=== PATIENT | female | born 1945 | race Caucasian/White ===

== ENCOUNTER → 2017-06-29 18:31 | Outpatient (REF) | payer MEDICARE, SELFPAY | LOC: LAB 18:31 | PROVIDERS: Visit Provider Podiatrist | DX: L60.8 Other nail disorders (principal); L60.0 Ingrowing nail; L60.2 Onychogryphosis | CPT/HCPCS: 87220 ==

== ENCOUNTER → 2018-11-11 11:45 | Outpatient (CLI) | payer MEDICARE, SELFPAY | PROVIDERS: PCP Nurse Practitioner Family; Visit Provider Nurse Practitioner Family | DX: R42 Dizziness and giddiness (principal); R53.83 Other fatigue; I49.9 Cardiac arrhythmia, unspecified | CPT/HCPCS: 93225; 93226 ==

== ENCOUNTER → 2018-11-25 12:55 | Outpatient (CLI) | payer MEDICARE, SELFPAY ==
[2018-11-25 13:36] LABS: Basophils % 0.3 % (0.1-2.0); Eosinophils # 0.1 K/mm3 (0.0-0.4); Eosinophils % 1.2 % (0.1-12.0); Hematocrit 31.2 % (37.0-47.0); Hemoglobin 9.3 g/dL (12.2-16.2); Lymphocytes # 1.7 K/mm3 (0.7-4.5); Lymphocytes % 24.7 % (10-50); Mean Corpuscular HGB Conc 29.8 g/dL (31.8-35.4); Mean Corpuscular Hemoglobin 26.2 pg (27.0-31.2); Mean Corpuscular Volume 87.9 fl (81-99); Mean Platelet Volume 7.8 fl (7.4-10.4); Monocytes # 0.5 K/mm3 (0.1-1.0); Monocytes % 6.7 % (1.7-9.3); Neutrophils # 4.6 K/mm3 (1.8-7.8); Neutrophils % 67.1 % (37.0-80.0); Platelet Count 300 K/mm3 (142-424); Red Blood Count 3.55 M/mm3 (4.20-5.40); Red Cell Distribution Width 14.7 % (11.5-17.5); White Blood Count 6.8 K/mm3 (4.8-10.8)
[2018-11-25 15:44] LABS: Alanine Aminotransferase 25 U/L (12-78); Albumin Level 3.1 gm/dL (3.4-5.0); Alkaline Phosphatase 45 U/L (46-116); Anion Gap 10.9 mEq/L (5-15); Aspartate Amino Transferase 22 U/L (15-37); Bilirubin,Total 0.4 mg/dL (0.2-1.0); Blood Urea Nitrogen 14 mg/dL (7-18); Calcium 8.7 mg/dL (8.5-10.1); Carbon Dioxide 29 mmol/L (21.0-32.0); Chloride 103 mmol/L (98-107); Creatinine,Serum 0.72 mg/dL (0.55-1.02); Estimated Glomerular Filt Rate 79 ml/min (>60); GFR (African American) 96 ML/MIN (>60); Globulin 3.1 gm/dl (1.3-3.2); Glucose 88 mg/dL (74-106); Potassium 3.9 mmoL/L (3.5-5.1); Sodium 139 mmol/L (136-145); Total Protein,Serum 6.2 gm/dL (6.4-8.2)
== END ==
PROVIDERS: Visit Provider Internal Medicine Adolescent Medicine
DX: Z86.2 Personal history of diseases of the blood and blood-forming organs and certain disorders involving the immune mechanism (principal); R53.83 Other fatigue; R53.81 Other malaise
CPT/HCPCS: 36415; 80053; 83735; 85025

== ENCOUNTER → 2018-12-08 09:58 | Outpatient (CLI) | payer MEDICARE, SELFPAY ==
[2018-12-08 10:27] LABS: Basophils % 0.4 % (0.1-2.0); Eosinophils % 0.4 % (0.1-12.0); Hematocrit 29.4 % (37.0-47.0); Hemoglobin 8.7 g/dL (12.2-16.2); Lymphocytes # 1.3 K/mm3 (0.7-4.5); Lymphocytes % 17.5 % (10-50); Mean Corpuscular HGB Conc 29.7 g/dL (31.8-35.4); Mean Corpuscular Hemoglobin 25.2 pg (27.0-31.2); Mean Corpuscular Volume 84.8 fl (81-99); Monocytes # 0.4 K/mm3 (0.1-1.0); Monocytes % 5.6 % (1.7-9.3); Neutrophils # 5.5 K/mm3 (1.8-7.8); Platelet Count 390 K/mm3 (142-424); Red Blood Count 3.47 M/mm3 (4.20-5.40); Red Cell Distribution Width 14.3 % (11.5-17.5); White Blood Count 7.2 K/mm3 (4.8-10.8)
[2018-12-08 10:59] LABS: Anion Gap 9.8 mEq/L (5-15); Blood Urea Nitrogen 15 mg/dL (7-18); Calcium 8.7 mg/dL (8.5-10.1); Carbon Dioxide 29 mmol/L (21.0-32.0); Chloride 104 mmol/L (98-107); Creatinine,Serum 0.78 mg/dL (0.55-1.02); Estimated Glomerular Filt Rate 72 ml/min (>60); GFR (African American) 87 ML/MIN (>60); Glucose 93 mg/dL (74-106); Potassium 3.8 mmoL/L (3.5-5.1); Sodium 139 mmol/L (136-145)
== END ==
PROVIDERS: Visit Provider Internal Medicine Adolescent Medicine
DX: D64.9 Anemia, unspecified (principal)
CPT/HCPCS: 36415; 80048; 85025

== ENCOUNTER 2018-12-09 12:47 | Outpatient (CLI) | payer MEDICARE, SELFPAY ==
[2018-12-09 13:05] VITALS: BP 150/82; PULSE 92; RESP 18; O2SAT 98
[2018-12-09 13:46] VITALS: BP 156/73; PULSE 93; RESP 18; O2SAT 99
== END 2018-12-09 13:46 | disposition home or self-care (01) ==
LOC: INF 12:47
PROVIDERS: Visit Provider Internal Medicine Adolescent Medicine
DX: D50.0 Iron deficiency anemia secondary to blood loss (chronic) (principal); T45.4X5A Adverse effect of iron and its compounds, initial encounter
CPT/HCPCS: 96365; J1439

== ENCOUNTER 2018-12-16 13:47 | Outpatient (CLI) | payer MEDICARE, SELFPAY ==
[2018-12-16 14:14] VITALS: BP 114/81; PULSE 85; RESP 18; O2SAT 96
[2018-12-16 15:05] VITALS: BP 130/82; PULSE 83; RESP 18; O2SAT 98
== END 2018-12-16 15:05 | disposition home or self-care (01) ==
LOC: INF 13:47
PROVIDERS: Visit Provider Internal Medicine Adolescent Medicine
DX: D50.0 Iron deficiency anemia secondary to blood loss (chronic) (principal)
CPT/HCPCS: 96365; J1439

== ENCOUNTER 2018-12-17 07:55 | Observation (INO) ==
--- NOTE | 2018-12-17 08:15 | Emergency Department Note ---
ED Disposition Clinical Impression: Precordial chest pain CVA (cerebral vascular accident) Qualifiers: CVA mechanism: unspecified Qualified Code(s): I63.9 - Cerebral infarction, unspecified Disposition: Admitted as Observation Condition on Discharge: [facility] - Critical Care Critical Care Time: No Attestation: On 12/17/18, the high probability of a clinically significant, sudden or life threatening deterioration of the following system(s) required my full and direct attention, intervention and personal management. The time I documented below is in addition to time spent performing reported procedures but includes the following listed in this critical care notation. Medical Decision Making - Mitch Inquiry Pt receiving controlled substance: No Vital Signs: 12/17/18 08:04 12/17/18 08:58 12/17/18 09:45 Temperature 97.9 F Temperature Source Oral Pulse Rate [Left Radial] 84 81 80 Respiratory Rate 18 18 Blood Pressure [Right Arm] 127/63 120/63 146/83 H Blood Pressure Mean [Right Arm] 84 82 104 Blood Pressure Source [Right Arm] Automatic Cuff Automatic Cuff Automatic Cuff Blood Pressure Position [Right Arm] Sitting Sitting Sitting 02 Sat by Pulse Oximetry 98 98 Oxygen Delivery Method Room Air Room Air 12/17/18 10:19 Temperature Temperature Source Pulse Rate [Left Radial] 80 Respiratory Rate 18 Blood Pressure [Right Arm] 143/64 H Blood Pressure Mean [Right Arm] 90 Blood Pressure Source [Right Arm] Automatic Cuff Blood Pressure Position [Right Arm] Sitting 02 Sat by Pulse Oximetry 96 Oxygen Delivery Method Room Air - Lab Data Lab Results 12/17/18 08:05: WBC 6.1, RBC 3.29 L, Hgb 9.1 L, Hct 29.7 L, MCV 90.3, MCH 27.8, MCHC 30.7 L, RDW 22.1 H, Plt Count 207, MPV 7.9, Neut % (Auto) 76.8, Lymph % (Auto) 18.6, [place] % (Auto) 3.3, Eos % (Auto) 1.0, Baso % (Auto) 0.3, Neut # (Auto) 4.7, Lymph # (Auto) 1.1, [place] # (Auto) 0.2, Eos # (Auto) 0.1, Baso # (Auto) 0.0 12/17/18 08:05: Sodium 141, Potassium 4.0, Chloride 105, Carbon Dioxide 28, Anion Gap 12.0, BUN 12, Creatinine 0.76, Estimated Creat Clear 63, Estimated GFR 74, Est GFR ( Amer) 90, Glucose 196 H, Calcium 8.5, Troponin I < 0.02 Result diagrams: 12/17/18 08:05 12/17/18 08:05 Orders (Tests/Meds): ED MEDICATIONS Generic Name Dose Route Start Last Admin Trade Name Freq PRN Reason Stop Dose Admin Acetaminophen 650 mg 12/17/18 10:29 Acetaminophen 325mg Tab PO 01/16/19 10:28 Q4HP PRN As Needed for Fever or Pain Atorvastatin Calcium 20 mg 12/18/18 09:00 Lipitor 20mg Tablet PO 01/17/19 08:59 DAILY TOSHIA Cyclobenzaprine HCl 10 mg 12/17/18 10:29 Flexeril 10mg Tablet PO 01/16/19 10:28 TID PRN Muscle Spasm Enoxaparin Sodium 80 mg 12/17/18 10:29 Lovenox 80mg/0.8ml Syringe SQ 01/16/19 10:28 Q12H TOSHIA Sodium Chloride 1,000 mls @ 50 mls/hr 12/17/18 10:29 Sod Chlor 0.9% 1000ml Bag IV 01/16/19 10:28 .Q20H TOSHIA Ondansetron HCl 4 mg 12/17/18 10:29 Zofran 4mg/2ml Vial IV 01/16/19 10:28 Q8HP PRN Nausea Sodium Chloride 10 ml 12/17/18 10:29 Saline Flush 10ml Syringe IV 01/16/19 10:28 NEEDED PRN Maintain IV Site - Radiology Data #1 Image(s): Chest Image Reviewed: Yes I have reviewed radiologist's interpretation Chronic changes with hiatal hernia. No acute findings. - CT Data CT Scan: Head Time Received: 09:[address] Reviewed: Yes: I have viewed the radiologist's interpretation Findings Narrative: IMPRESSION: New area of decreased attenuation in the right occipital lobe consistent with an area of subacute infarction which has developed since the previous exam. Consider MRI without and with contrast for confirmation. No evidence of intracranial hemorrhage Dictated By: David Wilder MD 12/17/18 0918 - ECG Data Tracing #1 EKG interpreted by Yrn Fox MD: Rhythm: sinus Rate: 82 [place]: normal Ectopy: none Conduction: normal ST Segment Changes: none T Wave Changes: none Q Waves: none No evidence of acute ischemia or injury - Physician Consults Physician Consulted: Nathalie Time: 08:32 Reason -: Admission Comment/Response: Agrees to admit the patient to the hospital. We discussed the patient's clinical information, including history, exam, laboratory and radiology results and ED course. Per hospital procedure, I will write temporary bridge inpatient orders on the patient. Specific orders requested by the admitting physician: Serial cardiac enzymes, CT scan of the brain with contrast if creatinine is okay. Additional Consult: Nathalie Time: 10:10 Reason -: Pt condition Comment/Response: Updated regarding CT results, subacute stroke. Discussed antiplatelet agents. He requests the patient be started instead on Lovenox 1 mg/kg every 12 hours. He will coordinate further work-up. General Adult HPI - General Chief complaint: Weakness Stated complaint: dizzy sweats Time Seen by Provider: 12/17/18 08:15 Mode of Arrival: Ambulatory Limitations: No Limitations Description of Symptoms (Recalled from ER Triage Doc. by RN): to ed per pvt car with c/o generalized weakness x 2 weeks seen by pcp and ordered "iron infusions" 2nd infusion was wednesday and has had "blurred vision" since. pt states today had an episode of chest tightness, diaphoresis and sob lasting approx 15mins. - History of Present Illness HPI narrative: Complains of an episode of chest pain, diaphoresis, shortness of breath, nausea, lightheadedness it started about an hour prior to arrival. Lasted 15 minutes. Says that sweat was just pouring off of her. Daughter says that patient called her during the episode and sounded terrible. Chest pain is now gone. She has had episodes of lightheadedness before, but never with chest pain like this. Does not have any known heart disease. She says she had a stress test years ago. Has never had a heart cath to her knowledge. Seen by me in this emergency department on December 06 for episodes of lightheadedness lasting a couple of hours that have been going on for couple of months. She was anemic, started on iron infusion since then. She has had 2 infusions. Last infusion was yesterday. Daughter is also concerned because after her infusions started Wednesday she has been pale or gomez around her eyes and mouth and when the daughter's grandmother had this, she had had a stroke. Patient also complains of blurry vision since her first infusion on Wednesday. She is having trouble reading due to the blurry vision. It has not gone away since onset. She has not noticed any blind spots or any specific field defect. She does not have headache, numbness or weakness of the arms or legs, or difficulty speaking. - Related Data Home Medications Medication Instructions Recorded Confirmed alendronate 70 mg tablet 70 mg PO QWEEK 06/29/17 12/17/18 atorvastatin 20 mg tablet 20 mg PO ONCE 06/29/17 12/17/18 calcium carbonate 600 mg calcium 600 mg PO ONCE tab 06/29/17 12/17/18 (1,500 mg) tablet ferrous sulfate 325 mg (65 mg 325 mg PO DAILY 06/29/17 12/17/18 iron) tablet omeprazole 20 mg tablet,delayed 20 mg PO BID 06/29/17 12/17/18 release vitamin B complex tablet 1 tab PO ONCE 06/29/17 12/17/18 Meloxicam [Mobic] 15 mg PO DAILY 12/17/18 12/17/18 Previous Rx's Medication Instructions Recorded Cyclobenzaprine HCl [Flexeril 10mg 10 mg PO TID PRN 10 Days #30 tab 10/30/17 tablet] diclofenac 1 % topical gel 4 g TOPICAL QID #30 g 11/18/17 Polyethylene Glycol 3350 [Miralax 17 gm PO DAILYP PRN #1 container 11/26/18 Powder] Sod Phos,M-B/Na Phos,Di-Ba [Fleet 1 container RC DAILYP PRN #2 enema 11/26/18 Enema] Allergies Allergy/AdvReac Type Severity Reaction Status Date / Time No Known Allergies Allergy Verified 12/31/17 12:28 [facility] History - Hepatitis A Screen Drug use history?: No High risk sexual behaviors?: No History of sexually transmitted infection?: No Currently employed?: No Childcare worker?: No Do you have indoor plumbing?: Yes Do you have electricity?: Yes Attestation statement:: This patient has been screened for Hepatitis A risk factors. I have reviewed the patient's past medical history: Yes Medical History: Reports:: Gastroesophageal Reflux Disease(GERD), Hyperlipidemia, Hypertension, Osteoporosis Denies:: Cancer, Cerebrovascular Accident, Diabetes Mellitus Type 1, Diabetes Mellitus Type 2, MRSA, Myocardial Infarction Other Medical History: Reports: Osteoporosis Laterality Cases: Left: Other Amputation: No Fractures: Yes - Social History Smoking Status: Former smoker Tobacco Type: cigarettes #Yrs smoked (if former smoker): 50 Alcohol Intake: never Alcohol Intake Frequency:: other Substance Use Type: denies use Occupational Status: employed Family Hx:: Cancer, Diabetes ROS Obtained: Yes All systems reviewed & no additional complaints - Constitutional Constitutional: Denies fever(s) - Eyes Eyes: Reports blurry vision - Cardiovascular Cardiovascular: Reports chest pain, Reports diaphoresis - Respiratory Respiratory: Yes dyspnea - Gastrointestinal Gastrointestingal: Reports: nausea. Denies: abdominal pain, vomiting Physical Exam - General General appearance: alert, in no apparent distress - Head Head exam: atraumatic, normocephalic - Eye Eye exam: Present: normal appearance, EOMI - ENT ENT exam: Present: mucous membranes moist - Neck Neck exam: Present: normal inspection, trachea midline - Chest Chest inspection: Present: normal inspection, symmetric chest wall rise - Respiratory Respiratory exam: Present: normal lung sounds bilaterally. Absent: respiratory distress - Cardiovascular Cardiovascular exam: Present: regular rate, normal rhythm, normal heart sounds - Abdominal Exam Abdominal exam: Present: soft, normal bowel sounds. Absent: distention, tenderness - Extremities Exam Extremities exam: Present: normal inspection. Absent: pedal edema - Neurological Exam Neurological exam: Present: alert, oriented X3, motor sensory deficit - Expanded Neurological Exam Comment: Left homonymous hemianopsia - Psychiatric Psychiatric exam: Present: normal affect, normal mood - Skin Skin exam: Present: warm, dry Stroke Alert/NIH Score - LOC Stroke Alert: No Level of Consciousness: Alert LOC Questions: Answers both correctly LOC Commands: Obeys both correctly - Facial/Visual Best Gaze: Normal Visual: Complete hemianopia Facial Palsy: Normal - Motor Motor Response, Left Arm: No drift/Amputation/Fused Motor Response, Right Arm: No drift/Amputation/Fused Motor Response, Left Leg: No drift/Amputation/Fused Motor Response, Right Leg: No drift/Amputation/Fused - Sensory/Language Limb Ataxia: Absent Sensory: Normal Best Language: No aphasia Dysarthria: Normal speech, Intubated or Barrier present - NIH Score Stroke Risk Score: 2
[2018-12-17 08:20] LABS: Basophils % 0.3 % (0.1-2.0); Eosinophils # 0.1 K/mm3 (0.0-0.4); Hematocrit 29.7 % (37.0-47.0); Hemoglobin 9.1 g/dL (12.2-16.2); Lymphocytes # 1.1 K/mm3 (0.7-4.5); Lymphocytes % 18.6 % (10-50); Mean Corpuscular HGB Conc 30.7 g/dL (31.8-35.4); Mean Corpuscular Volume 90.3 fl (81-99); Mean Platelet Volume 7.9 fl (7.4-10.4); Monocytes # 0.2 K/mm3 (0.1-1.0); Monocytes % 3.3 % (1.7-9.3); Neutrophils # 4.7 K/mm3 (1.8-7.8); Neutrophils % 76.8 % (37.0-80.0); Platelet Count 207 K/mm3 (142-424); Red Blood Count 3.29 M/mm3 (4.20-5.40); Red Cell Distribution Width 22.1 % (11.5-17.5); White Blood Count 6.1 K/mm3 (4.8-10.8)
[2018-12-17 08:31] LABS: Blood Urea Nitrogen 12 mg/dL (7-18); Calcium 8.5 mg/dL (8.5-10.1); Carbon Dioxide 28 mmol/L (21.0-32.0); Chloride 105 mmol/L (98-107); Glucose 196 mg/dL (74-106); Sodium 141 mmol/L (136-145)
[2018-12-17 10:29] LABS: Microscopic, Urine URINE MICROSCOPIC (MICROSCOPIC)
[2018-12-17 10:31] LABS: Appearance,Urine CLEAR (Clear); Bilirubin,Urine Negative (Negative); Blood, Urine Negative (Negative); Color,Urine YELLOW (Yellow); Glucose,Urine (UA) Negative (Negative); Ketones,Urine Negative (Negative); Leukocyte Esterase,Urine Negative (Negative); Protein,Urine Negative (Negative); Specific Gravity, Urine 1.015 (1.005-1.030); Urobilinogen,Urine 0.2 EU/dl (0.2)
[2018-12-17 10:45] LABS: Bacteria,Urine Trace /lpf
--- NOTE | 2018-12-17 12:35 | Pharmacy Consult Notes ---
[facility] Pharmacy VTE Monitoring - Patient Demographics Admission date: 12/17/18 Report Date: 12/17/18 Time: 12:35 Allergies/Adverse Reactions: Patient Allergies No Known Allergies Allergy (Verified 12/31/17 12:28) Height: 1.65 m Weight: 69.882 kg Patient Problems: Current Active Problems Precordial chest pain (Acute) CVA (cerebral vascular accident) (Acute) - VTE Risk Labs: VTE Related Lab Results Hgb 9.1 g/dL (12.2-16.2) L 12/17/18 08:05 Hct 29.7 % (37.0-47.0) L 12/17/18 08:05 Plt Count 207 K/mm3 (142-424) 12/17/18 08:05 BUN 12 mg/dL (7-18) 12/17/18 08:05 Creatinine 0.76 mg/dL (0.55-1.02) 12/17/18 08:05 Estimated Creat Clear 63 mL/min (50-200) 12/17/18 08:05 Was VTE Risk Assessment Performed: Yes VTE Score: 2 VTE Risk Level: Very Low Risk - Prophylaxis VTE Prophylaxis Ordered?: Yes Types of VTE Prophylaxis: Pharmacological Pharmacologic Type: Enoxaparin
--- NOTE | 2018-12-18 08:22 | H&P/Discharge Summary ---
General - General Admission date:: 12/17/18 Discharge date: 12/18/18 *Admission Date: 12/17/18 *Chief complaint: Blurry vision, fatigue, anxiety *History of present illness: 73-year-old white female who is currently in the process of receiving intravenous iron treatments for iron deficiency anemia. Has a history of hypertension and has quit smoking several years ago. Apparently 1 or 2 weeks ago she began to notice blurry vision when she returned home after an intravenous iron treatment of this is progressively gotten worse. Her daughter the morning of admission noticed that her left side of her face was somewhat drooping and brought her to the emergency department. She was found to be hemodynamically stable but had a evidence of a subacute stroke on CT scan and was admitted for further diagnosis and treatment. [facility] History I have reviewed the patient's past medical history: Yes Medical History: Reports:: Gastroesophageal Reflux Disease(GERD), Hyperlipidemia, Hypertension, Osteoporosis Denies:: Cancer, Cerebrovascular Accident, Diabetes Mellitus Type 1, Diabetes Mellitus Type 2, MRSA, Myocardial Infarction *Have you ever received a pneumonia vaccine?: No *Have you received a flu vaccine this season?: Yes Other Medical History: Reports: Osteoporosis Laterality Cases: Left: Other Amputation: No Fractures: Yes - *Social History Smoking Status: Former smoker Tobacco Type: cigarettes #Yrs smoked (if former smoker): 50 Alcohol Intake: never Alcohol Intake Frequency:: other Substance Use Type: denies use *Occupational Status:: employed *Travel in the last 8 weeks: None - Psychiatric History Expresses thoughts of harming self/others: None Suicide Plan Description: No Plan Family Hx:: Cancer, Diabetes Review of Systems - Review of Systems Review of systems:: pertinent systems reviewed and negative unless documented below This morning patient denies any symptoms of chest pain, pulmonary disease. Neurologically she has blurry vision but otherwise no problems, she feels that her facial drooping is essentially resolved. No peripheral extremity weakness or tingling. Denies GI symptoms. Exam Vital signs and Labs for Last 24 Hours: Temp Pulse Resp BP Pulse Ox 98.1 F 87 16 152/76 H 96 12/18/18 04:00 12/18/18 04:00 12/18/18 04:00 12/18/18 04:00 12/18/18 04:00 Laboratory Results - last 24 hr 12/17/18 08:05: WBC 6.1, RBC 3.29 L, Hgb 9.1 L, Hct 29.7 L, MCV 90.3, MCH 27.8, MCHC 30.7 L, RDW 22.1 H, Plt Count 207, MPV 7.9, Neut % (Auto) 76.8, Lymph % (Auto) 18.6, [place] % (Auto) 3.3, Eos % (Auto) 1.0, Baso % (Auto) 0.3, Neut # (Auto) 4.7, Lymph # (Auto) 1.1, [place] # (Auto) 0.2, Eos # (Auto) 0.1, Baso # (Auto) 0.0 12/17/18 08:05: Sodium 141, Potassium 4.0, Chloride 105, Carbon Dioxide 28, Anion Gap 12.0, BUN 12, Creatinine 0.76, Estimated Creat Clear 63, Estimated GFR 74, Est GFR ( Amer) 90, Glucose 196 H, Calcium 8.5, Troponin I < 0.02 12/17/18 10:21: Urine Color Yellow, Urine Appearance Clear, Urine pH 7.0, Ur Specific [place] 1.015, Urine Protein Negative, Urine Glucose (UA) Negative, Urine Ketones Negative, Urine Blood Negative, Urine Nitrate Negative, Urine Bilirubin Negative, Urine Urobilinogen 0.2, Ur Leukocyte Esterase Negative, Urine RBC None, Urine WBC 3-5, Urine Bacteria Trace 12/17/18 14:00: Troponin I 0.03 12/17/18 16:25: Troponin I 0.03 I & O for Last 24 hours: Intake & Output 12/15/18 12/16/18 12/17/18 12/18/18 11:59 11:59 11:59 11:59 Intake Total 941 / 941 Output Total 480 / 480 Balance 461 / 461 Weight 154 lb 1 oz 154 lb 1.015 oz Narrative: Patient is alert, pleasant. Minimal left nasolabial fold asymmetry with slight flattening of the left nasolabial fold. Otherwise cranial nerves are intact although since of smell was not tested. Patient ambulates well. Walks on heels and toes. Balance is acceptable. Finger/nose testing and dyskinesia testing was unremarkable. Peripheral power is unremarkable. Lungs are clear, heart rate regular. Oropharynx clear, abdomen is soft. Hospital Course Hospital Course: Patient was admitted overnight. I reviewed CT scan results consistent with a stroke 1 or 2 weeks ago. Patient's blood pressure is minimally elevated. Otherwise her exam is normal and she is done well through the night. I plan to discharge her home with aspirin, lisinopril, Lexapro and Vistaril for her anxiety issues, we will follow her up tomorrow in the office to check blood pressure and to schedule carotid Dopplers and MRI scanning. Directed her and her daughter that if symptoms recur to return to the hospital and she would need to be considered to transfer to [facility] stroke unit if something acute occurs. Results Labs on day of discharge: Labs from last 24 hours 12/17/18 12/17/18 12/17/18 16:25 14:00 10:21 WBC RBC Hgb Hct MCV MCH MCHC RDW Plt Count MPV Neut % (Auto) Lymph % (Auto) [place] % (Auto) Eos % (Auto) Baso % (Auto) Neut # (Auto) Lymph # (Auto) [place] # (Auto) Eos # (Auto) Baso # (Auto) Sodium Potassium Chloride Carbon Dioxide Anion Gap BUN Creatinine Estimated Creat Clear Estimated GFR Est GFR ( Amer) Glucose Calcium Troponin I 0.03 0.03 Urine Color Yellow Urine Appearance Clear Urine pH 7.0 Ur Specific [place] 1.015 Urine Protein Negative Urine Glucose (UA) Negative Urine Ketones Negative Urine Blood Negative Urine Nitrate Negative Urine Bilirubin Negative Urine Urobilinogen 0.2 Ur Leukocyte Esterase Negative Urine RBC None Urine WBC 3-5 Urine Bacteria Trace 12/17/18 12/17/18 08:05 08:05 WBC 6.1 RBC 3.29 L Hgb 9.1 L Hct 29.7 L MCV 90.3 MCH 27.8 MCHC 30.7 L RDW 22.1 H Plt Count 207 MPV 7.9 Neut % (Auto) 76.8 Lymph % (Auto) 18.6 [place] % (Auto) 3.3 Eos % (Auto) 1.0 Baso % (Auto) 0.3 Neut # (Auto) 4.7 Lymph # (Auto) 1.1 [place] # (Auto) 0.2 Eos # (Auto) 0.1 Baso # (Auto) 0.0 Sodium 141 Potassium 4.0 Chloride 105 Carbon Dioxide 28 Anion Gap 12.0 BUN 12 Creatinine 0.76 Estimated Creat Clear 63 Estimated GFR 74 Est GFR ( Amer) 90 Glucose 196 H Calcium 8.5 Troponin I < 0.02 Urine Color Urine Appearance Urine pH Ur Specific [place] Urine Protein Urine Glucose (UA) Urine Ketones Urine Blood Urine Nitrate Urine Bilirubin Urine Urobilinogen Ur Leukocyte Esterase Urine RBC Urine WBC Urine Bacteria DS: Diagnosis - Discharge Diagnosis (1) Ischemic stroke diagnosed during current admission Status: Acute (2) Hypertension, essential Status: Acute (3) Generalized anxiety disorder Status: Acute Discharge Plan - Patient Discharge Instructions ACTIVITY: Continue current activity DIET: continue same diet Patient Instructions: DI for Stroke-Ischemic, DI for Angina - Follow up Plan Follow up with: Eunice Encarnacion APRN [Nurse Practitioner] - 12/19/18 11:00 am Disposition: Home, Self-Group Home Medications: Home Medications Medication Instructions Recorded Confirmed Type alendronate 70 mg tablet 70 mg PO WEEKLY 06/29/17 12/17/18 History atorvastatin 20 mg tablet 20 mg PO HS 06/29/17 12/17/18 History omeprazole 20 mg tablet,delayed 20 mg PO BID 06/29/17 12/17/18 History release Ascorbic Acid [Vitamin C 500mg 500 mg PO DAILY 12/17/18 12/17/18 History tablet] Calcium Carbonate/Vitamin D3 1 each PO DAILY 12/17/18 12/17/18 History [Caltrate 600 Plus D3 Tablet] Cholecalciferol (Vitamin D3) 2,000 unit PO DAILY 12/17/18 12/17/18 History [Vitamin D3] Cyanocobalamin (Vitamin B-12) 2,500 mcg PO DAILY 12/17/18 12/17/18 History [Vitamin B-12] L.acidoph,Paracasei, B.lactis 1 each PO DAILY 12/17/18 12/17/18 History [Probiotic] Aspirin [Aspirin 325mg Tab] 325 mg PO DAILY #30 tab 12/18/18 Rx Escitalopram Oxalate [Lexapro] 5 mg PO DAILY #30 tab 12/18/18 Rx Lisinopril [Lisinopril 5mg 5 mg PO DAILY #30 tab 12/18/18 Rx Tablet] hydrOXYzine pamoate [Vistaril 25mg 25 mg PO Q6H PRN #30 cap 12/18/18 Rx capsule] Prescriptions/Medication Reconciliation: New Aspirin [Aspirin 325mg Tab] 325 mg PO DAILY #30 tab Escitalopram Oxalate [Lexapro] 5 mg PO DAILY #30 tab Lisinopril [Lisinopril 5mg Tablet] 5 mg PO DAILY #30 tab hydrOXYzine pamoate [Vistaril 25mg capsule] 25 mg PO Q6H PRN #30 cap PRN Reason: Anxiety Continued atorvastatin 20 mg tablet 20 mg PO HS alendronate 70 mg tablet 70 mg PO WEEKLY omeprazole 20 mg tablet,delayed release 20 mg PO BID Ascorbic Acid [Vitamin C 500mg tablet] 500 mg PO DAILY L.acidoph,Paracasei, B.lactis [Probiotic] 1 each PO DAILY Cholecalciferol (Vitamin D3) [Vitamin D3] 2,000 unit PO DAILY Cyanocobalamin (Vitamin B-12) [Vitamin B-12] 2,500 mcg PO DAILY Calcium Carbonate/Vitamin D3 [Caltrate 600 Plus D3 Tablet] 1 each PO DAILY
== END 2018-12-18 08:53 | disposition home or self-care (01) ==
LOC: ER 07:55 → 2ND 07:55
PROVIDERS: ADMIT Internal Medicine Adolescent Medicine; ATTEND Internal Medicine Adolescent Medicine
DX: T50.995A Adverse effect of other drugs, medicaments and biological substances, initial encounter; Z98.890 Other specified postprocedural states; R42 Dizziness and giddiness; Z79.899 Other long term (current) drug therapy; I63.89 Other cerebral infarction; E78.5 Hyperlipidemia, unspecified; D50.9 Iron deficiency anemia, unspecified; R53.1 Weakness; R61 Generalized hyperhidrosis; Z79.82 Long term (current) use of aspirin; R06.81 Apnea, not elsewhere classified; I10 Essential (primary) hypertension; Z87.891 Personal history of nicotine dependence
CPT/HCPCS: 36415; 70460; 71020; 71046; 80048; 81001; 84484; 85025; 93005; 96365; 99285; G0378; J1439

== ENCOUNTER → 2018-12-21 08:51 | Outpatient (CLI) | payer MEDICARE, SELFPAY | PROVIDERS: PCP Internal Medicine Adolescent Medicine; Visit Provider Internal Medicine Adolescent Medicine | DX: I69.30 Unspecified sequelae of cerebral infarction (principal) ==

== ENCOUNTER → 2018-12-26 13:04 | Outpatient (CLI) | payer MEDICARE, SELFPAY ==
--- NOTE | 2018-12-26 10:43 | CA_ITS ---
APPROVED REPORT EXAM: Comprehensive 2D, Doppler, and color-flow Echocardiogram Shank Carrier: Anne Marie Dang RDCS Ht: 5 ft 5 in Wt: 150lbs BSA: 1.75 BP: 152/78 mmHg Indications: CVA Hyperlipidemia, Hypertension Echo Enhancing Agent Indication: Rule Out Septal Defect Agent(s) / Amount(s) Used: Agitated Saline 5 cc Comments: PT injected x 3. Left Ventricle Left atrium is mildly enlarged, left ventricle is normal size, mild concentric left ventricular hypertrophy, visually estimated ejection fraction 55% with no regional wall motion abnormality. Grade 1 diastolic dysfunction seen with tissue Doppler evidence of raise left atrial pressure. Right Ventricle Right atrium and left ventricular mildly enlarged with normal contractility. Atria Interatrial septum is intact, there is no flow across the interatrial septum, agitated saline contrast study fails to identify intracardiac shunt. Aortic Valve Aortic valve is minimally thickened and calcified, there is no aortic stenosis aortic insufficiency. Mitral Valve Mitral valve is grossly normal, there is mild mitral regurgitation. Tricuspid Valve Tricuspid valve is grossly normal, there is mild tricuspid addition, correct R ventricular systolic pressure is 43 mmHg consistent with moderate pulmonary hypertension, inferior vena cava was not well-visualized Pulmonic Valve Pulmonic valve is grossly normal. Great Vessels Aortic root is normal size. Pericardium No significant pericardial effusion noted. 2D Dimensions LVOT 1.70 cm (M/F) 1.5-2.5 M-Mode Dimensions RVDd 0.80 cm (0.9-2.6) LA Diam 2.90 cm (1.9-4.0) LVDd 5.90 cm (3.5-5.7) Ao Diam 3.00 cm (2.0-3.7) LVDs 4.60 cm (3.5-5.7) AV Cusp 2.10 cm (1.5-2.6) IVSd 0.70 cm (0.6-1.1) PWd 0.80 cm (0.6-1.1) EF (Teich) 43.80% FS 22.00% EDV (Teich) 173.00 mL ESV (Teich) 97.30 mL LV Diastology E/A Ratio 1.0 MED E' 5.17 (< 7 cm/sec) E'/MED E' Ratio 16.60 (>14) LAT E' 6.92 (<10 cm/sec) E/LAT E' Ratio 12.40 (>14) Mitral Valve MV E Max Rao. 85.90 (40-130 cm/s) MV A Velocity 90.30 (40-130 cm/s) E/A Ratio 1.00 Tricuspid Valve TR P. Velocity 275.00 cm/s RAP Estimate 10.00 mmHg RVSP 40.00 mmHg Conclusion 1. Mild biatrial enlargement, normal left ventricular size, mild concentric left ventricular hypertrophy, visually estimated ejection fraction 55% with no regional wall motion abnormality, grade 1 diastolic dysfunction seen with tissue Doppler evidence of raise left atrial pressure. 2. Mildly enlarged right ventricle with normal contractility. 3. Mild mitral and tricuspid regurgitation, calculated right ventricular systolic pressure is 43 mm of [place] consistent moderate pulmonary hypertension. 4. Agitated saline contrast study fails to identify intracardiac shunt. 5. No significant pericardial effusion noted. Electronically signed by : Femi Alston, 12/30/2018 14:22:15
--- NOTE | 2018-12-26 13:10 | CI_ITS ---
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 IMPRESSIONS 1. The bilateral vertebral arteries are patent with normal antegrade flow. 2. Study suggests less than 20% stenosis involving the right internal carotid artery. 3. Study suggests 20-49% stenosis involving the left internal carotid artery. Disease progression from the study of 17-Jun-2010. History: Risk factors: Hypertension. Carotid duplex study. Complete study and Doppler flow study including spectral analysis, color and gomez scale imaging. Location: Vascular laboratory. Patient status: Outpatient. Tables: Arterial flow: + +--------+--------+ Location V sys V ed + +--------+--------+ Right CCA - proximal 88cm/s 10.2cm/s + +--------+--------+ Right CCA - distal 71.5cm/s 21.2cm/s + +--------+--------+ Right ECA 95.1cm/s -------- + +--------+--------+ Right ICA - proximal 73.1cm/s -22cm/s + +--------+--------+ Right ICA - mid 77.8cm/s 26.7cm/s + +--------+--------+ Right ICA - distal 79.4cm/s 27.5cm/s + +--------+--------+ Right vertebral 58.1cm/s -------- + +--------+--------+ Left CCA - proximal 79.4cm/s 14.9cm/s + +--------+--------+ Left CCA - distal 79.4cm/s 16.5cm/s + +--------+--------+ Left ECA 87.2cm/s -------- + +--------+--------+ Left ICA - proximal 148cm/s 53cm/s + +--------+--------+ Left ICA - mid 74.6cm/s 20.6cm/s + +--------+--------+ Left ICA - distal 66.8cm/s 21.6cm/s + +--------+--------+ Left vertebral 52.1cm/s -------- + +--------+--------+ Velocity ratios: + + + + + + Right, V sys Right, V ed Left, V sys Left, V ed + + + + + + Max ICA/dist CCA 1.11 1.3 1.86 3.21 + + + + + + (Report amended ) Electronically signed by: David Wilder [id number]
== END ==
PROVIDERS: PCP Internal Medicine Adolescent Medicine; Visit Provider Internal Medicine Adolescent Medicine
DX: R41.842 Visuospatial deficit; I63.9 Cerebral infarction, unspecified; R42 Dizziness and giddiness; I10 Essential (primary) hypertension; R06.02 Shortness of breath; R07.9 Chest pain, unspecified
CPT/HCPCS: 93306; 93880

== ENCOUNTER → 2018-12-27 10:49 | Outpatient (CLI) | payer MEDICARE, SELFPAY ==
--- NOTE | 2018-12-27 10:51 | MR_ITS ---
PROCEDURE: MR HEAD/BRAIN WO/W CON CLINICAL INDICATION: HISTORY OF CVA WITH RESIDUAL DEFICIT Dizziness, blurry vision, visual loss, room spinning COMPARISON: HEADWO CT head/brain wo con from 12/06/[address] head/brain w con from 12/17/2018 TECHNIQUE: Routine multiplanar multi echo sequences are performed without and with gadolinium enhancement. FINDINGS: No midline shift, mass effect, intracranial hemorrhage, or hydrocephalus is evident. There is wedge-shaped area of increased T2 signal involving the right occipital lobe. This area does show some prominent enhancement and may be related to an area of subacute infarction with luxury perfusion. Unfortunately, the diffusion-weighted images are not available for review. They will be reviewed and an addendum given if needed. This area does show some slight increase ADC signal which would indicate more of a subacute infarction as opposed to an acute infarction. There is generalized atrophy with periventricular ischemic gliotic changes. There is an area of encephalomalacia in the right frontal parietal region consistent with an old infarction. There is mild ventriculomegaly with prominent cavum septum pellucidum. The ventriculomegaly may be due to volume loss from the generalized atrophy. There is diffuse wedge-shaped enhancement in the right occipital lobe involving both gomez and white matter measuring approximately 2.9 by 2.6 cm. No significant mass effect. No other areas of enhancement. The cerebellopontine angle, cerebellum, and brainstem have an unremarkable appearance. No mastoid effusion or sinus air-fluid level. IMPRESSION: 1. The findings are compatible with a subacute infarction with luxury perfusion in the right occipital lobe 2. Atrophy with chronic ischemic gliotic change with an old area of infarction in the right frontal parietal region Dictated by: David Wilder MD 01/03/2019 06:02 Signed by: <Electronically signed by David Wilder MD in [place]> 01/03/2019 06:02
== END ==
PROVIDERS: PCP Internal Medicine Adolescent Medicine; Visit Provider Internal Medicine Adolescent Medicine
DX: I69.30 Unspecified sequelae of cerebral infarction (principal)
CPT/HCPCS: 70553; A9576

== ENCOUNTER → 2019-01-12 07:08 | Outpatient (CLI) | payer MEDICARE, SELFPAY ==
[2019-01-12 07:34] LABS: Basophils % 0.5 % (0.1-2.0); Eosinophils # 0.2 K/mm3 (0.0-0.4); Eosinophils % 2.9 % (0.1-12.0); Hematocrit 39.8 % (37.0-47.0); Hemoglobin 12.2 g/dL (12.2-16.2); Lymphocytes # 1.3 K/mm3 (0.7-4.5); Lymphocytes % 19.5 % (10-50); Mean Corpuscular HGB Conc 30.8 g/dL (31.8-35.4); Mean Corpuscular Hemoglobin 28.6 pg (27.0-31.2); Mean Corpuscular Volume 93.1 fl (81-99); Mean Platelet Volume 8.5 fl (7.4-10.4); Monocytes # 0.4 K/mm3 (0.1-1.0); Neutrophils # 4.7 K/mm3 (1.8-7.8); Neutrophils % 71.1 % (37.0-80.0); Platelet Count 185 K/mm3 (142-424); Red Blood Count 4.27 M/mm3 (4.20-5.40); Red Cell Distribution Width 19.4 % (11.5-17.5); White Blood Count 6.6 K/mm3 (4.8-10.8)
[2019-01-12 10:00] LABS: Alanine Aminotransferase 18 U/L (12-78); Albumin Level 3.4 gm/dL (3.4-5.0); Albumin/Globulin Ratio 1.2 (1.1-1.8); Alkaline Phosphatase 54 U/L (46-116); Anion Gap 9.4 mEq/L (5-15); Aspartate Amino Transferase 18 U/L (15-37); Bilirubin,Total 0.3 mg/dL (0.2-1.0); Blood Urea Nitrogen 26 mg/dL (7-18); Calcium 8.6 mg/dL (8.5-10.1); Carbon Dioxide 31 mmol/L (21.0-32.0); Chloride 104 mmol/L (98-107); Chol/HDL Ratio 2.5 (1-3.5); Cholesterol 142 mg/dL (140-200); Estimated Glomerular Filt Rate 70 ml/min (>60); GFR (African American) 85 ML/MIN (>60); Globulin 2.9 gm/dl (1.3-3.2); Glucose 98 mg/dL (74-106); HDL Cholesterol 56 mg/dL (29-89); LDL Cholesterol 70 mg/dL (0-130); Potassium 4.4 mmoL/L (3.5-5.1); Sodium 140 mmol/L (136-145); Total Protein,Serum 6.3 gm/dL (6.4-8.2); Triglycerides 82 mg/dL (30-200); VLDL Cholesterol 16 mg/dL (0-40)
== END ==
PROVIDERS: Visit Provider Nurse Practitioner Family
DX: I10 Essential (primary) hypertension (principal); D50.0 Iron deficiency anemia secondary to blood loss (chronic); I69.30 Unspecified sequelae of cerebral infarction
CPT/HCPCS: 36415; 80053; 80061; 85025

== ENCOUNTER 2019-09-17 11:04 | Emergency (ER) | payer MEDICARE, SELFPAY ==
[2019-09-17 11:06] VITALS: BP 156/80; PULSE 80; RESP 16; TEMP 36.8; O2SAT 98; BMI 29.9
--- NOTE | 2019-09-17 11:34 | CT_ITS ---
PROCEDURE: CT HEAD/BRAIN WO CON CLINICAL INDICATION: ams Altered mental status, altered level consciousness, confusion, disorientation, hallucinations visual COMPARISON: HEADW CT head/brain w con from 12/17/2018 TECHNIQUE: Axial images obtained. All CT scans at the facility use one or more dose reduction, viz: automated exposure control, ma/kV adjustment per patient size (including targeted exams where dose is matched to indication, i.e. head), or iterative reconstruction technique. FINDINGS: No midline shift, mass effect, intracranial hemorrhage, hydrocephalus, or extra-axial fluid collection is evident. There is generalized atrophy with hypoattenuation of the periventricular white matter consistent with microangiopathic changes.. Encephalomalacia changes are present in the right parietal occipital region and in the right frontal parietal area. There is a cavum septum pellucidum as a normal variant. The calvarium has an unremarkable appearance. No mastoid effusion. No sinus air-fluid level. IMPRESSION: 1. No acute intracranial finding. 2. Remote ischemic changes Dictated by: David Wilder MD 09/18/2019 06:17 Electronically signed by David Wilder MD in [place] 09/18/2019 06:17
[2019-09-17 11:44] LABS: Alanine Aminotransferase 19 U/L (12-78); Albumin Level 4.2 g/dl (3.5-5.0); Albumin/Globulin Ratio 1.4 (1.1-1.8); Alkaline Phosphatase 51 U/L (38-126); Aspartate Amino Transferase 36 U/L (14-36); Basophils # 0.1 K/mm3 (0-0.2); Basophils % 0.7 % (0.1-2.0); Bilirubin,Total 0.6 mg/dl (0.2-1.3); Blood Urea Nitrogen 18 mg/dl (7-17); Calcium 9.2 mg/dl (8.4-10.2); Carbon Dioxide 30 mmol/L (22.0-30.0); Chloride 101 mmol/L (98-107); Creatinine Clearance Estimated 62 mL/min (50-200); Eosinophils # 0.1 K/mm3 (0.0-0.4); Estimated Glomerular Filt Rate 81 ml/min (>60); GFR (African American) 98 ML/MIN (>60); Globulin 2.9 g/dL (1.3-3.2); Glucose 107 mg/dl (74-100); Hematocrit 38.5 % (37.0-47.0); Hemoglobin 12.5 g/dL (12.2-16.2); Lymphocytes # 1.3 K/mm3 (0.7-4.5); Lymphocytes % 17.3 % (10-50); Mean Corpuscular HGB Conc 32.6 g/dL (31.8-35.4); Mean Corpuscular Hemoglobin 30.5 pg (27.0-31.2); Mean Corpuscular Volume 93.6 fl (81-99); Mean Platelet Volume 8.7 fl (7.4-10.4); Monocytes # 0.4 K/mm3 (0.1-1.0); Monocytes % 5.2 % (1.7-9.3); Neutrophils # 5.8 K/mm3 (1.8-7.8); Neutrophils % 75.9 % (37.0-80.0); Platelet Count 222 K/mm3 (142-424); Red Blood Count 4.11 M/mm3 (4.20-5.40); Red Cell Distribution Width 13.6 % (11.5-17.5); Sodium 136 mmol/L (136-145); Total Protein,Serum 7.1 g/dl (6.3-8.2); White Blood Count 7.6 K/mm3 (4.8-10.8)
[2019-09-17 11:45] LABS: Ethyl Alcohol < 10 mg/dl (0-10)
--- NOTE | 2019-09-17 11:55 | HMH.EDGENADL ---
ED Disposition Clinical Impression: Hallucinations, unspecified Disposition: Home, Self-Care Condition on Discharge: Good Instructions: DI for Altered Mental Status Referrals: Juanito Zelaya MD [Primary Care Provider] - - Critical Care Critical Care Time: No Attestation: On 09/17/19, the high probability of a clinically significant, sudden or life threatening deterioration of the following system(s) required my full and direct attention, intervention and personal management. The time I documented below is in addition to time spent performing reported procedures but includes the following listed in this critical care notation. Medical Decision Making - Medical Records Medical records reviewed: Yes: I reviewed the patient's medical records. - Mitch Inquiry Pt receiving controlled substance: No Vital Signs: 09/17/19 11:06 Temperature 98.2 F Temperature Source Oral Pulse Rate [Right] 80 Respiratory Rate 16 Blood Pressure [Right Arm] 156/80 H Blood Pressure Mean [Right Arm] 105 02 Sat by Pulse Oximetry 98 - Lab Data Lab results reviewed: Yes: I reviewed the patient's lab results. Lab Results 09/17/19 11:25: WBC 7.6, RBC 4.11 L, Hgb 12.5, Hct 38.5, MCV 93.6, MCH 30.5, MCHC 32.6, RDW 13.6, Plt Count 222, MPV 8.7, Neut % (Auto) 75.9, Lymph % (Auto) 17.3, Scott % (Auto) 5.2, Eos % (Auto) 1.0, Baso % (Auto) 0.7, Neut # (Auto) 5.8, Lymph # (Auto) 1.3, Scott # (Auto) 0.4, Eos # (Auto) 0.1, Baso # (Auto) 0.1 09/17/19 11:25: Sodium 136, Potassium 4.0, Chloride 101, Carbon Dioxide 30, Anion Gap 9.0, BUN 18 H, Creatinine 0.70, Estimated Creat Clear 62, Estimated GFR 81, Est GFR ( Amer) 98, Glucose 107 H, Calcium 9.2, Total Bilirubin 0.6, AST 36, ALT 19, Alkaline Phosphatase 51, Total Protein 7.1, Albumin 4.2, Globulin 2.9, Albumin/Globulin Ratio 1.4 09/17/19 11:25: Plasma/Serum Alcohol < 10 09/17/19 12:20: Urine Color Yellow, Urine Appearance Clear, Urine pH 7.0, Ur Specific [place] 1.015, Urine Protein Negative, Urine Glucose (UA) Negative, Urine Ketones Negative, Urine Blood Negative, Urine Nitrate Negative, Urine Bilirubin Negative, Urine Urobilinogen 1.0, Ur Leukocyte Esterase 1+ A, Urine RBC Occasional, Urine WBC 10-20, Ur Squamous Epith Cells 3-5, Ur Transition Epith Cell 3-5, Urine Bacteria None 09/17/19 12:20: Urine Opiates Screen Negative, Urine Methadone Screen Negative, Ur Barbituates Screen Negative, Ur Phencyclidine Scrn Negative, Ur Amphetamines Screen Negative, U Benzodiazepines Scrn Negative, Urine Cocaine Screen Negative, U Marijuana (THC) Screen Negative Result diagrams: 09/17/19 11:25 09/17/19 11:25 Orders (Tests/Meds): ORDERS Category Date Time Status CT head/brain wo con Stat Cat Scan 09/17/19 11:34 Taken Urine Culture Stat Micro 09/17/19 12:20 Received Medical Decision Narrative: Patients CT and labs are normal. She is not a harm to herself or others. Recommend to follow up with PCP and get a psych consult. General Adult HPI - General Chief complaint: Altered Mental Status Stated complaint: AMS Time Seen by Provider: 09/17/19 11:55 Mode of Arrival: Ambulatory Source of Information: Patient Limitations: No Limitations Description of Symptoms (Recalled from ER Triage Doc. by RN): States yesterday she began to see things that werent there and states it looked like her furniture had been moved around. Pt states she has not taken any new medications or stopped any of her medication. Pt is A&Ox4. Denies cough, fever, soa. - History of Present Illness HPI narrative: 74-year-old female presents the ED with complaints of possible hallucinations. Patient is alert and oriented x3 and has no evidence of infectious process or is confused but she states since yesterday she feels like she is seeing things that may or may not be there. For instance she described in vivid detail about how she felt her brother had stolen his son and tables but he pointed out that there is in tables were sti
[2019-09-17 12:28] LABS: Microscopic, Urine URINE MICROSCOPIC (MICROSCOPIC)
[2019-09-17 12:33] LABS: Appearance,Urine CLEAR (Clear); Bilirubin,Urine Negative (Negative); Blood, Urine Negative (Negative); Color,Urine YELLOW (Yellow); Glucose,Urine (UA) Negative (Negative); Ketones,Urine Negative (Negative); Leukocyte Esterase,Urine 1+ (Negative); Nitrate,Urine Negative (Negative); Protein,Urine Negative (Negative); Specific Gravity, Urine 1.015 (1.005-1.030)
[2019-09-17 12:45] LABS: Barbiturates Screen,Urine Negative ng/ml (<200); Benzodiazepines Screen,Urine Negative ng/ml (<200)
[2019-09-17 12:46] LABS: Amphetamine/Metha Screen,Urine Negative ng/ml (<1000)
[2019-09-17 12:47] LABS: Cannabinoid Screen,Urine Negative ng/ml (<50); Methadone Screen,Urine Negative ng/ml (<300)
[2019-09-17 12:48] LABS: Cocaine Screen,Urine Negative ng/ml (<300)
[2019-09-17 12:49] LABS: Opiate Screen,Urine Negative ng/ml (<300); Phencyclidine Screen,Urine Negative ng/ml (<25)
[2019-09-17 12:51] LABS: RBC,Urine Occasional #/hpf (0-3)
[2019-09-17 13:44] VITALS: BP 135/85; PULSE 95; RESP 20; TEMP 36.8; O2SAT 98
== END 2019-09-17 13:45 | disposition home or self-care (01) ==
PROVIDERS: Emergency Provider Family Medicine; PCP Internal Medicine Adolescent Medicine
DX: R44.3 Hallucinations, unspecified (principal); R41.82 Altered mental status, unspecified; Z86.73 Personal history of transient ischemic attack (TIA), and cerebral infarction without residual deficits; K21.9 Gastro-esophageal reflux disease without esophagitis; E78.5 Hyperlipidemia, unspecified; I10 Essential (primary) hypertension; M81.0 Age-related osteoporosis without current pathological fracture; Z87.891 Personal history of nicotine dependence; Z79.899 Other long term (current) drug therapy
CPT/HCPCS: 70450; 80053; 80305; 81001; 85025; 87086; 87088; 87186; 99283

== ENCOUNTER → 2019-09-20 08:48 | Outpatient (CLI) | payer MEDICARE, SELFPAY ==
--- NOTE | 2019-09-20 08:53 | MR_ITS ---
PROCEDURE: MR HEAD/BRAIN WO/W CON CLINICAL INDICATION: VISUAL HALLUCINATIONS, HX OF CVA W/RESIDUAL DEFICIT The severe headache with visual hallucinations COMPARISON: MR HEAD/BRAIN WO/W CON from 12/27/2018 TECHNIQUE: Routine multiplanar multi echo sequences are performed without and with gadolinium enhancement. FINDINGS: No midline shift, mass effect, intracranial hemorrhage, hydrocephalus, or acute infarction is evident.. There is generalized atrophy with scattered periventricular and subcortical T2 white matter hyperintensities consistent with ischemic gliotic change from microvascular disease. There are encephalomalacia changes in the right frontal parietal region and right occipital parietal junction consistent with old areas of infarction.. Previously noted area of enhancement in the right parietal occipital region is now represent by encephalomalacia change. There is a questionable small area of enhancement in the right aspect of the brainstem at the medulla. This has unremarkable T2 and FLAIR characteristics and may only be due to artifact. This area does show slight increased T1 signal on the unenhanced images. There is some minimal gyral enhancement in the old area of infarction in the right occipital lobe. No other areas of abnormal enhancement are evident. There is a cavum septum pellucidum as a normal variant. The cerebellopontine angles, cerebellum, has an unremarkable appearance. The pituitary, optic chiasm, corpus callosum, and craniocervical junction is unremarkable. No sinus air-fluid level or mastoid effusion. IMPRESSION: 1. No definite acute intracranial findings. 2. Atrophy with chronic ischemic changes with encephalomalacia change from old infarction in the right frontal parietal and right parietal occipital region. There is some minimal gyral enhancement in the old area of infarction in the right occipital lobe. The diffuse enhancement in this area however is no longer apparent as it was on 12/27/2018. 3. Questionable minimal enhancement in the right medulla versus artifact. Consider 3 to six-month follow-up without and with contrast to confirm stability or resolution. Dictated by: David Wilder MD 09/21/2019 08:04 Electronically signed by David Wilder MD in [place] 09/21/2019 08:04
== END ==
PROVIDERS: PCP Internal Medicine Adolescent Medicine; Visit Provider Nurse Practitioner Family
DX: R44.1 Visual hallucinations (principal); I69.30 Unspecified sequelae of cerebral infarction
CPT/HCPCS: 70553; A9576

== ENCOUNTER → 2019-10-10 10:16 | Outpatient (CLI) | payer MEDICARE, SELFPAY ==
--- NOTE | 2019-10-10 10:27 | MM_ITS ---
PROCEDURE: MM DIG SCREENING MAMM BI W/CAD Digital Breast Tomosynthesis Included CLINICAL INDICATION: SCREENING There is no personal or family history of breast cancer. COMPARISON: DIGMAMMS MAMMOGRAM SCREEN-CHIEF OF PEDIATRIC UROLOGY N/C from 04/29/2009 [facility] DIG MAMM-SCREEN STEW from 01/16/2015 [facility] DIG MAMM-SCREEN STEW W/CAD from 11/09/2016 TECHNIQUE: Standard CC and MLO images and 3D Tomosynthesis was obtained. R2 CAD reviewed. FINDINGS: Prominent diffuse heterogenic fibroglandular densities are seen in the central portions of both breasts and the findings of bilateral and symmetrical. Gibran images are most helpful in this type of dense breast parenchyma. There is no suspicious lesion in either breast and no suspicious microcalcifications. IMPRESSION: Stable dense heterogenic breast parenchyma with no suspicious lesions seen BI-RAD Category: 1 Negative FOLLOW-UP: 1YR 1 Year Follow-up (A letter has been sent to the patient regarding results of the study.) Dictated by: Dr. Ishaan Avalos MD 10/11/2019 20:[address] Ishaan Avalos MD in [place] 10/11/2019 20:39
--- NOTE | 2019-10-10 10:28 | XR_ITS ---
PROCEDURE: XR DEXA AXIAL SKELETON CLINICAL HISTORY: POST MENOPAUSAL COMPARISON: No exams were available for comparison FINDINGS: Right femoral neck density is 0.599 grams/centimeters sq with T-score -2.2 Left femoral neck density is 0.560 grams/centimeters sq with a T-score -2.6 L1-L4 density has a T-score of 0.997 grams/centimeters sq with a T-score -0.5 IMPRESSION: Osteoporosis with high fracture risk. Treatment advised. Suggest follow-up exam in 1 year Dictated by: David Widler MD 10/13/2019 05:39 Electronically signed by David Wilder MD in [place] 10/13/2019 05:39
== END ==
PROVIDERS: PCP Internal Medicine Adolescent Medicine; Visit Provider Nurse Practitioner Family
DX: Z12.31 Encounter for screening mammogram for malignant neoplasm of breast (principal); Z13.820 Encounter for screening for osteoporosis; Z78.0 Asymptomatic menopausal state
CPT/HCPCS: 77063; 77067; 77080

== ENCOUNTER → 2019-11-21 11:14 | Outpatient (CLI) | payer MEDICARE, SELFPAY ==
--- NOTE | 2019-11-21 | CA_ITS ---
APPROVED REPORT Exam: Pharmacologic Technologist: Tabby Jaramillo Ht: 5 ft 5 in Wt: 160 lbs BSA: 1.80 m2 HR: 70 bpm BP: 149/81 mmHg Indications: Shortness of Air Medical History Medications: Lisinopril,,,,, Omeprazole,,,,, Aspirin,,,,, Vitamin B12,,,,, Vitamin D3,,,,, Atorvastatin,,,,, Escitalopram,,,,, Probiotic,,,,, Alendronate,,,,, Stress Test Details Test: LEXISCAN HR Resting HR: 72 bpm Max Heart Rate (APMHR): 144 bpm Max HR Achieved: 106 bpm Target HR (85% APMHR): 122 bpm % of APMHR: 73 Recovery HR: 89 bpm BP Resting BP: 149.0/81.0 mmHg Max BP: 149.0/81.0 mmHg Recovery BP: 122.0/69.0 mmHg ECG Clinical Exercise duration: 04:05 min Highest Stage Achieved: Exercise capacity: 1.0 METs Stress ECG Conclusion Resting ECG: Normal sinus rhythm, PAC, PVCs, otherwise normal Symptoms: Mild shortness of air, mild malaise. No chest pain. Arrhythmias/Ectopy: Occasional PVC ST-T Changes: No significant changes. Conclusion: Unremarkable Lexiscan stress. Myoview images reported separately. Test Summary RECOVERY 03:18 . . 91 . 122/ 69 . . REST 05:08 . . 72 . 149/ 81 . . Stage 1 . . . . . . . Myoview Injected Stage 1 01:00 . . 100 . . . . Stage 2 01:00 . . 100 . 132/ 67 . . Stage 3 01:00 . . 95 . 124/ 63 . . Stage 4 01:00 . . 91 . . . . Stage 4 01:05 . . 91 . 122/ 66 . Stop exercise at 04:05 RECOVERY 01:00 . . 87 . . . . RECOVERY 02:00 . . 88 . 124/ 62 . . RECOVERY 03:00 . . 85 . 122/ 69 . . RECOVERY 03:18 . . 91 . 122/ 69 . . Electronically signed by : Femi Alston, 11/21/2019 19:31:04
--- NOTE | 2019-11-21 11:14 | NM_ITS ---
APPROVED REPORT Exam: Nuclear Stress Test Indication: SOB, Fatigue, HTN, High cholesterol, Tobacco use Patient Location: Outpatient Stress Tech: Tabby Jaramillo [place] Tech:Lashon Snell, ARRT, RT (R)(N) Ht: 5 ft 5 in Wt: 160 lbs Bra Size: 42B HR: 70 bpm BP: 149/81 mmHg BSA: 1.80 m2 BMI: 26.6 History: SOB, Fatigue, HTN, High cholesterol, Tobacco use Procedure: Patient received a 0.4 mg of intravenous Lexiscan, resting heart rate 70 bpm, resting blood pressure 149/81 mmHg, with Lexiscan maximum heart rate achived was 101 bpm which is Less than 85 % of the maximum predicted heart rate and blood pressure was 132/67 mmHg. With Lexiscan, patient denied any complaint of chest pain. Electrocardiogram Resting electrocardiogram showed sinus rhythm, with Lexiscan there is less than 1.[address] segment depression noted from the baseline EKG. The EKG portion of the Lexiscan Myoview is nondiagnostic. Cardiac Stress and Resting SPECT Images: Cardiac Stress and Resting SPECT images were obtained using technetium 99m Myoview 31.6 mCi stress and 10.41 mCi at rest. Gated SPECT for analysis of segmental wall motion and calculation of the ejection fraction also done. Cardiac stress and resting SPECT images show uniform myocardial activity without segmental perfusion abnormality, computer derived ejection fraction is over 65% with no regional wall motion abnormality, right ventricle is normal size and contractility. Conclusion: 1. The EKG portion of the Lexiscan Myoview is nondiagnostic. 2. No scintigraphic evidence of reversible ischemia seen, computer derived ejection fraction is over 65% with no regional wall motion abnormality, right ventricle is normal size and contractility. 3. Normal Lexiscan Myoview study. Electronically signed by : Femi Alston, 11/21/2019 19:32:47
--- NOTE | 2019-11-21 11:29 | CA_ITS ---
APPROVED REPORT EXAM: Comprehensive 2D, Doppler, and color-flow Echocardiogram Seat Trimmer: Anne Marie Dang RDCS Ht: 5 ft 5 in Wt: 164lbs BSA: 1.82 BP: 129/59 mmHg Indications: SOA,CAD,CVA,PTHN 2D Dimensions LVOT 2.11 cm (M/F) 1.5-2.5 M-Mode Dimensions RVDd 1.22 cm (0.9-2.6) LVDd 5.71 cm (3.5-5.7) LVDs 4.17 cm (3.5-5.7) IVSd 0.88 cm (0.6-1.1) PWd 0.66 cm (0.6-1.1) EF (Teich) 51.90% FS 27.00% EDV (Teich) 160.70 mL ESV (Teich) 77.30 mL LV Diastology E/A Ratio 0.83 Mitral Valve MV A Velocity 85.00 (40-130 cm/s) Left Ventricle Left atrium is mildly enlarged, left ventricle is normal size, mild concentric left ventricular hypertrophy, visually estimated ejection fraction 55% with no regional wall motion abnormality, grade 1 diastolic dysfunction seen without tissue Doppler evidence of raise left atrial pressure. Right Ventricle Right atrium and right ventricular mildly enlarged with normal contractility Aortic Valve Aortic valve is minimally thickened and calcified leaflet continue to display good mobility, there is no aortic stenosis or aortic insufficiency. Mitral Valve Mitral valve is grossly normal, there is mild mitral regurgitation. Tricuspid Valve Tricuspid valve is minimally thickened, there is no tricuspid stenosis, there is mild tricuspid regurgitation, calculated right ventricular systolic pressure is 43 mmHg. Pulmonic Valve Pulmonic valve is poorly visualized. Great Vessels Aortic root is normal size. Pericardium No significant pericardial effusion noted. Conclusion 1. Biatrial enlargement, normal left ventricular size, mild concentric left ventricular hypertrophy, visually estimated ejection fraction 55% with no regional wall motion abnormality, grade 1 diastolic dysfunction seen without tissue Doppler evidence of raise left atrial pressure. 2. Mildly enlarged right ventricle with normal contractility. 3. Mild mitral and tricuspid regurgitation, calculated right ventricular systolic pressure is 43 mmHg. 4. No significant pericardial effusion noted. Electronically signed by : Femi Alston, 11/21/2019 19:21:01
== END ==
PROVIDERS: PCP Internal Medicine Adolescent Medicine; Visit Provider Nurse Practitioner Family
DX: I25.10 Atherosclerotic heart disease of native coronary artery without angina pectoris (principal); R06.02 Shortness of breath
CPT/HCPCS: 78452; 93017; 93306; A9502; J2785

== ENCOUNTER 2020-03-08 12:38 | Emergency (ER) | payer MEDICARE, SELFPAY ==
[2020-03-08 12:40] VITALS: BP 139/83; PULSE 94; RESP 19; TEMP 36.8; O2SAT 97; BMI 26.6
--- NOTE | 2020-03-08 13:03 | CT_ITS ---
PROCEDURE: CT HEAD/BRAIN WO CON CLINICAL INDICATION: seeing spots Visual change COMPARISON: CT CT HEAD/BRAIN WO CON from 09/17/2019 TECHNIQUE: Axial images obtained. All CT scans at the facility use one or more dose reduction, viz: automated exposure control, ma/kV adjustment per patient size (including targeted exams where dose is matched to indication, i.e. head), or iterative reconstruction technique. FINDINGS: No midline shift, mass effect, intracranial hemorrhage, hydrocephalus, or extra-axial fluid collection is evident. There is generalized atrophy with hypoattenuation of the periventricular white matter consistent with microangiopathic changes.. There are encephalomalacia changes in the right occipital lobe and right parietal lobe. The calvarium has an unremarkable appearance. No mastoid effusion. No sinus air-fluid level. IMPRESSION: Chronic ischemic changes. No change with no acute finding. Dictated by: David Wilder MD 03/08/2020 13:44 David Wilder MD in [place] 03/08/2020 13:44
[2020-03-08 13:10] VITALS: BP 125/79; PULSE 90; RESP 18; O2SAT 94
--- NOTE | 2020-03-08 13:10 | HMH.EDWEAK ---
ED Disposition Clinical Impression: Hypertension, essential, Migraine aura without headache (migraine equivalents) Disposition: Home, Self-Care Condition on Discharge: Good Instructions: DI for Migraine Referrals: Juanito Zelaya MD [Primary Care Provider] - - Critical Care Critical Care Time: No Attestation: On 03/08/20, the high probability of a clinically significant, sudden or life threatening deterioration of the following system(s) required my full and direct attention, intervention and personal management. The time I documented below is in addition to time spent performing reported procedures but includes the following listed in this critical care notation. Medical Decision Making - Medical Records Medical records reviewed: Yes: I reviewed the patient's medical records. - Mitch Inquiry Pt receiving controlled substance: No Vital Signs: 03/08/20 12:40 03/08/20 13:10 03/08/20 14:06 Temperature 98.2 F Temperature Source Oral Pulse Rate [Left Radial] 94 H 90 80 Respiratory Rate 19 18 20 Blood Pressure [Right Arm] 139/83 125/79 127/72 Blood Pressure Mean [Right Arm] 101 94 90 Blood Pressure Source [Right Arm] Automatic Cuff Automatic Cuff Automatic Cuff Blood Pressure Position [Right Arm] Sitting Sitting Sitting 02 Sat by Pulse Oximetry 97 94 L 96 Oxygen Delivery Method Room Air 03/08/20 14:36 Temperature Temperature Source Pulse Rate [Left Radial] 74 Respiratory Rate 24 Blood Pressure [Right Arm] 128/83 Blood Pressure Mean [Right Arm] 98 Blood Pressure Source [Right Arm] Automatic Cuff Blood Pressure Position [Right Arm] Sitting 02 Sat by Pulse Oximetry 98 Oxygen Delivery Method Room Air - Lab Data Lab Results 03/08/20 14:08: Urine Color Yellow, Urine Appearance Clear, Urine pH 6.0, Ur Specific [place] 1.010, Urine Protein Negative, Urine Glucose (UA) Negative, Urine Ketones Negative, Urine Blood Negative, Urine Nitrate Negative, Urine Bilirubin Negative, Urine Urobilinogen 0.2, Ur Leukocyte Esterase Negative, Urine RBC Occasional, Urine WBC 3-5, Ur Squamous Epith Cells 3-5 03/08/20 14:40: WBC 7.5, RBC 4.26, Hgb 12.7, Hct 37.8, MCV 88.9, MCH 29.8, MCHC 33.5, RDW 14.6, Plt Count 192, MPV 8.7, Neut % (Auto) 70.2, Lymph % (Auto) 22.0, [place] % (Auto) 5.8, Eos % (Auto) 1.6, Baso % (Auto) 0.4, Neut # (Auto) 5.2, Lymph # (Auto) 1.6, [place] # (Auto) 0.4, Eos # (Auto) 0.1, Baso # (Auto) 0.0 03/08/20 14:40: Sodium 139, Potassium 3.8, Chloride 104, Carbon Dioxide 31 H, Anion Gap 7.8, BUN 16, Creatinine 0.70, Estimated Creat Clear 55, Estimated GFR 81, Est GFR ( Amer) 98, Glucose 92, Calcium 9.1, Total Bilirubin 0.4, AST 36, ALT 17, Alkaline Phosphatase 49, Total Protein 6.7, Albumin 3.8, Globulin 2.9, Albumin/Globulin Ratio 1.3 Result diagrams: 03/08/20 14:40 03/08/20 14:40 - CT Data CT Scan: Head Time Received: 15:[address] Reviewed: Yes: I have reviewed the patient's CT results, I have viewed the radiologist's interpretation Findings Narrative: IMPRESSION: Chronic ischemic changes. No change with no acute finding. - Reevaluation(s) Time: 15:30 Reevaluation #1: On reevaluation, patient is feeling much better. Repeat neurologic exam is normal. There is no headache the patient is complaining of. CT scan was unremarkable. I did explain to the patient, that she does need close follow-up and follow-up with neurology. Patient states that she will follow up in the morning. If not she is to return to the emergency department for repeat examination. Patient strict return precautions. Advised understanding. Medical Decision Narrative: This is a 74-year-old female presenting to the emergency department with visual changes as well as associated headache. I do believe the patient's symptoms are consistent with migraine with aura. She has a normal neurologic exam at this time. She is ambulatory. Work-up will be initiated. Weakness HPI - General Chief complaint: Weakness Sta
[2020-03-08 14:06] VITALS: BP 127/72; PULSE 80; RESP 20; O2SAT 96
[2020-03-08 14:14] LABS: Microscopic, Urine URINE MICROSCOPIC (MICROSCOPIC)
[2020-03-08 14:19] LABS: Appearance,Urine CLEAR (Clear); Bilirubin,Urine Negative (Negative); Blood, Urine Negative (Negative); Color,Urine YELLOW (Yellow); Glucose,Urine (UA) Negative (Negative); Ketones,Urine Negative (Negative); Leukocyte Esterase,Urine Negative (Negative); Nitrate,Urine Negative (Negative); Protein,Urine Negative (Negative); Urobilinogen,Urine 0.2 EU/dl (0.2)
[2020-03-08 14:33] LABS: RBC,Urine Occasional #/hpf (0-3)
[2020-03-08 14:36] VITALS: BP 128/83; PULSE 74; RESP 24; O2SAT 98
[2020-03-08 14:47] LABS: Basophils % 0.4 % (0.1-2.0); Eosinophils # 0.1 K/mm3 (0.0-0.4); Eosinophils % 1.6 % (0.1-12.0); Hematocrit 37.8 % (37.0-47.0); Hemoglobin 12.7 g/dL (12.2-16.2); Lymphocytes # 1.6 K/mm3 (0.7-4.5); Mean Corpuscular HGB Conc 33.5 g/dL (31.8-35.4); Mean Corpuscular Hemoglobin 29.8 pg (27.0-31.2); Mean Corpuscular Volume 88.9 fl (81-99); Mean Platelet Volume 8.7 fl (7.4-10.4); Monocytes # 0.4 K/mm3 (0.1-1.0); Monocytes % 5.8 % (1.7-9.3); Neutrophils # 5.2 K/mm3 (1.8-7.8); Neutrophils % 70.2 % (37.0-80.0); Platelet Count 192 K/mm3 (142-424); Red Blood Count 4.26 M/mm3 (4.20-5.40); Red Cell Distribution Width 14.6 % (11.5-17.5); White Blood Count 7.5 K/mm3 (4.8-10.8)
[2020-03-08 14:56] LABS: Alanine Aminotransferase 17 U/L (12-78); Albumin Level 3.8 g/dl (3.5-5.0); Albumin/Globulin Ratio 1.3 (1.1-1.8); Alkaline Phosphatase 49 U/L (38-126); Anion Gap 7.8 mEq/L (5-15); Aspartate Amino Transferase 36 U/L (14-36); Bilirubin,Total 0.4 mg/dl (0.2-1.3); Blood Urea Nitrogen 16 mg/dl (7-17); Calcium 9.1 mg/dl (8.4-10.2); Carbon Dioxide 31 mmol/L (22.0-30.0); Chloride 104 mmol/L (98-107); Creatinine Clearance Estimated 55 mL/min (50-200); Estimated Glomerular Filt Rate 81 ml/min (>60); GFR (African American) 98 ML/MIN (>60); Globulin 2.9 g/dL (1.3-3.2); Glucose 92 mg/dl (74-100); Potassium 3.8 mmoL/L (3.5-5.1); Sodium 139 mmol/L (136-145); Total Protein,Serum 6.7 g/dl (6.3-8.2)
[2020-03-08 16:13] VITALS: BP 122/74; PULSE 78; RESP 16; TEMP 36.6; O2SAT 98
== END 2020-03-08 16:15 | disposition home or self-care (01) ==
PROVIDERS: Emergency Provider Emergency Medicine; PCP Internal Medicine Adolescent Medicine
DX: G43.109 Migraine with aura, not intractable, without status migrainosus (principal); I10 Essential (primary) hypertension; F41.9 Anxiety disorder, unspecified; K21.9 Gastro-esophageal reflux disease without esophagitis; J44.9 Chronic obstructive pulmonary disease, unspecified; Z86.73 Personal history of transient ischemic attack (TIA), and cerebral infarction without residual deficits; E78.5 Hyperlipidemia, unspecified; M81.0 Age-related osteoporosis without current pathological fracture; Z87.891 Personal history of nicotine dependence; Z79.899 Other long term (current) drug therapy
CPT/HCPCS: 70450; 80053; 81001; 85025; 99283

== ENCOUNTER → 2020-08-26 08:51 | Outpatient (CLI) | payer MEDICARE, SELFPAY ==
[2020-08-26 09:52] LABS: Coronavirus 19 IgG Antibody Negative (Negative)
[2020-08-26 09:53] LABS: Coronavirus 19 IgM Antibody Negative (Negative)
== END ==
PROVIDERS: Visit Provider Ophthalmology
DX: Z01.812 Encounter for preprocedural laboratory examination (principal); Z11.52 Encounter for screening for COVID-19; H25.12 Age-related nuclear cataract, left eye
CPT/HCPCS: 36415; 86328

== ENCOUNTER 2020-08-27 07:10 | Day surgery (SDC) | payer MEDICARE, SELFPAY ==
[2020-08-20 14:11] VITALS: BMI 26.9
[2020-08-27] VITALS (7 sets, daily range): BP systolic 126–165; BP diastolic 61–95; PULSE 63–79; RESP 16–18; TEMP 36.2–36.8; O2SAT 96–966
== END 2020-08-27 09:23 | disposition home or self-care (01) ==
PROVIDERS: PCP Internal Medicine Adolescent Medicine; Visit Provider Ophthalmology
DX: H25.813 Combined forms of age-related cataract, bilateral (principal); H02.834 Dermatochalasis of left upper eyelid; H02.831 Dermatochalasis of right upper eyelid; I10 Essential (primary) hypertension; F41.1 Generalized anxiety disorder; I27.20 Pulmonary hypertension, unspecified; E78.5 Hyperlipidemia, unspecified; M19.90 Unspecified osteoarthritis, unspecified site; Z79.82 Long term (current) use of aspirin; Z79.899 Other long term (current) drug therapy
CPT/HCPCS: 66984; V2632

== ENCOUNTER → 2020-10-10 09:14 | Outpatient (CLI) | payer MEDICARE, SELFPAY ==
--- NOTE | 2020-10-10 09:16 | MM_ITS ---
PROCEDURE: MM DIG SCREENING MAMM BI W/CAD Digital Breast Tomosynthesis Included CLINICAL INDICATION: SCREENING There is no personal or family history of breast cancer. COMPARISON: MG DMSB DIG MAMM-SCREEN STEW from 01/16/2015 MG DMSB DIG MAMM-SCREEN STEW W/CAD from 11/09/2016 MG MM DIG SCREENING MAMM BI W/CAD from 10/10/2019 TECHNIQUE: Standard CC and MLO images and 3D Tomosynthesis was obtained. R2 CAD reviewed. FINDINGS: Prominent somewhat heterogenic fibroglandular densities are seen in the central portions of both breasts and the findings are bilateral and symmetrical. There is no suspicious lesion and no suspicious microcalcifications. IMPRESSION: Moderately dense parenchymal pattern with no suspicious lesions seen BI-RAD Category: 1 Negative FOLLOW-UP: 1YR 1 Year Follow-up (A letter has been sent to the patient regarding results of the study.) Dictated by: Dr. Ishaan Avalos MD 10/11/2020 09:18 Dr. Ishaan Avalos MD in [place] 10/11/2020 09:18
== END ==
PROVIDERS: PCP Internal Medicine Adolescent Medicine; Visit Provider Nurse Practitioner Family
DX: Z12.31 Encounter for screening mammogram for malignant neoplasm of breast (principal)
CPT/HCPCS: 77063; 77067

== ENCOUNTER → 2020-11-02 11:19 | Outpatient (CLI) | payer MEDICARE, SELFPAY | PROVIDERS: Visit Provider Ophthalmology | DX: Z01.812 Encounter for preprocedural laboratory examination (principal); Z20.822 Contact with and (suspected) exposure to COVID-19 | CPT/HCPCS: U0003 ==

== ENCOUNTER 2020-11-05 08:20 | Day surgery (SDC) | payer MEDICARE, SELFPAY ==
[2020-10-31 11:03] VITALS: BMI 27.5
[2020-11-05] VITALS (7 sets, daily range): BP systolic 125–142; BP diastolic 69–80; PULSE 71–75; RESP 18; TEMP 36.1–36.6; O2SAT 93–100
== END 2020-11-05 10:48 | disposition home or self-care (01) ==
PROVIDERS: PCP Internal Medicine Adolescent Medicine; Visit Provider Ophthalmology
DX: H25.813 Combined forms of age-related cataract, bilateral (principal); H02.831 Dermatochalasis of right upper eyelid; H02.834 Dermatochalasis of left upper eyelid; E78.5 Hyperlipidemia, unspecified; I10 Essential (primary) hypertension; G43.909 Migraine, unspecified, not intractable, without status migrainosus; M19.90 Unspecified osteoarthritis, unspecified site; I25.10 Atherosclerotic heart disease of native coronary artery without angina pectoris; Z86.73 Personal history of transient ischemic attack (TIA), and cerebral infarction without residual deficits; Z79.82 Long term (current) use of aspirin; Z79.899 Other long term (current) drug therapy; Z87.891 Personal history of nicotine dependence
CPT/HCPCS: 66984; V2632

== ENCOUNTER 2020-11-16 10:49 | Emergency (ER) | payer MEDICARE, SELFPAY ==
[2020-11-16 10:58] VITALS: BP 134/96; PULSE 79; RESP 18; TEMP 36.6; O2SAT 97; BMI 26.9
--- NOTE | 2020-11-16 11:18 | HMH.EDUTC ---
[facility] [place] Clinical Impression: Cellulitis of great toe of right foot Disposition: Home, Self-Care Condition on Discharge: Good Instructions: DI for Cellulitis -- Adult Additional Instructions: We have given you an antibiotic injection and a burn cream. Use burn cream twice a day. Continue to take antibiotics prescribed by podiatry. Keep area clean and dry and watch for worsening infection. Return to [facility] or ER if this gets worse over the weekend or on Wednesday if their office is closed. Follow up with Dr Zelaya and/or Dr Campos on Wednesday (or Wednesday if closed for the 4th) Try to stay off foot, keep foot elevated as much as possible Referrals: Juanito Zelaya MD [Primary Care Provider] - Time of Disposition: 11:26 Medical Decision Making - Mitch Inquiry Pt receiving controlled substance: No Vital Signs: 11/16/20 10:58 Temperature 97.9 F Temperature Source Oral Pulse Rate [Left] 79 Respiratory Rate 18 Blood Pressure [Right Arm] 134/96 H Blood Pressure Mean [Right Arm] 108 02 Sat by Pulse Oximetry 97 Oxygen Delivery Method Room Air [facility] [place] - General Stated complaint: blisters and red right big toe Time Seen by Provider: 11/16/20 11:18 Mode of Arrival: Ambulatory Source of Information: Patient Limitations: No Limitations Description of Symptoms (Recalled from Triage Doc. by RN): pt had her R big toe nail removed tues. she is now having blisters behind it towards her foot. she called Dr. tineo office yesterday and they called her in an antibiotic and some type of cream. HEENT Symptoms (Recalled from RN notes): No Resp Symptoms (Recalled from RN notes): No Skin Symptoms (Recalled from RN notes): No MS Symptoms (Recalled from RN notes): Yes (R big toe nail removal) Functional Status (Recalled from RN notes): na - History of Present Illness Provider Complaint: Patient had right great toenail removed on 11/12/2020 by podiatry. She states she went home with it bandaged. The next morning she noted swelling and removed the bandage. It has gotten progressively more red and swollen. Yesterday blisters appeared on the skin. She called and they sent in Clindamycin and antibiotic ointment. She states the redness is a little better today but she is concerned and doesn't want to lose her toe. Onset (ago): day(s) (5) Location: right, lower extremity Quality: burning Consistency: constant Relieving factors: none Exacerbating factors: none Associated symptoms: denies other symptoms Treatments prior to arrival: other (Clindamycin, antibiotic ointment) - Related Data Home Medications Medication Instructions Recorded Confirmed alendronate 70 mg tablet 70 mg PO WEEKLY 06/29/17 11/12/20 atorvastatin 20 mg tablet 20 mg PO HS 06/29/17 11/12/20 Calcium Carbonate/Vitamin D3 1 each PO BID 12/17/18 11/12/20 [Caltrate 600 Plus D3 Tablet] Cholecalciferol (Vitamin D3) 2,000 unit PO DAILY 12/17/18 11/12/20 [Vitamin D3] Cyanocobalamin (Vitamin B-12) 2,500 mcg PO DAILY 12/17/18 11/12/20 [Vitamin B-12] L.acidoph,Paracasei, B.lactis 1 each PO DAILY 12/17/18 11/12/20 [Probiotic] lisinopril 5 mg tablet 2.5 mg PO DAILY tab 11/08/19 11/12/20 Aspirin [Aspirin 325mg Tab] 325 mg PO DAILY 08/20/20 11/12/20 Escitalopram Oxalate [Lexapro] 5 mg PO DAILY 08/20/20 11/12/20 hydroCHLOROthiazide [HCTZ 25mg 12.5 mg PO DAILY 08/20/20 11/12/20 tab] Previous Rx's Medication Instructions Recorded clindamycin HCl 300 mg capsule 300 mg PO TID 14 Days #42 cap 11/15/20 mupirocin 2 % topical ointment 1 applic TOPICAL TID #15 g 11/15/20 Allergies Allergy/AdvReac Type Severity Reaction Status Date / Time No Known Allergies Allergy Verified 11/12/20 13:19 - Worker's Comp Is this a Worker's Comp case?: No [facility] History - Hepatitis A Screen Drug use history?: No High risk sexual behaviors?: No History of sexually transmitted infection?: No Currently employed?: No Childcare worker?: No Do you have i
[2020-11-16 11:47] VITALS: BP 134/96; PULSE 79; RESP 18; TEMP 36.6
== END 2020-11-16 11:47 | disposition home or self-care (01) ==
PROVIDERS: Emergency Provider Physician Assistant; PCP Internal Medicine Adolescent Medicine
DX: L03.031 Cellulitis of right toe (principal); I10 Essential (primary) hypertension; J44.9 Chronic obstructive pulmonary disease, unspecified; K21.9 Gastro-esophageal reflux disease without esophagitis; E78.5 Hyperlipidemia, unspecified; F41.9 Anxiety disorder, unspecified; M81.0 Age-related osteoporosis without current pathological fracture; Z87.891 Personal history of nicotine dependence; Z79.899 Other long term (current) drug therapy
CPT/HCPCS: G0463; 96372; 99202

== ENCOUNTER → 2021-06-23 14:49 | Outpatient (CLI) | payer MEDICARE, SELFPAY ==
--- NOTE | 2021-06-23 14:57 | XR_ITS ---
FINAL REPORT CLINICAL HISTORY: LT FOOT PAIN,TRAUMATIC ECCHYMOSIS OF LT FOOT Bruising of 2-3rd digits for 2.5 weeks, NKI FINDINGS: 3 views of the left foot were obtained. There is postoperative change in the distal fibula. There are chronic fractures of the 2nd and 3rd proximal phalanges. There is no acute fracture or dislocation. There is mild degenerative change. There is a plantar calcaneal spur. IMPRESSION: Chronic fractures of the 2nd and 3rd proximal phalanges. No acute fracture. Reviewed, Interpreted and Dictated by Jake Swan III, MD Transcribed by Chidi Lai Authenticated by Jake Swan III, MD on 06/23/2021 04:13:[address] [facility]
== END ==
PROVIDERS: PCP Nurse Practitioner Family; Visit Provider Nurse Practitioner Family
DX: M79.672 Pain in left foot (principal); S90.32XA Contusion of left foot, initial encounter
CPT/HCPCS: 73630

== ENCOUNTER → 2021-07-17 09:13 | Outpatient (CLI) | payer MEDICARE, SELFPAY ==
--- NOTE | 2021-07-17 09:19 | XR_ITS ---
FINAL REPORT TECHNIQUE: Bone mineral density was calculated of the lumbar spine and hip. CLINICAL HISTORY: osteoporosis FINDINGS: Using L1-4, the bone mineral density of the spine is 1.026 g/cm2, corresponding to T-score of -0.2. Using the left hip, the bone mineral density of the femoral neck is 0.585 g/cm2, corresponding to a T-score of -2.4. NOTE: T-score: Standard deviation compared with peak bone mass of young adult mean. *Following the recommendations of the International Society of Bone densitometry, classification of hip BMD is based on the lower of two T-scores; total hip or femoral neck. IMPRESSION: Normal bone mineral density of the lumbar spine with osteopenia of the left hip. FRAX data is not provided as patient is being treated for osteoporosis. Reviewed, Interpreted and Dictated by Jake Swan III, MD Transcribed by Chidi Lai Authenticated by Jake Swan III, MD on 07/17/2021 11:01:02 AM [facility]
--- NOTE | 2021-07-17 09:34 | US_ITS ---
FINAL REPORT CLINICAL HISTORY: Cold Extremities, Skin Changes, discoloration 2nd and 3rd toe LLE. previous smoker, HTN, Hyperlipidemia, hx TIA, bilateral rest pain, bilateral claudication. FINDINGS: ANKLE/BRACHIAL INDICES FINDINGS: Pressure indices are as follows: RIGHT LOWER EXTREMITY: Ankle brachial pressure index: 1.0 Comments: Normal LEFT LOWER EXTREMITY: Ankle brachial pressure index: 1.0 Comments: Normal IMPRESSION: No evidence of significant obstructive peripheral vascular disease of the lower extremities. Reviewed, Interpreted and Dictated by Jake Swan III, MD Transcribed by Chidi Lai Authenticated by Jake Swan III, MD on 07/17/2021 10:35:[address] [facility]
== END ==
PROVIDERS: PCP Nurse Practitioner Family; Visit Provider Nurse Practitioner Family
DX: R09.89 Other specified symptoms and signs involving the circulatory and respiratory systems (principal); Z78.0 Asymptomatic menopausal state
CPT/HCPCS: 77080; 93923

== ENCOUNTER → 2021-10-06 15:20 | Outpatient (CLI) | payer MEDICARE, SELFPAY ==
--- NOTE | 2021-10-06 15:22 | MM_ITS ---
PROCEDURE INFORMATION: Exam: MG Bilateral Screening 3D Mammography Exam date and time: 10/06/2021 3:21 PM Age: 76 years old Clinical indication: Screening examination. No family history of breast cancer. TECHNIQUE: Imaging protocol: Bilateral Screening tomosynthesis and 2D mammography including computer-aided detection (CAD) when performed. COMPARISON: 1. MG MM DIG SCREENING MAMM BI W/CAD 10/10/2020 9:30 AM 2. MG MM DIG SCREENING MAMM BI W/CAD 10/10/2019 10:34 AM 3. MG DMSB DIG MAMM-SCREEN STEW W/CAD 11/09/2016 9:44 AM 4. MG DMSB DIG MAMM-SCREEN STEW 01/16/2015 9:36 AM FINDINGS: MAMMOGRAPHY: Breast composition: The breasts are heterogeneously dense, which may obscure small masses. Mass: None. Architectural distortion: None. Calcifications: No suspicious calcifications. Asymmetric density: None. Skin thickening: None. Axillary adenopathy: None. IMPRESSION: No mammographic evidence of malignancy. Annual screening is recommended unless otherwise clinically indicated. ASSESSMENT: BI-RADS Category 1: Negative
== END ==
PROVIDERS: PCP Nurse Practitioner Family; Visit Provider Nurse Practitioner Family
DX: Z12.31 Encounter for screening mammogram for malignant neoplasm of breast (principal)
CPT/HCPCS: 77063; 77067

== ENCOUNTER → 2022-01-14 08:08 | Outpatient (CLI) | payer MEDICARE, SELFPAY ==
[2022-01-14 10:02] LABS: Basophils % 0.5 % (0.1-2.0); Eosinophils # 0.2 K/mm3 (0.0-0.4); Eosinophils % 3.2 % (0.1-12.0); Hematocrit 38.9 % (37.0-47.0); Hemoglobin 11.8 g/dL (12.2-16.2); Lymphocytes # 1.1 K/mm3 (0.7-4.5); Lymphocytes % 16.1 % (10-50); Mean Corpuscular HGB Conc 30.4 g/dL (31.8-35.4); Mean Corpuscular Hemoglobin 27.4 pg (27.0-31.2); Mean Corpuscular Volume 89.9 fl (81-99); Mean Platelet Volume 8.6 fl (7.4-10.4); Monocytes # 0.5 K/mm3 (0.1-1.0); Neutrophils # 4.8 K/mm3 (1.8-7.8); Neutrophils % 72.2 % (37.0-80.0); Platelet Count 253 K/mm3 (142-424); Red Blood Count 4.32 M/mm3 (4.20-5.40); Red Cell Distribution Width 15.4 % (11.5-17.5); White Blood Count 6.6 K/mm3 (4.8-10.8)
[2022-01-14 11:37] LABS: Ferritin 12.1 ng/ml (11.1-264)
[2022-01-14 12:50] LABS: Anion Gap 7.9 mEq/L (5-15); Blood Urea Nitrogen 18 mg/dl (7-17); Carbon Dioxide 35 mmol/L (22.0-30.0); Chloride 97 mmol/L (98-107); Estimated Glomerular Filt Rate 97 ml/min (>60); GFR (African American) 117 ML/MIN (>60); Glucose 100 mg/dl (74-100); Potassium 3.9 mmoL/L (3.5-5.1); Sodium 136 mmol/L (136-145)
[2022-01-14 13:02] LABS: Iron 49 ug/dL (37-170)
[2022-01-14 13:12] LABS: Total Iron Binding Capacity 376 ug/dL (265-497)
== END ==
PROVIDERS: PCP Nurse Practitioner Family; Visit Provider Nurse Practitioner Family
DX: Z86.2 Personal history of diseases of the blood and blood-forming organs and certain disorders involving the immune mechanism (principal)
CPT/HCPCS: 36415; 80048; 82728; 83540; 83550; 85025

== ENCOUNTER 2022-03-13 13:31 | Emergency (ER) | payer MEDICARE, SELFPAY ==
[2022-03-13 13:32] VITALS: BP 146/79; PULSE 84; RESP 18; TEMP 36.6; O2SAT 97; BMI 27.4
--- NOTE | 2022-03-13 13:32 | PC.NURSE ---
1325 RADIOLOGY NOTIFIED PT EN ROUTE WITH STROKE SYMPTOMS 1327 PT TO ED VIA EMS DR. FLORES AT BEDSIDE [address] VIA STRETCHER
--- NOTE | 2022-03-13 13:43 | CT_ITS ---
FINAL REPORT CLINICAL HISTORY: STROKE PROTOCOL, hx of stroke COMPARISON: February and September of 2019 FINDINGS: Axial images of the head were obtained without contrast. Coronal reformatted images were also obtained. This study was performed with techniques to keep radiation doses as low as reasonably achievable (ALARA). Individualized dose reduction techniques using automated exposure control or adjustment of mA and/or kV according to the patient''s size were employed. There is generalized age appropriate atrophy. There are stable areas of encephalomalacia in the right hemisphere. There is no evidence of intracranial hemorrhage or mass. The ventricular size is within normal limits. There is no evidence of shift of the midline structures. No skull abnormality is seen on the bone window images. IMPRESSION: No acute intracranial abnormality. Reviewed, Interpreted and Dictated by Jake Swan III, MD Transcribed by Chidi Lai Authenticated and [facility]
--- NOTE | 2022-03-13 13:49 | CT_ITS ---
FINAL REPORT TECHNIQUE: Multiple axial CT angiography images were performed from the foramen magnum to the vertex before and during IV contrast administration. This study was performed with techniques to keep radiation doses as low as reasonably achievable (ALARA). Individualized dose reduction techniques using automated exposure control or adjustment of mA and/or kV according to the patient's size were employed. CLINICAL HISTORY: R/O CVA FINDINGS: No acute intracranial hemorrhage or large acute cortical infarct. The brain volume is normal for the patient's age. Ventricles are of bracket normal in size and configuration. No midline shift. The basal cisterns are patent. CTA HEAD: The major intracranial arterial system is patent without hemodynamically significant stenosis or major vessel occlusion.No aneurysm is identified. IMPRESSION: No acute intracranial hemorrhage or large acute cortical infarct. No evidence of vascular injury, aneurysm, hemodynamically significant stenosis or major vessel occlusion of the intracranial arterial system. Reviewed, Interpreted and Dictated by Jake Swan III, MD Transcribed by Chidi Lai Authenticated and . [facility]
--- NOTE | 2022-03-13 13:52 | XR_ITS ---
FINAL REPORT CLINICAL HISTORY: R/O CVA COMPARISON: December 2018 FINDINGS: The heart size is normal. The mediastinum is within normal limits. There is mild scarring/fibrosis. There is no pleural effusion. There is no pneumothorax. The bony thorax is intact. IMPRESSION: No acute cardiopulmonary process. Reviewed, Interpreted and Dictated by Jake Swan III, MD Transcribed by Chidi Lai Authenticated and [facility]
--- NOTE | 2022-03-13 13:55 | CT_ITS ---
FINAL REPORT TECHNIQUE: Thin section axial CT with IV contrast supplemented with multiplanar reconstruction under CT angiogram protocol. This study was performed with techniques to keep radiation doses as low as reasonably achievable (ALARA). Individualized dose reduction techniques using automated exposure control or adjustment of mA and/or kV according to the patient''s size were employed. NASCET criteria was utilized during interpretation. CLINICAL HISTORY: R/O CVA FINDINGS: Aortic arch: Arch shows no significant narrowing. Great vessel origins are widely patent. Right carotid: No significant stenosis is seen of the cervical common or internal carotid artery. Left carotid: Mild stenosis at the bulb, less than 50%. Vertebral: Left vertebral artery is dominant. No significant stenosis is present. There is a 39 mm partially imaged area of fat in the mediastinum that may represent a lipoma. IMPRESSION: Mild stenosis at the left carotid bulb, less than 50%. Reviewed, Interpreted and Dictated by Jake Swan III, MD Transcribed by Chidi Lai Authenticated and . [facility]
[2022-03-13 14:01] VITALS: BP 140/77; PULSE 75; RESP 20; O2SAT 96
--- NOTE | 2022-03-13 14:03 | PC.NURSE ---
DR. FLORES AT BEDSIDE PERFORMING NIHSS
[2022-03-13 14:06] LABS: Chloride 94 mmol/L (98-107); Sodium 136 mmol/L (136-145)
--- NOTE | 2022-03-13 14:06 | PC.NURSE ---
1330 FAMILY/FRIEND REPORTS LAST KNOWN WELL ABOUT 2200 LAST NIGHT
[2022-03-13 14:07] LABS: Potassium 3.9 mmoL/L (3.5-5.1)
[2022-03-13 14:09] LABS: Blood Urea Nitrogen 28 mg/dl (7-17); Creatinine Clearance Estimated 51 mL/min (50-200); Estimated Glomerular Filt Rate 97 ml/min (>60); GFR (African American) 117 ML/MIN (>60)
[2022-03-13 14:10] LABS: Anion Gap 11.9 mEq/L (5-15); Calcium 8.9 mg/dl (8.4-10.2); Carbon Dioxide 34 mmol/L (22.0-30.0); Glucose 125 mg/dl (74-100)
[2022-03-13 14:12] LABS: Activated Partial Thrombo Time 23.6 seconds (22.8-30.6); INR 0.93 (0.9-1.1); Prothrombin Time 10.1 seconds (10.1-12.5)
[2022-03-13 14:13] LABS: Basophils # 0.1 K/mm3 (0-0.2); Basophils % 1.1 % (0.1-2.0); Eosinophils % 0.3 % (0.1-12.0); Hematocrit 39.6 % (37.0-47.0); Lymphocytes # 0.8 K/mm3 (0.7-4.5); Lymphocytes % 9.7 % (10-50); Mean Corpuscular HGB Conc 32.7 g/dL (31.8-35.4); Mean Corpuscular Volume 88.8 fl (81-99); Mean Platelet Volume 8.8 fl (7.4-10.4); Monocytes # 0.3 K/mm3 (0.1-1.0); Monocytes % 3.3 % (1.7-9.3); Neutrophils # 7.1 K/mm3 (1.8-7.8); Neutrophils % 85.6 % (37.0-80.0); Platelet Count 210 K/mm3 (142-424); Red Blood Count 4.46 M/mm3 (4.20-5.40); Red Cell Distribution Width 15.3 % (11.5-17.5); White Blood Count 8.3 K/mm3 (4.8-10.8)
--- NOTE | 2022-03-13 14:14 | PC.NURSE ---
PT TO CT AT THIS TIME
[2022-03-13 14:16] LABS: MANUAL DIFFERENTIAL MANUAL DIFFERENTIAL (MANUAL DIFF)
--- NOTE | 2022-03-13 14:17 | PC.NURSE ---
PT GOING FOR CTA'S
--- NOTE | 2022-03-13 14:18 | HMH.EDGENADL ---
Discharge Plan Disposition Patient Disposition: Xfer Short-Term Hosp Condition: Fair Prescriptions Prescriptions: No Action lisinopril 5 mg tablet 2.5 mg PO DAILY atorvastatin 20 mg tablet 20 mg PO HS alendronate 70 mg tablet 70 mg PO WEEKLY albuterol sulfate 90 mcg/actuation HFA aerosol inhaler 2 puff inhalation Q6H PRN (Reason: BREATHING) Label Comments: INHALE 2 PUFFS BY MOUTH EVERY 6 HOURS NEEDED FOR SHORTNESS OF BREATH cholecalciferol (vitamin D3) 2,000 UNIT capsule 2,000 unit PO DAILY L.acidoph, paracasei,B. lactis 1 EACH capsule 1 each PO DAILY cyanocobalamin (vitamin B-12) 2,500 MCG tablet, sublingual 2,500 mcg PO DAILY calcium carbonate-vitamin D3 1 EACH tablet 1 each PO BID aspirin 325 MG tablet 325 mg PO DAILY hydrochlorothiazide 25 MG tablet 12.5 mg PO DAILY escitalopram oxalate 5 MG tablet 5 mg PO DAILY Referrals Follow up/Referrals: Juanito Zelaya MD [Primary Care Provider] - See instructions Clinical Impressions Clinical Impression: Acute CVA (cerebrovascular accident) Stand Alone Forms Stand Alone Forms: Transfer Record - ED Discharge ED Provider: Jac Mendoza General Adult HPI General Chief complaint: Weakness Stated complaint: weakness Time Seen by Provider: 03/13/22 13:45 Mode of Arrival: EMS Limitations: No Limitations Description of Symptoms (Recalled from ER Triage Doc. by RN): PT BROUGHT IN VIA EMS. WOKE THIS AM WITH HEADACHE, NAUSEA AND DIARRHEA. PREVIOUS LEFT SIDED STROKE. History of Present Illness HPI narrative: Patient is a 76-year-old female with past medical history of prior CVA with no motor or sensory residual who presents to the emergency department for evaluation of strokelike symptoms. Last known normal was 10 PM last night. Patient awoke with floaters in her left eyes line of sight. She had difficulty picking up things with her left upper extremity. When family member found her she was on the toilet and had difficult rising from a seated position. Patient also has past medical history of hypertension, hyperlipidemia. No other acute complaints at this time. In route fingerstick blood glucose was acceptable. Related Data Home Medications Medication Instructions Recorded Confirmed alendronate 70 mg tablet 70 mg PO WEEKLY Osteoporosis 06/29/17 03/13/22 atorvastatin 20 mg tablet 20 mg PO HS Cholesterol 06/29/17 03/13/22 L.acidoph, paracasei,B. lactis 10 1 each PO DAILY Supplement 12/17/18 03/13/22 billion cell capsule calcium carbonate 600 mg-vitamin 1 each PO BID Supplement 12/17/18 03/13/22 D3 20 mcg (800 unit) tablet cholecalciferol (vitamin D3) 50 2,000 unit PO DAILY Supplement 12/17/18 03/13/22 mcg (2,000 unit) capsule cyanocobalamin (vitamin B-12) 2,500 mcg PO DAILY Supplement 12/17/18 03/13/22 2,500 mcg sublingual tablet lisinopril 5 mg tablet 2.5 mg PO DAILY High blood pressure 11/08/19 03/13/22 aspirin 325 mg tablet 325 mg PO DAILY heart health 08/20/20 03/13/22 escitalopram oxalate 5 mg tablet 5 mg PO DAILY Depression 08/20/20 03/13/22 hydrochlorothiazide 25 mg tablet 12.5 mg PO DAILY Edema 08/20/20 03/13/22 albuterol sulfate 90 mcg/actuation 2 puff inhalation Q6H PRN BREATHING 01/12/22 03/13/22 aerosol inhaler Allergies Allergy/AdvReac Type Severity Reaction Status Date / Time No Known Allergies Allergy Verified 01/12/22 10:[address] [facility] Medical History (Updated 03/13/22 @ 17:01 by Jac Mendoza MD) Anxiety Cerebrovascular accident COPD (chronic obstructive pulmonary disease) GERD (gastroesophageal reflux disease) HLD (hyperlipidemia) HTN (hypertension) Osteoporosis TIA (transient ischemic attack) Family History Other Cancer Diabetes Kidney disease Stroke Social History (Updated 03/13/22 @ 15:15 by Ann Marie Marquez RN) Smoking Status: Former smoker pack-years: 50 seco
[2022-03-13 14:35] LABS: Troponin I < 0.01 ng/ml (0.00-0.034)
[2022-03-13 14:42] LABS: Eosinophils % 1 % (0-3); Lymphocytes % 20 % (10-50); Monocytes % 3 % (2-9); Neutrophils % 76 % (42-76); Platelet Estimate Normal; RBC Morphology Normal; Total Cells Counted 100
--- NOTE | 2022-03-13 15:16 | PC.NURSE ---
placed call to [facility] for stroke/neuro
--- NOTE | 2022-03-13 15:17 | PC.NURSE ---
dr Mendoza on with [facility]
--- NOTE | 2022-03-13 15:22 | PC.NURSE ---
1514 ED MD AT BEDSIDE TO REEVALUATE PT AND UPDATE PT AND FAMILY ON POC
[2022-03-13 15:28] LABS: Coronavirus 19, PCR Not Detected (NotDetected); Influenza A, PCR Not Detected (NotDetected); Influenza B, PCR Not Detected (NotDetected)
--- NOTE | 2022-03-13 15:43 | PC.NURSE ---
HAS ACCEPTED PT THEY ARE SUPPOSED TO HAVE A BED AVAILABLE IF NOT THEY WILL DO AN ER TO ER VISIT
--- NOTE | 2022-03-13 16:31 | PC.NURSE ---
PT AND FAMILY UPDATED ON POC AT THIS TIME. SOCKS AND WARM BLANKET PROVIDED FOR PT. NO FURTHER NEEDS AT THIS TIME
--- NOTE | 2022-03-13 16:53 | PC.NURSE ---
REPORT GIVEN TO ROSA AT [facility] STROKE UNIT
--- NOTE | 2022-03-13 16:59 | PC.NURSE ---
called [facility] for transport
--- NOTE | 2022-03-13 17:24 | PC.NURSE ---
pt placed on bedpan, pt yelled out again and she was soaked, pt would not lay still too let me put blankets on her, daughter here with dry clothes
--- NOTE | 2022-03-13 17:29 | PC.NURSE ---
Luz Marina here for transport to [facility]
[2022-03-13 17:40] VITALS: BP 113/62; PULSE 82; RESP 18; TEMP 36.7; O2SAT 97
== END 2022-03-13 17:40 | disposition short-term general hospital (02) ==
PROVIDERS: Emergency Provider Emergency Medicine; PCP Internal Medicine Adolescent Medicine
DX: I63.9 Cerebral infarction, unspecified; Z79.899 Other long term (current) drug therapy; M81.0 Age-related osteoporosis without current pathological fracture; Z79.82 Long term (current) use of aspirin; F41.9 Anxiety disorder, unspecified; J44.9 Chronic obstructive pulmonary disease, unspecified; K21.9 Gastro-esophageal reflux disease without esophagitis; I10 Essential (primary) hypertension; E78.5 Hyperlipidemia, unspecified; Z87.891 Personal history of nicotine dependence; Z83.3 Family history of diabetes mellitus; Z82.3 Family history of stroke; Z80.9 Family history of malignant neoplasm, unspecified
CPT/HCPCS: 70450; 70496; 70498; 71045; 80048; 84484; 85007; 85025; 85610; 85730; 96374; 99285; C9803; J2405; Q9967; U0003; U0005

== ENCOUNTER → 2022-07-20 15:13 | Outpatient (CLI) | payer MEDICARE, SELFPAY ==
--- NOTE | 2022-07-20 15:20 | XR_ITS ---
FINAL REPORT CLINICAL HISTORY: PAIN IN RIGHT AND LEFT KNEE. OTHER CHRONIC PAIN FINDINGS: RIGHT KNEE 3 views were obtained. There is no acute fracture or dislocation. There are [id number] degenerative changes. Moderate joint effusion is seen. Vascular calcifications are noted. IMPRESSION: Degenerative changes and moderate joint effusion with no acute bony abnormality. Reviewed, Interpreted and Dictated by Jake Swan III, MD Transcribed by Rasheeda Joseph Authenticated and . [facility]
--- NOTE | 2022-07-20 15:20 | XR_ITS ---
FINAL REPORT CLINICAL HISTORY: Left knee pain FINDINGS: LEFT KNEE 3 views were obtained. There is no acute fracture or dislocation. There are mild degenerative changes. Vascular calcifications are noted. There is no soft tissue abnormality. IMPRESSION: No acute bony abnormality. Reviewed, Interpreted and Dictated by Jake Swan III, MD Transcribed by Rasheeda Joseph Authenticated and [facility]
== END ==
PROVIDERS: PCP Nurse Practitioner Family; Visit Provider Nurse Practitioner Family
DX: M25.561 Pain in right knee (principal); M25.562 Pain in left knee; G89.29 Other chronic pain
CPT/HCPCS: 73562

== ENCOUNTER → 2022-07-29 14:45 | Outpatient (CLI) | payer MEDICARE, SELFPAY ==
--- NOTE | 2022-07-29 14:52 | XR_ITS ---
FINAL REPORT CLINICAL HISTORY: hip pain FINDINGS: Left hip Three views were obtained. There is no acute fracture or dislocation. There are mild degenerative changes in both hips and in the lower lumbar spine. No soft tissue abnormality is identified. IMPRESSION: Degenerative changes without acute process. Reviewed, Interpreted and Dictated by Jake Swan III, MD Transcribed by Christine Guerra Authenticated and . [facility]
== END ==
PROVIDERS: PCP Nurse Practitioner Family; Visit Provider Orthopaedic Surgery
DX: M25.552 Pain in left hip (principal)
CPT/HCPCS: 73502

== ENCOUNTER → 2022-10-13 12:59 | Outpatient (CLI) | payer MEDICARE, SELFPAY ==
--- NOTE | 2022-10-13 13:02 | MM_ITS ---
PROCEDURE INFORMATION: Exam: MG Bilateral Screening 3D Mammography Exam date and time: 10/13/2022 12:53 PM Age: 77 years old Clinical indication: Screening. No family history of breast cancer. TECHNIQUE: Imaging protocol: Bilateral Screening tomosynthesis and 2D mammography including computer-aided detection (CAD) when performed. COMPARISON: 1. MG MM DIG SCREENING MAMM BI W/CAD 10/06/2021 3:21 PM 2. MG MM DIG SCREENING MAMM BI W/CAD 10/10/2020 9:30 AM 3. MG MM DIG SCREENING MAMM BI W/CAD 10/10/2019 10:34 AM 4. MG DMSB DIG MAMM-SCREEN STEW W/CAD 11/09/2016 9:44 AM FINDINGS: MAMMOGRAPHY: Breast composition: The breasts are heterogeneously dense, which may obscure small masses. Mass: None. Architectural distortion: None. Calcifications: No suspicious calcifications. Asymmetric density: None. Skin thickening: None. Axillary adenopathy: None. IMPRESSION: No mammographic evidence of malignancy. Annual screening is recommended unless otherwise clinically indicated. ASSESSMENT: BI-RADS Category 1: Negative
== END ==
PROVIDERS: PCP Nurse Practitioner Family; Visit Provider Nurse Practitioner Family
DX: Z12.31 Encounter for screening mammogram for malignant neoplasm of breast (principal)
CPT/HCPCS: 77063; 77067

== ENCOUNTER → 2022-10-22 14:58 | Outpatient (CLI) | payer MEDICARE, SELFPAY ==
--- NOTE | 2022-10-22 15:05 | XR_ITS ---
FINAL REPORT CLINICAL HISTORY: LOW BACK PAIN COMPARISON: 10-30-17 FINDINGS: LUMBAR SPINE, 5 views FINDINGS: No fracture is identified. Moderate diffuse degenerative disc space narrowing is present. Minimal dextroscoliosis is noted stable. There is no subluxation.. IMPRESSION: Mild worsening degenerative changes Authenticated and [facility]
== END ==
PROVIDERS: PCP Nurse Practitioner Family; Visit Provider Nurse Practitioner Family
DX: M54.50 Low back pain, unspecified (principal)
CPT/HCPCS: 72110

== ENCOUNTER → 2022-11-11 09:59 | Outpatient (POV) | payer MEDICARE, SELFPAY ==
--- NOTE | 2022-11-11 10:37 | EXP.PAIN.OV ---
HPI Data of Consult Patient: new to practice Consult date: 11/11/22 Requesting Physician: Tanya Chu APRN Primary Care Provider: Eunice Encarnacion APRN Consult Narrative Reason for consult: Low back pain, leg pain History of present illness: Ms. Hinton is a 77 year old female who presents today as a new patient. She is a referral from Eunice Encarnacion's office. Today she rates her pain a 5 out of 10. Patient states her pain is all in her low back and bilateral lower extremities. Patient does describe this as a constant ache, throbbing sensation that in times of worsening pain even makes her sick to her stomach. She states this has been going on for over a year and denies any specific injury or trauma that started it. She does state that she did have a fall in the past where she lost her balance and fell on her tailbone and she is unsure if this is related to her low back pain or not. Patient cannot tolerate prolonged standing or walking due to her pain. She does state the pain interferes with her ability perform activities of daily living such as cooking and cleaning. Patient denies any previous back surgery, physical therapy or injective history. Patient does have a cardiac history with previous CVA and residual deficits. Patient does use a cane to help with ambulation and help with stability. Patient has tried [id number] medications such as Tylenol and Aleve along with heat and ice and topicals such as Salonpas with some improvement. Patient is not on any scheduled medications. Her Mitch is [phone]. Its been reviewed and appropriate. CC: Tanya Chu APRN [facility] Disclaimer: The information contained in this section may have been updated after the patient was seen, as this information can be updated by other users. Medical History Anxiety CAD (coronary artery disease) Cerebrovascular accident COPD (chronic obstructive pulmonary disease) GERD (gastroesophageal reflux disease) HLD (hyperlipidemia) HTN (hypertension) Osteoporosis TIA (transient ischemic attack) Varicosities of leg Family History Other Cancer Diabetes Kidney disease Stroke Social History Smoking Status: Former smoker pack-years: 50 second hand exposure: No alcohol intake: never substance use type: denies use current occupational status: retired Travel in the last 8 weeks: None household members: none housing: house current occupational exposures/hazards: No caffeine: Yes Review of Systems Review of Systems Review of systems:: pertinent systems reviewed and negative unless documented below Review of systems (narrative): Review of Systems: General: No recent weight changes, no fever, no sleep disturbances Respiratory: No cough, no shortness of air, no recurring pulmonary infections Cardiovascular/peripheral vascular: No chest pain, no palpitations, no edema, no shortness of breath Gastrointestinal: No new onset incontinence, normal bowel movements reported Genitourinary: No new onset incontinence Musculoskeletal: Low back pain, leg pain Psychiatric: [Normal mood/affect] Neurological: [Denies weakness in extremities], [denies balance issues] Meds Home Medications and Allergies Home Medications Medication Instructions Recorded Confirmed Type alendronate 70 mg tablet 70 mg PO WEEKLY Osteoporosis 06/29/17 10/15/22 History L.acidoph, paracasei,B. lactis 10 1 each PO DAILY Supplement 12/17/18 10/15/22 History billion cell capsule calcium carbonate 600 mg-vitamin 1 each PO BID Supplement 12/17/18 10/15/22 History D3 20 mcg (800 unit) tablet cholecalciferol (vitamin D3) 50 2,000 unit PO DAILY Supplement 12/17/18 10/15/22 History mcg (2,000 unit) capsule cyanocobalamin (vitamin B-12) 2,500 mcg PO DAILY Supplement 12/17/18 10/15/22 History 2,500
[2022-11-11 11:05] VITALS: BP 123/50; PULSE 83; RESP 18; O2SAT 97; BMI 27.8
== END ==
PROVIDERS: PCP Nurse Practitioner Family; Visit Provider Nurse Practitioner Family
DX: M54.50 Low back pain, unspecified; G89.4 Chronic pain syndrome; M51.16 Intervertebral disc disorders with radiculopathy, lumbar region
CPT/HCPCS: 99202; G0463

== ENCOUNTER 2022-11-19 13:02 | Emergency (ER) | payer MEDICARE, SELFPAY ==
[2022-11-19 13:04] VITALS: BP 114/69; PULSE 81; RESP 18; TEMP 36.6; O2SAT 96; BMI 26.9
--- NOTE | 2022-11-19 13:14 | EXP.UTC ---
Discharge Plan Disposition Patient Disposition: Home, Self-Care Condition: Good Prescriptions Prescriptions: New hydrochlorothiazide 25 mg tablet 25 mg PO DAILY Qty: 10 0RF No Action lisinopril 5 mg tablet 2.5 mg PO DAILY aspirin 81 mg tablet 162 mg PO DAILY alendronate 70 mg tablet 70 mg PO WEEKLY albuterol sulfate 90 mcg/actuation HFA aerosol inhaler 2 puff inhalation Q6H PRN (Reason: BREATHING) Patient Comments: INHALE 2 PUFFS BY MOUTH EVERY 6 HOURS NEEDED FOR SHORTNESS OF BREATH atorvastatin 40 mg tablet 40 mg PO DAILY cholecalciferol (vitamin D3) 2,000 UNIT capsule 2,000 unit PO DAILY L.acidoph, paracasei,B. lactis 1 EACH capsule 1 each PO DAILY cyanocobalamin (vitamin B-12) 2,500 MCG tablet, sublingual 2,500 mcg PO DAILY calcium carbonate-vitamin D3 1 EACH tablet 1 each PO BID hydrochlorothiazide 25 MG tablet 12.5 mg PO DAILY escitalopram oxalate 5 MG tablet 5 mg PO DAILY Referrals Follow up/Referrals: Eunice Encarnacion APRN [Primary Care Provider] - See instructions Activity Restrictions/Add. Instructions Additional Instructions/Restrictions: Increase your hctz (hydrochorothiazide) to 25 mg daily. I sent in a prescription for this. Make sure you don't take the dose you are already on plus the new dose. Follow up with your regular doctor within the next 48 hours to go over your blood work and to reevaluate your swelling. GO TO THE ER FOR ANY WORSENING SYMPTOMS Clinical Impressions Clinical Impression: Ankle edema, bilateral Instructions Patient Instructions: Edema Discharge ED Provider: Andrew Newton [facility] General Stated complaint: Feet are swelling no known accident Time Seen by Provider: 11/19/22 13:14 History of Present Illness Provider Complaint: She states that for the past 2 days she has had worse swelling of her feet, ankles and lower legs. Her swelling is equal bilaterally. She has a history of having mild pedal edema that she takes HCTZ 12.5 mg daily for. She denies missing any medication or doing anything different in her life to cause this swelling. She denies any worsening shortness of breath. She denies swelling of her hands or anywhere else. Related Data Home Medications Medication Instructions Recorded Confirmed alendronate 70 mg tablet 70 mg PO WEEKLY Osteoporosis 06/29/17 11/11/22 LIgnaciaacidoph, meloasei,B. lactis 10 1 each PO DAILY Supplement 12/17/18 11/11/22 billion cell capsule calcium carbonate 600 mg-vitamin 1 each PO BID Supplement 12/17/18 11/11/22 D3 20 mcg (800 unit) tablet cholecalciferol (vitamin D3) 50 2,000 unit PO DAILY Supplement 12/17/18 11/11/22 mcg (2,000 unit) capsule cyanocobalamin (vitamin B-12) 2,500 mcg PO DAILY Supplement 12/17/18 11/11/22 2,500 mcg sublingual tablet lisinopril 5 mg tablet 2.5 mg PO DAILY High blood pressure 11/08/19 11/11/22 escitalopram oxalate 5 mg tablet 5 mg PO DAILY Depression 08/20/20 11/11/22 hydrochlorothiazide 25 mg tablet 12.5 mg PO DAILY Edema 08/20/20 11/11/22 albuterol sulfate 90 mcg/actuation 2 puff inhalation Q6H PRN BREATHING 01/12/22 11/11/22 aerosol inhaler aspirin 81 mg tablet 162 mg PO DAILY Blood thinner 06/08/22 11/11/22 atorvastatin 40 mg tablet 40 mg PO DAILY Cholesterol 06/08/22 11/11/22 Previous Rx's Medication Instructions Recorded hydrochlorothiazide 25 mg tablet 25 mg PO DAILY #10 tabs 11/19/22 Allergies Allergy/AdvReac Type Severity Reaction Status Date / Time No Known Allergies Allergy Verified 10/15/22 14:29 [facility] Disclaimer: The information contained in this section may have been updated after the patient was seen, as this information can be updated by other users. Medical History Anxiety CAD (coronary artery disease) Cerebrovascular accident COPD (chronic obstructive pulmonary disease) GERD (gastroesophageal reflux
[2022-11-19 14:06] LABS: Basophils % 0.4 % (0.1-2.0); Eosinophils # 0.1 K/mm3 (0.0-0.4); Eosinophils % 1.7 % (0.1-12.0); Hemoglobin 8.7 g/dL (12.2-16.2); Lymphocytes # 1.4 K/mm3 (0.7-4.5); Mean Corpuscular HGB Conc 30.2 g/dL (31.8-35.4); Mean Corpuscular Hemoglobin 22.7 pg (27.0-31.2); Mean Corpuscular Volume 75.2 fl (81-99); Mean Platelet Volume 8.5 fl (7.4-10.4); Monocytes # 0.4 K/mm3 (0.1-1.0); Monocytes % 5.6 % (1.7-9.3); Neutrophils # 5.1 K/mm3 (1.8-7.8); Neutrophils % 72.3 % (37.0-80.0); Platelet Count 311 K/mm3 (142-424); Red Blood Count 3.86 M/mm3 (4.20-5.40); Red Cell Distribution Width 16.5 % (11.5-17.5)
[2022-11-19 14:07] LABS: Alanine Aminotransferase 25 U/L (12-78); Albumin Level 3.8 g/dl (3.5-5.0); Albumin/Globulin Ratio 1.3 (1.1-1.8); Alkaline Phosphatase 52 U/L (38-126); Aspartate Amino Transferase 46 U/L (14-36); Bilirubin,Total 0.5 mg/dl (0.2-1.3); Blood Urea Nitrogen 23 mg/dl (7-17); Calcium 8.8 mg/dl (8.4-10.2); Carbon Dioxide 31 mmol/L (22.0-30.0); Chloride 98 mmol/L (98-107); Creatinine Clearance Estimated 53 mL/min (50-200); Estimated Glomerular Filt Rate 96 ml/min (>60); GFR (African American) 117 ML/MIN (>60); Globulin 2.9 g/dL (1.3-3.2); Glucose 96 mg/dl (74-100); Sodium 137 mmol/L (136-145); Total Protein,Serum 6.7 g/dl (6.3-8.2)
[2022-11-19 14:31] VITALS: BP 114/69; PULSE 81; RESP 18; TEMP 36.6; O2SAT 96
== END 2022-11-19 14:31 | disposition home or self-care (01) ==
PROVIDERS: Emergency Provider Nurse Practitioner Family; PCP Nurse Practitioner Family
DX: M25.471 Effusion, right ankle (principal); M25.472 Effusion, left ankle; J44.9 Chronic obstructive pulmonary disease, unspecified; I25.10 Atherosclerotic heart disease of native coronary artery without angina pectoris; I11.9 Hypertensive heart disease without heart failure; K21.9 Gastro-esophageal reflux disease without esophagitis; E78.5 Hyperlipidemia, unspecified; M19.90 Unspecified osteoarthritis, unspecified site; F41.9 Anxiety disorder, unspecified; Z87.891 Personal history of nicotine dependence
CPT/HCPCS: 80053; 85025; 99212; 99214; G0463

== ENCOUNTER → 2022-12-10 10:36 | Outpatient (CLI) | payer MEDICARE, SELFPAY ==
[2022-12-10 10:53] LABS: Basophils % 0.2 % (0.1-2.0); Eosinophils # 0.1 K/mm3 (0.0-0.4); Eosinophils % 0.6 % (0.1-12.0); Hematocrit 28.4 % (37.0-47.0); Hemoglobin 8.8 g/dL (12.2-16.2); Lymphocytes # 1.3 K/mm3 (0.7-4.5); Lymphocytes % 10.4 % (10-50); Mean Corpuscular HGB Conc 30.8 g/dL (31.8-35.4); Mean Corpuscular Hemoglobin 22.3 pg (27.0-31.2); Mean Corpuscular Volume 72.6 fl (81-99); Mean Platelet Volume 9.4 fl (7.4-10.4); Monocytes # 0.7 K/mm3 (0.1-1.0); Monocytes % 5.6 % (1.7-9.3); Neutrophils # 10.6 K/mm3 (1.8-7.8); Neutrophils % 83.3 % (37.0-80.0); Platelet Count 287 K/mm3 (142-424); Red Blood Count 3.92 M/mm3 (4.20-5.40); Red Cell Distribution Width 16.4 % (11.5-17.5); White Blood Count 12.7 K/mm3 (4.8-10.8)
[2022-12-10 11:48] LABS: Chloride 98 mmol/L (98-107)
[2022-12-10 11:49] LABS: Potassium 3.4 mmoL/L (3.5-5.1); Sodium 137 mmol/L (136-145)
[2022-12-10 11:51] LABS: Alanine Aminotransferase 26 U/L (12-78); Alkaline Phosphatase 55 U/L (38-126); Anion Gap 9.4 mEq/L (5-15); Aspartate Amino Transferase 41 U/L (14-36); Bilirubin,Total 0.5 mg/dl (0.2-1.3); Blood Urea Nitrogen 20 mg/dl (7-17); Calcium 9.1 mg/dl (8.4-10.2); Carbon Dioxide 33 mmol/L (22.0-30.0); Estimated Glomerular Filt Rate 96 ml/min (>60); GFR (African American) 117 ML/MIN (>60); Glucose 100 mg/dl (74-100); Iron 27 ug/dL (37-170)
[2022-12-10 11:52] LABS: Albumin Level 3.8 g/dl (3.5-5.0); Albumin/Globulin Ratio 1.4 (1.1-1.8); Globulin 2.7 g/dL (1.3-3.2); Total Protein,Serum 6.5 g/dl (6.3-8.2)
[2022-12-10 12:01] LABS: Total Iron Binding Capacity 502 ug/dL (265-497)
[2022-12-10 12:27] LABS: Ferritin 5.59 ng/ml (11.1-264)
== END ==
PROVIDERS: PCP Nurse Practitioner Family; Visit Provider Internal Medicine Medical Oncology
DX: D50.9 Iron deficiency anemia, unspecified (principal)
CPT/HCPCS: 36415; 80053; 82728; 83540; 83550; 85025

== ENCOUNTER 2022-12-15 15:00 | Outpatient (CLI) | payer MEDICARE, SELFPAY ==
[2022-12-15 15:20] VITALS: BP 116/61; PULSE 72; RESP 18; O2SAT 99
[2022-12-15 15:56] VITALS: BP 104/59; PULSE 73; RESP 18; O2SAT 99
== END 2022-12-15 16:00 | disposition home or self-care (01) ==
LOC: INF 15:02
PROVIDERS: PCP Internal Medicine Adolescent Medicine; Visit Provider Internal Medicine Medical Oncology
DX: D50.9 Iron deficiency anemia, unspecified (principal)
CPT/HCPCS: 96365; J1756

== ENCOUNTER 2022-12-22 14:58 | Outpatient (CLI) | payer MEDICARE, SELFPAY ==
[2022-12-22 15:21] VITALS: BP 117/52; PULSE 73; RESP 18; O2SAT 96
[2022-12-22 15:55] VITALS: BP 121/64; PULSE 73; RESP 18; O2SAT 97
== END 2022-12-22 15:57 | disposition home or self-care (01) ==
LOC: INF 14:59
PROVIDERS: PCP Nurse Practitioner Family; Visit Provider Internal Medicine Medical Oncology
DX: D50.9 Iron deficiency anemia, unspecified (principal); T45.4X5A Adverse effect of iron and its compounds, initial encounter
CPT/HCPCS: 96365; J1756

== ENCOUNTER 2022-12-29 14:50 | Outpatient (CLI) | payer MEDICARE, SELFPAY ==
[2022-12-29 15:03] VITALS: BP 124/75; PULSE 68; RESP 18; O2SAT 97
[2022-12-29 15:50] VITALS: BP 132/75; PULSE 70; RESP 18; O2SAT 99
== END 2022-12-29 15:51 | disposition home or self-care (01) ==
LOC: INF 14:51
PROVIDERS: Visit Provider Internal Medicine Medical Oncology
DX: D50.9 Iron deficiency anemia, unspecified (principal); T45.4X5A Adverse effect of iron and its compounds, initial encounter
CPT/HCPCS: 96365; J1756

== ENCOUNTER 2023-01-05 13:57 | Outpatient (CLI) | payer MEDICARE, SELFPAY ==
[2023-01-05 14:18] VITALS: BP 125/70; PULSE 73; RESP 18; TEMP 36.8; O2SAT 97
[2023-01-05 15:05] VITALS: BP 123/70; PULSE 70; RESP 18; O2SAT 97
== END 2023-01-05 15:14 | disposition home or self-care (01) ==
LOC: INF 13:58
PROVIDERS: PCP Nurse Practitioner Family; Visit Provider Internal Medicine Medical Oncology
DX: D50.9 Iron deficiency anemia, unspecified (principal)
CPT/HCPCS: 96365; J1756

== ENCOUNTER 2023-01-12 16:22 | Outpatient (CLI) | payer MEDICARE, SELFPAY ==
[2023-01-12 14:35] VITALS: BP 119/68; PULSE 74; RESP 18; O2SAT 99
[2023-01-12 15:15] VITALS: BP 134/69; PULSE 71; RESP 18; O2SAT 99
== END 2023-01-12 16:35 | disposition home or self-care (01) ==
LOC: INF 16:23
PROVIDERS: PCP Nurse Practitioner Family; Visit Provider Internal Medicine Medical Oncology
DX: D50.9 Iron deficiency anemia, unspecified (principal)
CPT/HCPCS: 96365; J1756

== ENCOUNTER 2023-01-23 13:53 | Emergency (ER) | payer MEDICARE, SELFPAY ==
[2023-01-23 14:10] VITALS: BP 121/69; PULSE 82; RESP 18; TEMP 36.8; O2SAT 94; BMI 26.9
--- NOTE | 2023-01-23 14:30 | EXP.UTC ---
Discharge Plan Disposition Patient Disposition: Home, Self-Care Condition: Good Prescriptions Prescriptions: New sulfamethoxazole-trimethoprim [Bactrim DS] 800-160 mg Tablet 1 tab PO BID Qty: 20 0RF cephalexin 500 mg capsule 500 mg PO QID Qty: 40 0RF mupirocin 2 % ointment 1 applic topical TID 7 Days Qty: 15 0RF No Action lisinopril 5 mg tablet 2.5 mg PO DAILY aspirin 81 mg tablet 162 mg PO DAILY alendronate 70 mg tablet 70 mg PO WEEKLY albuterol sulfate 90 mcg/actuation HFA aerosol inhaler 2 puff inhalation Q6H PRN (Reason: BREATHING) Patient Comments: INHALE 2 PUFFS BY MOUTH EVERY 6 HOURS NEEDED FOR SHORTNESS OF BREATH atorvastatin 40 mg tablet 40 mg PO DAILY cholecalciferol (vitamin D3) 2,000 UNIT capsule 2,000 unit PO DAILY L.acidoph, paracasei,B. lactis 1 EACH capsule 1 each PO DAILY cyanocobalamin (vitamin B-12) 2,500 MCG tablet, sublingual 2,500 mcg PO DAILY calcium carbonate-vitamin D3 1 EACH tablet 1 each PO BID hydrochlorothiazide 25 MG tablet 12.5 mg PO DAILY escitalopram oxalate 5 MG tablet 5 mg PO DAILY hydrochlorothiazide 25 mg tablet 25 mg PO DAILY Referrals Follow up/Referrals: Eunice Encarnacion APRN [Primary Care Provider] - See instructions Activity Restrictions/Add. Instructions Additional Instructions/Restrictions: Keep the wound clean and dry. Watch the wound for signs of worsening infection, such as redness, swelling, drainage, fever. etc. Follow up with your regular doctor. GO TO THE ER FOR ANY WORSENING SYMPTOMS OR CONCERNS. Clinical Impressions Clinical Impression: Cellulitis of left leg Instructions Patient Instructions: DI for Cellulitis -- Adult, Cephalexin, Mupirocin Discharge ED Provider: Andrew Newton [facility] General Stated complaint: blisters on back of left leg Mode of Arrival: Ambulatory Source of Information: Patient Limitations: No Limitations Time Seen by Provider: 01/23/23 14:30 Description of Symptoms (Recalled from Triage Doc. by RN): sore on left leg HEENT Symptoms (Recalled from RN notes): No Resp Symptoms (Recalled from RN notes): No Skin Symptoms (Recalled from RN notes): Yes MS Symptoms (Recalled from RN notes): No Functional Status (Recalled from RN notes): n/a History of Present Illness Provider Complaint: She states that she has had blisters and redness of her left lower leg for the past 3 days. Related Data Home Medications Medication Instructions Recorded Confirmed alendronate 70 mg tablet 70 mg PO WEEKLY Osteoporosis 06/29/17 01/14/23 miki Luna B. lactis 10 1 each PO DAILY Supplement 12/17/18 01/14/23 billion cell capsule calcium carbonate 600 mg-vitamin 1 each PO BID Supplement 12/17/18 01/14/23 D3 20 mcg (800 unit) tablet cholecalciferol (vitamin D3) 50 2,000 unit PO DAILY Supplement 12/17/18 01/14/23 mcg (2,000 unit) capsule cyanocobalamin (vitamin B-12) 2,500 mcg PO DAILY Supplement 12/17/18 01/14/23 2,500 mcg sublingual tablet lisinopril 5 mg tablet 2.5 mg PO DAILY High blood pressure 11/08/19 01/14/23 escitalopram oxalate 5 mg tablet 5 mg PO DAILY Depression 08/20/20 01/14/23 hydrochlorothiazide 25 mg tablet 12.5 mg PO DAILY Edema 08/20/20 01/14/23 albuterol sulfate 90 mcg/actuation 2 puff inhalation Q6H PRN BREATHING 01/12/22 01/14/23 aerosol inhaler aspirin 81 mg tablet 162 mg PO DAILY Blood thinner 06/08/22 01/14/23 atorvastatin 40 mg tablet 40 mg PO DAILY Cholesterol 06/08/22 01/14/23 hydrochlorothiazide 25 mg tablet 25 mg PO DAILY edema 12/22/22 01/14/23 Previous Rx's Medication Instructions Recorded cephalexin 500 mg capsule 500 mg PO QID #40 caps 01/23/23 mupirocin 2 % topical ointment 1 applic topical TID 7 days #15 01/23/23 grams sulfamethoxazole 800 1 tab PO BID #20 tabs 01/23/23 mg-trimethoprim 160 mg tablet (Bactrim DS) Allergies Allergy/AdvReac Type Severity R
[2023-01-23 15:18] VITALS: BP 121/69; PULSE 82; RESP 18; TEMP 36.8; O2SAT 94
== END 2023-01-23 15:18 | disposition home or self-care (01) ==
PROVIDERS: Emergency Provider Nurse Practitioner Family; PCP Nurse Practitioner Family
DX: L03.116 Cellulitis of left lower limb (principal); J44.9 Chronic obstructive pulmonary disease, unspecified; I25.10 Atherosclerotic heart disease of native coronary artery without angina pectoris; I11.9 Hypertensive heart disease without heart failure; K21.9 Gastro-esophageal reflux disease without esophagitis; E78.5 Hyperlipidemia, unspecified; M19.90 Unspecified osteoarthritis, unspecified site; Z87.891 Personal history of nicotine dependence; I83.90 Asymptomatic varicose veins of unspecified lower extremity
CPT/HCPCS: 87070; 87077; 87186; 87205; 99212; 99214; G0463

== ENCOUNTER 2023-01-29 10:08 | Emergency (ER) | payer MEDICARE, SELFPAY ==
[2023-01-29 10:09] VITALS: BP 130/95; PULSE 90; RESP 16; TEMP 36.7; O2SAT 94; BMI 26.9
--- NOTE | 2023-01-29 10:28 | EXP.UTC ---
Discharge Plan Disposition Patient Disposition: Home, Self-Care Condition: Good Prescriptions Prescriptions: No Action lisinopril 5 mg tablet 2.5 mg PO DAILY aspirin 81 mg tablet 162 mg PO DAILY alendronate 70 mg tablet 70 mg PO WEEKLY albuterol sulfate 90 mcg/actuation HFA aerosol inhaler 2 puff inhalation Q6H PRN (Reason: BREATHING) Patient Comments: INHALE 2 PUFFS BY MOUTH EVERY 6 HOURS NEEDED FOR SHORTNESS OF BREATH atorvastatin 40 mg tablet 40 mg PO DAILY cholecalciferol (vitamin D3) 2,000 UNIT capsule 2,000 unit PO DAILY L.acidoph, paracasei,B. lactis 1 EACH capsule 1 each PO DAILY cyanocobalamin (vitamin B-12) 2,500 MCG tablet, sublingual 2,500 mcg PO DAILY calcium carbonate-vitamin D3 1 EACH tablet 1 each PO BID hydrochlorothiazide 25 MG tablet 12.5 mg PO DAILY escitalopram oxalate 5 MG tablet 5 mg PO DAILY hydrochlorothiazide 25 mg tablet 25 mg PO DAILY sulfamethoxazole-trimethoprim [Bactrim DS] 800-160 mg Tablet 1 tab PO BID Qty: 20 0RF cephalexin 500 mg capsule 500 mg PO QID Qty: 40 0RF mupirocin 2 % ointment 1 applic topical TID 7 Days Qty: 15 0RF Referrals Follow up/Referrals: Eunice Encarnacion APRN [Primary Care Provider] - See instructions Activity Restrictions/Add. Instructions Additional Instructions/Restrictions: Clean area gently with antibacterial soap and water Continue antibiotics as prescribed Follow up with your Family Doctor next week for re-evaluation Return if needed Continue to use topical cream as prescribed and avoid friction on this area Clinical Impressions Clinical Impression: Wound of left leg Qualifiers: Encounter type: subsequent encounter Qualified Code(s): S81.802D - Unspecified open wound, left lower leg, subsequent encounter Instructions Patient Instructions: Minor Wounds (Alternative Therapy), Skin Wound Discharge ED Provider: Mirtha Orourke [facility] General Stated complaint: sore on Lt leg, pain Mode of Arrival: Ambulatory Source of Information: Patient Limitations: No Limitations Time Seen by Provider: 01/29/23 10:28 Description of Symptoms (Recalled from Triage Doc. by RN): Patient reports a sore on her left lower leg for 1 week. States she saw Malinda Encarnacion about it and the cream she prescribed her didn't work so 2 days ago she came to the [facility] and was prescribed an antibiotic and another ointment. States the sore looked better yesterday and now today it looks worse so she came in to get it looked at again. HEENT Symptoms (Recalled from RN notes): No Resp Symptoms (Recalled from RN notes): No Skin Symptoms (Recalled from RN notes): Yes MS Symptoms (Recalled from RN notes): No Functional Status (Recalled from RN notes): wnl History of Present Illness Provider Complaint: Patient states that she has had a place on the back of left leg for over a week States that she seen her PCP and they give her some topical cream for it but it wasnt getting any better and looked infected so she came in and they give her some topical antibiotic and some oral antibiotics and it was looking better but this morning she cleaned it and and her family said it was looking red again State that it is on the back of her leg and she cant see it good so she came in to get it looked at again to make sure it was ok Denies redness, denies swelling, denies fever chills Related Data Home Medications Medication Instructions Recorded Confirmed alendronate 70 mg tablet 70 mg PO WEEKLY Osteoporosis 06/29/17 01/14/23 L.acidoph, paracasei,B. lactis 10 1 each PO DAILY Supplement 12/17/18 01/14/23 billion cell capsule calcium carbonate 600 mg-vitamin 1 each PO BID Supplement 12/17/18 01/14/23 D3 20 mcg (800 unit) tablet cholecalciferol (vitamin D3) 50 2,000 unit PO DAILY Supplement 12/17/18 01/14/23 mcg (2,000 unit) capsule cyanocobalamin (vitamin B-12) 2,500 mcg PO DAILY Supplement 12/17
[2023-01-29 10:50] VITALS: BP 130/95; PULSE 90; RESP 16; TEMP 36.7; O2SAT 94
== END 2023-01-29 10:51 | disposition home or self-care (01) ==
PROVIDERS: Emergency Provider Nurse Practitioner; PCP Nurse Practitioner Family
DX: S81.802A Unspecified open wound, left lower leg, initial encounter (principal); J44.9 Chronic obstructive pulmonary disease, unspecified; I25.10 Atherosclerotic heart disease of native coronary artery without angina pectoris; K21.9 Gastro-esophageal reflux disease without esophagitis; I10 Essential (primary) hypertension; E78.5 Hyperlipidemia, unspecified; M81.8 Other osteoporosis without current pathological fracture; F41.9 Anxiety disorder, unspecified; Z87.891 Personal history of nicotine dependence; X58.XXXA Exposure to other specified factors, initial encounter
CPT/HCPCS: 99212; 99213; G0463

== ENCOUNTER 2023-07-23 15:17 | Outpatient (CLI) | payer MEDICARE, SELFPAY ==
--- NOTE | 2023-07-23 15:18 | US_ITS ---
FINAL REPORT CLINICAL HISTORY: decreased sensation of b/l lower extremity, previous smoker, HTN, hx TIA, bilateral claudication, bilateral rest pain, bruising bilateral lower extremities. FINDINGS: BILATERAL ANKLE BRACHIAL INDICES Pressure indices are as follows are: RIGHT LOWER EXTREMITY Ankle brachial pressure index: 1.1 Toe brachial pressure index: 0.97 COMMENTS: Normal LEFT LOWER EXTREMITY Ankle brachial pressure index: 1.0 Toe brachial pressure index: 0.8 COMMENTS: Normal IMPRESSION: No evidence of significant obstructive peripheral vascular disease of the lower extremities. Reviewed, Interpreted and Dictated by Jake Swan III, MD Transcribed by Rasheeda Joseph Authenticated and [facility]
== END 2023-07-23 23:59 ==
LOC: RT 15:18
PROVIDERS: PCP Internal Medicine Adolescent Medicine; Visit Provider Nurse Practitioner
DX: R09.89 Other specified symptoms and signs involving the circulatory and respiratory systems (principal)
CPT/HCPCS: 93923

== ENCOUNTER 2023-09-17 13:52 | Emergency (ER) | payer MEDICARE, SELFPAY ==
[2023-09-17 14:30] VITALS: BP 145/77; PULSE 77; RESP 17; TEMP 36.8; O2SAT 95; BMI 28.3
--- NOTE | 2023-09-17 14:41 | EXP.UTC ---
Discharge Plan Disposition Patient Disposition: Home, Self-Care Condition: Good Prescriptions Prescriptions: New sulfamethoxazole-trimethoprim [Bactrim DS] 800-160 mg tablet 1 tab PO Q12H Qty: 20 0RF cephalexin 500 mg capsule 500 mg PO QID 5 Days Qty: 20 0RF mupirocin 2 % ointment 1 applic topical TID 10 Days Qty: 22 0RF Rx Instructions: apply to wound on right leg as directed No Action aspirin 81 mg tablet 162 mg PO DAILY furosemide 40 mg tablet PO alendronate 70 mg tablet 70 mg PO WEEKLY albuterol sulfate 90 mcg/actuation HFA aerosol inhaler 2 puff inhalation Q6H PRN (Reason: BREATHING) Patient Comments: INHALE 2 PUFFS BY MOUTH EVERY 6 HOURS NEEDED FOR SHORTNESS OF BREATH atorvastatin 40 mg tablet 40 mg PO DAILY cholecalciferol (vitamin D3) 2,000 UNIT capsule 2,000 unit PO DAILY L.acidoph, paracasei,B. lactis 1 EACH capsule 1 each PO DAILY cyanocobalamin (vitamin B-12) 2,500 MCG tablet, sublingual 2,500 mcg PO DAILY calcium carbonate-vitamin D3 1 EACH tablet 1 each PO BID escitalopram oxalate 5 MG tablet 5 mg PO DAILY furosemide 40 mg tablet 40 mg PO DAILY Patient Comments: TAKE 1 TABLET BY MOUTH ONCE DAILY FOR 90 DAYS albuterol sulfate 90 mcg/actuation HFA aerosol inhaler 2 puff INHALATION Q6HP PRN (Reason: SOA) Patient Comments: INHALE 2 PUFFS BY MOUTH EVERY 6 HOURS NEEDED FOR SHORTNESS OF BREATH Referrals Follow up/Referrals: Eunice Encarnacion APRN [Primary Care Provider] - See instructions Activity Restrictions/Add. Instructions Additional Instructions/Restrictions: Clean wound with antibacterial soap and water Apply topical antibiotic ointment as prescribed Take oral antibiotics as prescribed Follow up with your Family Doctor if no improvement or any worsening of symptoms Straight to ER if any worsening of redness, swelling fever streaks or other signs of woresning infection Clinical Impressions Clinical Impression: Cellulitis, Infected skin tear Instructions Patient Instructions: Cellulitis, Cephalexin, Trimethoprim/Sulfamethoxazole (Alternative Therapy) Discharge ED Provider: Mirtha Orourke [facility] General Stated complaint: AO 09/15/23, inj right leg Mode of Arrival: Ambulatory Source of Information: Patient Limitations: No Limitations Time Seen by Provider: 09/17/23 14:42 Description of Symptoms (Recalled from Triage Doc. by RN): PATIENT STATES SHE WAS PULLING WEEDS IN HER FLOWER BED 2 DAYS AGO AND FELL. PATIENT C/O SORE ON RIGHT LOWER LEG WITH REDNESS AND PAIN HEENT Symptoms (Recalled from RN notes): No Resp Symptoms (Recalled from RN notes): No Skin Symptoms (Recalled from RN notes): Yes MS Symptoms (Recalled from RN notes): No Functional Status (Recalled from RN notes): WNL History of Present Illness Provider Complaint: Patient states that she was working in her flower bed a couple days ago and she fell and tore the skin on her right lower leg States that she has been trying to doctor it at home with neosporin but family was concerned when today it was looking red around it and a little swollen and she has hx of cellulitis Related Data Home Medications Medication Instructions Recorded Confirmed alendronate 70 mg tablet 70 mg PO WEEKLY Osteoporosis 06/29/17 07/15/23 L.acidoph, paracasei,B. lactis 10 1 each PO DAILY Supplement 12/17/18 07/15/23 billion cell capsule calcium carbonate 600 mg-vitamin 1 each PO BID Supplement 12/17/18 07/15/23 D3 20 mcg (800 unit) tablet cholecalciferol (vitamin D3) 50 2,000 unit PO DAILY Supplement 12/17/18 07/15/23 mcg (2,000 unit) capsule cyanocobalamin (vitamin B-12) 2,500 mcg PO DAILY Supplement 12/17/18 07/15/23 2,500 mcg sublingual tablet escitalopram oxalate 5 mg tablet 5 mg PO DAILY Depression 08/20/20 07/15/23 albuterol sulfate 90 mcg/actuation 2 puff inhalation Q6H PRN BREATHING 01/12/22 07/15/23 aerosol inhaler aspirin 81 mg tablet 162 mg PO DAILY Blood thinner 06/08/22 07/15/23 atorvastatin 40 mg tablet 40 mg PO DAILY Cholesterol 06/08/22 07/15/23 furosemide 40 mg tablet mg PO 07/15/23 07/15/23 albuterol sulfate 90 mcg/actuation 2 puff inhalation Q6HP PRN SOA 09/17/23 09/17/23 aerosol inhaler furosemide 40 mg tablet 40 mg PO DAILY 09/17/23 09/17/23 Previous Rx's Medication Instructions Recorded cephalexin 500 mg capsule 500 mg PO QID 5 days #20 caps 09/17/23 mupirocin 2 % topical ointment 1 applic topical TID 10 days #22 09/17/23 grams sulfamethoxazole 800 1 tab PO Q12H #20 tabs 09/17/23 mg-trimethoprim 160 mg tablet (Bactrim DS) Allergies Allergy/AdvReac Type Severity Reaction Status Date / Time No Known Allergies Allergy Verified 07/15/23 14:21 Worker's Comp Is this a Worker's Comp case?: [facility] Disclaimer: The information contained in this section may have been updated after the patient was seen, as this information can be updated by other users. Medical History Anxiety CAD (coronary artery disease) Cerebrovascular accident COPD (chronic obstructive pulmonary disease) GERD (gastroesophageal reflux disease) HLD (hyperlipidemia) HTN (hypertension) Osteoporosis TIA (transient ischemic attack) Varicosities of leg Family History Other Cancer Diabetes Kidney disease Stroke Social History Smoking Status: Former smoker tobacco type: cigarettes packs per day: 1 second hand exposure: No alcohol intake: never substance use type: denies use current occupational status: retired Travel in the last 8 weeks: None household members: none housing: house current occupational exposures/hazards: No caffeine: Yes ROS Obtained: Yes All systems reviewed & no additional complaints except as documented and Yes Systems reviewed as appropriate & no additional complaints except as documented Constitutional Constitutional: Reports system reviewed and no additional complaints, except as documented and Reports as per HPI ENT Ears, Nose, Mouth, and Throat: Reports system reviewed and no additional complaints, except as documented and Reports as per HPI Cardiovascular Cardiovascular: Reports system reviewed and no additional complaints, except as documented and Reports as per HPI Respiratory Respiratory: Reports system reviewed and no additional complaints, except as documented and Reports as per HPI Gastrointestinal Gastrointestingal: Reports system reviewed and no additional complaints, except as documented and as per HPI Genitourinary Female Genitourinary: Reports system reviewed and no additional complaints, except as documented and Reports as per HPI Musculoskeletal Musculoskeletal: Reports system reviewed and no additional complaints, except as documented and Reports as per HPI Integumentary/Breasts Skin/Breast: Reports system reviewed and no additional complaints, except as documented and Reports as per HPI Comments: skin tear on right lower leg thinks it is infected and having surrounding redness and mild swelling with hx of cellulitis Physical Exam General General appearance: alert and in no apparent distress ENT ENT exam: Present mucous membranes moist Respiratory Respiratory exam: Present normal lung sounds bilaterally; Absent respiratory distress or wheezes Cardiovascular Cardiovascular exam: Present regular rate, normal rhythm and normal heart sounds Neurological Exam Neurological exam: Present alert, oriented X3 and normal gait Skin Skin exam: Present erythema and other (skin tear right lower leg) Expanded Skin Exam Body image: 1. skin tear noted with redness and mild warmth noted to the skin around it like cellulitis Medical Decision Making Mitch Inquiry Pt receiving controlled substance: No Mitch was queried for this patient: No Vital Signs: 09/17/23 14:30 Temperature 98.2 F Temperature Source Oral Pulse Rate [Left Brachial] 77 Respiratory Rate 17 Blood Pressure [Left Arm] 145/77 H Blood Pressure Mean [Left Arm] 99 Blood Pressure Source [Left Arm] Automatic Cuff Blood Pressure Position [Left Arm] Sitting 02 Sat by Pulse Oximetry 95 Oxygen Delivery Method Room Air Medical Decision Narrative: Due to redness and mild swelling surrounding skin tear on right lower leg discussed transfer to the ED for further lab work and discussed xray due to fall and patient declined both, states that she just wants antibiotics this happens when she gets cut, Patient states that she has taken Cephalexin and Bactrim in the past with her current medications without complications or reactions
[2023-09-17 15:01] VITALS: BP 145/77; PULSE 77; RESP 17; TEMP 36.8; O2SAT 95
== END 2023-09-17 15:05 | disposition home or self-care (01) ==
PROVIDERS: Emergency Provider Nurse Practitioner; PCP Nurse Practitioner Family
DX: L03.115 Cellulitis of right lower limb (principal); S81.801A Unspecified open wound, right lower leg, initial encounter; W19.XXXA Unspecified fall, initial encounter
CPT/HCPCS: 99212; 99214; G0463

== ENCOUNTER 2023-09-23 14:42 | Outpatient (RCR) | payer MEDICARE, SELFPAY ==
--- NOTE | 2023-09-23 17:01 | HMH.PTOPWND ---
Rehab Outpt Wound Evaluation Rehab OP Wound Evaluation Start: 09/23/23 15:04 Freq: Status: Active Protocol: Document 09/23/23 16:50 PHORJOSE ROBERTO (Rec: 09/23/23 17:01 PHORJOSE ROBERTO Laptop) E-signed By Tim Hinse, PT Subjective/History History History This is the initial PT eval for Lorraine Hinton, 78 yowf who presents with c/o B LE edema increased x ~ 2-3 yrs. She reports insidious onset of symptoms. She has increased pain and tenderness in B LE with the increased edema also. She had LIDIA performed which does not indicate the presence of PAD. She has difficulty donning compression stockings. She has PMH of: Anxiety CAD (coronary artery disease) Cerebrovascular accident COPD (chronic obstructive pulmonary disease) GERD (gastroesophageal reflux disease) HLD (hyperlipidemia) HTN (hypertension) Osteoporosis TIA (transient ischemic attack ) Varicosities of leg Subjective Subjective Pt currently has no pain at rest, but she does have increased SOA with activity. She presents with 2/4 TTP to B lower legs. 2+ pitting edema noted from mid-calf distally and multiple varicose veins noted B. New diagnosis of cancer in past 12 No months? Lymphedema Eval Classification of Lymphedema Secondary Lymphedema Yes: CVI Stemmer's sign Stemmer's Sign yes Stage of Lymphedema Lymphedema stages Stage I (Pitting edema, reduces w/ elevation, no fibrosis) Skin Changes Dry Skin Yes Redness Yes Brittle Uneven Nails Yes Discoloration of Skin Yes Other Changes Yes Affected Extremities Areas Affected by Lymphedema/Edema Right Lower Extremity,Left Lower Extremity Lower Extremity Measurements Right MTP Measurement (cm) 22.6 Heel Measurement (cm) 33.8 10 cm Proximal to Lateral Malleoli 30.9 Measurement (cm) 20 cm Proximal to Lateral Malleoli 37.5 Measurement (cm) 30 cm Proximal to Lateral Malleoli 40.5 Measurement (cm) 40 cm Proximal to Lateral Malleoli 48.6 Measurement (cm) 50 cm Proximal to Lateral Malleoli 0 Measurement (cm) 60 cm Proximal to Lateral Malleoli 0 Measurement (cm) Lower Extremity Measurement Total (cm) 213.9 Left MTP Measurement (cm) 22.1 Heel Measurement (cm) 32.7 10 cm Proximal to Lateral Malleoli 28.7 Measurement (cm) 20 cm Proximal to Lateral Malleoli 33.1 Measurement (cm) 30 cm Proximal to Lateral Malleoli 39.3 Measurement (cm) 40 cm Proximal to Lateral Malleoli 48.3 Measurement (cm) 50 cm Proximal to Lateral Malleoli 0 Measurement (cm) 60 cm Proximal to Lateral Malleoli 0 Measurement (cm) Lower Extremity Measurement Total (cm) 204.2 Manual Lymphatic Drainage Treatment Area MLD Treatment Area Right Lower Extremity,Left Lower Extremity Wound Problems/Impairments Impairments Problems/Impairmments Palpation Tenderness,Impaired Strength,Impaired Endurance, Impaired Transfers,Impaired Gait Pattern,Impaired Walking, Impaired Standing,Impaired Dressing,Impaired Shower/ Bathing,Impaired Household Care,Impaired Stair Climbing, Impaired Incline Stepping, Impaired Stepping on Uneven Surface,Impaired Squatting, Increased Edema,Lymphedema Present,Wound Care Needs, Subjective C/O Pain,Impaired Self Care/Self Management Prognosis Rehab Potential Good Clinical Impression Consistent with Diagnosis Yes Short Term Goals Number of Weeks 2 Decreased Palpation Tenderness Yes: 1/4 B lower legs Decrease Edema Yes: 1+ pitting edema to B LE Patient to Understand Lymphedema Yes Treatment and Exercises Decrease Girth Measurments by (cm) Yes: B LE total by 5 cm ea Halfway Goals Number of Weeks 4 Decreased Palpation Tenderness Yes: 0/4 B lower legs Improve Ability For Household Care Yes Decrease Edema Yes: no pitting edema Patient to be Ind w/ HEP Yes Patient to be Ind w/ [place] Yes Compression Garments Patient to Adhere Lymphedema Precautions Yes Decrease Girth Measurments by (cm) Yes: B LE total by 20 cm ea Outpatient Therapy Plan of Care Treatment Plan May Include Therapeutic Exercise Including Home Yes Exercise Program Manual Therapy Techniques Yes Neuromuscular Re-education Yes Therapeutic Activities to Return to Yes Previous Functional/Work Level ADL/Self Care Education Yes Orthotics/Bracing/Splinting Yes Manual Lymphatic Drainage Yes Wound Care Yes Eval/Re-Eval Yes Frequency Times per week 2 Duration Number of Weeks 4 Addendums This patient is a candidate for social No or vocational rehab? Patient/Guardian verbally acknowledges Yes understanding of treatment program and consents to further treatment? Patient/Guardian verbally acknowledges Yes understanding of diagnosis, prognosis and goals for treatment? Eval Complexity PT Charges [id number] - High Complexity PHYSICIAN CERTIFICATION: I certify the specified therapy services for Fern R Hinton are required, authorized, and reviewed every 30 days.
== END 2023-09-23 14:45 | disposition home or self-care (01) ==
LOC: PT 14:42
PROVIDERS: Visit Provider Nurse Practitioner Family
DX: R60.0 Localized edema (principal)
CPT/HCPCS: 97163

== ENCOUNTER 2023-10-07 14:29 | Outpatient (CLI) | payer MEDICARE, SELFPAY ==
--- NOTE | 2023-10-07 14:35 | MM_ITS ---
PROCEDURE INFORMATION: Exam: MG Bilateral Screening 3D Mammography Exam date and time: 10/07/2023 2:50 PM Age: 78 years old Clinical indication: Screening mammogram TECHNIQUE: Imaging protocol: Bilateral Screening tomosynthesis and 2D mammography including computer-aided detection (CAD) when performed. COMPARISON: 1. MG MM DIG SCREENING MAMM BI W/CAD 10/13/2022 12:53 PM 2. MG MM DIG SCREENING MAMM BI W/CAD 10/06/2021 3:21 PM 3. MG MM DIG SCREENING MAMM BI W/CAD 10/10/2020 9:30 AM 4. MG MM DIG SCREENING MAMM BI W/CAD 10/10/2019 10:34 AM FINDINGS: MAMMOGRAPHY: Breast composition: The breast is heterogeneously dense, which may obscure small masses. Mass: None. Architectural distortion: No new or suspicious architectural distortion. Calcifications: No new or suspicious calcifications are present Asymmetric density: No new or suspicious asymmetric density is present Skin thickening: None. Axillary adenopathy: None. IMPRESSION: No mammographic evidence of malignancy. Recommend annual screening mammography unless otherwise clinically indicated. ASSESSMENT: BI-RADS category 1: Negative.
== END 2023-10-07 23:59 | disposition home or self-care (01) ==
LOC: RAD 14:29
PROVIDERS: PCP Nurse Practitioner Family; Visit Provider Nurse Practitioner Family
DX: Z12.31 Encounter for screening mammogram for malignant neoplasm of breast (principal)
CPT/HCPCS: 77063; 77067

== ENCOUNTER 2023-10-08 14:54 | Emergency (ER) | payer MEDICARE, SELFPAY ==
[2023-10-08 15:10] VITALS: BP 145/61; PULSE 81; RESP 20; TEMP 36.9; O2SAT 95; BMI 30.7
--- NOTE | 2023-10-08 15:50 | ED_ITS ---
Discharge Plan Disposition Patient Disposition: Home, Self-Care Condition: Good Prescriptions Prescriptions: New cephalexin 500 mg capsule 500 mg PO QID Qty: 40 0RF sulfamethoxazole-trimethoprim [Bactrim DS] 800-160 mg tablet 1 tab PO BID 10 Days Qty: 20 0RF mupirocin 2 % ointment 1 applic topical TID 10 Days Qty: 22 0RF Rx Instructions: apply to wounds on leg as directed No Action furosemide 40 mg tablet 40 mg PO DAILY Patient Comments: TAKE 1 TABLET BY MOUTH ONCE DAILY FOR 90 DAYS alendronate 70 mg tablet 70 mg PO DAILY albuterol sulfate 90 mcg/actuation HFA aerosol inhaler 2 puff INHALATION Q6HP PRN (Reason: SOA) Patient Comments: INHALE 2 PUFFS BY MOUTH EVERY 6 HOURS NEEDED FOR SHORTNESS OF BREATH Referrals Follow up/Referrals: Juanito Zelaya MD [Primary Care Provider] - See instructions Activity Restrictions/Add. Instructions Additional Instructions/Restrictions: *Start antibiotic(s) immediately and be sure to take as ordered for the FULL length of time although you may be feeling better or start to see improvement in the next 24-48 hours *Monitor closely. Outlined redness so that you can monitor easier. Follow up immediately for new or worsening symptoms including but not limited to redness, swelling, streaking from site fever or chills. *Warm compress 15 minutes 3-4 times day *Never squeeze or pop these on your own. Seek immediate medical attention next time this occurs *Monitor Temp. Tylenol every 4 hours as needed and ibuprofen every 6 hours as needed (as long as your primary care doctor has told you that it is ok to take both. For fever, aches, pain. ER if no less that 101 despite Tylenol and ibuprofen ?Follow up with your family doctor/primary care physician in the next 48-72 hours if no improvement Clean wound well with antibacterial soap and water, do not apply tape to your skin this is causing the skin tears Make sure to go home and elevate your leg for several days to help with swelling and follow up with your Family Doctor next week if no improvement and immediately to the ED if any worsening of swelling or redness Clinical Impressions Clinical Impression: Cellulitis Qualifiers: Site of cellulitis: extremity Site of cellulitis of extremity: lower extremity Laterality: right Qualified Code(s): L03.115 - Cellulitis of right lower limb Instructions Patient Instructions: DI for Cellulitis -- Adult, Cellulitis, DI for Wound Infection Discharge ED Provider: Mirtha Orourke [facility] General Stated complaint: wound on right leg bleeding Mode of Arrival: Ambulatory Source of Information: Patient Limitations: No Limitations Time Seen by Provider: 10/08/23 16:03 Description of Symptoms (Recalled from Triage Doc. by RN): PATIENT C/O SORE ON RIGHT LEG BLEEDING THAT STARTED THIS AFTERNOON HEENT Symptoms (Recalled from RN notes): No Resp Symptoms (Recalled from RN notes): No Skin Symptoms (Recalled from RN notes): Yes MS Symptoms (Recalled from RN notes): No Functional Status (Recalled from RN notes): WNL History of Present Illness Provider Complaint: Patient states that she is always bumping and scratching her leg States that she fell in her flower bed a while back and scratched her right lower leg but she has been trying to keep a bandage taped to it but when she moves it it rips her skin and causes another wound States today she noticed the one was bleeding and her leg was looking red and a little swollen again so she came in Related Data Home Medications Medication Instructions Recorded Confirmed albuterol sulfate 90 mcg/actuation 2 puff inhalation Q6HP PRN SOA 10/08/23 10/08/23 aerosol inhaler alendronate 70 mg tablet 70 mg PO DAILY 10/08/23 10/08/23 furosemide 40 mg tablet 40 mg PO DAILY 10/08/23 10/08/23 Previous Rx's Medication Instructions Recorded cephalexin 500 mg capsule 500 mg PO QID #40 caps 10/08/23 mupirocin 2 % topical ointment 1 applic topical TID 10 days #22 10/08/23 grams sulfamethoxazole 800 1 tab PO BID 10 days #20 tabs 10/08/23 mg-trimethoprim 160 mg tablet (Bactrim DS) Allergies Allergy/AdvReac Type Severity Reaction Status Date / Time No Known Allergies Allergy Verified 07/15/23 14:21 Worker's Comp Is this a Worker's Comp case?: No [facility] Disclaimer: The information contained in this section may have been updated after the patient was seen, as this information can be updated by other users. Medical History Anxiety CAD (coronary artery disease) Cerebrovascular accident COPD (chronic obstructive pulmonary disease) GERD (gastroesophageal reflux disease) HLD (hyperlipidemia) HTN (hypertension) Osteoporosis TIA (transient ischemic attack) Varicosities of leg Family History Other Cancer Diabetes Kidney disease Stroke Social History Smoking Status: Former smoker tobacco type: cigarettes packs per day: 1 second hand exposure: No alcohol intake: never substance use type: denies use current occupational status: retired Travel in the last 8 weeks: None household members: none housing: house current occupational exposures/hazards: No caffeine: Yes ROS Obtained: Yes All systems reviewed & no additional complaints except as documented and Yes Systems reviewed as appropriate & no additional complaints except as documented Constitutional Constitutional: Reports system reviewed and no additional complaints, except as documented and Reports as per HPI ENT Ears, Nose, Mouth, and Throat: Reports system reviewed and no additional complaints, except as documented and Reports as per HPI Cardiovascular Cardiovascular: Reports system reviewed and no additional complaints, except as documented and Reports as per HPI Respiratory Respiratory: Reports system reviewed and no additional complaints, except as documented and Reports as per HPI Gastrointestinal Gastrointestingal: Reports system reviewed and no additional complaints, except as documented and as per HPI Integumentary/Breasts Skin/Breast: Reports system reviewed and no additional complaints, except as documented, Reports as per HPI and Reports other Comments: skin tear and redness with swelling to right lower extremity Physical Exam General General appearance: alert and in no apparent distress ENT ENT exam: Present mucous membranes moist Respiratory Respiratory exam: Present normal lung sounds bilaterally; Absent respiratory distress or wheezes Cardiovascular Cardiovascular exam: Present regular rate, normal rhythm and normal heart sounds Expanded Lower Extremity Exam Right: Leg image: 2 1. abrasion noted with minimal bleeding Lower leg exam: Present tenderness, swelling (mild), abrasion and erythema (with mild edema noted no weeping ) Gait: observed and limited by pain Neurological Exam Neurological exam: Present alert, oriented X3 and normal gait Medical Decision Making Mitch Inquiry Pt receiving controlled substance: No Mitch was queried for this patient: No Vital Signs: 10/08/23 15:10 Temperature 98.4 F Temperature Source Oral Pulse Rate [Left Brachial] 81 Respiratory Rate 20 Blood Pressure [Left Arm] 145/61 H Blood Pressure Mean [Left Arm] 89 Blood Pressure Source [Left Arm] Automatic Cuff Blood Pressure Position [Left Arm] Sitting 02 Sat by Pulse Oximetry 95 Oxygen Delivery Method Room Air Medical Decision Narrative: medication discussed with pharmacy
[2023-10-08 16:20] VITALS: BP 145/61; PULSE 81; RESP 20; TEMP 36.9; O2SAT 95
--- NOTE | 2023-10-14 01:49 | PC.NURSE ---
blood cx 4day prelim read is neg. pending final read.
== END 2023-10-08 16:26 | disposition home or self-care (01) ==
PROVIDERS: Emergency Provider Nurse Practitioner; PCP Internal Medicine Adolescent Medicine
DX: L03.115 Cellulitis of right lower limb (principal)
CPT/HCPCS: 99212; 99214; G0463

== ENCOUNTER 2023-10-09 22:11 | Observation (INO) | payer MEDICARE, SELFPAY ==
[2023-10-09 22:13] VITALS: BP 135/76; PULSE 72; RESP 20; TEMP 37; O2SAT 98; BMI 28.6
--- NOTE | 2023-10-09 22:45 | HMH.EDGENADL ---
Discharge Plan Disposition Patient Disposition: Admitted Condition: Good Clinical Impressions Clinical Impression: Cellulitis of right leg, Failure of outpatient treatment Discharge ED Provider: Jac Mendoza General Adult HPI General Chief complaint: Extremity Injury, Lower Stated complaint: Feet,legs swollen with sores Time Seen by Provider: 10/09/23 22:17 Mode of Arrival: Wheelchair Source of Information: Patient Limitations: Physical Limitations Description of Symptoms (Recalled from ER Triage Doc. by RN): Pt. presented to ED with bilateral leg swelling. right greater than left. Pt was seen in [facility] with right anterior lower leg wound.fell in a flower bed and scraped her leg, she was given antibiotic oral pill and oinment for the leg. Pt. also has COPD and gets shotness of breath with walking. right leg swollen, red, warm to touch, History of Present Illness HPI narrative: This patient is an 78-year-old female with a history of hypertension, hyperlipidemia, pulmonary hypertension, COPD, GERD, lower extremity venous insufficiency, CAD, CVA presenting to the emergency department for evaluation concern for persistent bilateral leg swelling, right greater than left. Patient has been dealing with ongoing swelling for quite some time now, and she states that she intermittently gets wounds on her legs that take a long time to heal. She was seen 09/16 for this issue in [facility] and prescribed Bactrim, Keflex, and mupirocin ointment. She took all of this, but her symptoms did not go away. She was seen again in [facility] 10/08/2023 for similar complaint and again prescribed mupirocin, Bactrim, and Keflex. She has been taking this since yesterday, but she continues to have worsening pain and swelling in her right leg and she states that her wounds are getting bigger. No fevers, chills, systemic symptoms, or other concerns. She does seem to have increased work of breathing on assessment, but she denies any chest pain or shortness of breath except when walking. She denies any history of blood clots or clotting disorders she states that she was told that she had a negative DVT ultrasound of her leg but does not believe it. She is not on anticoagulation. She is on Lasix to take daily, but she states she does not take it every day. Related Data Home Medications Medication Instructions Recorded Confirmed albuterol sulfate 90 mcg/actuation 2 puff inhalation Q6HP PRN SOA 10/08/23 10/08/23 aerosol inhaler alendronate 70 mg tablet 70 mg PO DAILY 10/08/23 10/08/23 furosemide 40 mg tablet 40 mg PO DAILY 10/08/23 10/08/23 Previous Rx's Medication Instructions Recorded cephalexin 500 mg capsule 500 mg PO QID #40 caps 10/08/23 mupirocin 2 % topical ointment 1 applic topical TID 10 days #22 10/08/23 grams sulfamethoxazole 800 1 tab PO BID 10 days #20 tabs 10/08/23 mg-trimethoprim 160 mg tablet (Bactrim DS) Allergies Allergy/AdvReac Type Severity Reaction Status Date / Time No Known Allergies Allergy Verified 07/15/23 14:21 [facility] Disclaimer: The information contained in this section may have been updated after the patient was seen, as this information can be updated by other users. Medical History Varicosities of leg TIA (transient ischemic attack) Osteoporosis GERD (gastroesophageal reflux disease) COPD (chronic obstructive pulmonary disease) Anxiety HLD (hyperlipidemia) HTN (hypertension) Cerebrovascular accident CAD (coronary artery disease) Family History Other Cancer Diabetes Kidney disease Stroke Social History Smoking Status: Former smoker tobacco type: cigarettes packs per day: 1 second hand exposure: No alcohol intake: never substance use type: denies use current occupational status: retired Travel in the last 8 weeks: None household members: none housing: house current occupational exposures/hazards: No caffeine: Yes ROS Obtained: Yes All systems reviewed & no additional complaints except as documented Physical Exam General General appearance: alert and in no apparent distress Head Head exam: atraumatic and normocephalic Eye Eye exam: Present normal appearance, PERRL and EOMI ENT ENT exam: Present normal exam, normal oropharynx, mucous membranes moist and normal external ear exam Neck Neck exam: Present normal inspection, full ROM and trachea midline; Absent tenderness Chest Chest inspection: Present normal inspection and symmetric chest wall rise; Absent tenderness Respiratory Respiratory exam: Present wheezes (Faint end expiratory wheezing), accessory muscle use, prolonged expiratory phase and other (Mildly increased work of breathing with tachypnea and accessory muscle use); Absent respiratory distress or stridor Cardiovascular Cardiovascular exam: Present regular rate and normal rhythm Abdominal Exam Abdominal exam: Present soft; Absent distention, tenderness or guarding Extremities Exam Extremities exam: Present full ROM, tenderness, normal capillary refill, edema (Significant right greater than left lower extremity edema. Right lower extremity is erythematous, warm, and tender to the touch. She has scattered abrasions on the anterior and lateral right lower leg with weeping) and other (All compartments soft. Neurovascularly intact distally.) Back Exam Back exam: Present normal inspection and full ROM; Absent tenderness Neurological Exam Neurological exam: Present alert, oriented X3 and CN II-XII intact; Absent motor sensory deficit Psychiatric Psychiatric exam: Present normal affect and normal mood Skin Skin exam: Present warm and dry Medical Decision Making Medical Records Medical records reviewed: Yes I reviewed the patient's medical records. Mitch Inquiry Pt receiving controlled substance: No Vital Signs: 10/09/23 22:13 10/10/23 00:32 Temperature 98.6 F 98.3 F Temperature Source Oral Oral Pulse Rate 72 Pulse Rate [Right Radial] 72 Respiratory Rate 20 18 Blood Pressure 127/62 Blood Pressure [Right Arm] 135/76 Blood Pressure Mean [Right Arm] 95 Blood Pressure Source Automatic Cuff Blood Pressure Source [Right Arm] Automatic Cuff Blood Pressure Position Sitting Blood Pressure Position [Right Arm] Sitting 02 Sat by Pulse Oximetry 98 Oxygen Delivery Method Room Air Room Air Lab Data Lab results reviewed: Yes I reviewed the patient's lab results. Lab Results 10/09/23 22:30: WBC 6.7, RBC 3.93 L, Hgb 10.2 L, Hct 32.5 L, MCV 82.7, MCH 25.9 L, MCHC 31.4 L, RDW 15.6, Plt Count 239, MPV 9.0, Neut % (Auto) 66.5, Lymph % (Auto) 23.9, [place] % (Auto) 7.5, Eos % (Auto) 1.5, Baso % (Auto) 0.6, Neut # (Auto) 4.4, Lymph # (Auto) 1.6, [place] # (Auto) 0.5, Eos # (Auto) 0.1, Baso # (Auto) 0.0, ESR 57 H, PT 10.3, INR 0.95, APTT 26.2, D-Dimer 0.57 H, Sodium 138, Potassium 3.5, Chloride 99, Carbon Dioxide 34 H, Anion Gap 8.5, BUN 19 H, Creatinine 1.00, Estimated Creat Clear 54, Estimated GFR 53 L, Est GFR ( Amer) 65, Glucose 103 H, Lactate 0.9, Calcium 9.3, Total Bilirubin 0.3, AST 40 H, ALT 23, Alkaline Phosphatase 52, C-Reactive Protein 5.6 H, NT-Pro-B Natriuret Pep 117, Total Protein 6.8, Albumin 3.8, Globulin 3.0, Albumin/Globulin Ratio 1.3 10/09/23 22:30 10/09/23 22:30 Orders (Tests/Meds): ED MEDICATIONS Generic Name Dose Route Start Last Admin Trade Name Freq PRN Reason Stop Dose Admin Ceftriaxone Sodium 2 gm/ 100 mls @ 200 mls/hr 10/10/23 00:16 10/10/23 00:23 Sodium Chloride IV 10/10/23 00:45 200 mls/hr ONCE ONE Administration Vancomycin/PEG/NADA/Lysine/Water 1.25 gm in 250 mls @ 125 mls/hr 10/10/23 00:30 10/10/23 00:24 Vancomycin 1.25gm/250ml (Peg) Premix IV 10/10/23 02:29 125 mls/hr ONCE ONE Administration Miscellaneous 1 each 10/10/23 00:30 10/10/23 00:23 Vancomycin Consult Request NOTAPPLIC 11/09/23 00:29 1 each CON[facility]ULT [facility] Administration ORDERS Category Date Time Status CXR --portable [XR chest portable] Stat Exams 10/09/23 22:48 Completed POCUS Point of Care (ER Only) Stat Exams 10/09/23 22:39 Completed Activated Partial Thrombo Time Stat Lab 10/09/23 22:30 Completed C-Reactive Protein Stat Lab 10/09/23 22:30 Completed Complete Blood Count Auto Diff Stat Lab 10/09/23 22:30 Completed Comprehensive Metabolic Panel Stat Lab 10/09/23 22:30 Completed D-Dimer Stat Lab 10/09/23 22:30 Completed Erythrocyte Sedimentation Rate Stat Lab 10/09/23 22:30 Completed Lactic Acid Stat Lab 10/09/23 22:30 Completed NT Pro Brain Natriuretic Pep. Stat Lab 10/09/23 22:30 Completed Prothrombin Time INR Stat Lab 10/09/23 22:30 Completed Blood Culture Stat Micro 10/09/23 22:42 Received Medical Decision Narrative: In summary, this patient is a 78-year-old female presenting to the Emergency Department for evaluation of persistent right lower extremity swelling, redness, warmth, and tenderness to palpation despite 2 outpatient evaluations and prescriptions for antibiotics. She also has mild dyspnea on exertion. differential diagnoses considered include but are not limited to CHF exacerbation, DVT, PE, cellulitis with failed outpatient treatment. Ruling out the most morbid conditions drove assessment. It should be noted patient's history includes CAD, hypertension, hyperlipidemia, CVA, venous insufficiency in the legs which is likely not at goal therapy. This complicates all aspects of care by increasing patient's risk for morbidity. I reviewed patient's past medical records and noted previous ED evaluations as per HPI. On exam, the patient has very mildly increased work of breathing but is in no acute distress. She does have right greater than left leg swelling with redness, warmth, and wounds that are not grossly purulent. She does have weeping of serous fluid. Workup included CBC, CMP, ESR, CRP, D-dimer, lactic acid, PT, PTT, blood cultures, BNP, chest x-ray, and bedside DVT ultrasound. I independently interpreted x-ray prior to the radiologist read and noted gross pulmonary edema. Please see their read for final interpretation. Bedside DVT ultrasound is negative. Labs were obtained that demonstrated elevated inflammatory markers without other acutely concerning abnormalities. patient has chronic anemia. On reassessment, patient is resting comfortably. Based on reassuring workup and exam, I feel she would be potentially appropriate for discharge with treatment with [facility] prior to going, but she states that she does not feel comfortable with this as she is already failed outpatient management for over a month. Given this, I had an interactive discussion with Dr. Gomes who admitted the patient for further evaluation and management. Started on vancomycin and Rocephin. Procedures Limited Ultrasound Findings:: Limited DVT ultrasound Indication: Limited compression ultrasonography of the right lower extremity was performed to evaluate for non-compressibility of the deep veins in the patient. The ultrasound was performed with the following indications, as noted in the H&P: Right leg pain Identified structures: Right [common femoral vein, femoral vein, popliteal vein were examined.] Findings: Lower Extremity: Right CFV: Good compressibility Right FV: Good compressibility Right Popliteal vein: Good compressibility Impression: Normal right lower extremity DVT ultrasound no DVT noted. Patient does have significant cobblestoning and edema but no appreciable abscesses. Images were saved to permanent archive The study was technically adequate CPT: 81585-53-BH This study was performed by me, and I personally interpreted all images/videos. Based on my clinical judgement, these images were added and not necessitate further imaging. Critical Care Critical Care Time Critical Care Time: No
[2023-10-09 22:48] LABS: Basophils % 0.6 % (0.1-2.0); Eosinophils # 0.1 K/mm3 (0.0-0.4); Eosinophils % 1.5 % (0.1-12.0); Hematocrit 32.5 % (37.0-47.0); Hemoglobin 10.2 g/dL (12.2-16.2); Lymphocytes # 1.6 K/mm3 (0.7-4.5); Lymphocytes % 23.9 % (10-50); Mean Corpuscular HGB Conc 31.4 g/dL (31.8-35.4); Mean Corpuscular Hemoglobin 25.9 pg (27.0-31.2); Mean Corpuscular Volume 82.7 fl (81-99); Monocytes # 0.5 K/mm3 (0.1-1.0); Monocytes % 7.5 % (1.7-9.3); Neutrophils # 4.4 K/mm3 (1.8-7.8); Neutrophils % 66.5 % (37.0-80.0); Platelet Count 239 K/mm3 (142-424); Red Blood Count 3.93 M/mm3 (4.20-5.40); Red Cell Distribution Width 15.6 % (11.5-17.5); White Blood Count 6.7 K/mm3 (4.8-10.8)
--- NOTE | 2023-10-09 22:48 | XR_ITS ---
PROCEDURE INFORMATION: Exam: XR Chest Exam date and time: 10/09/2023 11:03 PM Age: 78 years old Clinical indication: Other: Edema; Additional info: Ble edema, eval for volume overload TECHNIQUE: Imaging protocol: Radiologic exam of the chest. Views: 1 view. COMPARISON: CR XR CHEST PORTABLE 03/13/2022 2:39 PM FINDINGS: Lungs: Unremarkable. No consolidation. Pleural spaces: Unremarkable. No pleural effusion. No pneumothorax. Heart/Mediastinum: Large hiatal hernia. Cardiomegaly. Bones/joints: Unremarkable. IMPRESSION: No acute findings.
--- NOTE | 2023-10-09 22:50 | ECG_ITS ---
APPROVED REPORT Exam: Resting ECG HR:76 bpm ECG Measurements Heart Rate 76 AXES LA 142 P 63 QRSd 78 QRS 53 QT 375 T 24 QTc 405 Conclusion SINUS RHYTHM LOW QRS VOLTAGE IN PRECORDIAL LEADS [QRS DEFLECTION < 1.0 mV IN CHEST LEADS] BORDERLINE ECG Electronically signed by : ERIC FLORES, 10/10/2023 04:59:52
[2023-10-09 22:56] LABS: Alanine Aminotransferase 23 U/L (12-78); Albumin Level 3.8 g/dl (3.5-5.0); Albumin/Globulin Ratio 1.3 (1.1-1.8); Alkaline Phosphatase 52 U/L (38-126); Anion Gap 8.5 mEq/L (5-15); Aspartate Amino Transferase 40 U/L (14-36); Bilirubin,Total 0.3 mg/dl (0.2-1.3); Blood Urea Nitrogen 19 mg/dl (7-17); Calcium 9.3 mg/dl (8.4-10.2); Carbon Dioxide 34 mmol/L (22.0-30.0); Chloride 99 mmol/L (98-107); Creatinine Clearance Estimated 54 mL/min (50-200); Estimated Glomerular Filt Rate 53 ml/min (>60); GFR (African American) 65 ML/MIN (>60); Glucose 103 mg/dl (74-100); Potassium 3.5 mmoL/L (3.5-5.1); Sodium 138 mmol/L (136-145); Total Protein,Serum 6.8 g/dl (6.3-8.2)
[2023-10-09 22:57] LABS: Lactic Acid 0.9 mmol/L (0.7-2.1)
[2023-10-09 23:01] LABS: C-Reactive Protein 5.6 mg/L (0-4)
[2023-10-09 23:02] LABS: D-Dimer 0.57 ug/mL (0.0-0.5)
[2023-10-09 23:08] LABS: NT Pro Brain Natriuretic Pep. 117 pg/mL (0-450)
[2023-10-09 23:26] LABS: Activated Partial Thrombo Time 26.2 seconds (22.8-30.6); INR 0.95 (0.9-1.1); Prothrombin Time 10.3 seconds (10.1-12.5)
[2023-10-09 23:27] LABS: Erythrocyte Sedimentation Rate 57 mm/hr (0-30)
[2023-10-10] VITALS (8 sets, daily range): BP systolic 102–131; BP diastolic 50–83; PULSE 66–82; RESP 16–20; TEMP 36.4–36.8; O2SAT 92–96; BMI 28.7
[2023-10-10] MEDS: CEFTRIAXONE SODIUM 2 GM in 0.9 % SODIUM CHLORIDE 100 ML IV (00:23)
[2023-10-10] MEDS: VANCOMYCIN CONSULT REQUEST 1 EACH NOTAPPLIC (00:23)
[2023-10-10] MEDS: VANCOMYCIN/WATER FOR INJ (PEG) 1.25 GM/250 ML PIGGYBACK IV (00:24)
--- NOTE | 2023-10-10 00:28 | PC.NURSE ---
House notified for admit
--- NOTE | 2023-10-10 00:43 | PC.NURSE ---
Reprot called to [facility]; Awaiting transport
--- NOTE | 2023-10-10 01:33 | EXP.HP ---
History of Present Illness *Admission Date: 10/10/23 *Reason for visit:: Right leg is swelling *History of present illness: This is an 78-year-old female that presents to [facility] emergency department with concerns of right lower extremity edema and erythema over several days. She reports evaluation at an urgent treatment center and prescribed oral antibiotics with no improvement identified. She describes chronic right lower extremity leg wounds and previous history of chronic venous stasis. She reports no associated fever, chills, loss of ambulation or falls. She denies confusion. In the ED her white blood cell count was normal and her inflammatory markers were elevated. A venous Doppler identified no DVT. Blood cultures were acquired on broad-spectrum antibiotic therapy. [facility] Medical History (Updated 10/10/23 @ 01:39 by Vipul Gomes MD) Chronic venous stasis Varicosities of leg TIA (transient ischemic attack) Osteoporosis GERD (gastroesophageal reflux disease) COPD (chronic obstructive pulmonary disease) Anxiety HLD (hyperlipidemia) HTN (hypertension) Cerebrovascular accident CAD (coronary artery disease) Surgical History (Updated 10/10/23 @ 01:39 by Vipul Gomes MD) History of colonoscopy History of ankle surgery S/P cardiac catheterization Family History Other Cancer Diabetes Kidney disease Stroke Social History (Updated 10/10/23 @ 01:40 by Vipul Gomes MD) Smoking Status: Former smoker tobacco type: cigarettes packs per day: 1 years smoked: 48 smoking status stop date: 2007 second hand exposure: No alcohol intake: never substance use type: denies use current occupational status: retired Travel in the last 8 weeks: None household members: none housing: house current occupational exposures/hazards: No caffeine: Yes Review of Systems Review of Systems Review of systems:: pertinent systems reviewed and negative unless documented below Meds Home Medications and Allergies Home Medications Medication Instructions Recorded Confirmed Type albuterol sulfate 90 mcg/actuation 2 puff inhalation Q6HP PRN SOA 10/08/23 10/10/23 History aerosol inhaler alendronate 70 mg tablet 70 mg PO DAILY 10/08/23 10/10/23 History furosemide 40 mg tablet 40 mg PO DAILY PRN Edema 10/08/23 10/10/23 History mupirocin 2 % topical ointment 1 applic topical TID 10 days #22 10/08/23 10/10/23 Rx grams sulfamethoxazole 800 1 tab PO BID 10 days #20 tabs 10/08/23 10/10/23 Rx mg-trimethoprim 160 mg tablet (Bactrim DS) cefdinir 300 mg capsule 300 mg PO BID 10/10/23 10/10/23 History New Prescriptions to Start Prescriptions: Allergies Allergy/AdvReac Type Severity Reaction Status Date / Time No Known Allergies Allergy Verified 07/15/23 14:21 Exam Data for Last 24 hours Vital signs and Labs for Last 24 Hours: Temp Pulse Resp BP Pulse Ox O2 Del Method 97.8 F 80 17 126/83 95 Room Air 10/10/23 01:10/10/23 01:10/10/23 01:10/10/23 01:10/10/23 01:10/10/23 01:21 Laboratory Results - last 24 hr 10/09/23 22:30: WBC 6.7, RBC 3.93 L, Hgb 10.2 L, Hct 32.5 L, MCV 82.7, MCH 25.9 L, MCHC 31.4 L, RDW 15.6, Plt Count 239, MPV 9.0, Neut % (Auto) 66.5, Lymph % (Auto) 23.9, [place] % (Auto) 7.5, Eos % (Auto) 1.5, Baso % (Auto) 0.6, Neut # (Auto) 4.4, Lymph # (Auto) 1.6, [place] # (Auto) 0.5, Eos # (Auto) 0.1, Baso # (Auto) 0.0, ESR 57 H, PT 10.3, INR 0.95, APTT 26.2, D-Dimer 0.57 H, Sodium 138, Potassium 3.5, Chloride 99, Carbon Dioxide 34 H, Anion Gap 8.5, BUN 19 H, Creatinine 1.00, Estimated Creat Clear 54, Estimated GFR 53 L, Est GFR ( Amer) 65, Glucose 103 H, Lactate 0.9, Calcium 9.3, Total Bilirubin 0.3, AST 40 H, ALT 23, Alkaline Phosphatase 52, C-Reactive Protein 5.6 H, NT-Pro-B Natriuret Pep 117, Total Protein 6.8, Albumin 3.8, Globulin 3.0, Albumin/Globulin Ratio 1.3 I & O for Last 24 hours: Intake & Output 10/07/23 10/08/23 10/09/23 10/10/23 23:59 23:59 23:59 23:59 Weight 75.75 kg 76.34 kg Constitutional Constitutional: no acute distress, chronically ill appearing and cooperative *Routine HEENT Exam Head: Present normocephalic and atraumatic Eye: Present EOMI and PERRL ENT: Present mucous membranes moist *Routine Neck Exam Neck: Present supple and full ROM; Absent lymphadenopathy *Routine Respiratory Exam Respiratory: Present rhonchi, normal respiratory effort and symmetric chest movement *Routine Cardiovascular Exam Cardiovascular: Present RRR; Absent murmur or JVD *Routine Abdominal Exam Abdominal: Present soft and normoactive bowel sounds; Absent tenderness *Routine Rectal Exam Rectal:: deferred *Routine Genitalia Exam Genitalia:: deferred *Routine Extremities Exam Extremities: Present edema, full ROM, pulses intact and normal capillary refill *Routine Skin Exam Skin: Present intact and wounds; Absent rash *Routine Neurological Exam Neurological: Present alert, oriented X3, moving all extremities, vision grossly intact, hearing grossly intact and normal speech; Absent sensory deficit or motor deficit Routine Psychiatric Exam Psychiatric: Present normal affect, normal thought process, cooperative, good insight and good judgment Assessment and Plan *Assessment and plan (1) Cellulitis of right leg: Status: Acute Category: Medical Code(s): L03.115 - Cellulitis of right lower limb (2) Chronic venous stasis: Status: Acute Category: Medical Code(s): I87.8 - Other specified disorders of veins (3) Chronic wound of extremity: Status: Acute Category: Medical (4) Failure of outpatient treatment: Status: Acute Category: Medical Code(s): Z78.9 - Other specified health status (5) CAD (coronary artery disease): Status: Chronic Qualifiers: Coronary Disease-Associated Artery/Lesion type: [place] artery [place] vs. transplanted heart: [place] heart Associated angina: without angina Qualified Code(s): I25.10 - Atherosclerotic heart disease of [place] coronary artery without angina pectoris Category: Medical Code(s): I25.10 - Atherosclerotic heart disease of [place] coronary artery without angina pectoris (6) HTN (hypertension): Status: Chronic Qualifiers: Hypertension type: essential hypertension Qualified Code(s): I10 - Essential (primary) hypertension Category: Medical Code(s): I10 - Essential (primary) hypertension (7) COPD (chronic obstructive pulmonary disease): Status: Acute Category: Medical Code(s): J44.9 - Chronic obstructive pulmonary disease, unspecified Plan This is an 78-year-old female with chronic venous stasis and previous evaluation for peripheral artery disease with normal ABIs July 2023. She describes chronic wounds to her right lower extremity with failed outpatient antibiotic therapy. She reports previous recommendations for Unna boot therapy. Problems addressed as follows: RLE cellulitis Chronic venous stasis Chronic RLE wounds Trending labs and inflammatory markers Blood cultures pending ED venous Dopplers with no DVT identified ABIs (07/23/2023) normal Wound care Physical therapy consult IV Rocephin IV vancomycin Drug therapy requiring intensive monitoring for toxicity Routine peak and trough Hypertension Routine blood pressure monitoring Beta-nacho therapy ARB therapy Coronary artery disease Left heart cath 2015 with nonobstructive disease Antiplatelet therapy Statin therapy Beta-nacho therapy ARB therapy COPD not in exacerbation History of tobacco use (1 pack/day for 50 years quit 2007) Pulse oximetry monitoring Oxygen therapy to maintain appropriate oxygen saturations Currently oxygenating appropriately on room air Odalis/Nicolasa inhalation therapy ICS therapy Chest x-ray with no acute disease VTE prophylaxis: Lovenox CODE STATUS: Full code POA: RaToan-daughter The length of stay for this patient will be 2 midnights or greater due to above diagnoses.
[2023-10-10] MEDS: 0.9 % SODIUM CHLORIDE 1000ML 1,000 ML 75 ML IV (01:39)
[2023-10-10 02:44] LABS: Procalcitonin 0.042 ng/mL (0.0-2.0)
[2023-10-10] MEDS: BUDESONIDE 0.5MG/2ML NEB 0.5 MG IH ×2 (06:10→20:17)
[2023-10-10 07:23] LABS: Basophils % 0.4 % (0.1-2.0); Eosinophils # 0.1 K/mm3 (0.0-0.4); Eosinophils % 1.7 % (0.1-12.0); Hematocrit 32.6 % (37.0-47.0); Hemoglobin 10.2 g/dL (12.2-16.2); Lymphocytes # 1.6 K/mm3 (0.7-4.5); Lymphocytes % 25.4 % (10-50); Mean Corpuscular HGB Conc 31.2 g/dL (31.8-35.4); Mean Corpuscular Hemoglobin 25.9 pg (27.0-31.2); Mean Corpuscular Volume 83.1 fl (81-99); Mean Platelet Volume 8.6 fl (7.4-10.4); Monocytes # 0.4 K/mm3 (0.1-1.0); Monocytes % 6.9 % (1.7-9.3); Neutrophils # 4.2 K/mm3 (1.8-7.8); Neutrophils % 65.5 % (37.0-80.0); Platelet Count 238 K/mm3 (142-424); Red Blood Count 3.92 M/mm3 (4.20-5.40); White Blood Count 6.4 K/mm3 (4.8-10.8)
[2023-10-10 07:26] LABS: Anion Gap 10.8 mEq/L (5-15); Blood Urea Nitrogen 15 mg/dl (7-17); Calcium 8.8 mg/dl (8.4-10.2); Carbon Dioxide 31 mmol/L (22.0-30.0); Chloride 101 mmol/L (98-107); Creatinine Clearance Estimated 54 mL/min (50-200); Estimated Glomerular Filt Rate 69 ml/min (>60); GFR (African American) 84 ML/MIN (>60); Glucose 102 mg/dl (74-100); Magnesium 1.7 mg/dl (1.6-2.3); Potassium 3.8 mmoL/L (3.5-5.1); Sodium 139 mmol/L (136-145)
--- NOTE | 2023-10-10 08:26 | EXP.EVENT.NO ---
Seen on this morning. Still having some pain in right leg. Has 3+ edema to her knee. Concern for volume overload is more of a problem than just cellulitis given her normal white count. Inflammatory markers mildly elevated. Patient is afebrile. Has been on Bactrim and cefdinir. Wounds appear to be lymphedema with blisters that ruptured and are now weeping. Will continue topical mupirocin. Continue empiric ceftriaxone and vancomycin. Diuresing x 1 today with Bumex. Discontinued IV fluids. Has 2+ edema in her left lower leg. Differential includes edema versus cellulitis. Pending response to diuretics, anticipate discharge in the next 24 hours.
[2023-10-10] MEDS: MAGNESIUM SULFATE IN WATER 2 GM/50 ML PIGGYBACK IV (08:49)
--- NOTE | 2023-10-10 08:49 | EXP.PHA.CONS ---
Pharmacy Consult Date: 10/10/23 Time: 08:50 Referring provider: DR. KAMARA Reason for Consult:: VANCOMYCIN DOSING Allergies Allergy/AdvReac Type Severity Reaction Status Date / Time No Known Allergies Allergy Verified 07/15/23 14:21 Home Medications Medication Instructions Recorded Confirmed Type albuterol sulfate 90 mcg/actuation 2 puff inhalation Q6HP PRN SOA 10/08/23 10/10/23 History aerosol inhaler alendronate 70 mg tablet 70 mg PO DAILY 10/08/23 10/10/23 History furosemide 40 mg tablet 40 mg PO DAILY PRN Edema 10/08/23 10/10/23 History mupirocin 2 % topical ointment 1 applic topical TID 10 days #22 10/08/23 10/10/23 Rx grams sulfamethoxazole 800 1 tab PO BID 10 days #20 tabs 10/08/23 10/10/23 Rx mg-trimethoprim 160 mg tablet (Bactrim DS) cefdinir 300 mg capsule 300 mg PO BID 10/10/23 10/10/23 History New Prescriptions to Start Prescriptions: Height: 1.63 m Weight: 76.34 kg Laboratory Results:: Laboratory Results - last 24 hr 10/09/23 00:00: Procalcitonin 0.042 10/09/23 22:30: WBC 6.7, RBC 3.93 L, Hgb 10.2 L, Hct 32.5 L, MCV 82.7, MCH 25.9 L, MCHC 31.4 L, RDW 15.6, Plt Count 239, MPV 9.0, Neut % (Auto) 66.5, Lymph % (Auto) 23.9, [place] % (Auto) 7.5, Eos % (Auto) 1.5, Baso % (Auto) 0.6, Neut # (Auto) 4.4, Lymph # (Auto) 1.6, [place] # (Auto) 0.5, Eos # (Auto) 0.1, Baso # (Auto) 0.0, ESR 57 H, PT 10.3, INR 0.95, APTT 26.2, D-Dimer 0.57 H, Sodium 138, Potassium 3.5, Chloride 99, Carbon Dioxide 34 H, Anion Gap 8.5, BUN 19 H, Creatinine 1.00, Estimated Creat Clear 54, Estimated GFR 53 L, Est GFR ( Amer) 65, Glucose 103 H, Lactate 0.9, Calcium 9.3, Total Bilirubin 0.3, AST 40 H, ALT 23, Alkaline Phosphatase 52, C-Reactive Protein 5.6 H, NT-Pro-B Natriuret Pep 117, Total Protein 6.8, Albumin 3.8, Globulin 3.0, Albumin/Globulin Ratio 1.3 10/10/23 06:09: WBC 6.4, RBC 3.92 L, Hgb 10.2 L, Hct 32.6 L, MCV 83.1, MCH 25.9 L, MCHC 31.2 L, RDW 16.0, Plt Count 238, MPV 8.6, Neut % (Auto) 65.5, Lymph % (Auto) 25.4, [place] % (Auto) 6.9, Eos % (Auto) 1.7, Baso % (Auto) 0.4, Neut # (Auto) 4.2, Lymph # (Auto) 1.6, [place] # (Auto) 0.4, Eos # (Auto) 0.1, Baso # (Auto) 0.0, Sodium 139, Potassium 3.8, Chloride 101, Carbon Dioxide 31 H, Anion Gap 10.8, BUN 15, Creatinine 0.80, Estimated Creat Clear 54, Estimated GFR 69, Est GFR ( Amer) 84 D, Glucose 102 H, Calcium 8.8, Magnesium 1.7 Medical History: Medical History (Updated 10/10/23 @ 01:39 by Vipul Gomes MD) Chronic venous stasis Varicosities of leg TIA (transient ischemic attack) Osteoporosis GERD (gastroesophageal reflux disease) COPD (chronic obstructive pulmonary disease) Anxiety HLD (hyperlipidemia) HTN (hypertension) Cerebrovascular accident CAD (coronary artery disease) Assessment and Plan Assessment and plan all Dx Assessment and Plan for all problems:: Pharmacokinetic dosing service Objective: Patient: Floor: Age: 78 yo Serum creatinine: 0.80 mg/dL Height: 64.2 Inches Weight (kg): 76.3 Assessment: IBW (kg): 55.16 Dosing wt(kg): 76.3 Estimated Creatinine clearance (ml/min): 48.8 CRCL method: Cockcroft and Gault using ibw(default). Drug selected: Vancomycin Loading dose (mg): Vd (liters): 61.0 (factor used: 0.8 L/kg) Chu (hr-1): 0.045 Half life (hrs): 15.40 CLvanco=?? 2.745 L/hr Recommended dose: 1500 mg Interval: 24 hrs Infusion time (hrs): 2.0 Predicted peak (mcg/mL): 35.6 Predicted trough (mcg/mL): 13.23 Total body weight is being used for vancomycin dosing. Recommendations: Give Vancomycin 1500 mg q 24 hrs with an expected Cpeak of 35.6 mcg/ml and an expected Ctrough of 13.23 mcg/ml AUC 0-24 /DARIAN Data: DARIAN 0.5 mcg/mL:?? AUC/DARIAN:? 1092.9 DARIAN 1.0 mcg/mL:?? AUC/DARIAN:? 546.4 --------- DARIAN 1.5 mcg/mL:?? AUC/DARIAN:? 364.3 DARIAN 2.0 mcg/mL:?? AUC/DARIAN:? 273.2 Thank you for the consult, will continue to follow. -EMIL GOODMAN, RADHAD
[2023-10-10] MEDS: BISOPROLOL 5MG TABLET 2.5 MG PO (08:50)
[2023-10-10] MEDS: ASPIRIN 81MG CHEWABLE TABLET 81 MG PO (08:50)
[2023-10-10] MEDS: ENOXAPARIN 40MG/0.4ML SYRINGE 40 MG SQ (08:51)
[2023-10-10] MEDS: DOCUSATE SODIUM 100 MG CAPSULE PO (08:51)
[2023-10-10] MEDS: BUMETANIDE 1MG/4ML VIAL 1 MG IV (08:51)
[2023-10-10] MEDS: PANTOPRAZOLE 40MG TABLET 40 MG PO (08:52)
[2023-10-10] MEDS: IRBESARTAN 75MG TABLET 75 MG PO (08:52)
--- NOTE | 2023-10-10 09:27 | HMH.PHAINT1 ---
Pharmacy Intervention Comments: MEDICATION RECONCILIATION COMPLETED ON PATIENT USING EXTERNAL FILL HISTORY FROM PHARMACY. -EMIL GOODMAN, RADHAD
--- NOTE | 2023-10-10 14:49 | HMH.PTEV ---
Physical Therapy Evaluation Rehab PT IP Evaluation Start: 10/10/23 01:26 Freq: ONCE Status: Active Protocol: Document 10/10/23 14:40 HWADE (Rec: 10/10/23 14:49 HWADE [id number]) Subjective/History History History Pt is an 78 year old female that presented to [facility] ED with reports of right lower extremity edema and erythema over several days. Pt was prescribed oral antibiotics at [facility] recently with little improvement. RLE venous doppler was negative for DVT. Pt was diagnosed with RLE cellulitis and was admitted for IP management and further evaluation. PMH: Chronic venous stasis, TIA , Osteoporosis, GERD, COPD, Anxiety, HLD, HTN, Cerebrovascular accident CAD Subjective Subjective Pt presents supine in bed, pleasant and agreeable to PT evaluation. Pt denies reports of pain at rest, AOx4. Pt reports at baseline, she lives at home alone in a H with 2 ЮЛИЯ, L ascending handrail. Pt reports she ambulates household distances with a quad cane. Pt reports she does not drive and family assists with transportation as able. Pt reports multiple falls over the past month at home. Pt performed supine to sit on EOB transfer with supervision A. Pt performed STS transfer with CGA and use of quad cane. Pt ambulated x100' with CGA and use of quad cane. Pt demonstrates generalized unsteadiness, decreased dimitrios, unequal step length and short stride length during ambulation. Following evaluation, pt left supine in bed with call light and all needs within reach. New diagnosis of cancer in past 12 No months? Rehab PT IP Eval Objective Appearance Patient Behavior Appropriate,Cooperative Patient Orientation Person,Place,Time,Situation Difficulty following instructions none Speech Pattern Clear,Appropriate Ambulation Patient Able to Ambulate Yes Ambulation Observation IP General Gait Pattern Observation Narrow Based Gait,Shuffling Step,Decrease Stride Lngth (R) ,Decrease Stride Lngth (L) Ambulation Distance (feet) 100 Ambulation Assistive Device Large Base Quad Cane Ambulation Ability Contact Guard/Hand Hold Balance Ability to Arise Able, uses arms to help Sitting Balance Steady, safe Standing Balance Unsteady Dynamic Sitting Balance Ability Good Dynamic Standing Balance Ability Fair Transfers Bed Transfer Ability Supervision/Stand by Sit to Stand Bed Transfer Ability Contact Guard/Hand Hold ROM All Extremities PT ROM Status WFL MMT RLE PT MMT ABN Abnormal MMT Grade MMT grossly 4/5 LLE PT MMT ABN Abnormal MMT Grade MMT grossly 4/5 Rehab PT IP prob,goals,plan Problems Date of Evaluation: 10/10/23 PT IP Problems Bed Mobility,Transfers,Gait, Balance,Self care,Safety Rehab Potential Rehab Potential Good Equipment Needs Assistive Devices Rolling / Wheeled Walker Plan PT Intervention Plan Bed Mobility,Transfers,Gait, Balance,Self care,Safety, Therapeutic Exercise PT Plan Frequency Daily Duration LOS Discharge Goals Bed Transfer Ability Independent Sit to Stand Chair Transfer Ability Independent Ambulation Assistive Device Rolling Walker Ambulation Distance (feet) 200 Discharge Plan PT Discharge Plan At this time, pt would benefit from skilled PT intervention during IP admission to address the identified impairments, reduce risk of falls, improve dynamic balance, prevent functional decline and allow pt to return to OF. Once medically stable, recommend pt to d/c home with 24hr support from family and HHPT versus STR to address remaining impairments. Pt appears to be most limited in mobility by decreased dynamic balance. Pt would benefit from use of a RW at time of d/c to improve balance and reduce fall risk. Eval Complexity Eval Charge Codes 12939 - Moderate Complexity PHYSICIAN CERTIFICATION: I certify the specified therapy services for Lorraine Hinton are required, authorized, and reviewed every 30 days.
[2023-10-10] MEDS: BUMETANIDE 1 MG TABLET PO (18:02)
[2023-10-10] MEDS: CEFTRIAXONE SODIUM 1 GM in 0.9 % SODIUM CHLORIDE 50 ML IV (20:50)
[2023-10-10] MEDS: ATORVASTATIN 40MG TABLET 40 MG PO (20:50)
[2023-10-11] MEDS: VANCOMYCIN/WATER FOR INJ (PEG) 1.5 GM/300 ML PIGGYBACK IV (00:38)
[2023-10-11 04:00] VITALS: BMI 28.6
[2023-10-11 04:35] VITALS: BP 108/51; PULSE 65; RESP 16; TEMP 36.8; O2SAT 93
--- NOTE | 2023-10-11 06:35 | PC.NURSE ---
Pt alert and oriented. Pt has had no complaints, pt did state the socks were bothering her feet, due to the edema and the sock laying tight on her ankle, we removed socks while laying in bed, reapplied to ambulate to restroom. Pt has used the restroom several times this shift. Remains on room air. Wheezing noted in the left lung. 2+ edema to LLE, 3+ edema to RLE. Redness noted to RLE. Call light in reach.
[2023-10-11 06:40] LABS: Basophils % 0.6 % (0.1-2.0); Eosinophils # 0.1 K/mm3 (0.0-0.4); Eosinophils % 1.7 % (0.1-12.0); Lymphocytes # 1.6 K/mm3 (0.7-4.5); Lymphocytes % 24.6 % (10-50); Mean Corpuscular HGB Conc 31.4 g/dL (31.8-35.4); Mean Corpuscular Hemoglobin 25.8 pg (27.0-31.2); Mean Corpuscular Volume 82.2 fl (81-99); Mean Platelet Volume 9.1 fl (7.4-10.4); Monocytes # 0.4 K/mm3 (0.1-1.0); Monocytes % 6.2 % (1.7-9.3); Neutrophils # 4.5 K/mm3 (1.8-7.8); Neutrophils % 66.9 % (37.0-80.0); Platelet Count 261 K/mm3 (142-424); Red Blood Count 4.25 M/mm3 (4.20-5.40); White Blood Count 6.7 K/mm3 (4.8-10.8)
[2023-10-11 06:48] LABS: Alanine Aminotransferase 21 U/L (12-78); Albumin Level 3.9 g/dl (3.5-5.0); Albumin/Globulin Ratio 1.2 (1.1-1.8); Alkaline Phosphatase 57 U/L (38-126); Aspartate Amino Transferase 42 U/L (14-36); Bilirubin,Total 0.4 mg/dl (0.2-1.3); Blood Urea Nitrogen 20 mg/dl (7-17); Calcium 9.1 mg/dl (8.4-10.2); Carbon Dioxide 36 mmol/L (22.0-30.0); Chloride 99 mmol/L (98-107); Creatinine Clearance Estimated 54 mL/min (50-200); Estimated Glomerular Filt Rate 60 ml/min (>60); GFR (African American) 73 ML/MIN (>60); Globulin 3.2 g/dL (1.3-3.2); Glucose 106 mg/dl (74-100); Sodium 133 mmol/L (136-145); Total Protein,Serum 7.1 g/dl (6.3-8.2)
[2023-10-11 06:53] LABS: C-Reactive Protein 5.9 mg/L (0-4)
--- NOTE | 2023-10-11 07:17 | P.DS_ITS ---
General Admission date:: 10/10/23 Discharge date: 10/11/23 HPI HPI HPI: This is an 78-year-old female that presents to [facility] emergency department with concerns of right lower extremity edema and erythema over several days. She reports evaluation at an urgent treatment center and prescribed oral antibiotics with no improvement identified. She describes chronic right lower extremity leg wounds and previous history of chronic venous stasis. She reports no associated fever, chills, loss of ambulation or falls. She denies confusion. In the ED her white blood cell count was normal and her inflammatory markers were elevated. A venous Doppler identified no DVT. Blood cultures were acquired on broad-spectrum antibiotic therapy. Hospital Course Hospital Course Hospital Course: This is an 78-year-old female with chronic venous stasis and previous evaluation for peripheral artery disease with normal ABIs July 2023. She describes chronic wounds to her right lower extremity with failed outpatient antibiotic therapy. She reports previous recommendations for Unna boot therapy. Treated for possible cellulitis, strong concern for volume overload. Initiated on diuresis with improvement in leg appearance. At this time will complete regimen of Keflex prescribed prior to admission. Continue diuresis. Adjusted diuretic regimen. Close follow-up with PCP. Referred for home health for Unna boots and therapy. Stable to discharge home. Problems addressed as follows: RLE cellulitis versus edema from volume overload Chronic venous stasis Chronic RLE wounds Noted to have normal white count, procalcitonin of 0.04. CRP minimally elevated at 5.9. Cultures obtained. Started on vancomycin. Diuresed with Bumex. 3+ edema to her knee and right leg, 2+ left leg. Some improvement in edema with Bumex. Low concern for infection, however will complete 5 more days of Keflex after discharge. Continue diuretic with Bumex daily at discharge to address volume status. Would benefit from management with Unna boots, home health PT, OT, nursing ordered at discharge. Dopplers obtained in the ER with no DVTs identified. ABIs on 07/23/2023 were normal. Stable to discharge home to complete therapy and continue diuresis. Hypertension Initiated on bisoprolol during admission. Continue 2.5 mg daily. Continue Bumex 1 mg daily as above for volume status and hypertension. Coronary artery disease Left heart cath 2016 with nonobstructive disease. Not on specific treatment at this time. Consider evaluation for and initiation of statin in the outpatient setting. COPD not in exacerbation History of tobacco use (1 pack/day for 50 years quit 2007) Pulse oximetry monitoring, stable on room air during admission. Chest x-ray with no acute disease Total time spent on discharge 32 minutes in counseling, documentation, chart review, and direct care with patient. Exam Data for Last 24 hours Vital signs and Labs for Last 24 Hours: Temp Pulse Resp BP Pulse Ox O2 Del Method 98.3 F 65 16 108/51 L 93 L Room Air 10/11/23 04:35 10/11/23 04:35 10/11/23 04:35 10/11/23 04:35 10/11/23 04:35 10/11/23 06:57 Laboratory Results - last 24 hr 10/10/23 06:09: WBC 6.4, RBC 3.92 L, Hgb 10.2 L, Hct 32.6 L, MCV 83.1, MCH 25.9 L, MCHC 31.2 L, RDW 16.0, Plt Count 238, MPV 8.6, Neut % (Auto) 65.5, Lymph % (Auto) 25.4, [place] % (Auto) 6.9, Eos % (Auto) 1.7, Baso % (Auto) 0.4, Neut # (Auto) 4.2, Lymph # (Auto) 1.6, [place] # (Auto) 0.4, Eos # (Auto) 0.1, Baso # (Auto) 0.0, Sodium 139, Potassium 3.8, Chloride 101, Carbon Dioxide 31 H, Anion Gap 10.8, BUN 15, Creatinine 0.80, Estimated Creat Clear 54, Estimated GFR 69, Est GFR ( Amer) 84 D, Glucose 102 H, Calcium 8.8, Magnesium 1.7 10/11/23 06:17: WBC 6.7, RBC 4.25, Hgb 11.0 L, Hct 35.0 L, MCV 82.2, MCH 25.8 L, MCHC 31.4 L, RDW 16.0, Plt Count 261, MPV 9.1, Neut % (Auto) 66.9, Lymph % (Auto) 24.6, [place] % (Auto) 6.2, Eos % (Auto) 1.7, Baso % (Auto) 0.6, Neut # (Auto) 4.5, Lymph # (Auto) 1.6, [place] # (Auto) 0.4, Eos # (Auto) 0.1, Baso # (Auto) 0.0, Sodium 133 L, Potassium 4.0, Chloride 99, Carbon Dioxide 36 H, Anion Gap 2.0 L, BUN 20 H D, Creatinine 0.90, Estimated Creat Clear 54, Estimated GFR 60, Est GFR ( Amer) 73, Glucose 106 H, Calcium 9.1, Magnesium 2.0 D, Total Bilirubin 0.4, AST 42 H, ALT 21, Alkaline Phosphatase 57, C-Reactive Protein 5.9 H, Total Protein 7.1, Albumin 3.9, Globulin 3.2, Albumin/Globulin Ratio 1.2 I & O for Last 24 hours: Intake & Output 10/08/23 10/09/23 10/10/23 10/11/23 23:59 23:59 23:59 23:59 Intake Total 705 / 755 50 / 50 Output Total 1810 / 1810 250 / 250 Balance -1105 / -1055 -200 / -200 Weight 75.75 kg 76.34 kg 76.113 kg Microbiology Reports for the Last 24 Hours: Microbiology 10/09/23 22:42 Blood Blood Culture - Preliminary NO GROWTH AFTER 24 HOURS 10/09/23 22:30 Blood Blood Culture - Preliminary NO GROWTH AFTER 24 HOURS Constitutional Constitutional: no acute distress, obese, chronically ill appearing and cooperative *Routine HEENT Exam Head: Present normocephalic Eye: Present EOMI and PERRL ENT: Present mucous membranes moist *Routine Neck Exam Neck: Present supple; Absent lymphadenopathy *Routine Respiratory Exam Respiratory: Present CTA bilaterally; Absent rhonchi, wheezes or crackles *Routine Cardiovascular Exam Cardiovascular: Present RRR *Routine Abdominal Exam Abdominal: Present soft and normoactive bowel sounds; Absent tenderness *Routine Rectal Exam Patient deferred: visual exam *Routine Exam Patient deferred: external exam *Routine Extremities Exam Extremities: Present edema (2+ right lower extremity, 1+ left lower extremity. Mild erythema but warmth consistent with the rest of leg. No streaking. Minimal weeping from ruptured blisters.); Absent cyanosis or clubbing *Routine Skin Exam Skin: Present warm; Absent rash *Routine Neurological Exam Neurological: Present alert, oriented X3 and moving all extremities; Absent altered mental status Results Data Completed and Pending Labs on day of discharge: Labs from last 24 hours 10/11/23 10/10/23 06:17 06:09 WBC 6.7 6.4 RBC 4.25 3.92 L Hgb 11.0 L 10.2 L Hct 35.0 L 32.6 L MCV 82.2 83.1 MCH 25.8 L 25.9 L MCHC 31.4 L 31.2 L RDW 16.0 16.0 Plt Count 261 238 MPV 9.1 8.6 Neut % (Auto) 66.9 65.5 Lymph % (Auto) 24.6 25.4 [place] % (Auto) 6.2 6.9 Eos % (Auto) 1.7 1.7 Baso % (Auto) 0.6 0.4 Neut # (Auto) 4.5 4.2 Lymph # (Auto) 1.6 1.6 [place] # (Auto) 0.4 0.4 Eos # (Auto) 0.1 0.1 Baso # (Auto) 0.0 0.0 Sodium 133 L 139 Potassium 4.0 3.8 Chloride 99 101 Carbon Dioxide 36 H 31 H Anion Gap 2.0 L 10.8 BUN 20 H D 15 Creatinine 0.90 0.80 Estimated Creat Clear 54 54 Estimated GFR 60 69 Est GFR ( Amer) 73 84 D Glucose 106 H 102 H Calcium 9.1 8.8 Magnesium 2.0 D 1.7 Total Bilirubin 0.4 AST 42 H ALT 21 Alkaline Phosphatase 57 C-Reactive Protein 5.9 H Total Protein 7.1 Albumin 3.9 Globulin 3.2 Albumin/Globulin Ratio 1.2 Preliminary micro results at discharge 10/09/23 22:42 Blood Culture - Preliminary Blood NO GROWTH AFTER 24 HOURS 10/09/23 22:30 Blood Culture - Preliminary Blood NO GROWTH AFTER 24 HOURS DS: Diagnosis Discharge Diagnosis (1) Cellulitis of right leg: Status: Acute Code(s): L03.115 - Cellulitis of right lower limb (2) Chronic venous stasis: Status: Acute Code(s): I87.8 - Other specified disorders of veins (3) Chronic wound of extremity: Status: Acute (4) Failure of outpatient treatment: Status: Acute Code(s): Z78.9 - Other specified health status (5) CAD (coronary artery disease): Status: Chronic Code(s): I25.10 - Atherosclerotic heart disease of [place] coronary artery without angina pectoris Qualifiers: Associated angina: without angina Coronary Disease-Associated Artery/Lesion type: [place] artery [place] vs. transplanted heart: [place] heart Qualified Code(s): I25.10 - Atherosclerotic heart disease of [place] coronary artery without angina pectoris (6) HTN (hypertension): Status: Chronic Code(s): I10 - Essential (primary) hypertension Qualifiers: Hypertension type: essential hypertension Qualified Code(s): I10 - Essential (primary) hypertension (7) COPD (chronic obstructive pulmonary disease): Status: Acute Code(s): J44.9 - Chronic obstructive pulmonary disease, unspecified Meds Home Medications and Allergies Home Medications Medication Instructions Recorded Confirmed Type albuterol sulfate 90 mcg/actuation 2 puff inhalation Q6HP PRN 10/08/23 10/10/23 History aerosol inhaler Shortness Of Breath alendronate 70 mg tablet 70 mg PO WEEKLY 10/08/23 10/10/23 History mupirocin 2 % topical ointment 1 applic topical TID 10 days #22 10/08/23 10/10/23 Rx grams bisoprolol fumarate 5 mg tablet 2.5 mg (1/2 x 5 mg) PO DAILY 30 10/11/23 Rx days #15 tabs bumetanide 1 mg tablet 1 mg PO DAILY 30 days #30 tabs 10/11/23 Rx cephalexin 500 mg capsule 500 mg PO QID 5 days #0 caps 10/11/23 10/10/23 Rx New Prescriptions to Start Prescriptions: bisoprolol fumarate Andrew Moreno bumetanide Andrew Moreno Allergies Allergy/AdvReac Type Severity Reaction Status Date / Time No Known Allergies Allergy Verified 07/15/23 14:21 Discharge Plan Disposition Patient Disposition: Home Health Service Condition: Good Discharge Order Discharge Orders: Discharge Order (Routine); Ordered 10/11/23 Ordered By: Andrew Moreno Follow up Plan Follow up with: Juanito Zelaya MD [Primary Care Provider] - Enter time for follow up (please call for appointment) Prescriptions/Medication Reconciliation: New bisoprolol fumarate 5 mg Tablet 2.5 mg PO DAILY 30 Days Qty: 15 0RF bumetanide 1 mg tablet 1 mg PO DAILY 30 Days Qty: 30 0RF Continued alendronate 70 mg tablet 70 mg PO WEEKLY albuterol sulfate 90 mcg/actuation HFA aerosol inhaler 2 puff INHALATION Q6HP PRN (Reason: Shortness Of Breath) Patient Comments: INHALE 2 PUFFS BY MOUTH EVERY 6 HOURS NEEDED FOR SHORTNESS OF BREATH mupirocin 2 % ointment 1 applic topical TID 10 Days Qty: 22 0RF Rx Instructions: apply to wounds on leg as directed cephalexin 500 mg capsule 500 mg PO QID 5 Days Qty: 0 0RF Patient Comments: TAKE 1 CAPSULE BY MOUTH 4 TIMES DAILY Rx Instructions: Patient already has prescription at home. Complete 5 more days of this medication Discontinued furosemide 40 mg tablet 40 mg PO DAILYP PRN (Reason: Edema) Patient Comments: TAKE 1 TABLET BY MOUTH ONCE DAILY FOR 90 DAYS sulfamethoxazole-trimethoprim [Bactrim DS] 800-160 mg tablet 1 tab PO BID 10 Days Qty: 20 0RF Problem Reconciliation Problems Reviewed?: Yes Patient Discharge Instructions ACTIVITY: Continue current activity DIET: continue same diet Patient Instructions: Congestive Heart Failure (Alternative Therapy), Cellulitis Providers Primary Care Provider: Juanito Zelaya Admit Provider: Vipul Gomes Attending Provider: Vipul Gomes
[2023-10-11 07:52] VITALS: BP 104/50; PULSE 89; RESP 17; TEMP 36.6; O2SAT 94
[2023-10-11 08:05] LABS: Erythrocyte Sedimentation Rate 39 mm/hr (0-30)
[2023-10-11] MEDS: BUMETANIDE 1MG/4ML VIAL 1 MG IV (08:07)
[2023-10-11] MEDS: ENOXAPARIN 40MG/0.4ML SYRINGE 40 MG SQ (08:08)
[2023-10-11] MEDS: BISOPROLOL 5MG TABLET 2.5 MG PO (08:08)
[2023-10-11] MEDS: DOCUSATE SODIUM 100 MG CAPSULE PO (08:09)
[2023-10-11] MEDS: ASPIRIN 81MG CHEWABLE TABLET 81 MG PO (08:09)
[2023-10-11] MEDS: PANTOPRAZOLE 40MG TABLET 40 MG PO (08:09)
--- NOTE | 2023-10-11 11:51 | CARE MANAGER ---
Addendum entered by Reina Vinson 10/12/23 09:49: Jessika thompson/ [facility] stated that services will begin this week. Addendum entered by Reina Vinson 10/12/23 09:09: Annette thompson/ [facility] was not able to accept this patient. Patient information/order has been faxed to Jessika thompson/ [facility]. I will follow up once information is reviewed. Original Note: Patient will need HH at discharge. She has no preference on agency. Information sent to [facility]. FLOYD Poon
--- NOTE | 2023-10-12 12:55 | CARE MANAGER ---
Contacted patient related to hospital discharge. She states she is doing well. She went through her medications and sorted what she is not supposed to take anymore so she doesn't get confused. She is aware home health will be contacting her. She mentioned needing assistance with chores at home. [facility] discussed [facility] and she states she tried that and was not able to get signed up due to lack of staff on their part. She is going to mention this to home health when they contact her. She denies questions or concerns at this time. FLOYD Poon
== END 2023-10-11 09:53 | disposition home health service (06) ==
LOC: ER 10-10 00:19 → 2ND 10-10 02:18
PROVIDERS: Emergency Medicine; Internal Medicine Adolescent Medicine; Admitting Provider Family Medicine; Emergency Provider Emergency Medicine; PCP Internal Medicine Adolescent Medicine; Visit Provider Family Medicine
DX: L03.115 Cellulitis of right lower limb (principal); I87.8 Other specified disorders of veins; Z78.9 Other specified health status; I25.10 Atherosclerotic heart disease of native coronary artery without angina pectoris; I10 Essential (primary) hypertension; J44.9 Chronic obstructive pulmonary disease, unspecified; F17.210 Nicotine dependence, cigarettes, uncomplicated; Z86.73 Personal history of transient ischemic attack (TIA), and cerebral infarction without residual deficits; Z87.891 Personal history of nicotine dependence
CPT/HCPCS: 36415; 71045; 80048; 80053; 83605; 83735; 83880; 84145; 85025; 85378; 85610; 85651; 85730; 86140; 87040; 87081; 93005; 94640; 97162; 99285; G0378; J0696; J3475

== ENCOUNTER 2023-10-14 13:31 | Emergency (ER) | payer MEDICARE, SELFPAY ==
[2023-10-14] VITALS (14 sets, daily range): BP systolic 90–122; BP diastolic 47–75; PULSE 39–70; RESP 15–20; TEMP 36.8; O2SAT 94–100; BMI 27.6
--- NOTE | 2023-10-14 13:35 | ECG_ITS ---
APPROVED REPORT Exam: Resting ECG HR:65 bpm ECG Measurements Heart Rate 65 AXES [place] 160 P 63 QRSd 88 QRS 55 QT 401 T 38 QTc 412 Conclusion SINUS RHYTHM NORMAL ECG Electronically signed by : NORM DIAZ, 10/14/2023 16:08:09
--- NOTE | 2023-10-14 14:01 | ED_ITS ---
Discharge Plan Disposition Patient Disposition: Home, Self-Care Chief Complaint: Weakness Prescriptions Prescriptions: No Action alendronate 70 mg tablet 70 mg PO WEEKLY albuterol sulfate 90 mcg/actuation HFA aerosol inhaler 2 puff INHALATION Q6HP PRN (Reason: Shortness Of Breath) Patient Comments: INHALE 2 PUFFS BY MOUTH EVERY 6 HOURS NEEDED FOR SHORTNESS OF BREATH mupirocin 2 % ointment 1 applic topical TID 10 Days Qty: 22 0RF Rx Instructions: apply to wounds on leg as directed bisoprolol fumarate 5 mg Tablet 2.5 mg PO DAILY 30 Days Qty: 15 0RF bumetanide 1 mg tablet 1 mg PO DAILY 30 Days Qty: 30 0RF cephalexin 500 mg capsule 500 mg PO QID 5 Days Qty: 0 0RF Patient Comments: TAKE 1 CAPSULE BY MOUTH 4 TIMES DAILY Rx Instructions: Patient already has prescription at home. Complete 5 more days of this medication Referrals Follow up/Referrals: Juanito Zelaya MD [Primary Care Provider] - See instructions Activity Restrictions/Add. Instructions Additional Instructions/Restrictions: You were evaluated in the emergency department today. Please follow-up closely with your primary care provider. I recommend holding your blood pressure medication until you follow-up with your primary care provider. Continue with wound care with home health as an outpatient. Make sure that you are staying hydrated. Return to the emergency department for new or worsening symptoms. Clinical Impressions Clinical Impression: General weakness, Anemia, Hypotension, Chronic wound, Pre-syncope Discharge ED Provider: Cedric Durham General Adult HPI <Tanya Whaley, - Last Filed: 10/14/23 15:50> General Chief complaint: Weakness Stated complaint: weakness Time Seen by Provider: 10/14/23 13:44 Mode of Arrival: EMS Source of Information: Patient Limitations: No Limitations Description of Symptoms (Recalled from ER Triage Doc. by RN): pt to ed via ems c/o generalized weakness, hypotension and diaphoresis. upon arrival to ed pt states her symptoms have improved. pt denies pain. History of Present Illness HPI narrative: This patient is an 78-year-old female with a history of venous stasis, CAD, hypertension, hyperlipidemia, COPD, and chronic wound of her right lower leg presenting with concerns for generalized weakness, diaphoresis, and nausea. Patient reports that she was in her usual state of health all day today until she took her blood pressure medication this afternoon. She notes that when she took her blood pressure medication (bisoprolol) she began to feel very lightheaded, weak, sweaty, and nauseated. She states that she felt awful. No pain associated with this. She and her called EMS, and EMS noted that she had low blood pressure on their arrival with a systolic in the 80s. Patient denies any other concerns or complaints at this time. Of note, she is currently undergoing home health wound care for a chronic wound to the lateral aspect of her right lower leg. She states she fell out of a flower bed about 2 weeks ago and has been dealing with this since. She notes she is on antibiotics for it, but she cannot remember what she is on. On medical record review, it looks like she has previously been prescribed Keflex and mupirocin. Related Data Home Medications Medication Instructions Recorded Confirmed albuterol sulfate 90 mcg/actuation 2 puff inhalation Q6HP PRN 10/08/23 10/10/23 aerosol inhaler Shortness Of Breath alendronate 70 mg tablet 70 mg PO WEEKLY 10/08/23 10/10/23 Previous Rx's Medication Instructions Recorded mupirocin 2 % topical ointment 1 applic topical TID 10 days #22 10/08/23 grams bisoprolol fumarate 5 mg tablet 2.5 mg (1/2 x 5 mg) PO DAILY 30 10/11/23 days #15 tabs bumetanide 1 mg tablet 1 mg PO DAILY 30 days #30 tabs 10/11/23 cephalexin 500 mg capsule 500 mg PO QID 5 days #0 caps 10/11/23 Allergies Allergy/AdvReac Type Severity Reaction Status Date / Time No Known Allergies Allergy Verified 07/15/23 14:21 [facility] <Tanya Whaley DO - Last Filed: 10/14/23 15:50> [facility] Disclaimer: The information contained in this section may have been updated after the patient was seen, as this information can be updated by other users. Medical History Acute CVA (cerebrovascular accident) Chronic venous stasis Varicosities of leg TIA (transient ischemic attack) Osteoporosis GERD (gastroesophageal reflux disease) COPD (chronic obstructive pulmonary disease) Anxiety HLD (hyperlipidemia) HTN (hypertension) Cerebrovascular accident CAD (coronary artery disease) Surgical History History of colonoscopy History of ankle surgery S/P cardiac catheterization Family History Other Cancer Diabetes Kidney disease Stroke Social History Smoking Status: Never smoker years smoked: 48 smoking status stop date: 2007 second hand exposure: No alcohol intake: never substance use type: denies use current occupational status: retired Travel in the last 8 weeks: None household members: none housing: house current occupational exposures/hazards: No caffeine: Yes <Tanya Whaley DO - Last Filed: 10/14/23 15:50> ROS Obtained: Yes All systems reviewed & no additional complaints except as documented Physical Exam <Tanya Whaley DO - Last Filed: 10/14/23 15:50> General General appearance: alert and in no apparent distress Head Head exam: atraumatic and normocephalic Eye Eye exam: Present normal appearance, PERRL and EOMI ENT ENT exam: Present normal exam, normal oropharynx, mucous membranes moist and normal external ear exam Neck Neck exam: Present normal inspection, full ROM and trachea midline; Absent tenderness Chest Chest inspection: Present normal inspection and symmetric chest wall rise; Absent tenderness Respiratory Respiratory exam: Present normal lung sounds bilaterally; Absent respiratory distress, wheezes, stridor or accessory muscle use Cardiovascular Cardiovascular exam: Present regular rate and normal rhythm Abdominal Exam Abdominal exam: Present soft; Absent distention, tenderness or guarding Extremities Exam Extremities exam: Present full ROM, normal capillary refill and edema (Right greater than left lower extremity edema. Chronic wounds on the lateral aspect and anterior aspect of the right lower leg. Neurovascularly intact distally. No obvious redness, warmth, or purulence.); Absent tenderness Back Exam Back exam: Present normal inspection and full ROM; Absent tenderness Neurological Exam Neurological exam: Present alert, oriented X3, CN II-XII intact and normal gait; Absent motor sensory deficit Psychiatric Psychiatric exam: Present normal affect and normal mood Skin Skin exam: Present warm and dry Medical Decision Making <Tanya Whaley DO - Last Filed: 10/14/23 15:50> Medical Records Medical records reviewed: Yes I reviewed the patient's medical records. Mitch Inquiry Pt receiving controlled substance: No Vital Signs: 10/14/23 13:42 10/14/23 14:01 10/14/23 14:30 Temperature 98.2 F Temperature Source Oral Pulse Rate 61 Pulse Rate [Left Radial] 66 Pulse Rate [Orthostatic Lying Left Radial] 54 L Pulse Rate [Orthostatic Sitting Right Radial] 62 Pulse Rate [Orthostatic Standing Right Radial] 66 Respiratory Rate 20 Blood Pressure 91/56 L Blood Pressure [Orthostatic Lying Right Arm] 90/50 L Blood Pressure [Orthostatic Sitting Right Arm] 106/64 L Blood Pressure [Orthostatic Standing Right Arm] 114/66 Blood Pressure [Right Arm] 95/47 L Blood Pressure Mean Blood Pressure Mean [Right Arm] 63 02 Sat by Pulse Oximetry 96 95 Oxygen Delivery Method Room Air Room Air 10/14/23 14:38 10/14/23 14:40 10/14/23 15:00 Temperature Temperature Source Pulse Rate 70 70 51 L Pulse Rate [Left Radial] Pulse Rate [Orthostatic Lying Left Radial] Pulse Rate [Orthostatic Sitting Right Radial] Pulse Rate [Orthostatic Standing Right Radial] Respiratory Rate Blood Pressure 106/64 L 114/66 107/56 L Blood Pressure [Orthostatic Lying Right Arm] Blood Pressure [Orthostatic Sitting Right Arm] Blood Pressure [Orthostatic Standing Right Arm] Blood Pressure [Right Arm] Blood Pressure Mean 74 Blood Pressure Mean [Right Arm] 02 Sat by Pulse Oximetry 96 97 96 Oxygen Delivery Method Room Air Room Air Room Air 10/14/23 15:31 10/14/23 15:45 10/14/23 16:00 Temperature Temperature Source Pulse Rate 58 L 39 L 60 Pulse Rate [Left Radial] Pulse Rate [Orthostatic Lying Left Radial] Pulse Rate [Orthostatic Sitting Right Radial] Pulse Rate [Orthostatic Standing Right Radial] Respiratory Rate Blood Pressure 101/54 L 120/58 L 104/65 L Blood Pressure [Orthostatic Lying Right Arm] Blood Pressure [Orthostatic Sitting Right Arm] Blood Pressure [Orthostatic Standing Right Arm] Blood Pressure [Right Arm] Blood Pressure Mean Blood Pressure Mean [Right Arm] 02 Sat by Pulse Oximetry 100 97 96 Oxygen Delivery Method Room Air Room Air Room Air 10/14/23 16:30 10/14/23 17:00 10/14/23 17:30 Temperature Temperature Source Pulse Rate 62 61 58 L Pulse Rate [Left Radial] Pulse Rate [Orthostatic Lying Left Radial] Pulse Rate [Orthostatic Sitting Right Radial] Pulse Rate [Orthostatic Standing Right Radial] Respiratory Rate Blood Pressure 113/69 103/60 L 122/67 Blood Pressure [Orthostatic Lying Right Arm] Blood Pressure [Orthostatic Sitting Right Arm] Blood Pressure [Orthostatic Standing Right Arm] Blood Pressure [Right Arm] Blood Pressure Mean Blood Pressure Mean [Right Arm] 02 Sat by Pulse Oximetry 96 95 96 Oxygen Delivery Method Room Air Room Air Room Air Lab Data Lab results reviewed: Yes I reviewed the patient's lab results. Lab Results 10/14/23 14:13: WBC 7.7, RBC 3.84 L, Hgb 9.8 L, Hct 31.9 L, MCV 82.9, MCH 25.5 L , MCHC 30.7 L, RDW 15.9, Plt Count 242, MPV 9.0, Neut % (Auto) 76.6, Lymph % (Auto) 16.7, Bath % (Auto) 5.2, Eos % (Auto) 1.1, Baso % (Auto) 0.4, Neut # (Auto) 5.9, Lymph # (Auto) 1.3, Bath # (Auto) 0.4, Eos # (Auto) 0.1, Baso # (Auto) 0.0, D-Dimer 0.63 H, Sodium 137, Potassium 3.5, Chloride 96 L, Carbon Dioxide 35 H, Anion Gap 9.5, BUN 32 H, Creatinine 0.90, Estimated Creat Clear 53, Estimated GFR 60, Est GFR ( Amer) 73, Glucose 106 H, Calcium 9.7, Total Bilirubin 0.4, AST 40 H, ALT 23, Alkaline Phosphatase 56, Troponin I < 0.01, C-Reactive Protein 4.3 H, Total Protein 6.4, Albumin 3.6, Globulin 2.8, Albumin/Globulin Ratio 1.3, Procalcitonin 0.050 10/14/23 14:17: VBG pH 7.37, VBG pCO2 50.2, VBG pO2 34.5, VBG HCO3 28.4, VBG Total CO2 30.0 H, VBG O2 Saturation 61.4, VBG Base Excess 3.2 H, VBG Lactic Acid 1.4 10/14/23 15:45: Urine Color Yellow, Urine Appearance Clear, Urine pH 6.0, Ur Specific [place] 1.010, Urine Protein Negative, Urine Glucose (UA) Negative, Urine Ketones Negative, Urine Blood Negative, Urine Nitrate Negative, Urine Bilirubin Negative, Urine Urobilinogen 0.2, Ur Leukocyte Esterase Negative, Urine RBC None, Urine WBC Occasional, Ur Squamous Epith Cells Occasional, Urine Bacteria Trace 10/14/23 17:10: Troponin I < 0.01 10/14/23 14:13 10/14/23 14:13 Orders (Tests/Meds): ED MEDICATIONS Discontinued Medications Generic Name Dose Route Start Last Admin Trade Name Freq PRN Reason Stop Dose Admin Lactated Ringer's 1,000 mls @ 999 mls/hr 10/14/23 14:01 10/14/23 14:16 Lactated Ringer's 1000 Ml Bag IV 10/14/23 15:01 999 mls/hr .Q1H1M ONE Administration ORDERS Category Date Time Status C-Reactive Protein Stat Lab 10/14/23 14:13 Completed Complete Blood Count Auto Diff Stat Lab 10/14/23 14:13 Completed Comprehensive Metabolic Panel Stat Lab 10/14/23 14:13 Completed D-Dimer Stat Lab 10/14/23 14:13 Completed Procalcitonin Stat Lab 10/14/23 14:13 Completed Troponin I Q3H Lab 10/14/23 17:10 Completed Troponin I Q3H Lab 10/14/23 20:15 Ordered Troponin I Stat Lab 10/14/23 14:13 Completed UA [Urinalysis and Microscopic] Stat Lab 10/14/23 15:45 Completed Blood Culture Stat Micro 10/14/23 14:16 Received VBG [Venous Blood Gas] Stat RT 10/14/23 14:17 Completed ECG Data Tracing #1: I reviewed this ECG and interpreted as documented below: Normal sinus rhythm with a ventricular rate of [address] changes concerning for ischemia. ECG initial impression date: 10/14/23 ECG initial impression time: 13:46 Medical Decision Narrative: In summary, this patient is a 78-year-old female presenting to the Emergency Department for evaluation of lightheadedness, nausea, presyncope, and diaphoresis that started just prior to arrival, which she reports happened after taking her blood pressure medication. Differential diagnoses considered include but are not limited to hypotension, orthostatic hypotension, medication adverse reaction, ACS, PE, sepsis. Ruling out the most morbid conditions drove assessment. It should be noted patient's history includes hypertension, hyperlipidemia, CAD, COPD, and venous stasis which may or may not be at goal therapy. This complicates all aspects of care by increasing patient's risk for morbidity. I reviewed patient's past medical records and noted that I evaluated the patient 10/09/2023 with concern for persistent right leg pain and swelling in the setting of this wound. I performed bedside DVT ultrasound that did not demonstrate DVT. Workup is reassuring, but patient did not feel comfortable with discharge as she had already been on antibiotics as an outpatient. She was discharged the next day with PT/OT/home health for management of [place] boots.. On exam, the patient is well-appearing. She has mildly low blood pressure with MAP of 65 and systolic in the 90s. Vitals are otherwise reassuring. Cardiopulmonary, abdominal exam is reassuring. Her right lower extremity looks good. Workup included CBC, CMP, CRP, procalcitonin, VBG, lactic acid, troponin, D-dimer, and EKG. EKG obtained is reassuring. I On reassessment, patient is resting comfortably with significant improvement in blood pressure after administration of IV fluids. Orthostatic vital signs are reassuring. She has mild decrease hemoglobin with a hemoglobin of 9.8. Not significantly changed from baseline. Patient has mildly elevated BUN. Initial troponin negative. D-dimer negative. At 1545, patient was placed in ED observation status pending 2nd troponin and reassessment after fluid resuscitation to determine whether or not the patient would be appropriate for discharge versus admission. The patient was provided serial reevaluations and cardiac monitoring while awaiting ultimate disposition. Patient care signed out to Dr. Durham. <Cedric Durham MD - Last Filed: 10/14/23 18:07> Vital Signs: 10/14/23 13:42 10/14/23 14:01 10/14/23 14:30 Temperature 98.2 F Temperature Source Oral Pulse Rate 61 Pulse Rate [Left Radial] 66 Pulse Rate [Orthostatic Lying Left Radial] 54 L Pulse Rate [Orthostatic Sitting Right Radial] 62 Pulse Rate [Orthostatic Standing Right Radial] 66 Respiratory Rate 20 Blood Pressure 91/56 L Blood Pressure [Orthostatic Lying Right Arm] 90/50 L Blood Pressure [Orthostatic Sitting Right Arm] 106/64 L Blood Pressure [Orthostatic Standing Right Arm] 114/66 Blood Pressure [Right Arm] 95/47 L Blood Pressure Mean Blood Pressure Mean [Right Arm] 63 02 Sat by Pulse Oximetry 96 95 Oxygen Delivery Method Room Air Room Air 10/14/23 14:38 10/14/23 14:40 10/14/23 15:00 Temperature Temperature Source Pulse Rate 70 70 51 L Pulse Rate [Left Radial] Pulse Rate [Orthostatic Lying Left Radial] Pulse Rate [Orthostatic Sitting Right Radial] Pulse Rate [Orthostatic Standing Right Radial] Respiratory Rate Blood Pressure 106/64 L 114/66 107/56 L Blood Pressure [Orthostatic Lying Right Arm] Blood Pressure [Orthostatic Sitting Right Arm] Blood Pressure [Orthostatic Standing Right Arm] Blood Pressure [Right Arm] Blood Pressure Mean 74 Blood Pressure Mean [Right Arm] 02 Sat by Pulse Oximetry 96 97 96 Oxygen Delivery Method Room Air Room Air Room Air 10/14/23 15:31 10/14/23 15:45 10/14/23 16:00 Temperature Temperature Source Pulse Rate 58 L 39 L 60 Pulse Rate [Left Radial] Pulse Rate [Orthostatic Lying Left Radial] Pulse Rate [Orthostatic Sitting Right Radial] Pulse Rate [Orthostatic Standing Right Radial] Respiratory Rate Blood Pressure 101/54 L 120/58 L 104/65 L Blood Pressure [Orthostatic Lying Right Arm] Blood Pressure [Orthostatic Sitting Right Arm] Blood Pressure [Orthostatic Standing Right Arm] Blood Pressure [Right Arm] Blood Pressure Mean Blood Pressure Mean [Right Arm] 02 Sat by Pulse Oximetry 100 97 96 Oxygen Delivery Method Room Air Room Air Room Air 10/14/23 16:30 10/14/23 17:00 10/14/23 17:30 Temperature Temperature Source Pulse Rate 62 61 58 L Pulse Rate [Left Radial] Pulse Rate [Orthostatic Lying Left Radial] Pulse Rate [Orthostatic Sitting Right Radial] Pulse Rate [Orthostatic Standing Right Radial] Respiratory Rate Blood Pressure 113/69 103/60 L 122/67 Blood Pressure [Orthostatic Lying Right Arm] Blood Pressure [Orthostatic Sitting Right Arm] Blood Pressure [Orthostatic Standing Right Arm] Blood Pressure [Right Arm] Blood Pressure Mean Blood Pressure Mean [Right Arm] 02 Sat by Pulse Oximetry 96 95 96 Oxygen Delivery Method Room Air Room Air Room Air Lab Data Lab Results 10/14/23 14:13: WBC 7.7, RBC 3.84 L, Hgb 9.8 L, Hct 31.9 L, MCV 82.9, MCH 25.5 L , MCHC 30.7 L, RDW 15.9, Plt Count 242, MPV 9.0, Neut % (Auto) 76.6, Lymph % (Auto) 16.7, Bath % (Auto) 5.2, Eos % (Auto) 1.1, Baso % (Auto) 0.4, Neut # (Auto) 5.9, Lymph # (Auto) 1.3, [place] # (Auto) 0.4, Eos # (Auto) 0.1, Baso # (Auto) 0.0, D-Dimer 0.63 H, Sodium 137, Potassium 3.5, Chloride 96 L, Carbon Dioxide 35 H, Anion Gap 9.5, BUN 32 H, Creatinine 0.90, Estimated Creat Clear 53, Estimated GFR 60, Est GFR ( Amer) 73, Glucose 106 H, Calcium 9.7, Total Bilirubin 0.4, AST 40 H, ALT 23, Alkaline Phosphatase 56, Troponin I < 0.01, C-Reactive Protein 4.3 H, Total Protein 6.4, Albumin 3.6, Globulin 2.8, Albumin/Globulin Ratio 1.3, Procalcitonin 0.050 10/14/23 14:17: VBG pH 7.37, VBG pCO2 50.2, VBG pO2 34.5, VBG HCO3 28.4, VBG Total CO2 30.0 H, VBG O2 Saturation 61.4, VBG Base Excess 3.2 H, VBG Lactic Acid 1.4 10/14/23 15:45: Urine Color Yellow, Urine Appearance Clear, Urine pH 6.0, Ur Specific [place] 1.010, Urine Protein Negative, Urine Glucose (UA) Negative, Urine Ketones Negative, Urine Blood Negative, Urine Nitrate Negative, Urine Bilirubin Negative, Urine Urobilinogen 0.2, Ur Leukocyte Esterase Negative, Urine RBC None, Urine WBC Occasional, Ur Squamous Epith Cells Occasional, Urine Bacteria Trace 10/14/23 17:10: Troponin I < 0.01 Orders (Tests/Meds): ED MEDICATIONS Discontinued Medications Generic Name Dose Route Start Last Admin Trade Name Freq PRN Reason Stop Dose Admin Lactated Ringer's 1,000 mls @ 999 mls/hr 10/14/23 14:01 10/14/23 14:16 Lactated Ringer's 1000 Ml Bag IV 10/14/23 15:01 999 mls/hr .Q1H1M ONE Administration ORDERS Category Date Time Status C-Reactive Protein Stat Lab 10/14/23 14:13 Completed Complete Blood Count Auto Diff Stat Lab 10/14/23 14:13 Completed Comprehensive Metabolic Panel Stat Lab 10/14/23 14:13 Completed D-Dimer Stat Lab 10/14/23 14:13 Completed Procalcitonin Stat Lab 10/14/23 14:13 Completed Troponin I Q3H Lab 10/14/23 17:10 Completed Troponin I Q3H Lab 10/14/23 20:15 Ordered Troponin I Stat Lab 10/14/23 14:13 Completed UA [Urinalysis and Microscopic] Stat Lab 10/14/23 15:45 Completed Blood Culture Stat Micro 10/14/23 14:16 Received VBG [Venous Blood Gas] Stat RT 10/14/23 14:17 Completed Medical Decision Narrative: In summary, this patient is a 78-year-old female presenting to the Emergency Department for evaluation of lightheadedness, nausea, presyncope, and diaphoresis that started just prior to arrival, which she reports happened after taking her blood pressure medication. Differential diagnoses considered include but are not limited to hypotension, orthostatic hypotension, medication adverse reaction, ACS, PE, sepsis. Ruling out the most morbid conditions drove assessment. It should be noted patient's history includes hypertension, hyperlipidemia, CAD, COPD, and venous stasis which may or may not be at goal therapy. This complicates all aspects of care by increasing patient's risk for morbidity. I reviewed patient's past medical records and noted that I evaluated the patient 10/09/2023 with concern for persistent right leg pain and swelling in the setting of this wound. I performed bedside DVT ultrasound that did not demonstrate DVT. Workup is reassuring, but patient did not feel comfortable with discharge as she had already been on antibiotics as an outpatient. She was discharged the next day with PT/OT/home health for management of Unna boots.. On exam, the patient is well-appearing. She has mildly low blood pressure with MAP of 65 and systolic in the 90s. Vitals are otherwise reassuring. Cardiopulmonary, abdominal exam is reassuring. Her right lower extremity looks good. Workup included CBC, CMP, CRP, procalcitonin, VBG, lactic acid, troponin, D-dimer, and EKG. EKG obtained is reassuring. I On reassessment, patient is resting comfortably with significant improvement in blood pressure after administration of IV fluids. Orthostatic vital signs are reassuring. She has mild decrease hemoglobin with a hemoglobin of 9.8. Not significantly changed from baseline. Patient has mildly elevated BUN. Initial troponin negative. D-dimer negative. At 3 PM, patient was placed in ED observation status pending 2nd troponin and reassessment after fluid resuscitation to determine whether or not the patient would be appropriate for discharge versus admission. The patient was provided serial reevaluations and cardiac monitoring while awaiting ultimate disposition. Patient care signed out to Dr. Durham. Marva: I assumed primary responsibility for this patient after signout from previous physician. On evaluation, patient resting very comfortably in bed, initial blood pressure when taking over from previous physician 120/60, pulse rate 66, 96% on room air. Patient without complaints. Cardiopulmonary exam unremarkable. Patient not currently having any complaints. Patient was placed in observation beginning at 3 PM in order to minimize delta troponin and determine need for admission versus home-going. The patient was provided cardiac monitoring, serial exams while awaiting results. Independent interpretation of workup demonstrates nonactionable CBC, stable hemoglobin at 9.8. Normal platelet count. Chemistry nonactionable with normal kidney function, troponin negative initially, procalcitonin negative. VBG normal with pH 7.37, CO2 50, bicarb 28, normal lactic acid and overall unremarkable. EKG independently interpreted sinus rhythm 65 beats a minute no ST or T wave changes concerning for acute ischemia. IN, QRS, QT intervals within normal limits. [place] normal. On reevaluation, patient resting comfortably ready to go home. At this time, I feel patient is appropriate for discharge after negative delta troponin. Total observation time 3 hours. Critical Care <Tanya Whaley, DO - Last Filed: 10/14/23 15:50> Critical Care Time Critical Care Time: No
[2023-10-14] MEDS: LACTATED RINGERS 1000ML 1,000 ML 999 ML IV (14:16)
[2023-10-14 14:23] LABS: Lactate Venous 1.4 mmol/L (0.4-2.0); VBG Base Excess 3.2 mmol/L (-2.4-2.3); VBG HCO3 28.4 mmol/L (23-30); VBG Oxygen Saturation 61.4 % (50-70); VBG PH 7.37 mmol/L (7.31-7.41); VBG PO2 34.5 mmol/L (28-40)
[2023-10-14 14:24] LABS: Basophils % 0.4 % (0.1-2.0); Eosinophils # 0.1 K/mm3 (0.0-0.4); Eosinophils % 1.1 % (0.1-12.0); Hematocrit 31.9 % (37.0-47.0); Hemoglobin 9.8 g/dL (12.2-16.2); Lymphocytes # 1.3 K/mm3 (0.7-4.5); Lymphocytes % 16.7 % (10-50); Mean Corpuscular HGB Conc 30.7 g/dL (31.8-35.4); Mean Corpuscular Hemoglobin 25.5 pg (27.0-31.2); Mean Corpuscular Volume 82.9 fl (81-99); Monocytes # 0.4 K/mm3 (0.1-1.0); Monocytes % 5.2 % (1.7-9.3); Neutrophils # 5.9 K/mm3 (1.8-7.8); Neutrophils % 76.6 % (37.0-80.0); Platelet Count 242 K/mm3 (142-424); Red Blood Count 3.84 M/mm3 (4.20-5.40); Red Cell Distribution Width 15.9 % (11.5-17.5); White Blood Count 7.7 K/mm3 (4.8-10.8)
[2023-10-14 14:28] LABS: VBG PCO2 50.2 mmol/L (35-51)
--- NOTE | 2023-10-14 14:28 | PC.NURSE ---
co2 50.2, aware
[2023-10-14 14:38] LABS: Alanine Aminotransferase 23 U/L (12-78); Albumin Level 3.6 g/dl (3.5-5.0); Albumin/Globulin Ratio 1.3 (1.1-1.8); Alkaline Phosphatase 56 U/L (38-126); Anion Gap 9.5 mEq/L (5-15); Aspartate Amino Transferase 40 U/L (14-36); Bilirubin,Total 0.4 mg/dl (0.2-1.3); Blood Urea Nitrogen 32 mg/dl (7-17); Calcium 9.7 mg/dl (8.4-10.2); Carbon Dioxide 35 mmol/L (22.0-30.0); Chloride 96 mmol/L (98-107); Creatinine Clearance Estimated 53 mL/min (50-200); Estimated Glomerular Filt Rate 60 ml/min (>60); GFR (African American) 73 ML/MIN (>60); Globulin 2.8 g/dL (1.3-3.2); Glucose 106 mg/dl (74-100); Potassium 3.5 mmoL/L (3.5-5.1); Sodium 137 mmol/L (136-145); Total Protein,Serum 6.4 g/dl (6.3-8.2)
[2023-10-14 15:32] LABS: C-Reactive Protein 4.3 mg/L (0-4)
[2023-10-14 15:39] LABS: Troponin I < 0.01 ng/ml (0.00-0.034)
[2023-10-14 15:50] LABS: Microscopic, Urine URINE MICROSCOPIC (MICROSCOPIC)
[2023-10-14 16:01] LABS: D-Dimer 0.63 ug/mL (0.0-0.5)
[2023-10-14 16:48] LABS: Appearance,Urine CLEAR (Clear); Bilirubin,Urine Negative (Negative); Blood, Urine Negative (Negative); Color,Urine YELLOW (Yellow); Glucose,Urine (UA) Negative (Negative); Ketones,Urine Negative (Negative); Leukocyte Esterase,Urine Negative (Negative); Nitrate,Urine Negative (Negative); Protein,Urine Negative (Negative); Urobilinogen,Urine 0.2 EU/dl (0.2)
[2023-10-14 16:59] LABS: Bacteria,Urine Trace /lpf; Squamous Epithelial Cell,Urine Occasional #/hpf (0-5); WBC,Urine Occasional #/hpf (0-3)
[2023-10-14 18:02] LABS: Troponin I < 0.01 ng/ml (0.00-0.034)
== END 2023-10-14 18:29 | disposition home or self-care (01) ==
PROVIDERS: Emergency Medicine; Emergency Provider Emergency Medicine; PCP Internal Medicine Adolescent Medicine
DX: I95.9 Hypotension, unspecified (principal); R55 Syncope and collapse; R53.1 Weakness; D64.9 Anemia, unspecified; R42 Dizziness and giddiness; R11.0 Nausea; L97.919 Non-pressure chronic ulcer of unspecified part of right lower leg with unspecified severity; J44.9 Chronic obstructive pulmonary disease, unspecified; I10 Essential (primary) hypertension; E78.5 Hyperlipidemia, unspecified; K21.9 Gastro-esophageal reflux disease without esophagitis; Z87.891 Personal history of nicotine dependence; Z86.73 Personal history of transient ischemic attack (TIA), and cerebral infarction without residual deficits
CPT/HCPCS: 36415; 80053; 81001; 82803; 84145; 84484; 85025; 85378; 86140; 87040; 93005; 96360; 99284; J7120

== ENCOUNTER 2023-11-16 12:25 | Outpatient (CLI) | payer MEDICARE, SELFPAY ==
--- NOTE | 2023-11-16 12:45 | XR_ITS ---
FINAL REPORT CLINICAL HISTORY: Lt Hip Pain FINDINGS: Left hip Three views were obtained. There is no acute fracture or dislocation. There are mild degenerative changes. No soft tissue abnormality is identified. IMPRESSION: No acute process. Reviewed, Interpreted and Dictated by Jake Swan III, MD Transcribed by Christine Guerra Authenticated and [facility]
[2023-11-16 13:02] LABS: Basophils % 0.6 % (0.1-2.0); Eosinophils # 0.1 K/mm3 (0.0-0.4); Hematocrit 29.8 % (37.0-47.0); Hemoglobin 10.1 g/dL (12.2-16.2); Lymphocytes # 2.1 K/mm3 (0.7-4.5); Lymphocytes % 25.7 % (10-50); Mean Corpuscular Hemoglobin 26.7 pg (27.0-31.2); Mean Corpuscular Volume 78.5 fl (81-99); Mean Platelet Volume 8.9 fl (7.4-10.4); Monocytes # 0.5 K/mm3 (0.1-1.0); Neutrophils # 5.4 K/mm3 (1.8-7.8); Neutrophils % 66.7 % (37.0-80.0); Platelet Count 253 K/mm3 (142-424); Red Cell Distribution Width 16.6 % (11.5-17.5); White Blood Count 8.1 K/mm3 (4.8-10.8)
[2023-11-16 15:06] LABS: Iron 45 ug/dL (37-170)
[2023-11-16 15:16] LABS: Total Iron Binding Capacity 462 ug/dL (265-497)
[2023-11-16 15:42] LABS: Ferritin 7.76 ng/ml (11.1-264)
== END 2023-11-16 23:59 | disposition home or self-care (01) ==
LOC: RAD 12:29
PROVIDERS: Internal Medicine Medical Oncology; PCP Internal Medicine Adolescent Medicine; Visit Provider Nurse Practitioner Family
DX: D50.9 Iron deficiency anemia, unspecified (principal); M25.552 Pain in left hip; M51.37 Other intervertebral disc degeneration, lumbosacral region
CPT/HCPCS: 36415; 73502; 82728; 83540; 83550; 85025

== ENCOUNTER 2023-11-24 14:34 | Outpatient (CLI) | payer MEDICARE, SELFPAY ==
[2023-11-24 14:51] VITALS: BP 105/65; PULSE 69; RESP 18; O2SAT 95
[2023-11-24] MEDS: IRON SUCROSE COMPLEX 200 MG in 0.9 % SODIUM CHLORIDE 100 ML 220 MG IV (14:51)
[2023-11-24] MEDS: SODIUM CHLORIDE 0.9% 50ML BAG 50 ML IV (14:51)
[2023-11-24 15:39] VITALS: BP 116/66; PULSE 71; RESP 18; O2SAT 95
== END 2023-11-24 15:39 | disposition home or self-care (01) ==
LOC: INF 14:35
PROVIDERS: PCP Internal Medicine Adolescent Medicine; Visit Provider Internal Medicine Medical Oncology
DX: D50.9 Iron deficiency anemia, unspecified (principal)
CPT/HCPCS: 96365; J1756

== ENCOUNTER 2023-12-01 14:46 | Outpatient (CLI) | payer MEDICARE, SELFPAY ==
[2023-12-01] MEDS: IRON SUCROSE COMPLEX 200 MG in 0.9 % SODIUM CHLORIDE 100 ML 220 MG IV (15:00)
[2023-12-01] MEDS: SODIUM CHLORIDE 0.9% 50ML BAG 50 ML IV (15:00)
[2023-12-01 15:05] VITALS: BP 123/66; PULSE 62; RESP 16; O2SAT 94
[2023-12-01 15:35] VITALS: BP 134/66; PULSE 62; RESP 16
== END 2023-12-01 15:50 | disposition home or self-care (01) ==
LOC: INF 14:47
PROVIDERS: PCP Internal Medicine Adolescent Medicine; Visit Provider Internal Medicine Medical Oncology
DX: D50.9 Iron deficiency anemia, unspecified (principal)
CPT/HCPCS: 96365; J1756

== ENCOUNTER 2023-12-08 14:38 | Outpatient (CLI) | payer MEDICARE, SELFPAY ==
[2023-12-08 14:50] VITALS: BP 118/72; PULSE 62; RESP 18; O2SAT 97
[2023-12-08] MEDS: IRON SUCROSE COMPLEX 200 MG in 0.9 % SODIUM CHLORIDE 100 ML 220 MG IV (15:00)
[2023-12-08 15:42] VITALS: BP 135/71; PULSE 59; RESP 18; O2SAT 96
== END 2023-12-08 15:40 | disposition home or self-care (01) ==
PROVIDERS: PCP Internal Medicine Adolescent Medicine; Visit Provider Internal Medicine Medical Oncology
DX: D50.9 Iron deficiency anemia, unspecified (principal)
CPT/HCPCS: 96365; J1756

== ENCOUNTER 2023-12-15 15:30 | Outpatient (CLI) | payer MEDICARE, SELFPAY ==
[2023-12-15] MEDS: IRON SUCROSE COMPLEX 200 MG in 0.9 % SODIUM CHLORIDE 100 ML 220 MG IV (15:42)
[2023-12-15] MEDS: SODIUM CHLORIDE 0.9% 50ML BAG 50 ML IV (15:42)
[2023-12-15 15:45] VITALS: BP 137/72; PULSE 63; RESP 17; O2SAT 96
[2023-12-15 16:15] VITALS: BP 138/78; PULSE 66; RESP 16
== END 2023-12-15 16:30 | disposition home or self-care (01) ==
LOC: INF 15:32
PROVIDERS: PCP Internal Medicine Adolescent Medicine; Visit Provider Internal Medicine Medical Oncology
DX: D50.9 Iron deficiency anemia, unspecified (principal)
CPT/HCPCS: 96365; J1756

== ENCOUNTER 2023-12-22 15:04 | Outpatient (CLI) | payer MEDICARE, SELFPAY ==
[2023-12-22 15:18] VITALS: BP 132/77; PULSE 78; RESP 18; O2SAT 94
[2023-12-22 15:49] VITALS: BP 126/66; PULSE 71
== END 2023-12-22 15:52 | disposition home or self-care (01) ==
PROVIDERS: PCP Internal Medicine Adolescent Medicine; Visit Provider Internal Medicine Medical Oncology
DX: D50.9 Iron deficiency anemia, unspecified (principal); Z79.899 Other long term (current) drug therapy
CPT/HCPCS: 96365; J1756

== ENCOUNTER 2023-12-30 14:07 | Outpatient (CLI) | payer MEDICARE, SELFPAY ==
--- NOTE | 2023-12-30 | CA_ITS ---
APPROVED REPORT EXAM: Comprehensive 2D, Doppler, and color-flow Echocardiogram Cake Press Operator: Gardenia Roa CRT Ht: 5 ft 5 in Wt: 167lbs BSA: 1.83 BP: 138/76 mmHg Indications: COPD, CAD, Hyperlipidemia, Hypertension/HDD, hx cva 2D Dimensions LA Volume 43.10 mL LA Volume Index 22.90 mL/m2 (M/F) 16-34 M-Mode Dimensions RVDd 2.41 cm (0.9-2.6) LA Diam 2.65 cm (1.9-4.0) LVDd 4.99 cm (3.5-5.7) LVDs 3.35 cm (3.5-5.7) IVSd 1.21 cm (0.6-1.1) PWd 0.48 cm (0.6-1.1) EF (Teich) 61.10% FS 32.90% EDV (Teich) 117.70 mL TAPSE 2.26 (<1.7) ESV (Teich) 45.80 mL LV Diastology E Decel Time 160 (160-240 msec) E/A Ratio 1.08 MED A' 10.50 cm/s LAT A' 13.00 cm/s Aortic Valve AO Peak GR. 8.00 mmHg Mitral Valve MV A Velocity 65.0 (40-130 cm/s) E/A Ratio 1.08 Pulmonary Valve PV Peak Velocity 102.0 (50-150 cm/s) Tricuspid Valve TR P. Velocity 292.00 cm/s RAP Estimate 10.00 mmHg RVSP 44.20 mmHg Left Ventricle The left ventricle is normal size. The left ventricular systolic function is normal. The left ventricular ejection fraction is within the normal range. There is increased LV wall thickness. There is normal LV segmental wall motion. The left ventricular diastolic function is normal. LVEF is 55%. Right Ventricle Right ventricle is mildly dilated. Right ventricle is mildly hypokinetic. Atria Left atrium is mildly dilated. Right atrium is mildly dilated. There is no Doppler evidence of interatrial shunt. Aortic Valve The aortic valve is mildly thickened. There is no aortic valvular stenosis. Trace aortic regurgitation. Mitral Valve The mitral valve is normal in structure. No evidence of mitral valve stenosis. Mild mitral regurgitation. Tricuspid Valve The tricuspid valve leaflets are thin and pliable. Mild tricuspid regurgitation. RVSP is 30-35 mmHg. Pulmonic Valve The pulmonary valve is normal in structure. Trace pulmonic regurgitation. Great Vessels The aortic root is normal in size. The ascending aorta is normal in size. IVC is normal in size and collapses >50% with inspiration. Pericardium There is no pericardial effusion. Other Information Study Quality: Technically Difficult Conclusion Technically difficult study due to poor accoustic windows. Normal LV systolic function. Mild RV dilation with mild reduction in RV function. Biatrial dilation. Mild MR, mild TR. RVSP is 30-35 mmHg. Electronically signed by : Liane Alejandro MD 01/03/2024 05:25:39
== END 2023-12-30 23:59 | disposition home or self-care (01) ==
LOC: RT 14:10
PROVIDERS: PCP Internal Medicine Adolescent Medicine; Visit Provider Internal Medicine Adolescent Medicine
DX: I51.89 Other ill-defined heart diseases (principal)
CPT/HCPCS: 93306

== ENCOUNTER 2024-06-12 16:53 | Emergency (ER) | payer MEDICARE, SELFPAY ==
[2024-06-12] VITALS (7 sets, daily range): BP systolic 117–161; BP diastolic 57–88; PULSE 76–100; RESP 19–20; TEMP 36.7–37.1; O2SAT 90–96; BMI 24.2
--- NOTE | 2024-06-12 18:07 | ED_ITS ---
<Statement entered by Jac Mendoza MD - 06/12/24 23:17> I was consulted by the MARITA, and we discussed the complexity of the problems being addressed. I approved the treatment and management plan for this patient's care in the emergency department, thus performing a substantive portion of the medical decision making. Jac Mendoza MD Discharge Plan Disposition Patient Disposition: Home, Self-Care Condition: Fair Prescriptions Prescriptions: New lidocaine 5 % adhesive patch,medicated 1 patch topical DAILY Qty: 30 0RF Rx Instructions: leave on most painful area for up to 12 hrs methocarbamol 750 mg tablet 750 mg PO Q6H PRN (Reason: muscle spasm) Qty: 20 0RF No Action lidocaine HCl 10 mg/mL (1 %) solution 10 mg IJ ONCE Qty: 3 0RF triamcinolone acetonide [Kenalog] 40 mg/mL suspension 40 mg IJ ONCE Qty: 2 0RF meloxicam 15 mg tablet 15 mg PO DAILY Qty: 30 1RF alendronate 70 mg tablet 70 mg PO WEEKLY albuterol sulfate 90 mcg/actuation HFA aerosol inhaler 2 puff INHALATION Q6HP PRN (Reason: Shortness Of Breath) Patient Comments: INHALE 2 PUFFS BY MOUTH EVERY 6 HOURS NEEDED FOR SHORTNESS OF BREATH mupirocin 2 % ointment 1 applic topical TID 10 Days Qty: 22 0RF Rx Instructions: apply to wounds on leg as directed bumetanide 1 mg tablet 1 mg PO DAILY 30 Days Qty: 30 0RF Referrals Follow up/Referrals: Jeremy Salinas MD [Staff Physician] - See instructions (L1 fracture) Juanito Zelaya MD [Primary Care Provider] - See instructions Activity Restrictions/Add. Instructions Additional Instructions/Restrictions: I referred you to pain management for your L1 fracture. Please call tomorrow make your appointment. Follow-up with your PCP in 1 week for recheck. If you have any new ongoing or worsening signs or symptoms follow-up with your PCP sooner or return to the ER as needed. Clinical Impressions Clinical Impression: Closed L1 vertebral fracture Qualifiers: Encounter type: initial encounter Fracture morphology: unspecified fracture morphology Qualified Code(s): S32.019A - Unspecified fracture of first lumbar vertebra, initial encounter for closed fracture Print Language Print Language: Marshallese Discharge ED Provider: Jac Mendoza General Adult HPI General Chief complaint: Fall Stated complaint: [id number] back pain Time Seen by Provider: 06/12/24 18:06 History of Present Illness HPI narrative: Patient presents for evaluation of a fall. Patient states that she was standing in her bedroom without her walker or her cane which she normally is supposed to utilize for ambulation walking backwards and lost her balance and fell directly on her back. She did not lose consciousness but felt a pop in her lumbar spine. She was able to bear weight with assistance but has had no reduction in her pain. She denies any numbness tingling loss of motor or sensory saddle anesthesia loss of bowel or bladder function. She denies chest pain shortness of breath fever chills mops his hematochezia melena nausea vomit diarrhea. She is on baby aspirin but no other anticoagulants. Related Data Home Medications ?Medication ?Instructions ?Recorded ?Confirmed albuterol sulfate 90 mcg/actuation 2 puff inhalation Q6HP PRN 10/08/23 02/01/24 aerosol inhaler Shortness Of Breath alendronate 70 mg tablet 70 mg PO WEEKLY 10/08/23 02/01/24 Previous Rx's ?Medication ?Instructions ?Recorded mupirocin 2 % topical ointment 1 applic topical TID 10 days #22 10/08/23 grams bumetanide 1 mg tablet 1 mg PO DAILY 30 days #30 tabs 10/11/23 meloxicam 15 mg tablet 15 mg PO DAILY #30 tabs 02/03/24 lidocaine 5 % topical patch 1 patch topical DAILY #30 ea 06/12/24 methocarbamol 750 mg tablet 750 mg PO Q6H PRN muscle spasm #20 06/12/24 tabs Allergies Allergy/AdvReac Type Severity Reaction Status Date / Time No Known Allergies Allergy Verified 02/01/24 13:50 [facility] Disclaimer: The information contained in this section may have been updated after the patient was seen, as this information can be updated by other users. Medical History Acute CVA (cerebrovascular accident) Chronic venous stasis Varicosities of leg TIA (transient ischemic attack) Osteoporosis GERD (gastroesophageal reflux disease) COPD (chronic obstructive pulmonary disease) Anxiety HLD (hyperlipidemia) HTN (hypertension) Cerebrovascular accident CAD (coronary artery disease) Surgical History History of colonoscopy History of ankle surgery S/P cardiac catheterization Family History Other Cancer Diabetes Kidney disease Stroke Social History Smoking Status: Current every day smoker tobacco type: cigarettes packs per day: 1 years smoked: 48 smoking status stop date: 2007 second hand exposure: No alcohol intake: never substance use type: denies use current occupational status: retired Travel in the last 8 weeks: None household members: none housing: house current occupational exposures/hazards: No caffeine: Yes Have you lived/traveled outside [place] in past 30 days?: No Contact w/someone who lives/traveled outside [place] past 30 days?: No Exposure to someone with infectious disease in past 14 days?: No Do you have a fever (greater than 100.4 F or 38 C)?: No Have you tested positive for COVID-19: No Exposed to someone with COVID-19 in past 14 days?: No Do you have a sore throat?: No Do you have a cough?: No Do you have any weakness?: No Do you have any diarrhea?: No Are you experiencing any unusual bleeding?: No Do you have any muscle aches/pain?: No Do you have any abdominal pain?: No Are you experiencing loss of taste or smell?: No Other Medical History Have you received the Flu Vaccine for this season: No Have you received the Pneumonia Vaccine: No ROS Obtained: Yes Systems reviewed as appropriate & no additional complaints except as documented Physical Exam General General appearance: alert and in no apparent distress Respiratory Respiratory exam: Present normal lung sounds bilaterally Cardiovascular Cardiovascular exam: Present regular rate Neurological Exam Neurological exam: Present alert and oriented X3 Medical Decision Making Medical Records Medical records reviewed: Yes I reviewed the patient's medical records. Screening: Per USPSTF and CDC recommendations, given the prevalence of disease in our region, it is our hospital?s policy to screen for HIV and viral Hepatitis for all patients aged 18 and over and those with ongoing risk factors. Mitch Inquiry Pt receiving controlled substance: No Vital Signs: 06/12/24 16:54 06/12/24 18:00 06/12/24 18:20 Temperature 98.0 F Temperature Source Oral Pulse Rate 76 82 Pulse Rate [Left Radial] 78 Respiratory Rate 19 Blood Pressure 138/72 117/57 L Blood Pressure [Right Arm] 138/72 Blood Pressure Mean Blood Pressure Mean [Right Arm] 94 Blood Pressure Source Blood Pressure Position 02 Sat by Pulse Oximetry 96 93 L 94 L Oxygen Delivery Method Room Air Room Air Room Air 06/12/24 19:30 06/12/24 19:34 06/12/24 20:01 Temperature Temperature Source Pulse Rate 91 H 85 100 H Pulse Rate [Left Radial] Respiratory Rate Blood Pressure 157/72 H 161/88 H 156/71 H Blood Pressure [Right Arm] Blood Pressure Mean 100 109 99 Blood Pressure Mean [Right Arm] Blood Pressure Source Blood Pressure Position 02 Sat by Pulse Oximetry 95 95 95 Oxygen Delivery Method Room Air Room Air Room Air 06/12/24 20:38 Temperature 98.7 F Temperature Source Oral Pulse Rate 86 Pulse Rate [Left Radial] Respiratory Rate 20 Blood Pressure 143/70 H Blood Pressure [Right Arm] Blood Pressure Mean Blood Pressure Mean [Right Arm] Blood Pressure Source Automatic Cuff Blood Pressure Position Supine 02 Sat by Pulse Oximetry Oxygen Delivery Method Room Air Lab Data Lab results reviewed: Yes I reviewed the patient's lab results. Lab Results 06/12/24 18:50: WBC 8.9, RBC 4.44, Hgb 13.5, Hct 41.1, MCV 92.6, MCH 30.4, MCHC 32.8, RDW 14.3, Plt Count 208, MPV 10.7 H, Neut % (Auto) 74.6, Lymph % (Auto) 17.1, Carroll % (Auto) 6.5, Eos % (Auto) 0.7, Baso % (Auto) 0.3, Neut # (Auto) 6.7, Lymph # (Auto) 1.5, Carroll # (Auto) 0.6, Eos # (Auto) 0.1, Baso # (Auto) 0.0, PT 9.8, INR 0.88 L, Sodium 138, Potassium 3.1 L, Chloride 91 L, Carbon Dioxide 39 H , Anion Gap 11.1, BUN 24 H, Creatinine 0.70, Estimated Creat Clear 48, Estimated GFR 81, Est GFR ( Amer) 97, Glucose 126 H, Calcium 9.1, HCV Ab MILI w/Rflx PCR Qn Negative, HIV Ag/Ab Combo Qual Negative 06/12/24 18:50 06/12/24 18:50 Orders (Tests/Meds): ED MEDICATIONS Discontinued Medications Generic Name Dose Route Start Last Admin Trade Name Talon PRN Reason Stop Dose Admin Acetaminophen 1,000 mg 06/12/24 18:23 06/12/24 18:36 Acetaminophen 1,000mg/100ml Vial IV 06/12/24 18:24 1,000 mg ONCE ONE Administration Lidocaine 1 each 06/12/24 18:23 06/12/24 18:36 Lidocaine 5% Transdermal Patch TP 06/12/24 18:24 1 each ONCE ONE Administration Methocarbamol 500 mg 06/12/24 18:23 06/12/24 18:36 Methocarbamol 500mg Tablet PO 06/12/24 18:24 500 mg ONCE ONE Administration Potassium Chloride 60 meq 06/12/24 19:28 06/12/24 19:30 Potassium Chloride 20meq Tab PO 06/12/24 19:29 60 meq ONCE ONE Administration ORDERS Category Date Time Status CT bony pelvis Stat Cat Scan 06/12/24 18:[address] cervical spine wo con Stat Cat Scan 06/12/24 18:[address] head/brain wo con Stat Cat Scan 06/12/24 18:[address] lumbar spine wo con Stat Cat Scan 06/12/24 18:[address] thoracic spine wo con Stat Cat Scan 06/12/24 18:24 Completed BMP [Basic Metabolic Panel] Stat Lab 06/12/24 18:50 Completed CBC w/Auto Diff [Complete Blood Count Auto Diff] Stat Lab 06/12/24 18:50 Completed HIV Combo Stat Lab 06/12/24 18:50 Completed Hepatitis C Ab Qual. W/ RFX Stat Lab 06/12/24 18:50 Completed INR [Prothrombin Time INR] Stat Lab 06/12/24 18:50 Completed Medical Decision Narrative: In summary patient is a 78-year-old female who presents to the emergency department for evaluation of fall. Patient is hemodynamically stable with blood pressure 138/72 pulse 78 breathing 19 times a minute satting at 96% on room air upon arrival, afebrile. Physical exam is remarkable for tenderness to palpation in the lumbar spine without evidence of bony deformity, there is no ecchymosis contusions abrasions. Patient has stable pelvis to compression, patient has reduced range of motion in her bilateral lower extremities due to the pain in the lumbar spine but she is neurovascularly intact distally has no loss of motor or sensory no saddle anesthesia.. Differential diagnosis includes contusion versus fracture. Initial workup will be conducted with ED noncontrast trauma scans hematologic labs. Initial interventions include Toradol Tylenol Lidoderm patch Robaxin. Initial workup reviewed by me shows that her hematologic labs are nonactionable however my informal interpretation of her imaging prior to radiology read shows a L1 small compression fracture but no stenosis of the canal.. Upon repeat evaluation patient was able to ambulate in the emergency department prior to discharge and reported improvement in her pain. Given this patient is appropriate for discharge with prescription for Lidoderm and Robaxin and referral to Dr. Salinas for ongoing management and care. Patient given strict return precautions. Critical Care Critical Care Time Critical Care Time: No
--- NOTE | 2024-06-12 18:24 | CT_ITS ---
PROCEDURE INFORMATION: Exam: CT Head Without Contrast Exam date and time: 06/12/2024 6:55 PM Age: 78 years old Clinical indication: Injury or trauma; Blunt trauma (contusions or hematomas); Patient HX: Fall, back pain; Additional info: Trauma, critical injury suspected TECHNIQUE: Imaging protocol: Computed tomography of the head without contrast. Radiation optimization: All CT scans at this facility use at least one of these dose optimization techniques: automated exposure control; mA and/or kV adjustment per patient size (includes targeted exams where dose is matched to clinical indication); or iterative reconstruction. COMPARISON: CT ANGIO HEAD 03/13/2022 2:16 PM FINDINGS: Brain: There is significant generalized cerebral atrophy. Moderate-sized areas of encephalomalacia are present in the right frontal and occipital lobes. Diffuse chronic white matter changes. No intracranial mass, hemorrhage or evidence of acute ischemia. Cerebral ventricles: Cavum septum pellucidum et vergae incidentally noted. Ventricles are mildly prominent size, proportionate to the degree of cerebral atrophy. Paranasal sinuses: Visualized sinuses are unremarkable. No fluid levels. Mastoid air cells: Visualized mastoid air cells are well aerated. Bones: Unremarkable. No acute fracture. Soft tissues: Unremarkable. IMPRESSION: No acute intracranial abnormality. Significant chronic findings as noted.
--- NOTE | 2024-06-12 18:24 | CT_ITS ---
PROCEDURE INFORMATION: Exam: CT Thoracic Spine Without Contrast Exam date and time: 06/12/2024 6:59 PM Age: 78 years old Clinical indication: Injury or trauma; Blunt trauma (contusions or hematomas); Patient HX: Fall, back pain; Additional info: Trauma, critical injury suspected TECHNIQUE: Imaging protocol: Computed tomography of the thoracic spine without contrast. Radiation optimization: All CT scans at this facility use at least one of these dose optimization techniques: automated exposure control; mA and/or kV adjustment per patient size (includes targeted exams where dose is matched to clinical indication); or iterative reconstruction. COMPARISON: CT THORACIC SPINE WO CON 06/12/2024 6:59 PM FINDINGS: Bones/joints: Moderate loss of intervertebral disc space with degenerative changes at midthoracic and thoracolumbar junction levels. The vertebral bodies are maintained in height and alignment. No evidence of acute osseous abnormality. Soft tissues: Unremarkable. Vasculature: There is moderate calcific atherosclerotic disease of the thoracic aorta without aneurysmal dilatation. Lungs: Dependent bilateral lung base opacities favor atelectasis. Stomach and bowel: Large hiatal hernia with significant portion of the gastric body located at the lower mediastinum. IMPRESSION: No evidence of acute osseous abnormality.
--- NOTE | 2024-06-12 18:24 | CT_ITS ---
PROCEDURE INFORMATION: Exam: CT Lumbar Spine Without Contrast Exam date and time: 06/12/2024 7:01 PM Age: 78 years old Clinical indication: Injury or trauma; Blunt trauma (contusions or hematomas); Patient HX: Fall, back pain; Additional info: Trauma, critical injury suspected TECHNIQUE: Imaging protocol: Computed tomography of the lumbar spine without contrast. Radiation optimization: All CT scans at this facility use at least one of these dose optimization techniques: automated exposure control; mA and/or kV adjustment per patient size (includes targeted exams where dose is matched to clinical indication); or iterative reconstruction. COMPARISON: CT LUMBAR SPINE WO CON 06/12/2024 7:01 PM FINDINGS: Bones/joints: Moderate loss of intervertebral disc space with degenerative changes at the lower thoracic and lumbar spine greatest from L2 through L5 with endplate and facet osteoarthrosis resulting in [id number] neural foraminal stenosis at these levels. The vertebral bodies are maintained in height and alignment. Subtle cortical irregularity involving the anterior cortex of L1 without loss of height compatible with nondisplaced fracture. Transitional anatomy with sacralization of L5. Stomach and bowel: Large hiatal hernia with significant portion of the gastric body located at the lower mediastinum. Diverticula are scattered throughout the colon without inflammatory changes. Vasculature: Moderate calcific atherosclerotic disease of the abdominal aorta without aneurysmal dilatation is present. Soft tissues: Unremarkable. IMPRESSION: Subtle cortical irregularity involving the anterior cortex of L1 without loss of height compatible with nondisplaced fracture.
--- NOTE | 2024-06-12 18:24 | CT_ITS ---
PROCEDURE INFORMATION: Exam: CT Pelvis Without Contrast, Skeleton Exam date and time: 06/12/2024 7:04 PM Age: 78 years old Clinical indication: Injury or trauma; Fall; Blunt trauma (contusions or hematomas); Bilateral; Hip; Additional info: Trauma, critical injury suspected TECHNIQUE: Imaging protocol: Computed tomography of the pelvis without contrast. Exam focused on the skeleton. Radiation optimization: All CT scans at this facility use at least one of these dose optimization techniques: automated exposure control; mA and/or kV adjustment per patient size (includes targeted exams where dose is matched to clinical indication); or iterative reconstruction. COMPARISON: CT LUMBAR SPINE WO CON 06/12/2024 7:01 PM FINDINGS: Intestine: Diverticula are scattered throughout the colon without inflammatory changes. Vasculature: Moderate calcific atherosclerotic disease of the abdominal aorta without aneurysmal dilatation is present. Bones/joints: Moderate loss of intervertebral disc space with degenerative changes at L3 through L5. No evidence of acute osseous abnormality. Soft tissues: Unremarkable. IMPRESSION: No evidence of acute osseous abnormality.
--- NOTE | 2024-06-12 18:24 | CT_ITS ---
PROCEDURE INFORMATION: Exam: CT Cervical Spine Without Contrast Exam date and time: 06/12/2024 6:57 PM Age: 78 years old Clinical indication: Injury or trauma; Blunt trauma; Patient HX: Fall, back pain; Additional info: Trauma, critical injury suspected TECHNIQUE: Imaging protocol: Computed tomography of the cervical spine without contrast. Radiation optimization: All CT scans at this facility use at least one of these dose optimization techniques: automated exposure control; mA and/or kV adjustment per patient size (includes targeted exams where dose is matched to clinical indication); or iterative reconstruction. COMPARISON: CT CERVICAL SPINE WO CON 06/12/2024 6:57 PM FINDINGS: Bones: Mild multilevel degenerative disc changes throughout the cervical spine. Mild degenerative changes of the atlantodental joint. Moderate left-sided facet arthropathy C3-C4 and C4-C5. Lungs: Lung apices are normal. Vasculature: Moderate bilateral carotid artery calcifications. Soft tissues: Unremarkable. IMPRESSION: No acute abnormality. Chronic findings as noted.
[2024-06-12] MEDS: LIDOCAINE 5% TRANSDERMAL PATCH 1 EACH TP (18:36)
[2024-06-12] MEDS: METHOCARBAMOL 500MG TABLET 500 MG PO (18:36)
[2024-06-12] MEDS: ACETAMINOPHEN 1,000MG/100ML VIAL 1000 MG IV (18:36)
[2024-06-12 19:00] LABS: Basophils % 0.3 % (0.1-2.0); Eosinophils # 0.1 K/mm3 (0.0-0.4); Eosinophils % 0.7 % (0.1-12.0); Hematocrit 41.1 % (37.0-47.0); Hemoglobin 13.5 g/dL (12.2-16.2); Lymphocytes # 1.5 K/mm3 (0.7-4.5); Lymphocytes % 17.1 % (10-50); Mean Corpuscular HGB Conc 32.8 g/dL (31.8-35.4); Mean Corpuscular Hemoglobin 30.4 pg (27.0-31.2); Mean Corpuscular Volume 92.6 fl (81-99); Mean Platelet Volume 10.7 fl (7.4-10.4); Monocytes # 0.6 K/mm3 (0.1-1.0); Monocytes % 6.5 % (1.7-9.3); Neutrophils # 6.7 K/mm3 (1.8-7.8); Neutrophils % 74.6 % (37.0-80.0); Platelet Count 208 K/mm3 (142-424); Red Blood Count 4.44 M/mm3 (4.20-5.40); Red Cell Distribution Width 14.3 % (11.5-17.5); White Blood Count 8.9 K/mm3 (4.8-10.8)
[2024-06-12 19:06] LABS: INR 0.88 (0.9-1.1); Prothrombin Time 9.8 seconds (9.2-12.1)
[2024-06-12 19:08] LABS: Chloride 91 mmol/L (98-107); Potassium 3.1 mmoL/L (3.5-5.1); Sodium 138 mmol/L (136-145)
[2024-06-12 19:11] LABS: Anion Gap 11.1 mEq/L (5-15); Blood Urea Nitrogen 24 mg/dl (7-17); Carbon Dioxide 39 mmol/L (22.0-30.0); Creatinine Clearance Estimated 48 mL/min (50-200); Estimated Glomerular Filt Rate 81 ml/min (>60); GFR (African American) 97 ML/MIN (>60)
[2024-06-12 19:12] LABS: Calcium 9.1 mg/dl (8.4-10.2); Glucose 126 mg/dl (74-100)
[2024-06-12] MEDS: POTASSIUM CHLORIDE 20MEQ TAB 60 MEQ PO (19:30)
[2024-06-12 20:12] LABS: HIV Combo NEGATIVE (Negative)
[2024-06-12 20:22] LABS: Hepatitis C Ab Qual. W/ RFX NEGATIVE (Negative)
== END 2024-06-12 20:50 | disposition home or self-care (01) ==
PROVIDERS: Physician Assistant; Emergency Provider Emergency Medicine; PCP Internal Medicine Adolescent Medicine
DX: S32.019A Unspecified fracture of first lumbar vertebra, initial encounter for closed fracture (principal); M54.9 Dorsalgia, unspecified; W18.39XA Other fall on same level, initial encounter; Y93.89 Activity, other specified; Y92.003 Bedroom of unspecified non-institutional (private) residence as the place of occurrence of the external cause
CPT/HCPCS: 70450; 72125; 72128; 72131; 72192; 80048; 85025; 85610; 86803; 87389; 96374; 99284; J0131

== ENCOUNTER 2024-06-15 12:24 | Outpatient (POV) | payer MEDICARE, SELFPAY ==
--- NOTE | 2024-06-15 13:14 | EXP.PAIN.OV ---
HPI Data of Consult Patient: new to practice Consult date: 06/15/24 Requesting Physician: Tanya Chu APRN Primary Care Provider: Juanito Zelaya MD Consult Narrative Reason for consult: Low back pain, abdominal pain, leg pain History of present illness: Ms. Hinton is a 78 year old female who presents today as a new patient. She is a referral from Dr. Zelaya's office. Today she rates her pain a 10 out of 10. Patient states that she had a fall on Wednesday where she just lost her balance and tripped falling back onto her back. Patient states she started having severe pain with sharp shooting sensations. She does state that it is an aching, throbbing sensation with numbness and tingling. She states that it is constant and interferes with every activity of daily living such as cooking or cleaning or even sleeping. Patient states she has not had any sleep the last 4 days due to the constant pain. Patient states that it does radiate around into her abdomen and into her legs. Patient states that she has tried [id number] medications along with going to the ER where she had lidocaine patches and methocarbamol with no additional improvement. Patient states she was diagnosed with a compression fracture. She also states she has significant history of osteoporosis and is on medication for this. Her Mitch has been reviewed and is appropriate. CC: Tanya Chu APRN [facility] Disclaimer: The information contained in this section may have been updated after the patient was seen, as this information can be updated by other users. Medical History (Updated 06/15/24 @ 14:03 by Tanya Chu APRN) Acute CVA (cerebrovascular accident) Chronic venous stasis Varicosities of leg TIA (transient ischemic attack) Osteoporosis GERD (gastroesophageal reflux disease) COPD (chronic obstructive pulmonary disease) Anxiety HLD (hyperlipidemia) HTN (hypertension) Cerebrovascular accident CAD (coronary artery disease) Surgical History History of colonoscopy History of ankle surgery S/P cardiac catheterization Family History Other Cancer Diabetes Kidney disease Stroke Social History Smoking Status: Current every day smoker tobacco type: cigarettes packs per day: 1 years smoked: 48 smoking status stop date: 2007 second hand exposure: No alcohol intake: never substance use type: denies use current occupational status: retired Travel in the last 8 weeks: None household members: none housing: house current occupational exposures/hazards: No caffeine: Yes Review of Systems Review of Systems Review of systems:: pertinent systems reviewed and negative unless documented below Review of systems (narrative): Review of Systems: General: No recent weight changes, no fever, no sleep disturbances Respiratory: No cough, no shortness of air, no recurring pulmonary infections Cardiovascular/peripheral vascular: No chest pain, no palpitations, no edema, no shortness of breath Gastrointestinal: No new onset incontinence, normal bowel movements reported Genitourinary: No new onset incontinence Musculoskeletal: Low back pain, abdominal pain, leg pain, knee pain Psychiatric: [Normal mood/affect] Neurological: [Denies weakness in extremities], [denies balance issues] Meds Home Medications and Allergies Home Medications ?Medication ?Instructions ?Recorded ?Confirmed ?Type albuterol sulfate 90 mcg/actuation 2 puff inhalation Q6HP PRN 10/08/23 02/01/24 History aerosol inhaler Shortness Of Breath alendronate 70 mg tablet 70 mg PO WEEKLY 10/08/23 02/01/24 History mupirocin 2 % topical ointment 1 applic topical TID 10 days #22 10/08/23 02/01/24 Rx grams bumetanide 1 mg tablet 1 mg PO DAILY 30 days #30 tabs 10/11/23 02/01/24 Rx meloxicam 15 mg tablet 15 mg PO DAILY #30 tabs 02/03/24 02/03/24 Rx lidocaine 5 % topical patch 1 patch topical DAILY #30 ea 06/12/24 Rx methocarbamol 750 mg tablet 750 mg PO Q6H PRN muscle spasm #20 06/12/24 Rx tabs New Prescriptions to Start Prescriptions: Allergies Allergy/AdvReac Type Severity Reaction Status Date / Time No Known Allergies Allergy Verified 02/01/24 13:50 Objective Narrative: Physical Exam: General: Alert and oriented x3, no acute distress, pleasant and cooperative Lungs: Respirations even and unlabored, symmetrical chest expansion Eyes: PERRL Musculoskeletal: Flexion and extension of lumbar [spine] somewhat guarded secondary to pain, [antalgic gait noted] extreme point tenderness along upper lumbar spine Neurological: Speech clear, no gross sensory deficit Additional findings Additional findings: FINDINGS: Bones/joints: Moderate loss of intervertebral disc space with degenerative changes at the lower thoracic and lumbar spine greatest from L2 through L5 with endplate and facet osteoarthrosis resulting in [id number] neural foraminal stenosis at these levels. The vertebral bodies are maintained in height and alignment. Subtle cortical irregularity involving the anterior cortex of L1 without loss of height compatible with nondisplaced fracture. Transitional anatomy with sacralization of L5. Stomach and bowel: Large hiatal hernia with significant portion of the gastric body located at the lower mediastinum. Diverticula are scattered throughout the colon without inflammatory changes. Vasculature: Moderate calcific atherosclerotic disease of the abdominal aorta without aneurysmal dilatation is present. Soft tissues: Unremarkable. IMPRESSION: Subtle cortical irregularity involving the anterior cortex of L1 without loss of height compatible with nondisplaced fracture. Electronically signed by Wilber Arboleda MD at 06/12 Assessment and Plan *Assessment and plan (1) Closed L1 vertebral fracture: Status: Acute Qualifiers: Encounter type: initial encounter Fracture morphology: unspecified fracture morphology Qualified Code(s): S32.019A - Unspecified fracture of first lumbar vertebra, initial encounter for closed fracture Category: Medical Code(s): S32.019A - Unspecified fracture of first lumbar vertebra, initial encounter for closed fracture (2) Degenerative disc disease: Status: Acute Category: Medical (3) Lumbar radiculopathy: Status: Acute Category: Medical Code(s): M54.16 - Radiculopathy, lumbar region (4) Degenerative disc disease, lumbar: Status: Acute Category: Medical Code(s): M51.369 - Other intervertebral disc degeneration, lumbar region without mention of lumbar back pain or lower extremity pain (5) Osteoporosis: Status: Acute Category: Medical Code(s): M81.0 - Age-related osteoporosis without current pathological fracture Plan Patient is experiencing worsening pain in their low back with limited range of motion and point tenderness along their upper lumbar spine. Patient did have chest x-ray that did not show any acute compression fracture of L2. I did discuss with the patient that they may be a beneficial candidate of a kyphoplasty procedure. Risk and benefits were discussed with the patient and they would like to proceed forward. I will order MRI without contrast of their lumbar spine. If imaging confirms an acute compression fracture we will plan on proceeding forward with a kyphoplasty. Patient already has a significant history of osteoporosis and is on medication weekly for this. Patient will be ordered a back brace to reduce pain by restricting mobility of the spine and facilitate healing following an injury to the spine. I will also send in a prescription of pain medication, Big Arm 5 mg 3 times a day and muscle relaxer, tizanidine 4 mg at bedtime. Patient was also counseled due to the acute pain she has been going through overall also submit for a lumbar epidural steroid injection. Risk and benefits of this injection were explained to the patient and she would like to proceed forward with this plan of care. Patient has tried and failed conservative therapy and is not a candidate for current physical therapy due to the severe nature of her compression fracture and history of osteoporosis. Patient will return to clinic following their imaging for reevaluation of symptoms and plan of care. Patient has been instructed to contact the clinic with any concerns before the next appointment. Dr. Salinas has reviewed this note and agrees with this plan of care. This note was dictated using voice recognition software and make contain errors or omissions. All injections are used with Lidocaine, Bupivacaine and Depo Medrol. Occasionally urine drug screen is needed to verify patient's compliance with our office pain contract. This is ordered based off specific treatments related to chronic pain with the potential to abuse certain medications.
[2024-06-15 13:20] VITALS: BP 119/68; PULSE 97; RESP 18; O2SAT 96; BMI 26.2
== END 2024-06-15 23:59 | disposition home or self-care (01) ==
PROVIDERS: PCP Internal Medicine Adolescent Medicine; Visit Provider Nurse Practitioner Family
DX: S32.019A Unspecified fracture of first lumbar vertebra, initial encounter for closed fracture (principal); M51.16 Intervertebral disc disorders with radiculopathy, lumbar region; M81.0 Age-related osteoporosis without current pathological fracture; Z73.89 Other problems related to life management difficulty; F17.210 Nicotine dependence, cigarettes, uncomplicated
CPT/HCPCS: 99202; G0463

== ENCOUNTER 2024-06-26 14:28 | Outpatient (CLI) | payer MEDICARE, SELFPAY ==
--- NOTE | 2024-06-26 14:32 | MR_ITS ---
FINAL REPORT TECHNIQUE: Multiplanar MR without contrast CLINICAL HISTORY: LBP AFTER A FALL X 1 WEEK AGO PT IN EXTREME PAIN PT WENT TO ER AFTER EXAM COMPARISON: 06/12/2024 CT lumbar spine FINDINGS: There is a mild compression fracture of L1 with marrow edema compatible with acute or subacute injury, progressed from the prior exam. There is a new mild acute or subacute superior endplate compression fracture of L2 vertebra. The lower lumbar vertebra demonstrate no evidence of fracture. There is moderate diffuse degenerative disc disease with multilevel canal stenosis and neural foraminal narrowing. Canal stenosis is most pronounced on the right at L3-4 and centrally at L2-3. IMPRESSION: New/increasing fractures of L1 and L2 as above without evidence of retropulsion of bone. Reviewed, Interpreted and Dictated by Lacho Contreras MD Transcribed by Shauna Mccrary Authenticated and . [facility]
== END 2024-06-26 23:59 | disposition home or self-care (01) ==
LOC: RAD 14:29
PROVIDERS: PCP Internal Medicine Adolescent Medicine; Visit Provider Nurse Practitioner Family
DX: M54.16 Radiculopathy, lumbar region (principal); M51.369 Other intervertebral disc degeneration, lumbar region without mention of lumbar back pain or lower extremity pain; M81.0 Age-related osteoporosis without current pathological fracture; S32.019A Unspecified fracture of first lumbar vertebra, initial encounter for closed fracture
CPT/HCPCS: 72148

== ENCOUNTER 2024-06-26 15:34 | Emergency (ER) | payer MEDICARE, SELFPAY ==
[2024-06-26 15:46] VITALS: BP 119/75; PULSE 85; RESP 16; TEMP 36.6; O2SAT 96; BMI 26.1
--- NOTE | 2024-06-26 16:32 | ED_ITS ---
Discharge Plan Disposition Patient Disposition: Home, Self-Care Prescriptions Prescriptions: New oxycodone 5 mg tablet 5 mg PO Q8H PRN (Reason: pain (scale score 7-10)) Qty: 4 0RF Rx Instructions: Do not combine with your hydrocodone acetaminophen No Action meloxicam 15 mg tablet 15 mg PO DAILY Qty: 30 1RF lidocaine 5 % adhesive patch,medicated 1 patch topical DAILY Qty: 30 0RF Rx Instructions: leave on most painful area for up to 12 hrs methocarbamol 750 mg tablet 750 mg PO Q6H PRN (Reason: muscle spasm) Qty: 20 0RF hydrocodone-acetaminophen 5-325 mg tablet 1 tab PO TID Qty: 42 0RF acetaminophen-codeine 300-30 mg tablet 1 tab PO TID PRN (Reason: pain) Qty: 42 0RF bumetanide 1 mg tablet 1 mg PO DAILY 30 Days Qty: 30 0RF tizanidine [Zanaflex] 4 mg tablet 4 mg PO HS Qty: 30 0RF tizanidine 4 mg tablet 4 mg PO DIRECTED alendronate 70 mg tablet 70 mg PO WEEKLY Patient Comments: TAKE 1 TABLET BY MOUTH ONCE A WEEK clobetasol 0.05 % cream 1 applic TOPICAL DAILY Patient Comments: APPLY CREAM TOPICALLY TWICE DAILY methocarbamol 750 mg tablet 750 mg PO TID Patient Comments: TAKE 1 TABLET BY MOUTH EVERY 6 HOURS NEEDED FOR MUSCLE SPASM bumetanide 1 mg tablet 1 mg PO BID albuterol sulfate 90 mcg/actuation HFA aerosol inhaler 2 puff INHALATION NEEDED PRN (Reason: soa) diclofenac sodium 1 % gel See Rx Instructions .ROUTE .COMPLEX PRN (Reason: Pain (Scale Score 4-6)) Rx Instructions: prn Referrals Follow up/Referrals: Juanito Zelaya MD [Primary Care Provider] - See instructions Activity Restrictions/Add. Instructions Additional Instructions/Restrictions: At this time it was felt you are safe to be discharged home. If new or worsening symptoms please do not hesitate to return the emergency department. Please take your medication as prescribed and as we talked about multiple times do not take your hydrocodone with your oxycodone prescription that I sent in today. Please bring your TLSO brace to your pain appointment so they can help refit it. Clinical Impressions Clinical Impression: Closed lumbar vertebral fracture, Left shoulder pain Instructions Patient Instructions: DI for Low Back Pain Print Language Print Language: Hungarian Discharge ED Provider: Jac Mendoza General Adult HPI General Chief complaint: Back Pain/Injury Stated complaint: hip pain Time Seen by Provider: 06/26/24 16:10 Mode of Arrival: Wheelchair Source of Information: Patient Limitations: No Limitations Description of Symptoms (Recalled from ER Triage Doc. by RN): pt arrived immediately after having an MRI of her spine. pt reports she fell and was dx here last Wednesday with a fracture of L1. pt reports her pain after the MRI is a 10/10 and radiates distal to her LLE. pt also reports sharp pain that is a 10/10 and limited ROM in her L shoulder. It was not bothering her originally and has not had images. pt is typical independent with minimal help with a cane. pt is now only ambulatory for short distances with a walker. pt is being seen by our pain clinic. She took a hydrocodone and muscle relaxer at 1300. unsure of dosages. History of Present Illness HPI narrative: Patient is a 78-year-old female who presents emergency department for evaluation of back pain. Patient was seen in the emergency department for evaluation of traumatic injury sustained in a ground-level fall a couple weeks ago and was diagnosed with a nondisplaced lumbar spine fracture and ultimately deemed appropriate for outpatient management. I remember this patient from a couple weeks ago. She then followed up with pain management who arranged for outpatient MRI and is pending spinal injections. They also prescribed her hydrocodone. However her pain has been significant at night with laying down is limiting her ability to sleep as well as she had significant pain today while getting her MRI severe enough to the point that caused her to come here for continued evaluation. No new trauma. She also has chronic pain in her left shoulder which is always bad but continues to persist. She has some limited range of motion but is largely able to range it. No other acute complaints. Related Data Home Medications ?Medication ?Instructions ?Recorded ?Confirmed albuterol sulfate 90 mcg/actuation 2 puff inhalation NEEDED PRN soa 06/26/24 06/26/24 aerosol inhaler alendronate 70 mg tablet 70 mg PO WEEKLY 06/26/24 06/26/24 bumetanide 1 mg tablet 1 mg PO BID 06/26/24 06/26/24 clobetasol 0.05 % topical cream 1 applic topical DAILY 06/26/24 06/26/24 diclofenac sodium 1 % topical gel See Rx Instructions .Route 06/26/24 06/26/24 .COMPLEX PRN Pain (Scale Score 4-6) methocarbamol 750 mg tablet 750 mg PO TID 06/26/24 06/26/24 tizanidine 4 mg tablet 4 mg PO DIRECTED 06/26/24 06/26/24 Previous Rx's ?Medication ?Instructions ?Recorded bumetanide 1 mg tablet 1 mg PO DAILY 30 days #30 tabs 10/11/23 meloxicam 15 mg tablet 15 mg PO DAILY #30 tabs 02/03/24 lidocaine 5 % topical patch 1 patch topical DAILY #30 ea 06/12/24 methocarbamol 750 mg tablet 750 mg PO Q6H PRN muscle spasm #20 06/12/24 tabs hydrocodone 5 mg-acetaminophen 325 1 tab PO TID #42 tabs 06/15/24 mg tablet acetaminophen 300 mg-codeine 30 mg 1 tab PO TID PRN pain #42 tabs 06/19/24 tablet oxycodone 5 mg tablet 5 mg PO Q8H PRN pain (scale score 06/26/24 7-10) #4 tabs tizanidine 4 mg tablet (Zanaflex) 4 mg PO HS #30 tabs 06/26/24 Allergies Allergy/AdvReac Type Severity Reaction Status Date / Time No Known Allergies Allergy Verified 06/26/24 15:56 [facility] Disclaimer: The information contained in this section may have been updated after the patient was seen, as this information can be updated by other users. Medical History (Updated 06/26/24 @ 16:37 by Jac Mendoza MD) Acute CVA (cerebrovascular accident) Chronic venous stasis Varicosities of leg TIA (transient ischemic attack) Osteoporosis GERD (gastroesophageal reflux disease) COPD (chronic obstructive pulmonary disease) Anxiety HLD (hyperlipidemia) HTN (hypertension) Cerebrovascular accident CAD (coronary artery disease) Surgical History History of colonoscopy History of ankle surgery S/P cardiac catheterization Family History Other Cancer Diabetes Kidney disease Stroke Social History Smoking Status: Former smoker tobacco type: cigarettes packs per day: 1 years smoked: 48 smoking status stop date: 2007 second hand exposure: No alcohol intake: never substance use type: denies use current occupational status: retired Travel in the last 8 weeks: None household members: none housing: house current occupational exposures/hazards: No caffeine: Yes Have you lived/traveled outside [place] in past 30 days?: No Contact w/someone who lives/traveled outside [place] past 30 days?: No Exposure to someone with infectious disease in past 14 days?: No Do you have a fever (greater than 100.4 F or 38 C)?: No Have you tested positive for COVID-19: No Exposed to someone with COVID-19 in past 14 days?: No Do you have a sore throat?: No Do you have a cough?: No Do you have any weakness?: No Do you have any diarrhea?: No Are you experiencing any unusual bleeding?: No Do you have any muscle aches/pain?: No Do you have any abdominal pain?: No Are you experiencing loss of taste or smell?: No Other Medical History Have you received the Flu Vaccine for this season: Yes Have you received the Pneumonia Vaccine: No ROS Obtained: Yes Systems reviewed as appropriate & no additional complaints except as documented Physical Exam General General appearance: alert and in no apparent distress Head Head exam: atraumatic and normocephalic Eye Eye exam: Present PERRL ENT ENT exam: Present mucous membranes moist Neck Neck exam: Present normal inspection Chest Chest inspection: Present normal inspection and symmetric chest wall rise Respiratory Respiratory exam: Present normal lung sounds bilaterally; Absent respiratory distress Cardiovascular Cardiovascular exam: Present regular rate and normal rhythm Abdominal Exam Abdominal exam: Present soft; Absent tenderness Extremities Exam Extremities exam: Present normal inspection and other (Palpable left radial pulse, slight tenderness of the left shoulder however active and passive range of motion largely preserved.) Back Exam Back exam: Present normal inspection and tenderness (Lumbar spine and left paraspinal tenderness in the lumbar region no overlying rash) Neurological Exam Neurological exam: Present alert Psychiatric Psychiatric exam: Present normal affect Skin Skin exam: Present warm and dry Medical Decision Making Medical Records Screening: Per USPSTF and CDC recommendations, given the prevalence of disease in our region, it is our hospital?s policy to screen for HIV and viral Hepatitis for all patients aged 18 and over and those with ongoing risk factors. Mitch Inquiry Pt receiving controlled substance: Yes Mitch was queried for this patient: Yes Risks and benefits of using a controlled substance: were discussed with pt by me Vital Signs: 06/26/24 15:46 Temperature 98 F Temperature Source Oral Pulse Rate [Left] 85 Respiratory Rate 16 Blood Pressure [Right Arm] 119/75 Blood Pressure Mean [Right Arm] 89 Blood Pressure Source [Right Arm] Automatic Cuff Blood Pressure Position [Right Arm] Sitting 02 Sat by Pulse Oximetry 96 Oxygen Delivery Method Room Air Orders (Tests/Meds): ED MEDICATIONS Discontinued Medications Generic Name Dose Route Start Last Admin Trade Name Freq PRN Reason Stop Dose Admin Lidocaine 1 each 06/26/24 16:26 06/26/24 17:02 Lidocaine 5% Transdermal Patch TP 06/26/24 16:27 1 each ONCE ONE Administration ORDERS Category Date Time Status Shoulder XR left minimum 2 views [XR shoulder LT min 2V Exams 06/26/24 16:34 Completed ] Stat Medical Decision Narrative: In summary patient is 78-year-old female past medical history described above presents emergency department for evaluation of lumbar pain. I saw this patient recently a couple of weeks ago and got appropriate CT imaging in my opinion which showed nondisplaced lumbar spine fracture. She has followed up with pain appropriately and is pending injections which I hope will help her pain. However she is in severe pain so breakthrough pain control will be attempted with oxycodone and patient will be prescribed a short course of oxycodone and was instructed not to take her hydrocodone on top of it as it can cause respiratory depression. Daughter verbalized understanding will remove hydrocodone from the house while she takes the short course of oxycodone. Unfortunately lidocaine patches were unable to be covered by the patient that I wrote a prescription for and will likely require prior authorization from pain management. She also is having difficulty fitting in her TLSO brace which I discussed with her the importance of bringing it to her appointment tomorrow. Limited workup for shoulder pain will be conducted with plain film of the left shoulder. Initial pain control with lidocaine patch and prescription for oxycodone will be given. Plain film left shoulder informally interpreted by me and has no acute fracture or dislocation. Formal read shows no acute pathology. Given this patient is appropriate for discharge at this time was given return precautions Critical Care Critical Care Time Critical Care Time: No
--- NOTE | 2024-06-26 16:34 | XR_ITS ---
PROCEDURE INFORMATION: Exam: XR Left Shoulder Exam date and time: 06/26/2024 4:34 PM Age: 78 years old Clinical indication: Injury or trauma; Fall; Blunt trauma (contusions or hematomas); Shoulder; Left; Additional info: Pain, fall TECHNIQUE: Imaging protocol: Radiologic exam of the left shoulder. Views: 2 or more views. COMPARISON: CT CERVICAL SPINE WO CON 06/12/2024 6:57 PM FINDINGS: Bones/joints: Normal. Soft tissues: Normal. IMPRESSION: No acute findings.
[2024-06-26] MEDS: LIDOCAINE 5% TRANSDERMAL PATCH 1 EACH TP (17:02)
[2024-06-26 17:23] VITALS: BP 120/75; PULSE 90; RESP 20; TEMP 36.7; O2SAT 95
== END 2024-06-26 17:24 | disposition home or self-care (01) ==
PROVIDERS: Emergency Provider Emergency Medicine; PCP Internal Medicine Adolescent Medicine
DX: S32.009A Unspecified fracture of unspecified lumbar vertebra, initial encounter for closed fracture (principal); M25.512 Pain in left shoulder; M54.50 Low back pain, unspecified; G89.29 Other chronic pain; Z87.891 Personal history of nicotine dependence; W19.XXXA Unspecified fall, initial encounter; Y93.9 Activity, unspecified
CPT/HCPCS: 73030; 99284

== ENCOUNTER 2024-06-27 10:17 | Day surgery (SDC) | payer MEDICARE, SELFPAY ==
[2024-06-27 10:28] VITALS: BP 119/73; PULSE 88; RESP 16; TEMP 37; O2SAT 92; BMI 27.9
[2024-06-27 10:44] VITALS: BP 138/76; PULSE 85; RESP 16; O2SAT 93
--- NOTE | 2024-06-27 10:57 | EXP.PAIN.PRO ---
Procedure Date: 06/27/24 Time: 10:30 Anesthesiologist:: [employer] CRNA Complications:: None Pre-procedure Diagnosis:: Degenerative disc lumbar spine multilevels. Lumbar radiculopathy. Vertebral fractures L1 and L2. Post-procedure Diagnosis:: Same. Indications for Procedure:: Patient is a very pleasant 78-year-old female who comes to our clinic today for an L1-2 epidural steroid injection. Patient has lumbar back pain she describes as constant, dull, aching. Patient came to the emergency room yesterday with intense pain. Imaging was done. There is a mild compression fracture of L1 with marrow edema compatible with acute or subacute injury, progressed from the prior exam. There is a new mild acute or subacute superior endplate compression fracture of L2 vertebra. The lower lumbar vertebra demonstrate no evidence of fracture. There is moderate diffuse degenerative disc disease with multilevel canal stenosis and neural foraminal narrowing. Canal stenosis is most pronounced on the right at L3-4 and centrally at L2-3. Patient is being fitted for back brace. We discussed briefly regarding kyphoplasty if necessary. Procedure Details:: Procedure: Lumbar epidural steroid injection under fluoroscopy Informed consent was obtained and the risks and benefits of the procedure were explained to the patient. The patient was taken to the procedure room and noninvasive monitors placed, including noninvasive blood pressure cuff and pulse oximeter. The back was viewed using C-arm Fluoroscopy and prepped using Chloraprep as a cleansing solution and the L1-2 interspace was palpated. Skin and subcutaneous tissues were anesthetized using lidocaine 1.5% and a 25-gauge needle. After this, an 18-gauge Touhy epidural needle was placed into the L1-2 interspace and advanced using fluoroscopic guidance and loss of resistance to air until the epidural space was encountered. After confirmation of needle placement in the epidural space, with dye, a solution containing normal saline, 3 mL and Depo-Medrol 80 mg were incrementally injected into the lumbar epidural space. The patient tolerated the procedure well with no complications. The patient was observed in the Pain Clinic and then discharged home neurologically intact. Plan and Disposition:: Patient was discharged without incident.
[2024-06-27] MEDS: methylPREDNISolone ACETATE 80MG/ML VIAL 80 MG (11:35)
[2024-06-27 11:37] VITALS: BP 132/61; PULSE 87; RESP 18; O2SAT 97
[2024-06-27 11:38] VITALS: BP 132/61; PULSE 87; RESP 18; O2SAT 97
== END 2024-06-27 10:44 | disposition home or self-care (01) ==
LOC: SC.PAINP 10:17
PROVIDERS: PCP Internal Medicine Adolescent Medicine; Visit Provider Nurse Anesthetist, Certified Registered
DX: M51.16 Intervertebral disc disorders with radiculopathy, lumbar region (principal); S32.019A Unspecified fracture of first lumbar vertebra, initial encounter for closed fracture
CPT/HCPCS: 62323; J1010

== ENCOUNTER 2024-07-25 13:24 | Outpatient (CLI) | payer MEDICARE, SELFPAY ==
[2024-07-25 14:00] VITALS: BMI 26.5
--- NOTE | 2024-07-25 14:09 | ECG_ITS ---
APPROVED REPORT Exam: Resting ECG HR:73 bpm ECG Measurements Heart Rate 73 AXES HI 101 P 127 QRSd 77 QRS 97 QT 384 T 69 QTc 410 Conclusion SINUS RHYTHM WITH SHORT HI INTERVAL WITH FREQUENT VENTRICULAR PREMATURE COMPLEXES POSSIBLE LEFT ATRIAL ENLARGEMENT [-0.1mV P-WAVE IN V1/V2] BORDERLINE RIGHT AXIS DEVIATION [QRS AXIS > 90] LOW QRS VOLTAGE IN PRECORDIAL LEADS [QRS DEFLECTION < 1.0 mV IN CHEST LEADS] ABNORMAL RHYTHM ECG UNCONFIRMED REPORT Electronically signed by : Juanito Zelaya MD 07/31/2024 08:55:59
[2024-07-25 14:36] LABS: Basophils % 0.1 % (0.1-2.0); Eosinophils # 0.1 K/mm3 (0.0-0.4); Hematocrit 40.2 % (37.0-47.0); Hemoglobin 13.5 g/dL (12.2-16.2); Lymphocytes # 1.5 K/mm3 (0.7-4.5); Lymphocytes % 17.7 % (10-50); Mean Corpuscular HGB Conc 33.6 g/dL (31.8-35.4); Mean Corpuscular Hemoglobin 30.3 pg (27.0-31.2); Mean Corpuscular Volume 90.1 fl (81-99); Mean Platelet Volume 9.8 fl (7.4-10.4); Monocytes # 0.5 K/mm3 (0.1-1.0); Monocytes % 6.1 % (1.7-9.3); Neutrophils # 6.3 K/mm3 (1.8-7.8); Neutrophils % 74.7 % (37.0-80.0); Platelet Count 269 K/mm3 (142-424); Red Blood Count 4.46 M/mm3 (4.20-5.40); Red Cell Distribution Width 13.9 % (11.5-17.5); White Blood Count 8.4 K/mm3 (4.8-10.8)
[2024-07-25 15:12] LABS: Anion Gap 6.8 mEq/L (5-15); Blood Urea Nitrogen 16 mg/dl (7-17); Calcium 8.8 mg/dl (8.4-10.2); Carbon Dioxide 37 mmol/L (22.0-30.0); Chloride 95 mmol/L (98-107); Creatinine Clearance Estimated 48 mL/min (50-200); Estimated Glomerular Filt Rate 119 ml/min (>60); GFR (African American) 144 ML/MIN (>60); Glucose 96 mg/dl (74-100); Sodium 136 mmol/L (136-145)
[2024-07-25 15:38] LABS: Potassium 2.8 mmoL/L (3.5-5.1)
--- NOTE | 2024-07-25 15:43 | PC.NURSE ---
Addendum entered by Jayshree Ratliff RN 07/26/24 08:54: Spoke with Dr. Zelaya via phone at this time, notified him of pt K+ level, pt scheduled for surgery on 07/28/24 for kyphoplasty. States he will call in potassium supplement for pt. Dr. Salinas notified that Dr. Zelaya sending in prescription for pt, will plan to recheck labs on wednesday prior to surgery. Pre-op staff notified FLOYD Willingham- who discussed with TIFFANY Vinson-verbalized okay with plan of recheck labs morning of surgery. Addendum entered by Jayshree Ratliff RN 07/26/24 08:17: Spoke with Dr. Salinas via phone at approx 1800 on 07/25/24. Notified him of pt K+ level. He requested that I contact pt PCP to notify them of level and ask about starting pt on potassium supplement. Contacted Dr. Zelaya's office at this time, left message with office staff requesting a call back from Dr. Zelaya r/t abn labs on pt. Original Note: was contacted from floyd mirza in pre-op r/t pt K+ level of 2.8. Have contacted Dr. Salinas, had to leave a voicemail, waiting on a return call to notify him of abn labs on pt.
== END 2024-07-25 23:59 | disposition home or self-care (01) ==
LOC: PREOP 13:25
PROVIDERS: Nurse Anesthetist, Certified Registered; PCP Internal Medicine Adolescent Medicine; Visit Provider Anesthesiology
DX: Z01.810 Encounter for preprocedural cardiovascular examination (principal); Z01.812 Encounter for preprocedural laboratory examination; I49.3 Ventricular premature depolarization; R94.31 Abnormal electrocardiogram [ECG] [EKG]
CPT/HCPCS: 80048; 85025; 93005

== ENCOUNTER 2024-07-28 06:05 | Day surgery (SDC) | payer MEDICARE, SELFPAY ==
--- NOTE | 2024-07-25 15:42 | SUR.PREOP ---
Critical result of K+ 2.8 called to Fco Fitzgerald CRNA. Jayshree Ratliff RN notified and states she will inform Dr. Salinas and contact the patient with recommendations made by
[2024-07-25 17:02] VITALS: BMI 26.5
[2024-07-28 06:30] VITALS: BP 130/64; PULSE 72; RESP 18; TEMP 36.9; O2SAT 96
[2024-07-28] MEDS: LACTATED RINGERS 1000ML 1,000 ML 25 ML IV (06:48)
[2024-07-28 06:51] LABS: Anion Gap 5.2 mEq/L (5-15); Blood Urea Nitrogen 10 mg/dl (7-17); Calcium 8.7 mg/dl (8.4-10.2); Carbon Dioxide 30 mmol/L (22.0-30.0); Chloride 105 mmol/L (98-107); Creatinine Clearance Estimated 48 mL/min (50-200); Estimated Glomerular Filt Rate 154 ml/min (>60); GFR (African American) 186 ML/MIN (>60); Glucose 105 mg/dl (74-100); Potassium 4.2 mmoL/L (3.5-5.1); Sodium 136 mmol/L (136-145)
--- NOTE | 2024-07-28 07:41 | EXP.ANES.CKL ---
[facility] Disclaimer: The information contained in this section may have been updated after the patient was seen, as this information can be updated by other users. Medical History Acute CVA (cerebrovascular accident) Chronic venous stasis Varicosities of leg TIA (transient ischemic attack) Osteoporosis GERD (gastroesophageal reflux disease) COPD (chronic obstructive pulmonary disease) Anxiety HLD (hyperlipidemia) HTN (hypertension) Cerebrovascular accident Surgical History History of colonoscopy History of ankle surgery Family History Other Diabetes Family history of rheumatoid arthritis Stroke Social History (Updated 07/28/24 @ 06:35 by Marcia Encarnacion RN) Smoking Status: Former smoker tobacco type: cigarettes packs per day: 1 years smoked: 48 smoking status stop date: 2007 second hand exposure: No alcohol intake: never substance use type: denies use current occupational status: retired Travel in the last 8 weeks: None household members: none housing: house current occupational exposures/hazards: No caffeine: Yes Have you lived/traveled outside [place] in past 30 days?: No Contact w/someone who lives/traveled outside [place] past 30 days?: No Exposure to someone with infectious disease in past 14 days?: No Do you have a fever (greater than 100.4 F or 38 C)?: No Have you tested positive for COVID-19: No Exposed to someone with COVID-19 in past 14 days?: No Do you have a sore throat?: No Do you have a cough?: No Do you have any weakness?: No Are you experiencing any nausea/vomitting?: No Do you have any diarrhea?: No Are you experiencing any unusual bleeding?: No Do you have any muscle aches/pain?: No Do you have any abdominal pain?: No Are you experiencing loss of taste or smell?: No [facility] Anesthesia Checklist Patient Identification Patient Identification: Arm Band and Family Structural Data Admitted From: Home Planned Operative Procedure/s: Kyphoplasty L1, L2. Consent for Planned Operative Procedure(s) Verified: Yes Verified Documents: Surgical Consent and History and Physical NPO Status Verified Time NPO: 00:00 Additional verifications Patient : No Anesthesia Reactions: No Hx Blood Transfusions: No Blood Transfusion Reaction: No Cephalosporin Allergy: No Airway Assessment Mallampati Score:: Class II C-Spine Mobility Assessed: Yes TMJ Mobility Assessed: Yes Dentition: Good Dentition Neurological Assessment Level of Consciousness: Awake, Alert, Appropriate and Follows Commands Hx Seizures: No Numbness or tingling in extremities: No Anesthesia Plan Anesthesia Risk discussed: Yes ASA Class: II Anesthesia Type: MAC
[2024-07-28] MEDS: VANCOMYCIN/WATER FOR INJ (PEG) 1.5 GM/300 ML PIGGYBACK IV ×2 (07:42→08:08)
[2024-07-28] MEDS: LIDOCAINE 1% W/EPI 1:100,000 20ML VIAL 20 ML ×2 (08:32→08:35)
[2024-07-28 09:33] VITALS: BP 140/85; PULSE 103; RESP 18; TEMP 36.2; O2SAT 96
--- NOTE | 2024-07-28 09:40 | EXP.OP.NOTE ---
Date of procedure: 07/28/24 Pre-op Diagnosis:: L1 and L2 acute compression fracture due to osteoporosis. Post-op Diagnosis:: Same Procedure performed:: L1 and L2 balloon kyphoplasty Surgeon:: Jeremy Salinas MD [employer]ATE:: Andrew Gallardo Anesthesia: MAC Estimated blood loss (mL): 5 Clinical Note:: This patient is a pleasant 78-year-old white female who has acute compression fracture of L1 and L2 due to a fall in June. She does have osteoporosis so this was age-related osteoporotic compression fractures. Patient has failed all conservative therapy. She presents for balloon kyphoplasty of L1 and L2 today. Operative findings:: None Operative note:: Informed consent was obtained and risks and benefits of the procedure was explained to the patient. Patient was taken to the OR and was placed prone on the procedure table. The patient was prepped and draped in sterile fashion. I used 2 C arms for AP and lateral view of the L1 vertebral body. The skin and subcutaneous tissues were anesthetized using lidocaine. Bone access trochars were placed through the LEFT and RIGHT pedicle and advanced into the vertebral body. After accessing the vertebral body a balloon was inserted first on the LEFT side followed by the RIGHT side with approximately 3 mL of contrast placed in each balloon with good insufflation. After adequate spread of contrast through the balloon, the balloons were deflated and cement was introduced first on the LEFT side with placement of approximately 3-1/2 mL of cement with good spread throughout the vertebral body and then on the RIGHT side was approximately 3 1/2 mL cement with good spread throughout the vertebral body. There was no extrusion of cement through the lateral mcgowan, anterior or posterior mcgowan. Also no extrusion through superior or inferior mcgowan. The bone access trocars were removed and then we did the same process for the L2 vertebral body. The skin and subcutaneous tissues were anesthetized using lidocaine. The bone access trocars were placed through the left and right pedicle and advanced into the vertebral body. After accessing the vertebral body and balloon was inserted first on the left and followed by the right with approximately 3 mL of contrast placed into each balloon with good insufflation. After adequate spread of contrast through the balloon, the balloons were deflated and cement was introduced first on the left side with placement of approximately 3 and half mL of cement with good spread throughout the vertebral body and then on the right side again with approximately 3 and half mL of cement with good spread throughout the vertebral body. There was no extrusion of cement through the lateral mcgowan, anterior or posterior mcgowan. Also no extrusion through superior inferior mcgowan. the bone access trochars were removed and dressing was placed. The patient was taken back to recovery in stable condition. She had good resolution of her back pain 5 minutes after the procedure. She tolerated the procedure well with no complications and was discharged home neurologically intact. Condition: stable Disposition: PACU Complications:: None
[2024-07-28] MEDS: IOPAMIDOL-200 (41%);10ML VIAL 10 ML IV ×4 (09:41)
[2024-07-28 09:43] VITALS: BP 135/95; PULSE 100; RESP 18; O2SAT 98
[2024-07-28 09:53] VITALS: BP 145/85; PULSE 99; RESP 18; O2SAT 98
[2024-07-28 10:13] VITALS: BP 138/73; PULSE 94; RESP 18; O2SAT 98
[2024-07-28 10:23] VITALS: BP 132/84; PULSE 92; RESP 18; O2SAT 95
== END 2024-07-28 10:48 | disposition home or self-care (01) ==
PROVIDERS: PCP Internal Medicine Adolescent Medicine; Visit Provider Anesthesiology
PROC: (CPT 22514; principal; 2024-07-28 07:30)
DX: M80.08XA Age-related osteoporosis with current pathological fracture, vertebra(e), initial encounter for fracture (principal); S32.019A Unspecified fracture of first lumbar vertebra, initial encounter for closed fracture
CPT/HCPCS: 22514; 22515; 80048; 96374; C1713; J3372; J7120; Q9966

== ENCOUNTER 2024-07-29 15:13 | Outpatient (CLI) | payer MEDICARE, SELFPAY ==
[2024-07-29 15:24] LABS: Adenovirus F 40/41, stool Not Detected (NotDetected); Astrovirus Not Detected (NotDetected); Campylobacter Not Detected (NotDetected); Clostridium Difficile A/B, PCR Not Detected (NotDetected); Cryptosporidium Not Detected (NotDetected); Cyclospora Cayetanesis Not Detected (NotDetected); Entamoeba histolytica Not Detected (NotDetected); Enteroaggregative E coli Not Detected (NotDetected); Enteropathogenic E coli Not Detected (NotDetected); Enterotoxigenic E coli Not Detected (NotDetected); Giardia lamblia Not Detected (NotDetected); Norovirus Not Detected (NotDetected); Plesimonas Shigalloides, PCR Not Detected (NotDetected); Rotavirus A Not Detected (NotDetected); Salmonella, PCR Not Detected (NotDetected); Sapovirus Not Detected (NotDetected); Shiga-like toxin E coli Not Detected (NotDetected); Shigella Enterovasive E coli Not Detected (NotDetected); Vibrio Cholerae Not Detected (NotDetected); Vibrio, PCR Not Detected (NotDetected); Yersinia Entercolitica, PCR Not Detected (NotDetected)
== END 2024-07-29 23:59 | disposition home or self-care (01) ==
LOC: LAB.DROPOF 15:15
PROVIDERS: Nurse Practitioner Family; PCP Internal Medicine Adolescent Medicine; Visit Provider Internal Medicine Adolescent Medicine
DX: R19.7 Diarrhea, unspecified (principal)
CPT/HCPCS: 87507

== ENCOUNTER 2024-08-08 10:52 | Outpatient (CLI) | payer MEDICARE, SELFPAY ==
--- NOTE | 2024-08-08 11:15 | CA_ITS ---
FINAL REPORT TECHNIQUE: Sal scale, color and spectral doppler images of the bilateral carotid arteries were obtained. CLINICAL HISTORY: trace FINDINGS: Peak systolic velocity in the right internal carotid artery is 102 cm/sec. The internal carotid to common carotid artery ratio is 1.36. There is less than 50% carotid artery stenosis and mild plaque formation. The right vertebral artery is normal in direction. Peak systolic velocity in the left internal carotid artery is 188 cm/sec. The internal carotid to common carotid artery ratio is 2.34. There is 50-69% carotid artery stenosis and mild plaque formation. The left vertebral artery is normal in direction. IMPRESSION: Less than 50% carotid artery stenosis on the right. 50-69% carotid artery stenosis on the left. Reviewed, Interpreted and Dictated by Emely Hong MD Transcribed by Shauna Mccrary Authenticated and [facility]
== END 2024-08-08 23:59 | disposition home or self-care (01) ==
PROVIDERS: PCP Internal Medicine Adolescent Medicine; Visit Provider Nurse Practitioner Family
DX: I65.23 Occlusion and stenosis of bilateral carotid arteries (principal); I10 Essential (primary) hypertension; I25.10 Atherosclerotic heart disease of native coronary artery without angina pectoris; I87.8 Other specified disorders of veins; E78.2 Mixed hyperlipidemia
CPT/HCPCS: 93880

== ENCOUNTER 2024-08-14 14:45 | Outpatient (POV) | payer MEDICARE, SELFPAY ==
--- NOTE | 2024-08-14 15:19 | EXP.PAIN.SOA ---
[facility] Disclaimer: The information contained in this section may have been updated after the patient was seen, as this information can be updated by other users. Medical History Acute CVA (cerebrovascular accident) Chronic venous stasis Varicosities of leg TIA (transient ischemic attack) Osteoporosis GERD (gastroesophageal reflux disease) COPD (chronic obstructive pulmonary disease) Anxiety HLD (hyperlipidemia) HTN (hypertension) Cerebrovascular accident Surgical History History of colonoscopy History of ankle surgery Family History Other Diabetes Family history of rheumatoid arthritis Stroke Social History (Updated 07/28/24 @ 06:35 by Marcia Encarnacion RN) Smoking Status: Former smoker tobacco type: cigarettes packs per day: 1 years smoked: 48 smoking status stop date: 2007 second hand exposure: No alcohol intake: never substance use type: denies use current occupational status: retired Travel in the last 8 weeks: None household members: none housing: house current occupational exposures/hazards: No caffeine: Yes PM Subjective & Objective Subjective Subjective:: Patient is a pleasant 79-year-old female who presents today for follow-up of kyphoplasty on 07/28/2024. Today she rates her pain a 0 out of 10. She states that overall she is doing wonderful with 75% improvement. She denies any side effect to this surgical intervention. She does state that she does still feel a little bit worried about additional falls and does use a walker at home. Patient does state overall she is not having the pain like what it was. Patient does state that she would use the brace a little bit however it seemed to aggravate her pain if she had it on too long. Patient states that she was going to therapy and that they were recommending it however she has not been using it as frequent. Her Mitch has been reviewed and is appropriate. Review of Systems: General: No recent weight changes, no fever, no sleep disturbances Respiratory: No cough, no shortness of air, no recurring pulmonary infections Cardiovascular/peripheral vascular: No chest pain, no palpitations, no edema, no shortness of breath Gastrointestinal: No new onset incontinence, normal bowel movements reported Genitourinary: No new onset incontinence Musculoskeletal: Low back pain Psychiatric: [Normal mood/affect] Neurological: [Denies weakness in extremities], [denies balance issues] Pain at rest (0-10 scale): 0 Objective Objective:: Physical Exam: General: Alert and oriented x3, no acute distress, pleasant and cooperative Lungs: Respirations even and unlabored, symmetrical chest expansion Eyes: PERRL Musculoskeletal: Flexion and extension of lumbar [spine] somewhat guarded secondary to pain, [antalgic gait noted] Neurological: Speech clear, no gross sensory deficit Has patient had previous pain injection?: Yes Percent improvement in pain since last injection: 75% Conservative treatment options previously tried: Home exercise plan Length of treatment: Longer than 12 weeks Meds Home Medications and Allergies Home Medications ?Medication ?Instructions ?Recorded ?Confirmed ?Type albuterol sulfate 90 mcg/actuation 2 puff inhalation NEEDED PRN soa 06/26/24 07/28/24 History aerosol inhaler alendronate 70 mg tablet 70 mg PO WEEKLY 06/26/24 07/28/24 History bumetanide 1 mg tablet 1 mg PO BID 06/26/24 07/28/24 History clobetasol 0.05 % topical cream 1 applic topical DAILY 06/26/24 07/28/24 History diclofenac sodium 1 % topical gel See Rx Instructions .Route 06/26/24 07/28/24 History .COMPLEX PRN Pain (Scale Score 4-6) atorvastatin 40 mg tablet 40 mg PO DAILY 07/27/24 07/28/24 History gabapentin 300 mg capsule 300 mg PO DAILY 07/27/24 07/28/24 History potassium chloride 20 mEq 20 meq PO DAILY 07/27/24 07/28/24 History tablet,extended release(part/cryst) New Prescriptions to Start Prescriptions: Allergies Allergy/AdvReac Type Severity Reaction Status Date / Time No Known Allergies Allergy Verified 07/28/24 06:26 Assessment and Plan *Assessment and plan (1) Closed lumbar vertebral fracture: Status: Acute Category: Medical Code(s): S32.009A - Unspecified fracture of unspecified lumbar vertebra, initial encounter for closed fracture (2) Closed L1 vertebral fracture: Status: Acute Qualifiers: Encounter type: initial encounter Fracture morphology: unspecified fracture morphology Qualified Code(s): S32.019A - Unspecified fracture of first lumbar vertebra, initial encounter for closed fracture Category: Medical Code(s): S32.019A - Unspecified fracture of first lumbar vertebra, initial encounter for closed fracture (3) Degenerative disc disease: Status: Acute Category: Medical Plan Patient has had significant improvement following her lumbar kyphoplasty of L1 and L2. Patient will return to clinic in 6 weeks for reevaluation of symptoms and plan of care. Patient has been instructed to contact the clinic with any concerns before the next appointment. Dr. Salinas has reviewed this note and agrees with this plan of care. This note was dictated using voice recognition software and make contain errors or omissions. All injections are used with Lidocaine, Bupivacaine and Depo Medrol. Occasionally urine drug screen is needed to verify patient's compliance with our office pain contract. This is ordered based off specific treatments related to chronic pain with the potential to abuse certain medications.
[2024-08-14 15:21] VITALS: BP 135/63; PULSE 91; RESP 18; O2SAT 94; BMI 25.2
== END 2024-08-14 23:59 | disposition home or self-care (01) ==
LOC: SC.PAIN 14:46
PROVIDERS: PCP Internal Medicine Adolescent Medicine; Visit Provider Nurse Practitioner Family
DX: S32.019A Unspecified fracture of first lumbar vertebra, initial encounter for closed fracture (principal); Z87.891 Personal history of nicotine dependence
CPT/HCPCS: 99212; G0463

== ENCOUNTER 2024-09-16 08:55 | Emergency (ER) | payer MEDICARE, SELFPAY ==
[2024-09-16 09:04] VITALS: BP 127/65; PULSE 81; RESP 18; TEMP 36.5; O2SAT 96; BMI 23.9
--- OUTSIDE RECORDS SUMMARY | 2024-09-16 09:15 | XMS_ITS ---
Author Organization Unknown Encounters Encounter Type Performer Location Encounter Date Encoun ter Notes virtual [facility] - [id number]:57:23.00 0Z no notes virtual [facility] - [id number]:54:46.00 0Z no notes virtual Jane Lenz - [id number]:51.0 00Z no notes virtual David Roman - [id number]:17:55. 000Z no notes virtual Marquita Torrez - [id number]:16.000Z no notes virtual Talia Hamilton - [id number]:08:24.0 00Z no notes Patient Care team information Name Category Status Period Participants - - Proposed period not known - - - Proposed period not known -
--- NOTE | 2024-09-16 09:16 | CT_ITS ---
PROCEDURE INFORMATION: Exam: CT Abdomen And Pelvis With Contrast Exam date and time: 09/16/2024 10:06 AM Age: 79 years old Clinical indication: Abdominal pain; Additional info: Lower abdominal pain TECHNIQUE: Imaging protocol: Computed tomography of the abdomen and pelvis with contrast. Radiation optimization: All CT scans at this facility use at least one of these dose optimization techniques: automated exposure control; mA and/or kV adjustment per patient size (includes targeted exams where dose is matched to clinical indication); or iterative reconstruction. Contrast material: ISOVUE; Contrast volume: 75 ml; Contrast route: IV; COMPARISON: CT BONY PELVIS 06/12/2024 7:04 PM FINDINGS: Liver: Normal. No mass. Gallbladder and biliary ducts: Normal. No calcified stones. No ductal dilation. Pancreas: Normal. No ductal dilation. Spleen: Normal. No splenomegaly. Adrenal glands: Normal. No mass. Kidneys and ureters: Normal. No hydronephrosis. Stomach and bowel: Large hiatal hernia with majority of the stomach in the thorax. Rectum is significantly distended with stool, measuring 9.5 x 8.5 cm. Fecal impaction should be excluded. Moderate stool burden throughout the colon. No evidence of obstruction. Colonic diverticulosis without CT evidence of diverticulitis. Appendix: No evidence of appendicitis. Intraperitoneal space: Unremarkable. No free air. No significant fluid collection. Vasculature: Unremarkable. No abdominal aortic aneurysm. Lymph nodes: Unremarkable. No enlarged lymph nodes. Urinary bladder: Unremarkable as visualized. Reproductive: Unremarkable as visualized. Bones/joints: Vertebroplasty L1 and L2. Soft tissues: Unremarkable. IMPRESSION: 1. Large hiatal hernia with majority of the stomach in the thorax. 2. Rectum is significantly distended with stool, measuring 9.5 x 8.5 cm. Fecal impaction should be excluded. 3. Colonic diverticulosis without CT evidence of diverticulitis.
[2024-09-16] MEDS: RINGERS SOLUTION,LACTATED 500 ML 999 ML IV (09:23)
[2024-09-16] MEDS: ONDANSETRON 4MG/2ML VIAL 4 MG IV ×2 (09:23→11:58)
--- NOTE | 2024-09-16 09:23 | ECG_ITS ---
APPROVED REPORT Exam: Resting ECG HR:72 bpm ECG Measurements Heart Rate 72 AXES RI 140 P 58 QRSd 86 QRS 70 QT 392 T 59 QTc 416 Conclusion NSR, normal axis, normal intervals, no noted ST Elevation Electronically signed by : Demond Kang, 09/17/2024 07:06:28
[2024-09-16 09:27] LABS: Lactate Venous 1.8 mmol/L (0.4-2.0); VBG Base Excess 2.6 mmol/L (-2.4-2.3); VBG HCO3 27.7 mmol/L (23-30); VBG Oxygen Saturation 62.7 % (50-70); VBG PCO2 47.5 mmol/L (35-51); VBG PH 7.38 mmol/L (7.31-7.41); VBG PO2 34.8 mmol/L (28-40); VBG Total CO2 29.1 mmol/L (23-27)
[2024-09-16 09:27] LABS: Albumin Level 4.2 g/dl (3.5-5.0); Chloride 96 mmol/L (98-107); Sodium 135 mmol/L (136-145)
[2024-09-16 09:28] LABS: Basophils % 0.4 % (0.1-2.0); Eosinophils # 0.1 Kmm3 (0.0-0.4); Eosinophils % 0.6 % (0.1-12.0); Hematocrit 37.6 % (37.0-47.0); Hemoglobin 12.3 g/dL (12.2-16.2); Lymphocytes # 1.2 K/mm3 (0.7-4.5); Lymphocytes % 15.4 % (10-50); Mean Corpuscular HGB Conc 32.7 g/dL (31.8-35.4); Mean Corpuscular Hemoglobin 29.5 pg (27.0-31.2); Mean Corpuscular Volume 90.2 fl (81-99); Mean Platelet Volume 10.6 fl (7.4-10.4); Monocytes # 0.5 K/mm3 (0.1-1.0); Monocytes % 5.8 % (1.7-9.3); Neutrophils # 6.1 K/mm3 (1.8-7.8); Neutrophils % 77.5 % (37.0-80.0); Nucleated Red Blood Cells # 0 10^3/uL; Nucleated Red Blood Cells % 0 %; Platelet Count 250 K/mm3 (142-424); Potassium 3.4 mmoL/L (3.5-5.1); Red Blood Count 4.17 M/mm3 (4.20-5.40); Red Cell Distribution Width 15.9 % (11.5-17.5); Red Cell Distribution Width-SD 52.3 fL; White Blood Count 7.9 K/mm3 (4.8-10.8)
[2024-09-16 09:30] VITALS: BP 101/52; PULSE 72; O2SAT 96
[2024-09-16 09:30] LABS: Alanine Aminotransferase 29 U/L (12-78); Albumin/Globulin Ratio 1.4 (1.1-1.8); Alkaline Phosphatase 67 U/L (38-126); Anion Gap 10.4 mEq/L (5-15); Aspartate Amino Transferase 71 U/L (14-36); Bilirubin,Total 0.8 mg/dl (0.2-1.3); Blood Urea Nitrogen 19 mg/dl (7-17); Carbon Dioxide 32 mmol/L (22.0-30.0); Creatinine Clearance Estimated 45 mL/min (50-200); Estimated Glomerular Filt Rate 80 ml/min (>60); GFR (African American) 97 ML/MIN (>60); Globulin 2.9 g/dL (1.3-3.2); Lipase 42 U/L (23-300); Total Protein,Serum 7.1 g/dl (6.3-8.2)
[2024-09-16 09:31] LABS: Glucose 111 mg/dl (74-100)
--- NOTE | 2024-09-16 09:31 | HMH.EDGENADL ---
Discharge Plan Disposition Patient Disposition: Home, Self-Care Condition: Good Chief Complaint: Nausea/Vomiting/Diarrhea Prescriptions Prescriptions: No Action atorvastatin 40 mg tablet 40 mg PO DAILY Patient Comments: TAKE 1 TABLET BY MOUTH ONCE DAILY potassium chloride 20 mEq tablet,ER particles/crystals 20 meq PO DAILY gabapentin 300 mg capsule 300 mg PO DAILY alendronate 70 mg tablet 70 mg PO WEEKLY Patient Comments: TAKE 1 TABLET BY MOUTH ONCE A WEEK clobetasol 0.05 % cream 1 applic TOPICAL DAILY Patient Comments: APPLY CREAM TOPICALLY TWICE DAILY bumetanide 1 mg tablet 1 mg PO BID albuterol sulfate 90 mcg/actuation HFA aerosol inhaler 2 puff INHALATION NEEDED PRN (Reason: soa) diclofenac sodium 1 % gel See Rx Instructions .ROUTE .COMPLEX PRN (Reason: Pain (Scale Score 4-6)) Rx Instructions: prn Referrals Follow up/Referrals: Juanito Zelaya MD [Primary Care Provider] - See instructions Activity Restrictions/Add. Instructions Additional Instructions/Restrictions: As discussed please continue with stool softeners. Please drink plenty of fluids. Follow-up with your primary care provider regarding today's ED visit. Return to ED if symptoms worsen Clinical Impressions Clinical Impression: Constipation Instructions Patient Instructions: DI for Diarrhea and Traveler's Diarrhea -- Adult, DI for Diarrhea and Traveler's Diarrhea -- Child, DI for Nausea -- Adult, DI for Nausea -- Child Print Language Print Language: Omani Discharge ED Provider: Demond Kang General Adult HPI General Chief complaint: Nausea/Vomiting/Diarrhea Stated complaint: diarrhea nausea loss of appitite Time Seen by Provider: 09/16/24 08:58 Mode of Arrival: Ambulatory Source of Information: Patient Description of Symptoms (Recalled from ER Triage Doc. by RN): patient states for 2-3 weeks she has diarrhea went to pcp he gave her antibiotics and an antidiarrheal. she reports the stool wont come out. she is nauseated and has no appetite. she reports history of constipation History of Present Illness HPI narrative: 79-year-old female presents to ED with complaint of 2 weeks diarrhea for which she has seen her PCP and was given antibiotics and a stool softener and then more recently an antidiarrheal. Reports that stool will not come out she is having diarrhea that she says is caught in her butt . Complaining of some nausea, denies abdominal pain, vomiting, chest pain, shortness of breath, fever, dysuria, any other symptoms or concerns at this time. States that today she feels little different as she felt kind of weak because she has not been eating due to not being able to go to the bathroom beyond the diarrhea that is caught her butt . Past medical history of prior stroke, not on blood thinners Please note that above description of symptoms, in this electronic medical record under categorization of recalled from ER triage doctor by RN are reflective of an initial nursing assessment, however, is not reflective of my full history and physical exam that was personally taken and clarified. Consequentially, this preceding description of symptoms, which may include the patient's categorized chief complaint in the EMR, do not reflect my personal clinical impression, and the ultimate description of history of present illness and patient stated complaints should be deferred to this section of the note. Unless stated otherwise or congruent with this section of the note, additional signs, symptoms, or incongruence should be interpreted as inaccurate with my clinical impression. Related Data Home Medications ?Medication ?Instructions ?Recorded ?Confirmed albuterol sulfate 90 mcg/actuation 2 puff inhalation NEEDED PRN soa 06/26/24 08/14/24 aerosol inhaler alendronate 70 mg tablet 70 mg PO WEEKLY 06/26/24 08/14/24 bumetanide 1 mg tablet 1 mg PO BID 06/26/24 08/14/24 clobetasol 0.05 % topical cream 1 applic topical DAILY 06/26/24 08/14/24 diclofenac sodium 1 % topical gel See Rx Instructions .Route 06/26/24 08/14/24 .COMPLEX PRN Pain (Scale Score 4-6) atorvastatin 40 mg tablet 40 mg PO DAILY 07/27/24 08/14/24 gabapentin 300 mg capsule 300 mg PO DAILY 07/27/24 08/14/24 potassium chloride 20 mEq 20 meq PO DAILY 07/27/24 08/14/24 tablet,extended release(part/cryst) Allergies Allergy/AdvReac Type Severity Reaction Status Date / Time No Known Allergies Allergy Verified 09/16/24 09:15 [facility] Disclaimer: The information contained in this section may have been updated after the patient was seen, as this information can be updated by other users. Medical History Acute CVA (cerebrovascular accident) Chronic venous stasis Varicosities of leg TIA (transient ischemic attack) Osteoporosis GERD (gastroesophageal reflux disease) COPD (chronic obstructive pulmonary disease) Anxiety HLD (hyperlipidemia) HTN (hypertension) Cerebrovascular accident Surgical History History of colonoscopy History of ankle surgery Family History Other Diabetes Family history of rheumatoid arthritis Stroke Social History (Updated 07/28/24 @ 06:35 by Marcia Encarnacion RN) Smoking Status: Never smoker years smoked: 48 smoking status stop date: 2007 second hand exposure: No alcohol intake: never substance use type: denies use current occupational status: retired Travel in the last 8 weeks?: None household members: none housing: house current occupational exposures/hazards: No caffeine: Yes Have you lived/traveled outside US in past 30 days?: No Contact w/someone who lives/traveled outside US past 30 days?: No Exposure to someone with infectious disease in past 14 days?: No Do you have a fever (greater than 100.4 F or 38 C)?: No Have you tested positive for COVID-19?: No Exposed to someone with COVID-19 in past 14 days?: No Do you have a sore throat?: No Do you have a cough?: No Do you have any weakness?: No Do you have any diarrhea?: No Are you experiencing any unusual bleeding?: No Do you have any muscle aches/pain?: No Do you have any abdominal pain?: Yes Are you experiencing loss of taste or smell?: No Other Medical History Have you received the Flu Vaccine for this season: Yes Have you received the Pneumonia Vaccine: No ROS Obtained: Yes Systems reviewed as appropriate & no additional complaints except as documented Physical Exam General General appearance: alert and in no apparent distress Head Head exam: atraumatic, normocephalic and normal inspection Eye Eye exam: Present normal appearance, PERRL and EOMI ENT ENT exam: Present normal exam, normal oropharynx, mucous membranes moist, TM's normal bilaterally and normal external ear exam Neck Neck exam: Present normal inspection, full ROM and trachea midline; Absent meningismus or lymphadenopathy Chest Chest inspection: Present normal inspection and symmetric chest wall rise; Absent tenderness Respiratory Respiratory exam: Present normal lung sounds bilaterally; Absent respiratory distress Cardiovascular Cardiovascular exam: Present regular rate and normal rhythm; Absent JVD Abdominal Exam Abdominal exam: Present soft, tenderness (Mild tenderness to palpation of lower abdomen) and normal bowel sounds; Absent distention, guarding, rebound, rigidity, diminished bowel sounds, Johnson's sign, Rovsing's sign or tenderness at McBurney's Point Extremities Exam Extremities exam: Present normal inspection, full ROM and normal capillary refill; Absent calf tenderness Back Exam Back exam: Present normal inspection; Absent tenderness Neurological Exam Neurological exam: Present alert and oriented X3 Psychiatric Psychiatric exam: Present normal affect and normal mood Skin Skin exam: Present warm, dry, intact and normal color Lymphatic Lymphatic Findings: no adenopathy Medical Decision Making Medical Records Medical records reviewed: Yes I reviewed the patient's medical records. Screening: Per USPSTF and CDC recommendations, given the prevalence of disease in our region, it is our hospital?s policy to screen for HIV and viral Hepatitis for all patients aged 18 and over and those with ongoing risk factors. Mitch Inquiry Pt receiving controlled substance: No Mitch was queried for this patient: No Vital Signs: 09/16/24 09:04 09/16/24 09:30 09/16/24 10:20 Temperature 97.7 F Temperature Source Oral Pulse Rate 72 79 Pulse Rate [Right Radial] 81 Respiratory Rate 18 Blood Pressure 101/52 L 103/57 L Blood Pressure [Right Arm] 127/65 Blood Pressure Mean [Right Arm] 85 Blood Pressure Source [Right Arm] Automatic Cuff Blood Pressure Position [Right Arm] Supine 02 Sat by Pulse Oximetry 96 96 97 Oxygen Delivery Method Room Air Room Air 09/16/24 10:30 Temperature Temperature Source Pulse Rate 78 Pulse Rate [Right Radial] Respiratory Rate Blood Pressure 102/54 L Blood Pressure [Right Arm] Blood Pressure Mean [Right Arm] Blood Pressure Source [Right Arm] Blood Pressure Position [Right Arm] 02 Sat by Pulse Oximetry 96 Oxygen Delivery Method Room Air Lab Data Lab Results 09/16/24 09:05: WBC 7.9, RBC 4.17 L, Hgb 12.3, Hct 37.6, MCV 90.2, MCH 29.5, MCHC 32.7, RDW 15.9, Plt Count 250, MPV 10.6 H, Neut % (Auto) 77.5, Lymph % (Auto) 15.4, Haakon % (Auto) 5.8, Eos % (Auto) 0.6, Baso % (Auto) 0.4, Neut # (Auto) 6.1, Lymph # (Auto) 1.2, Haakon # (Auto) 0.5, Eos # (Auto) 0.1, Baso # (Auto) 0.0, Sodium 135 L, Potassium 3.4 L, Chloride 96 L, Carbon Dioxide 32 H, Anion Gap 10.4, BUN 19 H, Creatinine 0.70, Estimated Creat Clear 45, Estimated GFR 80, Est GFR ( Amer) 97, Glucose 111 H, Calcium 9.0, Total Bilirubin 0.8, AST 71 H, ALT 29, Alkaline Phosphatase 67, Troponin I < 0.01, Total Protein 7.1, Albumin 4.2, Globulin 2.9, Albumin/Globulin Ratio 1.4, Lipase 42 09/16/24 09:26: VBG pH 7.38, VBG pCO2 47.5, VBG pO2 34.8, VBG HCO3 27.7, VBG Total CO2 29.1 H, VBG O2 Saturation 62.7, VBG Base Excess 2.6 H, VBG Lactic Acid 1.8 09/16/24 09:05 09/16/24 09:05 Orders (Tests/Meds): ED MEDICATIONS Generic Name Dose Route Start Last Admin Trade Name Freq PRN Reason Stop Dose Admin Sodium Chloride 10 ml 09/16/24 10:09 09/16/24 10:10 Sodium Chloride 0.9% 10ml Syr (Rad Only) IV 10/16/24 10:08 10 ml NEEDED PRN Administration Maintain IV Site Discontinued Medications Generic Name Dose Route Start Last Admin Trade Name Freq PRN Reason Stop Dose Admin Lactated Ringer's 500 mls @ 999 mls/hr 09/16/24 09:16 09/16/24 09:23 Lactated Ringer's 500ml IV 09/16/24 09:46 999 mls/hr .Q31M ONE Administration Iopamidol 75 ml 09/16/24 10:09 09/16/24 10:10 Iopamidol-370 (76%);100ml Bottle IV 09/16/24 10:10 75 ml ONCE ONE Administration Ondansetron HCl 4 mg 09/16/24 09:16 09/16/24 09:23 Ondansetron 4mg/2ml Vial IV 09/16/24 09:17 4 mg ONCE ONE Administration Ondansetron HCl 4 mg 09/16/24 11:56 09/16/24 11:58 Ondansetron 4mg/2ml Vial IV 09/16/24 11:57 4 mg ONCE ONE Administration ORDERS Category Date Time Status CT abdomen pelvis w con Stat Cat Scan 09/16/24 09:16 Completed Complete Blood Count Auto Diff Stat Lab 09/16/24 09:05 Completed Comprehensive Metabolic Panel Stat Lab 09/16/24 09:05 Completed Lipase Stat Lab 09/16/24 09:05 Completed Troponin I Stat Lab 09/16/24 09:05 Completed Venous Blood Gas Stat RT 09/16/24 09:26 Completed ECG Data Tracing #1: I reviewed this ECG and interpreted as documented below: Normal sinus rhythm, normal axis, normal intervals, no noted ST elevation or otherwise noted ectopy ECG initial impression date: 09/16/24 ECG initial impression time: 09:29 Medical Decision Narrative: Patient with history and exam per above presenting for evaluation of diarrhea for 2 weeks. Hemodynamically stable, nontoxic-appearing, physical exam as above, reassuring beyond mild tenderness to palpation of lower abdomen. Denies chest pain, shortness of breath, vomiting, abdominal pain, dysuria Diagnoses considered include constipation, overflow diarrhea, colitis, diverticulitis, electrolyte abnormality, among others ED workup and treatment included: As above, EKG as above, no noted ischemic changes Labs were independently interpreted by me, significant for Laboratory workup with negative troponin, mild hyponatremia, mild hypokalemia, nonactionable electrolytes. Lipase within normal limits. Lactate within normal limits. Mild elevation of AST, remainder of LFTs within normal limits. Creatinine within normal limits. No noted leukocytosis anemia or thrombocytopenia. Reassuring laboratory workup. Imaging was independently visualized and interpreted by me, significant for CT abdomen pelvis with hiatal hernia, significant stool burden in rectum with concern for fecal impaction, colonic diverticulosis, no noted diverticulitis on my review. Please see radiology report for official interpretation Please refer to radiology report for full details. My clinical impression at this time is most consistent with constipation. Discussed workup findings with patient. Patient agreeable with enema. Patient was given 2 enemas, had significant bowel movement states she is feeling better. Symptoms resolved. At this time medically cleared for discharge with outpatient follow-up with primary care provider. Patient still has stool softeners which were prescribed to her. Instructed patient to continue with stool softeners and to get plenty of oral fluids. Given strict instructions to return to ED if symptoms worsen. Discharged home with hemodynamically stable vitals. I discussed my clinical impression with patient and answered all questions. At this time, the evidence for any other entities in the differential is insufficient to warrant any further testing or ED observation. This was explained to the patient. The patient was advised that persistent or worsening symptoms require further evaluation. Critical Care Critical Care Time Critical Care Time: No
[2024-09-16 09:54] LABS: Troponin I < 0.01 ng/ml (0.00-0.034)
--- NOTE | 2024-09-16 09:58 | PC.NURSE ---
patient taken to CT
--- NOTE | 2024-09-16 09:58 | PC.NURSE ---
pt to ct via wheelchair
--- NOTE | 2024-09-16 09:59 | PC.NURSE ---
pt is going for CT at this time
[2024-09-16] MEDS: IOPAMIDOL-370 (76%);100ML BOTTLE 75 ML IV (10:10)
[2024-09-16] MEDS: SODIUM CHLORIDE 0.9% 10ML SYR (RAD ONLY) 10 ML IV (10:10)
--- NOTE | 2024-09-16 10:13 | PC.NURSE ---
patient back from CT
[2024-09-16 10:20] VITALS: BP 103/57; PULSE 79; O2SAT 97
[2024-09-16 10:30] VITALS: BP 102/54; PULSE 78; O2SAT 96
--- NOTE | 2024-09-16 11:45 | PC.NURSE ---
Dr Kang notified of pt having copious liquid stool and small amount of soft hard stool. Pt was feeling light-headed, cool & clammy, and felt like I might pass out . She began to vomit. Pt moved to the bed and cleaned up. Dr Kang notified of these events and ordered zofran 4 mng IVP.
--- NOTE | 2024-09-16 12:29 | PC.NURSE ---
Staff at bedside for 2nd attempt at enema/disimpaction per MD
--- NOTE | 2024-09-16 12:58 | PC.NURSE ---
fleets enema given to pt. two soft bowel movements noted after administration.
[2024-09-16 13:12] VITALS: BP 125/68; PULSE 77; RESP 16; TEMP 36.5; O2SAT 96
--- NOTE | 2024-09-16 15:41 | PC.NURSE ---
Pt called and requesting nausea. I s/w Dr Kang and he ordered zofran 4mg odt tidp for nausea to [facility]
== END 2024-09-16 13:13 | disposition home or self-care (01) ==
PROVIDERS: Emergency Provider Student in an Organized Health Care Education/Training Program; PCP Internal Medicine Adolescent Medicine
DX: R10.817 Generalized abdominal tenderness (principal); K59.00 Constipation, unspecified
CPT/HCPCS: 74177; 80053; 82803; 83690; 84484; 85025; 93005; 96374; 96375; 99284; J2405; J7120; Q9967

== ENCOUNTER 2024-10-25 12:28 | Day surgery (SDC) | payer MEDICARE, SELFPAY ==
[2024-10-24 13:35] VITALS: BMI 27.4
[2024-10-25 13:22] VITALS: BP 149/70; PULSE 95; RESP 16; TEMP 37.1; O2SAT 95
[2024-10-25] MEDS: LACTATED RINGERS 1000ML 1,000 ML 50 ML IV (13:27)
--- NOTE | 2024-10-25 13:48 | EXP.HP ---
History of Present Illness *Admission Date: 10/25/24 *Reason for visit:: Black stools, fecal impaction, change in bowel function *History of present illness: Mrs. Hinton is an 79-year-old female who is here for diagnostic EGD and colonoscopy. The patient reports having black stools. She also has had a change in bowel habits with marked obstipation. Prior CAT scan showed significantly distended rectum with fecal impaction. The CAT scan showed a large hiatal hernia with the majority of stomach in the thorax. The examination is deemed medically necessary for EGD and colonoscopy. The patient has been seen, interviewed and examined prior to the procedure by both myself and the anesthesia provider. [facility] Disclaimer: The information contained in this section may have been updated after the patient was seen, as this information can be updated by other users. Medical History Acute CVA (cerebrovascular accident) Chronic venous stasis Varicosities of leg TIA (transient ischemic attack) Osteoporosis GERD (gastroesophageal reflux disease) COPD (chronic obstructive pulmonary disease) Anxiety HLD (hyperlipidemia) HTN (hypertension) Cerebrovascular accident Surgical History History of colonoscopy History of ankle surgery Family History Other Diabetes Family history of rheumatoid arthritis Stroke Social History Smoking Status: Never smoker years smoked: 48 smoking status stop date: 2007 second hand exposure: No alcohol intake: never substance use type: denies use current occupational status: retired Travel in the last 8 weeks?: None household members: none housing: house current occupational exposures/hazards: No caffeine: Yes Have you lived/traveled outside US in past 30 days?: No Contact w/someone who lives/traveled outside US past 30 days?: No Exposure to someone with infectious disease in past 14 days?: No Do you have a fever (greater than 100.4 F or 38 C)?: No Have you tested positive for COVID-19?: No Exposed to someone with COVID-19 in past 14 days?: No Do you have a sore throat?: No Do you have a cough?: No Do you have any weakness?: No Do you have any diarrhea?: No Are you experiencing any unusual bleeding?: No Do you have any muscle aches/pain?: No Do you have any abdominal pain?: No Are you experiencing loss of taste or smell?: No Other Medical History Have you received the Flu Vaccine for this season: Yes Have you received the Pneumonia Vaccine: No Review of Systems Review of Systems Review of systems (narrative): Negative *Cardiovascular Comments: Negative *Gastrointestinal Comments: Negative *Genitourinary Comments: Negative *Musculoskeletal Comments: Negative *Neurologic Comments: Negative Meds Home Medications and Allergies Home Medications ?Medication ?Instructions ?Recorded ?Confirmed ?Type albuterol sulfate 90 mcg/actuation 2 puff inhalation NEEDED PRN soa 06/26/24 10/25/24 History aerosol inhaler alendronate 70 mg tablet 70 mg PO WEEKLY 06/26/24 10/25/24 History bumetanide 1 mg tablet 1 mg PO BID 06/26/24 10/25/24 History clobetasol 0.05 % topical cream 1 applic topical DAILY 06/26/24 10/25/24 History diclofenac sodium 1 % topical gel See Rx Instructions .Route 06/26/24 10/25/24 History .COMPLEX PRN Pain (Scale Score 4-6) atorvastatin 40 mg tablet 40 mg PO DAILY 07/27/24 10/25/24 History gabapentin 300 mg capsule 300 mg PO DAILY 07/27/24 10/25/24 History potassium chloride 20 mEq 20 meq PO DAILY 07/27/24 10/25/24 History tablet,extended release(part/cryst) New Prescriptions to Start Prescriptions: Allergies Allergy/AdvReac Type Severity Reaction Status Date / Time No Known Allergies Allergy Verified 10/25/24 13:21 Exam Data for Last 24 hours Vital signs and Labs for Last 24 Hours: Temp Pulse Resp BP Pulse Ox O2 Del Method 98.7 F 95 H 16 149/70 H 95 Room Air 10/25/24 13:22 10/25/24 13:22 10/25/24 13:22 10/25/24 13:22 10/25/24 13:22 10/25/24 13:22 I & O for Last 24 hours: Intake & Output 10/22/24 10/23/24 10/24/24 10/25/24 23:59 23:59 23:59 23:59 Weight 155 lb *Routine HEENT Exam Head: Present normocephalic Eye: Present EOMI and PERRL ENT: Present mucous membranes moist *Routine Neck Exam Neck: Present supple *Routine Respiratory Exam Respiratory: Present CTA bilaterally *Routine Cardiovascular Exam Cardiovascular: Present RRR *Routine Abdominal Exam Abdominal: Present soft and normoactive bowel sounds; Absent tenderness *Routine Rectal Exam Rectal:: deferred *Routine Genitalia Exam Genitalia:: deferred *Routine Extremities Exam Extremities: Absent cyanosis, clubbing or edema *Routine Skin Exam Skin: Present warm; Absent rash *Routine Neurological Exam Neurological: Present alert and oriented X3 Assessment and Plan *Assessment and plan (1) Black stools: Status: Acute Category: Medical Code(s): K92.1 - Melena (2) Change in bowel habits: Status: Acute Category: Medical Code(s): R19.4 - Change in bowel habit (3) Constipation: Status: Acute Category: Medical Code(s): K59.00 - Constipation, unspecified (4) Fecal impaction: Status: Acute Category: Medical Code(s): K56.41 - Fecal impaction (5) Fecal impaction in rectum: Status: Acute Category: Medical Code(s): K56.41 - Fecal impaction (6) Large hiatal hernia: Status: Acute Category: Medical Code(s): K44.9 - Diaphragmatic hernia without obstruction or gangrene Plan A/P: 1. Black stools with change in bowel habits, fecal impaction in rectum and large hiatal hernia is the preprocedural diagnosis. The patient will be anesthetized/sedated using MAC sedation. The patient has been seen and examined. Cardiac and lung assessment prior to the examination is stable. Proceed with planned diagnostic EGD and colonoscopy.
--- NOTE | 2024-10-25 14:37 | HMH.PROCNOTE ---
[facility] Procedure Note Date: 10/25/24 Time: 14:37 Procedure Note:: Upper Endoscopy Procedure Report: Esophagogastroduodenoscopy with cold biopsies Endoscopost: Brady Forde II, MD Referring Physician: Juanito Zelaya M.D. Date of Procedure: October 25, 2024 Equipment: Olympus GIF 190 standard upper endoscope Sedation: MAC sedation Indications: Mrs. Hinton is an 79-year-old female with black stools and change in bowel habits who is here for diagnostic EGD and colonoscopy. The patient did have back surgery and was placed on stronger opioids for pain control after the surgery. She developed more significant constipation and developed a fecal impaction. She went to the emergency department on 09/16/2024 and a CAT scan was performed. There was significant fecal retention with fecal impaction in the rectum with a distended rectum measuring 9.5 x 8.5 cm. She was given enemas and manual disimpaction was performed but she still had problems. At home, she will have to manually disimpact. Her CAT scan also showed a large hiatal hernia with the majority of the stomach and the thorax. There was some colonic diverticulosis. The patient reports no abdominal pain. She did lose some weight after her back surgery but this has stabilized. She reports no bright red rectal bleeding or hematochezia. She has used Pepto-Bismol (which may be the etiology of her black stools). She reports no family history of colon cancer. Her last colonoscopy was 17 years ago (2007). The patient's most recent hemoglobin hematocrit were 12.3 and 37.6 on 09/16/2024. Procedure: Prior to the procedure, a history and physical exam was performed, and patient's medications and allergies were reviewed. The risks, benefits and alternatives of the sedation and procedure were discussed with the patient. All questions were answered and informed consent was obtained. The patient was brought to the procedure room. Patient identification and proposed procedure were verified by the physician and the nurse. The patient was placed in a left lateral decubitus position and the scope was passed under direct vision. Throughout the procedure, the patient's blood pressure, pulse, and oxygen saturations were monitored continuously. The upper GI endoscopy was accomplished without difficulty. The patient tolerated the procedure well. Findings: The scope was passed directly into the upper esophagus and advanced to the third portion of the duodenum. There was two 6 to 7 mm superficial ulcerations in the first portion of the duodenum and these were shallow with no heme. The duodenal bulb and pylorus were normal. The scope was withdrawn into the stomach. The antrum of the stomach was normal. Upon retroflexion there was a very large hiatal hernia with a smaller paraesophageal component. There were linear Herb's erosions with superficial heme from the Herb's erosions. The diaphragmatic hiatus was at 43 cm from the incisors. The top of the gastric folds and GE junction were at 34 cm leaving a 9 cm hiatal hernia. Cold biopsies were taken from the antrum. The scope was then withdrawn into the esophagus. There was no evidence of Melo's esophagus or reflux esophagitis and the remainder of the esophageal mucosa was normal. There was mild presbyesophagus. Impression: 1. Large hiatal hernia (9 cm) with smaller paraesophageal component and linear Herb's erosions 2. Small superficial duodenal ulcers x 2 of first portion of duodenum Plan: I will follow-up the biopsies. I will inquire about NSAID use. I do not feel that the ulcers are causing the black stools and her hemoglobin and hematocrit are unchanged. I will proceed with diagnostic colonoscopy.
--- NOTE | 2024-10-25 14:43 | EXP.ANES.CKL ---
[facility] Disclaimer: The information contained in this section may have been updated after the patient was seen, as this information can be updated by other users. Medical History Acute CVA (cerebrovascular accident) Chronic venous stasis Varicosities of leg TIA (transient ischemic attack) Osteoporosis GERD (gastroesophageal reflux disease) COPD (chronic obstructive pulmonary disease) Anxiety HLD (hyperlipidemia) HTN (hypertension) Cerebrovascular accident Surgical History History of colonoscopy History of ankle surgery Family History Other Diabetes Family history of rheumatoid arthritis Stroke Social History Smoking Status: Never smoker years smoked: 48 smoking status stop date: 2007 second hand exposure: No alcohol intake: never substance use type: denies use current occupational status: retired Travel in the last 8 weeks?: None household members: none housing: house current occupational exposures/hazards: No caffeine: Yes Have you lived/traveled outside US in past 30 days?: No Contact w/someone who lives/traveled outside US past 30 days?: No Exposure to someone with infectious disease in past 14 days?: No Do you have a fever (greater than 100.4 F or 38 C)?: No Have you tested positive for COVID-19?: No Exposed to someone with COVID-19 in past 14 days?: No Do you have a sore throat?: No Do you have a cough?: No Do you have any weakness?: No Do you have any diarrhea?: No Are you experiencing any unusual bleeding?: No Do you have any muscle aches/pain?: No Do you have any abdominal pain?: No Are you experiencing loss of taste or smell?: No [facility] Anesthesia Checklist Patient Identification Patient Identification: Verbal (Name & ) Structural Data Admitted From: Home Planned Operative Procedure/s: egd/colonoscopy Consent for Planned Operative Procedure(s) Verified: Yes NPO Status Verified Time NPO: 00:00 Additional verifications Anesthesia Reactions: No Hx Blood Transfusions: No Blood Transfusion Reaction: No Airway Assessment Mallampati Score:: Class II C-Spine Mobility Assessed: Yes TMJ Mobility Assessed: Yes Dentition: Poor Dentition Neurological Assessment Level of Consciousness: Awake, Alert and Appropriate Anesthesia Plan Anesthesia Risk discussed: Yes Anesthesia Plan: Verified ASA Class: III Anesthesia Type: MAC
--- NOTE | 2024-10-25 14:59 | HMH.PROCNOTE ---
[facility] Procedure Note Date: 10/25/24 Time: 14:59 Procedure Note:: Colonoscopy Procedure Report: Colonoscopy with cold snare polypectomy Endoscopist: Brady Forde II, MD Referring physician: Juanito Zelaya M.D. Date of Procedure: October 25, 2024 Equipment: Olympus 190 variable stiffness pediatric colonoscope Sedation: MAC sedation Indication: Mrs. Hinton is an 79-year-old female with black stools and change in bowel habits who is here for diagnostic EGD and colonoscopy. The patient did have back surgery and was placed on stronger opioids for pain control after the surgery. She developed more significant constipation and developed a fecal impaction. She went to the emergency department on 09/16/2024 and a CAT scan was performed. There was significant fecal retention with fecal impaction in the rectum with a distended rectum measuring 9.5 x 8.5 cm. She was given enemas and manual disimpaction was performed but she still had problems. At home, she will have to manually disimpact. Her CAT scan also showed a large hiatal hernia with the majority of the stomach and the thorax. There was some colonic diverticulosis. The patient reports no abdominal pain. She did lose some weight after her back surgery but this has stabilized. She reports no bright red rectal bleeding or hematochezia. She has used Pepto-Bismol (which may be the etiology of her black stools). She reports no family history of colon cancer. Her last colonoscopy was 17 years ago (2007). The patient's most recent hemoglobin hematocrit were 12.3 and 37.6 on 09/16/2024. Procedure: Prior to the procedure, a history and physical exam was performed, and patient's medications and allergies were reviewed. The risks, benefits and alternatives of the sedation and procedure were discussed with the patient. All questions were answered and informed consent was obtained. The patient was brought to the procedure room. Patient identification and proposed procedure were verified by the physician and the nurse. The patient was placed in a left lateral decubitus position and the scope was passed under direct vision. Throughout the procedure, the patient's blood pressure, pulse, and oxygen saturations were monitored continuously. The colonoscopy was accomplished without difficulty. The patient tolerated the procedure well. Findings: On digital rectal examination there was some mild anal stenosis. There were small external tags. The colonoscope was introduced through the anal canal to the rectum and advanced to the cecum. The ileocecal valve and appendiceal orifice were identified. The scope was advanced a short distance into the ileum which appeared grossly normal. The scope was then withdrawn into the colon. There were 4 colon polyps (ascending x 1 (5 mm), transverse x 2 (4 and 6 mm) and descending x 1 (5 mm)). These were all removed via cold snare polypectomy. The remaining cecum, ascending and transverse colon and mucosa were grossly normal. There were scattered extensive diverticuli throughout the descending and sigmoid colon (LEFT colon). The rectal vault was normal with some solid stool in the rectum. Upon retroflexion within the rectum there were grade 2 internal hemorrhoids. The preparation was fair throughout with [place] Preparation Score of 7 out of 9. The cecal time was 14 minutes. Impression: 1. Colonic polyps x 4 2. Extensive left-sided diverticulosis 3. Mild anal stenosis Plan: I do feel that the patient's fecal impaction and marked change in bowel habits is multifactorial and related to the opiate pain medication, outlet dysfunction constipation and anal stenosis. I did manually dilate the anal canal to a fair degree. I am going to recommend MiraLAX daily and Perdiem in the evenings. If the patient has to resume any opioids, I would recommend Relistor. I will follow-up the polyp histology and the patient should not require any further preventive colonoscopy.
[2024-10-25 15:07] VITALS: BP 122/55; PULSE 93; RESP 17; TEMP 36.4; O2SAT 97
[2024-10-25 15:17] VITALS: BP 142/83; PULSE 93; RESP 17; O2SAT 97
[2024-10-25 15:27] VITALS: BP 133/74; PULSE 81; RESP 18; O2SAT 97
[2024-10-25 15:37] VITALS: BP 133/87; PULSE 78; RESP 17; TEMP 36.4; O2SAT 97
== END 2024-10-25 15:48 | disposition home or self-care (01) ==
PROVIDERS: PCP Internal Medicine Adolescent Medicine; Visit Provider Internal Medicine Gastroenterology
PROC: 0DJ08ZZ Inspection of Upper Intestinal Tract, Via Natural or Artificial Opening Endoscopic (ICD-10-PCS; CPT 45378; principal; 2024-10-25 14:00)
DX: K62.4 Stenosis of anus and rectum (principal); K56.41 Fecal impaction; K92.1 Melena; K44.9 Diaphragmatic hernia without obstruction or gangrene; K25.9 Gastric ulcer, unspecified as acute or chronic, without hemorrhage or perforation; K31.89 Other diseases of stomach and duodenum; K26.9 Duodenal ulcer, unspecified as acute or chronic, without hemorrhage or perforation; K57.30 Diverticulosis of large intestine without perforation or abscess without bleeding; D12.2 Benign neoplasm of ascending colon; D12.4 Benign neoplasm of descending colon; D12.3 Benign neoplasm of transverse colon; K64.1 Second degree hemorrhoids; T40.605A Adverse effect of unspecified narcotics, initial encounter; K21.9 Gastro-esophageal reflux disease without esophagitis; J44.9 Chronic obstructive pulmonary disease, unspecified; M81.0 Age-related osteoporosis without current pathological fracture; E78.5 Hyperlipidemia, unspecified; I10 Essential (primary) hypertension; Z79.899 Other long term (current) drug therapy; Z79.83 Long term (current) use of bisphosphonates; Z86.73 Personal history of transient ischemic attack (TIA), and cerebral infarction without residual deficits
CPT/HCPCS: 43239; 45385; 88305; J2003; J2704; J7120

== ENCOUNTER 2024-11-09 13:14 | Outpatient (CLI) | payer MEDICARE, SELFPAY ==
--- OUTSIDE RECORDS SUMMARY | 2024-11-09 13:21 | XMS_ITS | Clinical Summary ---
Author Organization [facility] 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 Name Role Phone Unavailable Primary Care Provider Unavailabl e Surgical History Surgery Date Site/Laterality Comments ANKLE SURGERY left Social History Tobacco Use Types Packs/Day Years Used Date Smoking Tobacco: Never Alcohol Use Standard Drinks/Week Comments No 0 (1 standard drink = 0.6 oz pur e alcohol) Comments Unknown Sex and Gender Information Value Date Recorded Sex Assigned at Not on file Legal Sex Female 9:04 AM EDT Gender Identity Not on file Sexual Orientation Not on file Obstetrics History Plan of Treatment Health Maintenance Due Date Last Done Comments Annual Wellness Exam 08/05/1948 DTaP/TDaP/Td (1 - Tdap) 08/05/1962 Pneumococcal Vaccine 50+ (1 of 1 - PCV) 08/05/1993 Zoster (1 of 2) 08/05/1993 Bone Density Screening 08/05/2008 RSV or 60+ (1 - 1-d ose 75+ series) 08/05/2018 COVID-19 Vaccine (2023-2 5 season) 2024 Influenza Vaccine (Season Ended) 2025 Hepatitis B Vaccine Aged Out No longe r eligible based on patient's age to complete this topic Meningococcal B Vaccine Aged Out No l onger eligible based on patient's age to complete this topic
--- OUTSIDE RECORDS SUMMARY | 2024-11-09 13:21 | XMS_ITS | Clinical Summary ---
Author Organization [facility] Address [address] [place] [address] Care Team Providers Care Manager Analysis Name Role Phone Juanito Zelaya MD Primary Care Provider [phone] Allergies No known active allergies Medications alendronate (Fosamax) 70 MG tablet Take 70 mg by mouth every 7 (seven) days. Take in the morning with a full glass of water, on an empty stomach, and do not take anything else by mouth or lie down for the next 30 min. Active escitalopram (Lexapro) 5 MG tablet Take 5 mg by mouth 1 (one) time each day. Active lisinopril 5 MG tablet Take 2.5 mg by mouth 1 (one) time each day. Active hydroCHLOROthia zide (HYDRODiuril) 25 MG tablet Take 25 mg by mouth 1 (one) time each day. Active aspirin 81 MG EC tablet Take 81 mg by mouth 1 (one) time each day. Active calcium-vitamin D 500-200 MG-UNIT tablet Take 1 tablet by mouth 2 (two) times a day. Active cholecalciferol (Vitamin D-3) 50 MCG (2000 UT) capsule Take 2,000 Units by mouth 1 (one) time each day. Active lactobacillus (Culturelle Immunity Support) capsule Take 1 capsule by mouth 1 (one) time each day. Active cyanocobalamin (Vitamin B-12) 2000 MCG tablet Take 2,000 mcg by mouth 1 (one) time each day. Active vit A,C and U-jbvquw-crxesp ls (Ocuvite) tablet Take 1 tablet by mouth 1 (one) time each day. Active Wjsssvoc-Fpc-Nf -FA (/Iron) tablet Take 1 tablet by mouth 1 (one) time each day. Active omeprazole (PriLOSEC) [address] capsule Take 20 mg by mouth 1 (one) time each day. Do not crush or chew. Active atorvastatin (Lipitor) 40 MG tablet Take 1 tablet (40 mg total) by mouth 1 (one) time each day. 30 tablet 11 03/17/2022 Active Active Problems Problem Noted Date Diagnosed Date Acute cerebrovascular accident 03/13/2022 Social History Tobacco Use Types Packs/Day Years Used Date Smoking Tobacco: Never CAGE ASSESSMENT Answer Date Recorded Cage unable to access Not on file 03/13/2022 Cage max number of drinks Not on file 2021 Cage Beverages a week Not on file 03/13/2022 Have you ever felt you should CUT down on your d rinking? 0 03/13/2022 Have you been ANNOYED by people criticizing your drinking? 0 03/13/2022 Have you felt GUILTY about your drinking? 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 0 03/13/2022 CAGE Questionnaire Score 0 022 Comments Unknown Sex and Gender Information Value Date Recorded Sex Assigned at Not on file Legal Sex Female 6:40 PM EDT Gender Identity Not on file Sexual Orientation Not on file Last Filed Vital Signs Vital Sign Reading Time Taken Comments Blood Pressure 117/74 03/16/2022 11:19 AM EDT Pulse 86 03/16/2022 11:19 AM EDT Temperature 36.8 C (98.3 F) 03/16/2022 11:19 AM EDT Respiratory Rate 17 03/16/2022 11:19 AM EDT Oxygen Saturation 95% 03/16/2022 11:19 AM EDT Inhaled Oxygen Concentration - - Weight 74.9 kg (165 lb 2 oz) 03/15/2022 6:00 AM EDT Height 157.5 cm (5' 2 ) 03/13/2022 9:46 PM EDT Body Mass Index 30.2 03/13/2022 9:46 PM EDT Plan of Treatment Health Maintenance Due Date Last Done Comments [facility]-Bone Density Scan 1943 [facility]-Depression Screening 1943 [facility]ic[facility] Annual Wellness (AWV) 1945 [facility]-/Child/Adol SDOH Screenings 1945 [facility]-Obesity Intervention 08/05/1949 [facility]- SDOH Screenings 08/05/1961 [facility]-Adult SDOH Screenings 08/05/1961 [facility]-Pneumococcal Vaccine: 50 + Years (1 of 1 - PCV) 08/05/1993 [facility]-Zoster Vaccines (1 of 2) 08/05/1993 [facility]-RSV Vaccine: 60+ Years o r (1 - 1-dose 75+ series) 08/05/2018 [id number]-44 Vaccine (1 - 20 24-25 season) 2024 [facility]-Influenza Vaccine (Seas[place] n Ended) 2025 [facility]-DTaP,Tdap,and Td Vaccine s (2 - Td or Tdap) 02/12/2031 02/12/2021 [facility]-Diabetes: Hemoglobin A1C Discontinued 03/13/2022 HPV Vaccines Aged Out No longer eligi ble based on patient's age to complete this topic [facility]-HIB Vaccines Aged Out No longer e ligible based on patient's age to complete this topic [facility]-Hepatitis A Vaccines Aged Out No longer eligible based on patient's age to complete this topic [facility]-IPV Vaccines Aged Out No longer e ligible based on patient's age to complete this topic [facility]-Rotavirus Vaccines Aged Out No lo nger eligible based on patient's age to complete this topic Procedures Procedure Name Priority Date/Time Associated Diagnosis Comments HEMOGLOBIN A1C Routine 03/13/2022 8:36 PM EDT from Last 3 Months or Most Recently Relevant to Health Maintenance Results * (ABNORMAL) Hemoglobin A1c (03/13/2022 8:36 PM EDT) Hemoglobin A1c 6.1(H) <5.7 % 03/13/2022 9:23 PM EDT [facility] Blood Venous blood specimen / Unknown Venipuncture / Unknown 03/13/2022 8:36 PM EDT 03/13/2022 8:44 PM EDT Narrative [facility] - 03/13/2022 9:23 PM EDT HA1C Interpretive Data: Diagnosis of Diabetes: Diabetic > or = 6.5% Pre-diabetic 5.7 to 6.4% Non-diabetic < or = 5.6% Glycemic Targets for Type I and Type II Diabetics: Non- Adults <7.0% Adults <6.0% Children and Adolescents <7.5% Source: [place] [employer]. Standards of medical care in diabetes,2017. Diabetes Care.2017:40 (suppl 1):S1-S135. HbA1c assay performed by an ion-exchange chromatography method that is certified traceable to the DCCT. us Jayshree Antonio DO LAB BLOOD ORDERABLES Final Res [facility] [address] [place] [phone] from Last 3 Months or Most Recently Relevant to Health Maintenance Insurance [facility] [place] [place] [id number] [employer] MEDICARE Advance Directives * Full Code (Latest Code Status on File) Date Activated Date Inactivated Comments 03/13/2022 7:05 PM 03/16/2022 4:53 PM Question Answer Comments Patient has decision-making capacity? Yes Care Teams Manager Analysis Relationship Specialty Start Date End Date Juanito Zelaya MD [address] [place] [id number] PCP - General Internal Medicine 03/14/22
--- OUTSIDE RECORDS SUMMARY | 2024-11-09 13:21 | XMS_ITS | Clinical Summary ---
Author Organization Health Address [address] [place] [address] Care Team Providers Care Contact Center Engineer Name Role Phone Unavailable Primary Care Provider Unavailabl e Source Comments This information has been disclosed to you from confidential records protectedfrom disclosure by state law. You shall make no further disclosure of thisinformation without the specific, written, and informed release of theindividual to whom it pertains, or as otherwise permitted by law. A generalauthorization for the release of medical or other information is not sufficientfor the purposes of therelease of HIV test results or diagnoses. [id number] Social History Tobacco Use Types Packs/Day Years Used Date Smoking Tobacco: Never Assessed Comments Unknown Sex and Gender Information Value Date Recorded Sex Assigned at Not on file Legal Sex Female 10:53 PM EST Gender Identity Not on file Sexual Orientation Not on file Plan of Treatment Not on file
[2024-11-09 14:29] LABS: Occult Blood,Stool Positive (Negative)
== END 2024-11-09 23:59 | disposition home or self-care (01) ==
LOC: LAB 13:14
PROVIDERS: PCP Internal Medicine Adolescent Medicine; Visit Provider Internal Medicine Gastroenterology
DX: K92.1 Melena (principal); R19.4 Change in bowel habit
CPT/HCPCS: 82272; G0328

== ENCOUNTER 2025-01-03 15:41 | Emergency (ER) | payer MEDICARE, SELFPAY ==
[2025-01-03] VITALS (8 sets, daily range): BP systolic 126–154; BP diastolic 67–84; PULSE 78–92; RESP 18; TEMP 36.7; O2SAT 93–98; BMI 22.8
--- NOTE | 2025-01-03 15:46 | ED_ITS ---
Discharge Plan Disposition Patient Disposition: Home, Self-Care Condition: Good Prescriptions Prescriptions: New metronidazole 500 mg tablet 500 mg PO BID 7 Days Qty: 14 0RF levofloxacin 750 mg tablet 750 mg PO DAILY 7 Days Qty: 7 0RF No Action atorvastatin 40 mg tablet 40 mg PO DAILY Patient Comments: TAKE 1 TABLET BY MOUTH ONCE DAILY potassium chloride 20 mEq tablet,ER particles/crystals 20 meq PO DAILY gabapentin 300 mg capsule 300 mg PO DAILY alendronate 70 mg tablet 70 mg PO WEEKLY Patient Comments: TAKE 1 TABLET BY MOUTH ONCE A WEEK clobetasol 0.05 % cream 1 applic TOPICAL DAILY Patient Comments: APPLY CREAM TOPICALLY TWICE DAILY bumetanide 1 mg tablet 1 mg PO BID albuterol sulfate 90 mcg/actuation HFA aerosol inhaler 2 puff INHALATION NEEDED PRN (Reason: soa) diclofenac sodium 1 % gel See Rx Instructions .ROUTE .COMPLEX PRN (Reason: Pain (Scale Score 4-6)) Rx Instructions: prn Referrals Follow up/Referrals: Juanito Zelaya MD [Primary Care Provider, Internal Medicine] - See instructions Activity Restrictions/Add. Instructions Additional Instructions/Restrictions: Please call your primary care provider tomorrow and let them know what we found in the emergency department and follow-up by the end of the week for reassessment. I sent you with a referral to general surgery as well as GI to follow-up for your symptoms. I have sent you with a course of antibiotics which you should take for 7 days. You need to take the stool softeners at home and either MiraLAX or mag citrate to help with your constipation. You should have your home health nurse do an enema tomorrow at home. Return to the emergency department for acute worsening abdominal pain, development of fever or if you have any other acute worsening symptoms. Clinical Impressions Clinical Impression: Constipation, Stercoral colitis Instructions Patient Instructions: DI for Acute Abdominal Pain Print Language Print Language: Setswana Discharge ED Provider: Indira Abdullahi Adult HPI General Chief complaint: Abdominal Pain Stated complaint: Abdominal pain sent by Dr Zelaya Time Seen by Provider: 01/03/25 15:45 History of Present Illness HPI narrative: Patient is a 79-year-old female with a past medical history of heart failure, COPD who presented to the emergency department with abdominal pain. Patient states that her abdominal pain started this morning started in the right lower quadrant and has migrated to the middle of her abdomen. Patient states that her pain is intermittent in nature worse with walking. Patient currently is not having any pain while lying in the hospital bed. Patient states that her pain was sharp in nature. Patient states that she is not having any urinary symptoms. Not having any fevers. Patient reports nausea but no vomiting. Patient denies any diarrhea. Patient denies any chest pain shortness of breath or other recent infectious symptoms. Patient denies any previous abdominal surgeries. Patient was seen by her primary care provider who was sent here to the emergency department to be evaluated. Related Data Home Medications ?Medication ?Instructions ?Recorded ?Confirmed albuterol sulfate 90 mcg/actuation 2 puff inhalation A S NEEDED PRN soa 06/26/24 10/25/24 aerosol inhaler alendronate 70 mg tablet 70 mg PO WEEKLY 06/26/2404/10 bumetanide 1 mg tablet 1 mg PO BID 06/26/24 5 clobetasol 0.05 % topical cream 1 applic topical DAILY 06/26/24 10/25/24 diclofenac sodium 1 % topical gel See Rx Instructions .Route 06/26/24 10/25/24 .COMPLEX PRN Pain (Scale Score 4-6) atorvastatin 40 mg tablet 40 mg PO DAILY 07/27/2410/15 gabapentin 300 mg capsule 300 mg PO DAILY 07/27/2404/10 potassium chloride 20 mEq 20 meq PO DAILY 07/27/2404/10 tablet,extended release(part/cryst) Previous Rx's ?Medication ?Instructions ?Recorded levofloxacin 750 mg tablet 750 mg PO DAILY 7 days #7 t abs 01/03/25 metronidazole 500 mg tablet 500 mg PO BID 7 days #14 t abs 01/03/25 Allergies Allergy/AdvReac Type Severity Reaction Status Date / Time No Known Allergies Allergy Verified 10/25/24 13:21 [facility] Disclaimer: The information contained in this section may have been updated after the patient was seen, as this information can be updated by other users. Medical History Acute CVA (cerebrovascular accident) Chronic venous stasis Varicosities of leg TIA (transient ischemic attack) Osteoporosis GERD (gastroesophageal reflux disease) COPD (chronic obstructive pulmonary disease) Anxiety HLD (hyperlipidemia) HTN (hypertension) Cerebrovascular accident Surgical History History of colonoscopy History of ankle surgery Family History Other Diabetes Family history of rheumatoid arthritis Stroke Social History Smoking Status: Never smoker years smoked: 48 smoking status stop date: 2007 second hand exposure: No alcohol intake: never substance use type: denies use current occupational status: retired Travel in the last 8 weeks?: None household members: none housing: house current occupational exposures/hazards: No caffeine: Yes Have you lived/traveled outside [place] in past 30 days?: No Contact w/someone who lives/traveled outside US past 30 days?: No Exposure to someone with infectious disease in past 14 days?: No Do you have a fever (greater than 100.4 F or 38 C)?: No Have you tested positive for COVID-19?: No Exposed to someone with COVID-19 in past 14 days?: No Do you have a sore throat?: No Do you have a cough?: No Do you have any weakness?: No Do you have any diarrhea?: No Are you experiencing any unusual bleeding?: No Do you have any muscle aches/pain?: No Do you have any abdominal pain?: No Are you experiencing loss of taste or smell?: No Other Medical History Have you received the Flu Vaccine for this season: Yes Have you received the Pneumonia Vaccine: No ROS Obtained: Yes All systems reviewed & no additional complaints except as documented and Yes Systems reviewed as appropriate & no additional complaints except as documented Physical Exam General General appearance: alert and in no apparent distress Head Head exam: atraumatic, normocephalic and normal inspection Eye Eye exam: Present normal appearance, PERRL and EOMI; Absent scleral icterus ENT ENT exam: Present normal exam and normal external ear exam Neck Neck exam: Present normal inspection and full ROM Chest Chest inspection: Present normal inspection and symmetric chest wall rise Respiratory Respiratory exam: Present normal lung sounds bilaterally; Absent respiratory distress or wheezes Cardiovascular Cardiovascular exam: Present regular rate, normal rhythm and normal heart sounds Abdominal Exam Abdominal exam: Present soft, distention and tenderness (Right lower quadrant and suprapubic tenderness); Absent guarding or rebound Extremities Exam Extremities exam: Present normal inspection and full ROM Back Exam Back exam: Present normal inspection and full ROM Neurological Exam Neurological exam: Present alert and oriented X3 Psychiatric Psychiatric exam: Present normal affect and normal mood Skin Skin exam: Present warm and dry Medical Decision Making Medical Records Medical records reviewed: Yes I reviewed the patient's medical records. Screening: Per USPSTF and CDC recommendations, given the prevalence of disease in our region, it is our hospital?s policy to screen for HIV and viral Hepatitis for all patients aged 18 and over and those with ongoing risk factors. Mtich Inquiry Pt receiving controlled substance: No Vital Signs: 01/03/25 15:51 01/03/25 16:00 01/03/25 16:32 Temperature 98.1 F Temperature Source Oral Pulse Rate 82 82 Pulse Rate [Right Brachial] 88 Respiratory Rate 18 Blood Pressure 154/84 H 126/78 Blood Pressure [Right Arm] 154/84 H Blood Pressure Mean 95 Blood Pressure Mean [Right Arm] 107 Blood Pressure Source Blood Pressure Source [Right Arm] Automatic Cuff Blood Pressure Position 02 Sat by Pulse Oximetry 96 93 L 94 L Oxygen Delivery Method Room Air Room Air 01/03/25 17:00 01/03/25 17:30 01/03/25 18:00 Temperature Temperature Source Pulse Rate 84 92 H 80 Pulse Rate [Right Brachial] Respiratory Rate Blood Pressure 131/71 148/68 H 134/67 Blood Pressure [Right Arm] Blood Pressure Mean 98 94 89 Blood Pressure Mean [Right Arm] Blood Pressure Source Blood Pressure Source [Right Arm] Blood Pressure Position 02 Sat by Pulse Oximetry 96 95 98 Oxygen Delivery Method 01/03/25 18:30 01/03/25 18:53 Temperature 98.0 F Temperature Source Oral Pulse Rate 78 80 Pulse Rate [Right Brachial] Respiratory Rate 18 Blood Pressure 151/80 H 151/84 H Blood Pressure [Right Arm] Blood Pressure Mean 95 Blood Pressure Mean [Right Arm] Blood Pressure Source Automatic Cuff Blood Pressure Source [Right Arm] Blood Pressure Position Sitting 02 Sat by Pulse Oximetry 94 L Oxygen Delivery Method Room Air Lab Data Lab results reviewed: Yes I reviewed the patient's lab results. Lab Results 01/03/25 15:55: WBC 8.7, RBC 4.07 L, Hgb 10.5 L, Hct 33.6 L, MCV 82.6, MCH 25.8 L, MCHC 31.3 L, RDW 14.6, Plt Count 301, MPV 11.1 H, Neut % (Auto) 71.5, Lymph % (Auto) 22.0, [place] % (Auto) 5.6, Eos % (Auto) 0.5, Baso % (Auto) 0.3, Neut # (Auto) 6.2, Lymph # (Auto) 1.9, [place] # (Auto) 0.5, Eos # (Auto) 0.0, Baso # (Auto) 0.0, Sodium 139, Potassium 4.0, Chloride 99, Carbon Dioxide 29, Anion Gap 15.0, BUN 24 H, Creatinine 0.80, Estimated Creat Clear 43, Estimated GFR 69, Est GFR ( Amer) 83, Glucose 100, Calcium 10.1, Total Bilirubin 0.4, AST 54 H, ALT 23, Alkaline Phosphatase 58, Total Protein 7.6, Albumin 4.5, Globulin 3.1, Albumin/Globulin Ratio 1.5, Lipase 63 01/03/25 16:15: Lactate 0.7 01/03/25 16:30: Urine Color Yellow, Urine Appearance Clear, Urine pH 6.5, Ur Specific [place] 1.015, Urine Protein Negative, Urine Glucose (UA) Negative, Urine Ketones Negative, Urine Blood Negative, Urine Nitrate Negative, Urine Bilirubin Negative, Urine Urobilinogen 0.2, Ur Leukocyte Esterase Negative, Urine RBC None, Urine WBC Occasional, Ur Squamous Epith Cells Occasional, Urine Bacteria Trace 01/03/25 15:55 01/03/25 15:55 Orders (Tests/Meds): ED MEDICATIONS Discontinued Medications Generic Name Dose Route Start Last Admin Trade Name Freq PRN Reason Stop Dose Admin Iopamidol 75 ml 01/03/25 16:40 01/03/25 16:41 Iopamidol-370 (76%);100ml Bottle IV 01/03/25 16:41 75 ml ONCE ONE Administration Morphine Sulfate 2 mg 01/03/25 16:01 Morphine 4mg/Ml Syringe IV 02/02/25 16:00 ONCE PRN Breakthru Severe Pain (7-10) Ondansetron HCl 4 mg 01/03/25 16:01 01/03/25 16:18 Ondansetron 4mg/2ml Vial IV 01/03/25 16:02 Not Given ONCE ONE Sodium Chloride 10 ml 01/03/25 16:40 01/03/25 16:41 Sodium Chloride 0.9% 10ml Syr (Rad Only) IV 01/03/25 16:41 10 ml ONCE ONE Administration ORDERS Category Date Time Status CT abdomen pelvis w con Stat Cat Scan 01/03/25 15:57 Completed CBC w/Auto Diff [Complete Blood Count Auto Diff] Stat Lab 01/03/25 15:55 Completed CMP [Comprehensive Metabolic Panel] Stat Lab 01/03/25 15:55 Completed Lactic Acid Stat Lab 01/03/25 16:15 Completed Lipase Stat Lab 01/03/25 15:55 Completed Urinalysis and Microscopic Stat Lab 01/03/25 16:30 Completed Urine Culture Stat Micro 01/03/25 15:57 Received Medical Decision Narrative: Patient is an otherwise healthy 79-year-old female who presented to the emergency department with right lower quadrant and suprapubic abdominal pain that started this morning. On arrival, patient was hemodynamically stable with unremarkable vital signs. Differential includes but not limited to: Appendicitis, nephrolithiasis, urinary tract infection, constipation, pancreatitis, mesenteric ischemia, amongst others. Patient's labs were reviewed and interpreted by myself: CBC showed no leukocytosis, hemoglobin was stable. CMP was unremarkable. Lipase was normal. Lactate normal. Patient CT scan showed significant constipation with some mural thickening of the rectum no significant rectal fat stranding as compared to patient's previous CAT scan in September. I did discuss the CT scan with radiology given there suggestion of possible sterco colitis and they stated that it seems less likely that the fat stranding was less than previous CT scan. I did discuss the results with the patient and patient did have significant rectal expansion with significant stool burden and I suggested that we do enemas in the emergency department however patient refused. Patient states that she has a home health nurse and she will have them give her an enema tomorrow. I did discuss with the patient my concern that she had significant rectal expansion and stool burden and that this needed to be resolved as progression could cause significant issues. Patient already has stool softeners at home and I recommended that she continue this and add either mag citrate or MiraLAX to assist with her constipation. I discussed possible admission for her symptoms as well and patient refused admission at this time and stated that she wanted to go home. Given the concern for possible stercoral colitis I did prescribe the patient levaquin and flagyl. I recommended that patient follow-up with GI and general surgery and that patient call her primary care provider in the next couple days for follow-up in clinic. Patient was advised to return to the emergency department for any acute or worsening symptoms. Prior to discharge patient had complete resolution of her pain without pain medications in the ED. Critical Care Critical Care Time Critical Care Time: No
--- OUTSIDE RECORDS SUMMARY | 2025-01-03 15:52 | XMS_ITS | Clinical Summary ---
Author Organization [facility] [place] [address] Care Team Providers Care Director Drug Name Role Phone Unavailable Primary Care Provider [...] 1-d ose 75+ series) 08/05/2018 COVID-19 Vaccine ( - 2023-2 5 season) 2024 Influenza Vaccine (#1) 2025 Hepatitis B Vaccine Aged Out No longe r eligible based on patient's age to complete this topic Meningococcal B Vaccine Aged Out No l onger eligible based on patient's age to complete this topic
--- OUTSIDE RECORDS SUMMARY | 2025-01-03 15:52 | XMS_ITS | Clinical Summary ---
Author Organization Health Address [address] [place] [address] Care Team Providers Care Cableway Operator Name Role Phone Unavailable Primary Care [...] therelease of HIV test results or diagnoses. [id number] Social History Tobacco Use Types Packs/Day Years Used Date Smoking Tobacco: Never Assessed Comments Unknown Sex and Gender Information Value Date Recorded Sex Assigned at Not on file Legal Sex Female 10:53 PM EST Gender Identity Not on file Sexual Orientation Not on file Plan of Treatment Not on file
--- OUTSIDE RECORDS SUMMARY | 2025-01-03 15:53 | XMS_ITS | Clinical Summary ---
Author Organization [facility] Address [address] [place] [address] Care Team Providers Care Field Kiln Burner Name Role Phone Juanito Zelaya MD Primary Care Provider [phone] Allergies No known active allergies Medications alendronate [...] time each day. Active vit A,C and K-fywmob-ymxsmt ls (Ocuvite) tablet Take 1 tablet by mouth 1 (one) time each day. Active Zyplhpsy-Syu-Xd -FA (/Iron) tablet Take 1 tablet by [...] first t luz elena in the morning (EYE-WARD SUPERVISOR) to steady your nerves or to get [...] Wellness (AWV) 1945 [facility]-/Child/Adol SDOH Screenings 1945 [id number] Vaccine (#1) 08/05/1948 [facility]-Obesity Intervention 08/05/1949 [facility]- SDOH Screenings 08/05/1961 [facility]-Adult SDOH Screenings 08/05/1961 [facility]-Pneumococcal Vaccine: 50 + Years (1 of 1 - PCV) 08/05/1993 [facility]-Zoster Vaccines (1 of 2) 08/05/1993 [facility]-RSV Vaccine: 60+ Years o r (1 - 1-dose 75+ series) 08/05/2018 [facility]-Influenza Vaccine (#1) 2025 [facility]-DTaP,Tdap,and Td Vaccine s (2 - [...] Adults <6.0% Children and Adolescents <7.5% Source: [place] [employer]. Standards of medical care in diabetes,2017. Diabetes Care.2017:40 (suppl 1):S1-S135. HbA1c assay performed by an ion-exchange chromatography method that is certified traceable to the DCCT. us Jayshree Antonio DO LAB BLOOD ORDERABLES Final Res ult [facility] [address] [place] [address] from Last 3 Months or Most Recently Relevant to Health Maintenance Insurance [facility] [place] [id number] [employer] MEDICARE Advance Directives * Full Code (Latest Code Status on File) Date Activated Date Inactivated Comments 03/13/2022 7:05 PM 03/16/2022 4:53 PM Question Answer Comments Patient has decision-making capacity? Yes Care Teams Field Kiln Burner Relationship Specialty Start Date End Date Juanito Zelaya MD [address] [place] [place] [id number] PCP - General Internal Medicine 03/14/22
--- NOTE | 2025-01-03 15:57 | CT_ITS ---
PROCEDURE INFORMATION: Exam: CT Abdomen And Pelvis With Contrast Exam date and time: 01/03/2025 4:42 PM Age: 79 years old Clinical indication: Abdominal pain; Additional info: Rlq abdominal tenderness TECHNIQUE: Imaging protocol: Computed tomography of the abdomen and pelvis with contrast. Radiation optimization: All CT scans at this facility use at least one of these dose optimization techniques: automated exposure control; mA and/or kV adjustment per patient size (includes targeted exams where dose is matched to clinical indication); or iterative reconstruction. Contrast material: ISOVUE; Contrast volume: 75 ml; Contrast route: IV; COMPARISON: CT ABDOMEN PELVIS W CON 09/16/2024 10:06 AM FINDINGS: Pleural spaces: There are no pleural effusions. Heart: The visualized portions of the heart are unremarkable. There is no evidence of pericardial fluid collections. Diaphragm: A moderate to large stable hiatal hernia is present. As before, the majority of the stomach is present within the thoracic space. Liver: The liver is normal. Gallbladder and biliary ducts: The gallbladder contains a Phrygian cap, as before. The gallbladder is otherwise normal. Pancreas: There is diffuse mild and stable atrophy of the pancreatic parenchyma. Spleen: The spleen is normal. Adrenal glands: The adrenal glands are normal. Kidneys and ureters: There is diffuse bilateral renal cortical thinning, consistent with chronic renal insufficiency. There are a few areas of renal cortical scarring bilaterally. Stomach and bowel: As before, there is fecal retention within the rectum with wall thickening and rectal dilatation measuring approximately 7.3 cm. Previously seen presacral fat stranding on 09/21/2024 mildly decreased. Moderate diverticulosis is present in the distal colon. No evidence of diverticulitis. There is mildly excessive colonic stool content. Lack of gastrointestinal contrast limits evaluation of bowel. Unopacified loops of small bowel are within range of normal. The duodenum is within range of normal. Appendix: No evidence of appendicitis. No inflammatory changes are seen within the right lower quadrant. Intraperitoneal space: No evidence of intraperitoneal free air. No significant free fluid. The aorta and iliac arteries demonstrate moderate atherosclerotic calcification. Lymph nodes: No enlarged lymph nodes. Urinary bladder: The bladder is normal. Reproductive: The uterus is small consistent with the patient's age.No adnexal cysts or masses are identified. Bones/joints: The thoracolumbar spine demonstrates moderate stable degenerative changes at multiple levels. Previously described vertebroplasty changes involving L1 and L2 are stable. Remaining findings are stable.There is no evidence of acute fracture. Soft tissues: There is mild asymmetric fat density in the right inguinal canal suggesting small inguinal hernia. There is a small smudgy focus of low-density in this region which may reflect a minor amount of fluid. This is stable since prior exam. IMPRESSION: 1. Moderate constipation, most prominent in the rectal vault with rectal distension and mural thickening raising the question of stercoral colitis. When compared with prior study, mild presacral fat stranding on previous exam has decreased. Findings are otherwise not dramatically changed. Correlate clinically. 2. Moderate to marked colonic diverticulosis without evidence of diverticulitis. 3. Moderate to large stable hiatal hernia. 4. Minor stable fat containing right inguinal hernia, with a minor amount of fluid. 5. 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
[2025-01-03 16:10] LABS: Hematocrit 33.6 % (37.0-47.0); Hemoglobin 10.5 g/dL (12.2-16.2); Immature Granulocytes % 0.1 %; Mean Corpuscular HGB Conc 31.3 g/dL (31.8-35.4); Mean Corpuscular Hemoglobin 25.8 pg (27.0-31.2); Mean Corpuscular Volume 82.6 fl (81-99); Nucleated Red Blood Cells % 0 %; Platelet Count 301 K/mm3 (142-424); Red Blood Count 4.07 M/mm3 (4.20-5.40); Red Cell Distribution Width-SD 43.9 fL; White Blood Count 8.7 K/mm3 (4.8-10.8)
[2025-01-03 16:16] LABS: Alanine Aminotransferase 23 U/L (12-78); Albumin Level 4.5 g/dl (3.5-5.0); Albumin/Globulin Ratio 1.5 (1.1-1.8); Alkaline Phosphatase 58 U/L (38-126); Anion Gap 15.0 mEq/L (5-15); Aspartate Amino Transferase 54 U/L (14-36); Bilirubin,Total 0.4 mg/dl (0.2-1.3); Blood Urea Nitrogen 24 mg/dl (7-17); Calcium 10.1 mg/dl (8.4-10.2); Carbon Dioxide 29 mmol/L (22.0-30.0); Chloride 99 mmol/L (98-107); Creatinine Clearance Estimated 43 mL/min (50-200); Creatinine,Serum 0.80 mg/dl (0.52-1.04); Estimated Glomerular Filt Rate 69 ml/min (>60); GFR (African American) 83 ML/MIN (>60); Globulin 3.1 g/dL (1.3-3.2); Glucose 100 mg/dl (74-100); Lipase 63 U/L (23-300); Potassium 4.0 mmoL/L (3.5-5.1); Sodium 139 mmol/L (136-145); Total Protein,Serum 7.6 g/dl (6.3-8.2)
[2025-01-03 16:37] LABS: Bilirubin,Urine Negative (Negative); Color,Urine YELLOW (Yellow); Glucose,Urine (UA) Negative (Negative); Ketones,Urine Negative (Negative); Leukocyte Esterase,Urine Negative (Negative); Microscopic, Urine URINE MICROSCOPIC (MICROSCOPIC); PH,Urine 6.5 (5.0-8.5); Protein,Urine Negative (Negative); Specific Gravity, Urine 1.015 (1.005-1.030); Urobilinogen,Urine 0.2 EU/dl (0.2)
[2025-01-03] MEDS: SODIUM CHLORIDE 0.9% 10ML SYR (RAD ONLY) 10 ML IV (16:41)
[2025-01-03] MEDS: IOPAMIDOL-370 (76%);100ML BOTTLE 75 ML IV (16:41)
--- OUTSIDE RECORDS SUMMARY | 2025-01-03 16:51 | XMS_ITS | CCD ---
Author Name Adele Ny NP Address [address] [place] [address] [facility] [address] [place] [address] Phone Organization [facility] Phone Care Team Providers Care Jelly Maker Name Role Phone Adele Ny NP Primary Care Provider Unavaila ble Unavailable Chronic Care Management Unavaila ble Summary Purpose DataExchange Insurance Providers Payer name Policy type / Coverage type Covered libertarian ID Effective Begin Date Effective End Date [employer] [facility] [id number] Unknown Unknown Family history Father Diagnosis Age At Onset Diabetes Unknown Social History Social History Element Codes Description Effec tive Dates Marital status Unknown 06/16/2024 Number of children Unknown 1 Living arrangements Unknown House 06/16/19 25 Number of children in household Unknown 0 06/16/2024 Number of adults in household Unknown 1 06/16/2024 Education level Unknown High School Graduate 05/19 Employment Unknown Retired from [employer] 05/19 Tobacco history Unknown Former User 06/16/[address]: [id number] Never drinks alco hol 06/16/2024 Illegal/Recreational drug history Unknown *Has never used illegal/recreational drugs 06/16/2024 DNR Order/ Advanced Directive Unknown Full Code 06/16/2024 Allergies, Adverse Reactions, Alerts Substance Reaction Codes Entered Date Inactivated Date Status *No known environmental allergies Unknown 06/16/2024 No Inactive Date Active * NO KNOWN DRUG ALLERGIES Unknown 06/16/2024 No Inactive Date Active *No known food allergies Unknown 06/16/2024 No I nactive Date Active Problems Condition Codes Effective Dates Condition St atus (J44.9-496) Chronic obstruct bryce pulmonary disease, unspecified ICD-10: J44.9 ICD-9: 496 06/16/2024 Active (R53.1-780.79) Weakness ICD-10: R53.1 ICD-9: 780.79 06/16/2024 Active (Z91.81-V15.88) History of falling ICD-1 0: Z91.81 ICD-9: V15.88 06/16/2024 Active (Z99.89-V46.8) Dependence on other enabling machines and devices ICD-10: Z99.89 ICD-9: V46.8 06/16/2024 Active 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 disorder ICD-10: F33.1 ICD-9: 296.32 06/16/2024 Active PVD (peripheral vascular disease) ICD-10 : I73.9 ICD-9: 443.9 08/16/2024 Active Acute midline low back pain, unspecified whether sciatica present ICD-10: M54.50 ICD-9: 724.2 07/18/2024 Active COPD exacerbation ICD-10: J44.1 ICD-9: 491.21 07/18/2024 Active Chronic obstructive pulmonar y disease, unspecified ICD-10: J44.9 06/16/2024 Active Encounter for general adult medical examination with abnormal findings ICD-10: Z00.01 ICD-9: V70.0 06/16/2024 Active Hypercholesteremia ICD-10: E78.00 ICD-9: 272.0 06/16/2024 Active Acute cerebrovascular accident ICD-10: I63.9 2 Active Patient not seen ICD-10: UXZ.01 ICD-9: UXZ.01 05/18/2024 Active Medications Medication Codes Instructions Start Date Stop Date Status Fill Instructions Belem Ellipta 100 mcg-62.5 mcg-25 mcg powder for inhalation RxNorm: 0211818 Inhale 1 Unit Dose Inhalation every day . After inhalation, rinse the mouth with water without swallowing. 08/17/19 25 026 Active ipratropium 0.5 mg-albuterol 3 mg (2.5 mg base)/3 mL nebulization soln RxNorm: 1275805 Administer 3 Milliliter(s) Inhalation every 4 to 6 hours 07/19/19 25 025 Inactive prednisone 20 mg tablet RxNorm: 723494 Take 2 Tablet(s) Oral every day 07/19/19 025 Inactive azithromycin 250 mg tablet RxNorm: 637902 Take 2 Tablet(s) Oral once daily on day 1, followed by 1 tablet daily for 4 days 07/19/19 Inactive tizanidine 4 mg capsule RxNorm: 336235 Take 1 Capsule(s) Oral every day 06/16/19 Inactive albuterol sulfate HFA 90 mcg/actuation aerosol inhaler RxNorm: 1192982 Administer 2 Puff(s) Inhalation every 4 to 6 hours 06/16/19 Inactive hydrocodone 5 mg-acetaminophen 325 mg tablet RxNorm: 989367 Take 1 Tablet(s) Oral three times a day as needed for severe pain 06/16/19 025 Inactive bumetanide 1 mg tablet RxNorm: 161109 Take 1 Tablet(s) Oral once daily 06/16/19 026 Active atorvastatin (Lipitor) 40 MG tablet RxNorm: 259760 Take 1 tablet (40 mg total) by mouth 1 (one) time each day. 03/17/20 No Stop Date Active lactobacillus (Culturelle Immunity Support) capsule RxNorm: 3195215 Take 1 Capsule(s) Oral every day . 06/15/19 25 Active escitalopram (Lexapro) 5 MG tablet RxNorm: 914412 Take 5 Milligram(s) Oral every day . 06/15/19 25 Active alendronate (Fosamax) 70 MG tablet RxNorm: 544568 Take 70 mg by mouth every 7 (seven) days. Take in the morning with a full glass of water, on an empty stomach, and do not take anything else by mouth or lie down for the next 30 min. 06/15/19 25 Active aspirin 81 MG EC tablet RxNorm: 577852 Take 81 mg by mouth 1 (one) time each day. 06/15/19 25 Active omeprazole (PriLOSEC) [address] capsule RxNorm: 489274 Take 20 mg by mouth 1 (one) time each day. Do not crush or chew. 06/15/19 25 Active hydroCHLOROthiazide (HYDRODiuril) 25 MG tablet RxNorm: 070885 Take 25 Milligram(s) Oral every day . 06/15/19 025 Inactive lisinopril 5 MG tablet RxNorm: 683191 Take 2.5 mg by mouth 1 (one) time each day. 06/15/19 025 Inactive Medication Administered No Medication Administered data Procedures Procedure Codes Date Most recent systolic blood pressure <130 mm Hg C PT-4: 307F 08/16/2024 Most recent diastolic blood pressure < 80 mm hg CPT-4: 3078F 08/16/2024 Most recent systolic blood pressure <130 mm Hg C PT-4: 3074F 07/18/2024 Most recent diastolic blood pressure < 80 mm hg CPT-4: 307F 07/18/2024 MED LIST DOCD IN [facility] CPT-4: 1159F 06/16/2024 RVW MEDS BY RX/DR IN [facility] CPT-4: 1160F 2024 Functional Status Assessed CPT-4: 1170F 06/16 Screening for clinical depre ssion is negative, follow-up plan not required CPT-4: G8510 06/16/2024 Most recent systolic blood pressure <130 mm Hg C PT-4: 307F 06/16/2024 Most recent diastolic blood pressure 80-89 mm hg CPT-4: 3079F 06/16/2024 Vital Signs Date Vital 08/16/2024 Blood Pressure 1: 98/60 Code: 8480-6 BMI: 25.4 Code: 19183-9 Heart Rate 1: 67 bpm Height: 5'4 Code: 8302-2 Respiratory Rate: 16 bpm SpO2: 90% Temperature: 36.6 (C) / 97.8 (F) Weight: 148 lbs Code: 91629-4 07/18/2024 Blood Pressure 1: 120/62 Code: 8480-6 BMI: 26.4 Code: 47672-8 Heart Rate 1: 72 bpm Height: 5'4 Code: 8302-2 Respiratory Rate: 18 bpm SpO2: 94% Temperature: 36.6 (C) / 97.8 (F) Weight: 154 lbs Code: 60578-1 06/16/2024 Blood Pressure 1: 120/80 Code: 8480-6 BMI: 26.5 Code: 50483-7 Heart Rate 1: 74 bpm Height: 5'4 Code: 8302-2 Respiratory Rate: 18 bpm SpO2: 94% Temperature: 36.6 (C) / 97.8 (F) Weight: 154 lbs 8 oz Code: 25330-7 Reason For Visit Reason For Visit Effective Dates Notes established patient visit 08/16/2024 established patient visit 07/18/2024 new patient welcome visit 06/16/2024 Encounters Encounter Performer Location Location Address Codes Date (10414) Home or Residence Visit Est Pt - Moderate Level, 40 mins Diagnosis: (J44.9-496) Chronic obstructive pulmonary disease, unspecified[ICD10: J44.9] Diagnosis: Moderate episode of recurrent major depressive disorder[ICD10: F33.1] Diagnosis: PVD (peripheral vascular disease)[ICD10: I73.9] Diagnosis: (Z99.89-V46.8) Dependence on other enabling machines and devices[ICD10: Z99.89] Diagnosis: (Z91.81-V15.88) History of falling[ICD10: Z91.81] Diagnosis: (R53.1-780.79) Weakness[ICD10: R53.1] [facility] Office [address] [place] [address] [place] [address] CPT-4: 93376 08/16/2024 ([id number]) Home or Residence Visit Est Pt - Moderate Level, 40 mins Diagnosis: (J44.9-496) Chronic obstructive pulmonary disease, unspecified[ICD10: J44.9] Diagnosis: Moderate episode of recurrent major depressive disorder[ICD10: F33.1] Diagnosis: Acute midline low back pain, unspecified whether sciatica present[ICD10: M54.50] Diagnosis: COPD exacerbation[ICD10 : J44.1] Diagnosis: (Z99.89-V46.8) Dependence on other enabling machines and devices[ICD10: Z99.89] Diagnosis: (Z91.81-V15.88) History of falling[ICD10: Z91.81] Diagnosis: (R53.1-780.79) Weakness[ICD10: R53.1] [facility] Office [address] [place] [address] CPT-4: 94441 07/18/2024 ([id number]) Home or Residence Visit Est Pt - Moderate Level, 40 mins Diagnosis: Encounter for general adult medical examination with abnormal findings[ICD10: Z00.01] Diagnosis: Hypercholesteremia [ICD10: E78.00] Diagnosis: Moderate episode of recurrent major depressive disorder[ICD10: F33.1] Diagnosis: (J44.9-496) Chronic obstructive pulmonary disease, unspecified[ICD10: J44.9] Diagnosis: (Z99.89-V46.8) Dependence on other enabling machines and devices[ICD10: Z99.89] Diagnosis: (Z91.81-V15.88) History of falling[ICD10: Z91.81] Diagnosis: (R53.1-780.79) Weakness[ICD10: R53.1] [facility] Office [address] [id number] CPT-4: 57921 06/16/2024 ([id number]) No answer/Patient not seen Diagnosis: Patient not seen[ICD10: UXZ.01] [facility] Office [address] [id number] CPT-4: 15964 05/18/2024 Plan of Care Planned Activity Notes Codes Status Date Visit Plan: This is a pleasant 6 1 year old female that presents for follow up today. Since our last visit she has not fallen. She did have her kyphoplasty done on her back. She states that the pain MD did three vertebra. She feels much better now. Her pain is not as bad as the last visit. She is up and moving around her house. States that her main issue is the swelling in her ankles. She reports that her PCP is going to have her draw some more labs. They are checking some things for her. She has not been wearing her compression socks. States they are to small to get on. She has been trying to elevate her legs. She reports that she was given a new medication for her breathing. She does not think it is helping. She has used it twice and can not tell a difference. J44.9-496 Chronic obstructive pulmonary disease, unspecified Continue Trelegy F33.1-296.32 Moderate episode of recurrent major depressive disorder Continue Lexapro I73.9-443.9 PVD (peripheral vascular disease) Wear compression socks Z99.89-V46.8 Dependence on other enabling machines and devices Z91.81-V15.88 History of falling R53.1-780.79 Weakness At today's visit we did help her put her compression socks on. Patient was shown how to apply them. After application patient reports that her legs felt better. We did go over elevating the legs to help with the swelling. We did talk about the trelegy inhaler We did stress the importance of using the medicaiton She will use her medications as prescribed. We will plan on following up at her next scheduled visit. Patient was encouraged to call us sooner if needed. Patient verbalized understanding and agreeable to plan of care. 08/16/2024 Appointment: Adele Ny WPtel:[phone] [facility] [address] [id number] E031 08/16/2024 Patient Education: Patient Medication Summary Completed 08/16/2024 Visit Plan: This is a pleasant 6 0 year old female that presents for follow up today. Patient reports that since our last visit she has fallen again. She went back to the hospital and they did an MRI. The report that she fractured another vertebrae. She has not been wearing her back brace as she thinks it is to big and hurt to wear. She has not called the back brace company to get a different brace. She is suppose to be having a kyphoplasty done with pain management. She has not called them to let them know about the additional fall and damaged vertebrae. She is suppose to go next week to see them she thinks but her daughter has been taking her to appointments. She states that the pain is making her not sleep well. She does not want to get up and move. At today's visit she is very sleepy. She says it is due to her not sleeping well. States her depression is being tested due to the pain. J44.9-496 Chronic obstructive pulmonary disease, unspecified Albuterol as needed F33.1-296.32 Moderate episode of recurrent major depressive disorder Continue to monitor continue Lexapro M54.50-724.2 Acute midline low back pain, unspecified whether sciatica present Contacted pain management. Wear back brace J44.1-491.21 COPD exacerbation Start steroids and azithromycin Z99.89-V46.8 Dependence on other enabling machines and devices Z91.81-V15.88 History of falling R53.1-780.79 Weakness We did contact pain management today about her falls. They are planning on the Kyphoplasty soon. States that they will contact her about the brace and her recent fall. We did talk with patient about her breathing today. We did order a nebulizer for her to use. We will follow up with this patient in two weeks for a recheck on her breathing. Patient was encouraged to wear her back brace that she has over her clothing again. She was encouraged to get up and move more as her pain will tolerate. She did ambulate for us today and her oxygen did not drop below 90. We will continue to monitor this in case she needs supplemental oxygen. We did place a pulmonology referral today. She does not see one currently. We also sent referral for transportation assistance. Patient will continue all her medications as prescribed. She will contact us with any issues. Patient verbalized understanding and agreeable to plan of care. 07/18/2024 Appointment: Adele Ny WPtel:[phone] [address] 07/18/2024 Patient Education: Patient Medication Summary Completed 07/18/2024 Patient Education: ipratropium-albutero l- [employer] Coupon [id number] [email or web address] [email or web address]/[email or web address] [email or web address] Completed 07/18/2024 Patient Education: prednisone- [employer] Coupon [id number] [email or web address]/[email or web address]/[email or web address] [email or web address] Completed 07/18/2024 Visit Plan: This is a pleasant 6 0 year old female that present for her welcome visit. Patient reports that on Wednesday she fell in the house and had to go to the ER. While she was there they told her she had a thoracic fracture. She was sent to pain management for evaluation. Went to Pain management they may do a Kyphoplasty. Sent her in a topical cream that they are going to mail to her. She was placed in a back brace. SHe has not been wearing it due to it hurting her breast. She was given hydrocodone and she has taken them. Now states that she is having issues with constipation. Patient has someone who comes to clean her house three times a week. Patient reports that she has to use a walker to get around. Reports that she has issues with instability on her feet. She has fallen multiple times in the past. She does not have to use oxygen for her COPD. She reports that she has fluid on her legs intermittently. She has a fluid pill that she takes if she needs it from her PCP. Z00.01-V70.0 Encounter for general adult medical examination with abnormal findings E78.00-272.0 Hypercholesteremia Continue Lipitor , Follow low fat diet F33.1-296.32 Moderate episode of recurrent major depressive disorder Continue Lexapro J44.9-496 Chronic obstructive pulmonary disease, unspecified Continue Albuterol PRN Z99.89-V46.8 Dependence on other enabling machines and devices Z91.81-V15.88 History of falling R53.1-780.79 Weakness We did help patient put her back brace on and provided education on how to wear it. She was advised to contact pain management with any issues regarding her back and possible Kyphoplasty. She will wear her brace all the time as the other provider had indicated. After it was placed on her back patient reported it felt better. She will continue all her other medications at this time. We will see patient back in one month for a recheck. Patient verbalized understanding and agreeable to plan of care. 06/16/2024 Appointment: Adele Ny WPtel:[phone] [address] 06/16/2024 Patient Education: Patient Medication Summary Completed 06/16/2024 Appointment: Adele Ny WPtel: [phone] [address] 05/18/2024 Patient Education: Patient Medication Summary Completed 05/18/2024 Referral: Pending DME Order Information 07/27/2024. Order Processed. Scheduling delivery. per Agency. Submitted in [place] Referral: Pending Pulmonology Referral Information Referral Patient Not Engaged Transportation Instructions Comment Date Wear your compression socks. Start using your inhaler [employer] Compression sock. This is a pleasant 79 year old female that presents for follow up today. Since our last visit she has not fallen. She did have her kyphoplasty done on her back. She states that the pain MD did three vertebra. She feels much better now. Her pain is not as bad as the last visit. She is up and moving around her house. States that her main issue is the swelling in her ankles. She reports that her PCP is going to have her draw some more labs. They are checking some things for her. She has not been wearing her compression socks. States they are to small to get on. She has been trying to elevate her legs. She reports that she was given a new medication for her breathing. She does not think it is helping. She has used it twice and can not tell a difference. J44.9-496 Chronic obstructive pulmonary disease, unspecified Continue Trelegy F33.1-296.32 Moderate episode of recurrent major depressive disorder Continue Lexapro I73.9-443.9 PVD (peripheral vascular disease) Wear compression socks Z99.89-V46.8 Dependence on other enabling machines and devices Z91.81-V15.88 History of falling R53.1-780.79 Weakness At today's visit we did help her put her compression socks on. Patient was shown how to apply them. After application patient reports that her legs felt better. We did go over elevating the legs to help with the swelling. We did talk about the trelegy inhaler We did stress the importance of using the medicaiton She will use her medications as prescribed. We will plan on following up at her next scheduled visit. Patient was encouraged to call us sooner if needed. Patient verbalized understanding and agreeable to plan of care. 08/16/2024 Please use your back brace. Call us if they do not contact you about nebulizer.. This is a pleasant 78 year old female that presents for follow up today. Patient reports that since our last visit she has fallen again. She went back to the hospital and they did an MRI. The report that she fractured another vertebrae. She has not been wearing her back brace as she thinks it is to big and hurt to wear. She has not called the back brace company to get a different brace. She is suppose to be having a kyphoplasty done with pain management. She has not called them to let them know about the additional fall and damaged vertebrae. She is suppose to go next week to see them she thinks but her daughter has been taking her to appointments. She states that the pain is making her not sleep well. She does not want to get up and move. At today's visit she is very sleepy. She says it is due to her not sleeping well. States her depression is being tested due to the pain. J44.9-496 Chronic obstructive pulmonary disease, unspecified Albuterol as needed F33.1-296.32 Moderate episode of recurrent major depressive disorder Continue to monitor continue Lexapro M54.50-724.2 Acute midline low back pain, unspecified whether sciatica present Contacted pain management. Wear back brace J44.1-491.21 COPD exacerbation Start steroids and azithromycin Z99.89-V46.8 Dependence on other enabling machines and devices Z91.81-V15.88 History of falling R53.1-780.79 Weakness We did contact pain management today about her falls. They are planning on the Kyphoplasty soon. States that they will contact her about the brace and her recent fall. We did talk with patient about her breathing today. We did order a nebulizer for her to use. We will follow up with this patient in two weeks for a recheck on her breathing. Patient was encouraged to wear her back brace that she has over her clothing again. She was encouraged to get up and move more as her pain will tolerate. She did ambulate for us today and her oxygen did not drop below 90. We will continue to monitor this in case she needs supplemental oxygen. We did place a pulmonology referral today. She does not see one currently. We also sent referral for transportation assistance. Patient will continue all her medications as prescribed. She will contact us with any issues. Patient verbalized understanding and agreeable to plan of care. 07/18/2024 . This is a pleasant 78 year old female that present for her welcome visit. Patient reports that on Wednesday she fell in the house and had to go to the ER. While she was there they told her she had a thoracic fracture. She was sent to pain management for evaluation. Went to Pain management they may do a Kyphoplasty. Sent her in a topical cream that they are going to mail to her. She was placed in a back brace. SHe has not been wearing it due to it hurting her breast. She was given hydrocodone and she has taken them. Now states that she is having issues with constipation. Patient has someone who comes to clean her house three times a week. Patient reports that she has to use a walker to get around. Reports that she has issues with instability on her feet. She has fallen multiple times in the past. She does not have to use oxygen for her COPD. She reports that she has fluid on her legs intermittently. She has a fluid pill that she takes if she needs it from her PCP. Z00.01-V70.0 Encounter for general adult medical examination with abnormal findings E78.00-272.0 Hypercholesteremia Continue Lipitor , Follow low fat diet F33.1-296.32 Moderate episode of recurrent major depressive disorder Continue Lexapro J44.9-496 Chronic obstructive pulmonary disease, unspecified Continue Albuterol PRN Z99.89-V46.8 Dependence on other enabling machines and devices Z91.81-V15.88 History of falling R53.1-780.79 Weakness We did help patient put her back brace on and provided education on how to wear it. She was advised to contact pain management with any issues regarding her back and possible Kyphoplasty. She will wear her brace all the time as the other provider had indicated. After it was placed on her back patient reported it felt better. She will continue all her other medications at this time. We will see patient back in one month for a recheck. Patient verbalized understanding and agreeable to plan of care. 06/16/2024 Medical Equipment No Medical Equipment data Advance Directives No Advance Directive data
--- OUTSIDE RECORDS SUMMARY | 2025-01-03 16:51 | XMS_ITS | CCD ---
Author Name Adele Ny NP Address [address] [place] [address] Phone Organization [facility] Phone Care Team Providers Care Vice Admiral Name Role Phone Adele Ny NP Primary Care Provider Unavaila ble Unavailable Chronic Care Management Unavaila ble Summary Purpose DataExchange Insurance Providers Payer name Policy type / Coverage type Covered libertarian ID Effective Begin Date Effective End Date [employer] [place] [id number] Unknown Unknown Family History Family History data not found Problems Condition Codes Effective Dates Condition St atus Patient not seen ICD-10: UXZ.01 ICD-9: UXZ.01 05/18/2024 Active Medication Administered No Medication Administered data Reason For Visit No Reason For Visit data Encounters Encounter Performer Location Location Address Codes Date () No answer/Patient not seen Diagnosis: Patient not seen[ICD10: UXZ.01] Adele Ny [place] Office [address] [place] [address] CPT-4: 12501 05/18/2024 Plan of Care Planned Activity Notes Codes Status Date Patient Education: Patient Medication Summary Completed 05/18/2024 Referral: Pending DME Order Information 07/27/2024. Order Processed. Scheduling delivery. per Agency. Submitted in [place] Referral: Pending Pulmonology Referral Information Referral Patient Not Engaged Transportation Medical Equipment No Medical Equipment data Advance Directives No Advance Directive data
--- OUTSIDE RECORDS SUMMARY | 2025-01-03 16:51 | XMS_ITS | CCD ---
Author Name Adele Ny NP Address [address] [place] [address] [facility] [address] [place] [address] Phone Organization [facility] [facility] Phone Care Team Providers Care Sizing End Bander Name Role Phone Adele Ny NP Primary Care Provider Unavaila ble Unavailable Chronic Care Management Unavaila ble Summary Purpose DataExchange Insurance Providers Payer name Policy type / Coverage type Covered libertarian ID Effective Begin Date Effective End Date E[employer] BCBS [facility] [id number] Unknown Unknown Family history Father Diagnosis Age At Onset Diabetes Unknown Social History Social History Element Codes Description Effec tive Dates Marital status Unknown 06/16/2024 Number of children Unknown 1 Living arrangements Unknown House 06/16/19 25 Number of children in household Unknown 0 06/16/2024 Number of adults in household Unknown 1 06/16/2024 Education level Unknown High School Graduate 05/19 Employment Unknown Retired from [employer] 05/19 Tobacco history Unknown Former User 06/16/[address]: 659014723 Never drinks alco hol 06/16/2024 Illegal/Recreational drug [...] devices ICD-10: Z99.89 ICD-9: V46.8 06/16/2024 Active Acute midline low back pain, unspecified whether sciatica present ICD-10: M54.50 ICD-9: 724.2 07/18/2024 Active COPD exacerbation ICD-10: J44.1 ICD-9: 491.21 07/18/2024 Active 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 disorder ICD-10: F33.1 ICD-9: 296.32 06/16/2024 Active Chronic obstructive pulmonar y disease, unspecified ICD-10: J44.9 06/16/2024 Active Encounter for general adult medical examination with abnormal findings ICD-10: Z00.01 ICD-9: V70.0 06/16/2024 Active Hypercholesteremia ICD-10: E78.00 ICD-9: 272.0 06/16/2024 Active Acute cerebrovascular accident ICD-10: I63.9 Active Patient not seen ICD-10: UXZ.01 ICD-9: UXZ.01 05/18/2024 Active Medications Medication Codes Instructions Start Date Stop Date Status Fill Instructions azithromycin 250 mg tablet RxNorm: 711002 Take 2 Tablet(s) Oral once daily on day 1, followed by 1 tablet daily for 4 days 07/19/19 25 025 Inactive ipratropium 0.5 mg-albuterol 3 mg (2.5 mg base)/3 mL nebulization soln RxNorm: 6134762 Administer 3 Milliliter(s) Inhalation every 4 to 6 hours 07/19/19 25 025 Inactive prednisone 20 mg tablet RxNorm: 217044 Take 2 Tablet(s) Oral every day 07/19/19 25 025 Inactive tizanidine 4 mg capsule RxNorm: 971148 Take 1 Capsule(s) Oral every day 06/16/19 25 Inactive albuterol sulfate HFA 90 mcg/actuation aerosol inhaler RxNorm: 7145256 Administer 2 Puff(s) Inhalation every 4 to 6 hours 06/16/19 25 Inactive hydrocodone 5 mg-acetaminophen 325 mg tablet RxNorm: 149672 Take 1 Tablet(s) Oral three times a day as needed for severe pain 06/16/19 025 Inactive bumetanide 1 mg tablet RxNorm: 458487 Take 1 Tablet(s) Oral once daily 06/16/19 026 Active atorvastatin (Lipitor) 40 MG tablet RxNorm: 111172 Take 1 tablet (40 mg total) by mouth 1 (one) time each day. 03/17/20 No Stop Date Active lactobacillus (Culturelle Immunity Support) capsule RxNorm: 5106374 Take 1 Capsule(s) Oral every day . 06/15/19 Active escitalopram (Lexapro) 5 MG tablet RxNorm: 063056 Take 5 Milligram(s) Oral every day . 06/15/19 25 Active alendronate (Fosamax) 70 MG tablet RxNorm: 538796 Take 70 mg by mouth every 7 (seven) days. Take in the morning with a full glass of water, on an empty stomach, and do not take anything else by mouth or lie down for the next 30 min. 06/15/19 25 Active aspirin 81 MG EC tablet RxNorm: 330149 Take 81 mg by mouth 1 (one) time each day. 06/15/19 25 Active omeprazole (PriLOSEC) [address] capsule RxNorm: 513466 Take 20 mg by mouth 1 (one) time each day. Do not crush or chew. 06/15/19 25 Active hydroCHLOROthiazide (HYDRODiuril) 25 MG tablet RxNorm: 739373 Take 25 Milligram(s) Oral every day . 06/15/19 25 025 Inactive lisinopril 5 MG tablet RxNorm: 515142 Take 2.5 mg by mouth 1 (one) time each day. 06/15/19 25 025 Inactive Medication Administered No Medication Administered data Procedures Procedure Codes Date Most recent systolic blood pressure <130 mm Hg C PT-4: 3074F 07/18/2024 Most recent diastolic blood pressure < 80 mm hg CPT-4: 3078F 07/18/2024 Vital Signs Date Vital 07/18/2024 Blood Pressure 1: 120/62 Code: 8480-6 BMI: 26.4 Code: 61605-4 Heart Rate 1: 72 bpm Height: 5'4 Code: 8302-2 Respiratory Rate: 18 bpm SpO2: 94% Temperature: 36.6 (C) / 97.8 (F) Weight: 154 lbs Code: 19884-7 Reason For Visit Reason For Visit Effective Dates Notes established patient visit 07/18/2024 Encounters Encounter Performer Location Location Address Codes Date ([address]) Home or Residence Visit Est Pt - [...] of falling[ICD10: Z91.81] Diagnosis: (R53.1-780.79) Weakness[ICD10: R53.1] Adele Ny [place] Office [address] [facility] [address] [place] [address] CPT-4: 85624 07/18/2024 Plan of Care Planned Activity Notes Codes [...] and agreeable to plan of care. 07/18/2024 Patient Education: Patient Medication Summary Completed 07/18/2024 Patient Education: ipratropium-albuterol - OptimizeRX Coupon [id number] https://www.[email or web address] /samplemd/resources/getR korince/61/[email or web address]. pdf Completed 07/18/2024 Patient Education: prednisone- OptimizeRX Coupon [id number] https://www.[employer] /samplemd/resources/getR selena/61/[email or web address] -[email or web address]. pdf Completed 07/18/2024 Appointment: Adele Ny WPtel: [phone] [address] 06/16/2024 Appointment: Adele Ny WPtel: [phone] [address] 05/18/2024 Referral: Pending DME Order Information 07/27/2024. Order Processed. Scheduling delivery. per Agency. Submitted in [place] Referral: Pending Pulmonology Referral Information Referral Patient Not Engaged Transportation Instructions Comment Date Please use your back brace. Call us [...] and agreeable to plan of care. 07/18/2024 Medical Equipment No Medical Equipment data Advance Directives No Advance Directive data
--- OUTSIDE RECORDS SUMMARY | 2025-01-03 16:52 | XMS_ITS | CCD ---
Author Name Adele Ny NP Address [address] [place] [address] [facility] [address] [place] [address] Phone Organization [facility] Phone Care Team Providers Care Machine I Trimmer Name Role Phone Adele Ny NP Primary Care Provider Unavaila ble Unavailable Chronic Care Management Unavaila ble Summary Purpose DataExchange Insurance Providers Payer name Policy type / Coverage type Covered libertarian ID Effective Begin Date Effective End Date E[employer] BCBS [facility] [id number] Unknown Unknown Family history Father Diagnosis Age At Onset Diabetes Unknown Social History Social History Element Codes Description Effec tive Dates Marital status Unknown 06/16/2024 Number of children Unknown 1 Living arrangements Unknown House 06/16/19 25 Number of children in household Unknown 0 06/16/2024 Number of adults in household Unknown 1 06/16/2024 Education level Unknown High School Graduate 05/19 Employment Unknown Retired from [employer] 05/19 Tobacco history Unknown Former User 06/16/[address]: 003260265 Never drinks alco hol 06/16/2024 Illegal/Recreational drug [...] mcg-62.5 mcg-25 mcg powder for inhalation RxNorm: 9042501 Inhale 1 Unit Dose Inhalation every day . After inhalation, rinse the mouth with water without swallowing. 08/17/19 25 026 Active ipratropium 0.5 mg-albuterol 3 mg (2.5 mg base)/3 mL nebulization soln RxNorm: 3484294 Administer 3 Milliliter(s) Inhalation every 4 to 6 hours 07/19/19 25 025 Inactive prednisone 20 mg tablet RxNorm: 655260 Take 2 Tablet(s) Oral every day 07/19/19 025 Inactive azithromycin 250 mg tablet RxNorm: 155480 Take 2 Tablet(s) Oral once daily on day 1, followed by 1 tablet daily for 4 days 07/19/19 Inactive tizanidine 4 mg capsule RxNorm: 476297 Take 1 Capsule(s) Oral every day 06/16/19 Inactive albuterol sulfate HFA 90 mcg/actuation aerosol inhaler RxNorm: 6387327 Administer 2 Puff(s) Inhalation every 4 to 6 hours 06/16/19 Inactive hydrocodone 5 mg-acetaminophen 325 mg tablet RxNorm: 712140 Take 1 Tablet(s) Oral three times a day as needed for severe pain 06/16/19 025 Inactive bumetanide 1 mg tablet RxNorm: 090708 Take 1 Tablet(s) Oral once daily 06/16/19 026 Active atorvastatin (Lipitor) 40 MG tablet RxNorm: 557309 Take 1 tablet (40 mg total) by mouth 1 (one) time each day. 03/17/20 No Stop Date Active lactobacillus (Culturelle Immunity Support) capsule RxNorm: 7416719 Take 1 Capsule(s) Oral every day . 06/15/19 25 Active escitalopram (Lexapro) 5 MG tablet RxNorm: 139333 Take 5 Milligram(s) Oral every day . 06/15/19 25 Active alendronate (Fosamax) 70 MG tablet RxNorm: 163909 Take 70 mg by mouth every 7 (seven) days. Take in the morning with a full glass of water, on an empty stomach, and do not take anything else by mouth or lie down for the next 30 min. 06/15/19 25 Active aspirin 81 MG EC tablet RxNorm: 834168 Take 81 mg by mouth 1 (one) time each day. 06/15/19 25 Active omeprazole (PriLOSEC) [address] capsule RxNorm: 641271 Take 20 mg by mouth 1 (one) time each day. Do not crush or chew. 06/15/19 25 Active hydroCHLOROthiazide (HYDRODiuril) 25 MG tablet RxNorm: 149249 Take 25 Milligram(s) Oral every day . 06/15/19 025 Inactive lisinopril 5 MG tablet RxNorm: 194741 Take 2.5 mg by mouth 1 (one) [...] CPT-4: 307F 07/18/2024 MED LIST DOCD IN [facility] CPT-4: 1159F 06/16/2024 RVW MEDS BY RX/DR IN [facility] CPT-4: 1160F 2024 Functional Status Assessed CPT-4: 1170F 06/16 Screening for clinical depre ssion is negative, follow-up plan not required CPT-4: G8510 06/16/2024 Most recent systolic blood pressure <130 mm Hg C PT-4: 307F 06/16/2024 Most recent diastolic blood pressure 80-89 mm hg CPT-4: 3079F 06/16/2024 Vital Signs Date Vital 08/16/2024 Blood Pressure 1: 98/60 Code: 8480-6 BMI: 25.4 Code: 14717-3 Heart Rate 1: 67 bpm Height: 5'4 Code: 8302-2 Respiratory Rate: 16 bpm SpO2: 90% Temperature: 36.6 (C) / 97.8 (F) Weight: 148 lbs Code: 29086-3 07/18/2024 Blood Pressure 1: 120/62 Code: 8480-6 BMI: 26.4 Code: 43231-6 Heart Rate 1: 72 bpm Height: 5'4 Code: 8302-2 Respiratory Rate: 18 bpm SpO2: 94% Temperature: 36.6 (C) / 97.8 (F) Weight: 154 lbs Code: 30300-2 06/16/2024 Blood Pressure 1: 120/80 Code: 8480-6 BMI: 26.5 Code: 67113-5 Heart Rate 1: 74 bpm Height: 5'4 Code: 8302-2 Respiratory Rate: 18 bpm SpO2: 94% Temperature: 36.6 (C) / 97.8 (F) Weight: 154 lbs 8 oz Code: 18307-9 Reason For Visit Reason For Visit Effective Dates Notes established patient visit 08/16/2024 established patient visit 07/18/2024 new patient welcome visit 06/16/2024 Encounters Encounter Performer Location Location Address Codes Date ([address]) Home or Residence Visit Est Pt - Moderate Level, 40 mins Diagnosis: (J44.9-496) Chronic obstructive pulmonary disease, unspecified[ICD10: J44.9] Diagnosis: Moderate episode of recurrent major depressive disorder[ICD10: F33.1] Diagnosis: PVD (peripheral vascular disease)[ICD10: I73.9] Diagnosis: (Z99.89-V46.8) Dependence on other enabling machines and devices[ICD10: Z99.89] Diagnosis: (Z91.81-V15.88) History of falling[ICD10: Z91.81] Diagnosis: (R53.1-780.79) Weakness[ICD10: R53.1] [facility] [address] [place] [address] [place] [address] CPT-4: 52173 08/16/2024 (57295) Home or Residence Visit Est Pt - [...] of falling[ICD10: Z91.81] Diagnosis: (R53.1-780.79) Weakness[ICD10: R53.1] [facility] Office [address] [place] [address] CPT-4: 10479 07/18/2024 (95605) Home or Residence Visit Est Pt - Moderate Level, 40 mins Diagnosis: Encounter for general adult medical examination with abnormal findings[ICD10: Z00.01] Diagnosis: Hypercholesteremia [ICD10: E78.00] Diagnosis: Moderate episode of recurrent major depressive disorder[ICD10: F33.1] Diagnosis: (J44.9-496) Chronic obstructive pulmonary disease, unspecified[ICD10: J44.9] Diagnosis: (Z99.89-V46.8) Dependence on other enabling machines and devices[ICD10: Z99.89] Diagnosis: (Z91.81-V15.88) History of falling[ICD10: Z91.81] Diagnosis: (R53.1-780.79) Weakness[ICD10: R53.1] [facility] Office [address] [place] [id number] CPT-4: 49921 06/16/2024 (23643) No answer/Patient not seen Diagnosis: Patient not seen[ICD10: UXZ.01] [facility] Office [address] [id number] CPT-4: 72260 05/18/2024 Plan of Care Planned Activity Notes [...] plan of care. 08/16/2024 Appointment: Adele Ny WPtel:[phone] [facility] [address] [id number] E031 08/16/2024 Patient Education: Patient Medication Summary [...] plan of care. 07/18/2024 Appointment: Adele Ny WPtel:[phone] [address] 07/18/2024 Patient Education: Patient Medication Summary Completed 07/18/2024 Patient Education: ipratropium-albutero l- OptimizeRX Coupon [id number] https://www.[employer]/s amplemd/resources/getResou rce/61/[email or web address]- [email or web address].pdf Completed 07/18/2024 Patient Education: prednisone- OptimizeRX Coupon [id number] https://www.[employer]/s Fix8md/resources/getResou rce/61/[email or web address]-09fv- [email or web address].pdf Completed 07/18/2024 Visit Plan: This is a [...] plan of care. 06/16/2024 Appointment: Adele Ny WPtel: [phone] [address] 06/16/2024 Patient Education: Patient Medication Summary Completed 06/16/2024 Appointment: Adele Ny WPtel:[phone] [address] 05/18/2024 Patient Education: Patient Medication Summary Completed 05/18/2024 Referral: Pending DME Order Information 07/27/2024. Order Processed. Scheduling delivery. per Agency. Submitted in [place] Referral: Pending Pulmonology Referral Information Referral Patient [...]
--- OUTSIDE RECORDS SUMMARY | 2025-01-03 16:52 | XMS_ITS | CCD ---
Author Name Adele Ny NP Address [address] [place] [address] [facility] [address] [place] [address] Phone Organization [facility] [facility] Phone Care Team Providers Care Picture Engraver Name Role Phone Adele Ny NP Primary Care Provider Unavaila ble Unavailable Chronic Care Management Unavaila ble Summary Purpose DataExchange Insurance Providers Payer name Policy type / Coverage type Covered republican ID Effective Begin Date Effective End Date ELEVANCE BCBS [facility] [id number] Unknown Unknown Family history Father Diagnosis Age At Onset Diabetes Unknown Social History Social History Element Codes Description Effec tive Dates Marital status Unknown 06/16/2024 Number of children Unknown 1 Living arrangements Unknown House 06/16/19 25 Number of children in household Unknown 0 06/16/2024 Number of adults in household Unknown 1 06/16/2024 Education level Unknown High School Graduate 05/19 Employment Unknown Retired from [employer] 05/19 Tobacco history Unknown Former User 06/16/[address]: 548506677 Never drinks alco hol 06/16/2024 Illegal/Recreational drug [...] mcg-62.5 mcg-25 mcg powder for inhalation RxNorm: 5474099 Inhale 1 Unit Dose Inhalation every day . After inhalation, rinse the mouth with water without swallowing. 08/17/19 25 026 Active ipratropium 0.5 mg-albuterol 3 mg (2.5 mg base)/3 mL nebulization soln RxNorm: 0581184 Administer 3 Milliliter(s) Inhalation every 4 to 6 hours 07/19/19 25 025 Inactive prednisone 20 mg tablet RxNorm: 765653 Take 2 Tablet(s) Oral every day 07/19/19 025 Inactive azithromycin 250 mg tablet RxNorm: 753688 Take 2 Tablet(s) Oral once daily on day 1, followed by 1 tablet daily for 4 days 07/19/19 Inactive tizanidine 4 mg capsule RxNorm: 939027 Take 1 Capsule(s) Oral every day 06/16/19 Inactive albuterol sulfate HFA 90 mcg/actuation aerosol inhaler RxNorm: 8119137 Administer 2 Puff(s) Inhalation every 4 to 6 hours 06/16/19 Inactive hydrocodone 5 mg-acetaminophen 325 mg tablet RxNorm: 470087 Take 1 Tablet(s) Oral three times a day as needed for severe pain 06/16/19 025 Inactive bumetanide 1 mg tablet RxNorm: 775523 Take 1 Tablet(s) Oral once daily 06/16/19 026 Active atorvastatin (Lipitor) 40 MG tablet RxNorm: 280913 Take 1 tablet (40 mg total) by mouth 1 (one) time each day. 03/17/20 No Stop Date Active lactobacillus (Culturelle Immunity Support) capsule RxNorm: 6729523 Take 1 Capsule(s) Oral every day . 06/15/19 25 Active escitalopram (Lexapro) 5 MG tablet RxNorm: 023616 Take 5 Milligram(s) Oral every day . 06/15/19 25 Active alendronate (Fosamax) 70 MG tablet RxNorm: 623556 Take 70 mg by mouth every 7 (seven) days. Take in the morning with a full glass of water, on an empty stomach, and do not take anything else by mouth or lie down for the next 30 min. 06/15/19 25 Active aspirin 81 MG EC tablet RxNorm: 873520 Take 81 mg by mouth 1 (one) time each day. 06/15/19 25 Active omeprazole (PriLOSEC) [address] capsule RxNorm: 386521 Take 20 mg by mouth 1 (one) time each day. Do not crush or chew. 06/15/19 25 Active hydroCHLOROthiazide (HYDRODiuril) 25 MG tablet RxNorm: 814310 Take 25 Milligram(s) Oral every day . 06/15/19 025 Inactive lisinopril 5 MG tablet RxNorm: 046876 Take 2.5 mg by mouth 1 (one) time each day. 06/15/19 025 Inactive Medication Administered No Medication Administered data Procedures Procedure Codes Date Most recent systolic blood pressure <130 mm Hg C PT-4: 3074F 08/16/2024 Most recent diastolic blood pressure < 80 mm hg CPT-4: 3078F 08/16/2024 Vital Signs Date Vital 08/16/2024 Blood Pressure 1: 98/60 Code: 8480-6 BMI: 25.4 Code: 43803-5 Heart Rate 1: 67 bpm Height: 5'4 Code: 8302-2 Respiratory Rate: 16 bpm SpO2: 90% Temperature: 36.6 (C) / 97.8 (F) Weight: 148 lbs Code: 71553-1 Reason For Visit Reason For Visit Effective Dates Notes established patient visit 08/16/2024 Encounters Encounter Performer Location Location Address Codes Date ([address]) Home or Residence Visit Est Pt - Moderate Level, 40 mins Diagnosis: (J44.9-496) Chronic obstructive pulmonary disease, unspecified[ICD10: J44.9] Diagnosis: Moderate episode of recurrent major depressive disorder[ICD10: F33.1] Diagnosis: PVD (peripheral vascular disease)[ICD10: I73.9] Diagnosis: (Z99.89-V46.8) Dependence on other enabling machines and devices[ICD10: Z99.89] Diagnosis: (Z91.81-V15.88) History of falling[ICD10: Z91.81] Diagnosis: (R53.1-780.79) Weakness[ICD10: R53.1] Adele Ny [place] Office [address] [facility] [address] [place] [address] CPT-4: 92295 08/16/2024 Plan of Care Planned Activity Notes Codes [...] and agreeable to plan of care. 08/16/2024 Patient Education: Patient Medication Summary Completed 08/16/2024 Appointment: Adele Ny WPtel: [phone] [place] [address] [id number] E031 07/18/2024 Appointment: Adele Ny WPtel: [phone] [place] [address] [id number] N031 06/16/2024 Appointment: Adele Ny WPtel: [phone] [place] [address] [id number] [place] N031 05/18/2024 Referral: Pending DME Order Information 07/27/2024. Order Processed. Scheduling delivery. per Agency. Submitted in [place] Referral: Pending Pulmonology Referral Information Referral Patient [...] and agreeable to plan of care. 08/16/2024 Medical Equipment No Medical Equipment data Advance Directives No Advance Directive data
--- OUTSIDE RECORDS SUMMARY | 2025-01-03 16:52 | XMS_ITS | CCD ---
Author Name Adele Ny NP Address [address] [place] [address] [facility] [address] [place] [address] Phone Organization [facility] Phone Care Team Providers Care Lens Polisher Name Role Phone Adele Ny NP Primary Care Provider Unavaila ble Unavailable Chronic Care Management Unavaila ble Summary Purpose DataExchange Insurance Providers Payer name Policy type / Coverage type Covered democrat ID Effective Begin Date Effective End Date ELEVANCE BCBS [facility] [id number] Unknown Unknown Family history Father Diagnosis Age At Onset Diabetes Unknown Social History Social History Element Codes Description Effec tive Dates Marital status Unknown 06/16/2024 Number of children Unknown 1 Living arrangements Unknown House 06/16/19 25 Number of children in household Unknown 0 06/16/2024 Number of adults in household Unknown 1 06/16/2024 Education level Unknown High School Graduate 05/19 Employment Unknown Retired from [employer] 05/19 Tobacco history Unknown Former User 06/16/[address]: [id number] Never drinks alco hol 06/16/2024 Illegal/Recreational drug [...] devices ICD-10: Z99.89 ICD-9: V46.8 06/16/2024 Active Chronic obstructive pulmonar y disease, unspecified ICD-10: J44.9 06/16/2024 Active Encounter for general adult medical examination with abnormal findings ICD-10: Z00.01 ICD-9: V70.0 06/16/2024 Active Hypercholesteremia ICD-10: E78.00 ICD-9: 272.0 06/16/2024 Active 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 disorder ICD-10: F33.1 ICD-9: 296.32 06/16/2024 Active Acute cerebrovascular accident ICD-10: I63.9 2 Active Patient not seen ICD-10: UXZ.01 ICD-9: UXZ.01 05/18/2024 Active Medications Medication Codes Instructions Start Date Stop Date Status Fill Instructions tizanidine 4 mg capsule RxNorm: 527778 Take 1 Capsule(s) Oral every day 06/16/19 25 025 Inactive albuterol sulfate HFA 90 mcg/actuation aerosol inhaler RxNorm: 1617969 Administer 2 Puff(s) Inhalation every 4 to 6 hours 06/16/19 25 025 Inactive hydrocodone 5 mg-acetaminophen 325 mg tablet RxNorm: 859384 Take 1 Tablet(s) Oral three times a day as needed for severe pain 06/16/19 25 025 Inactive bumetanide 1 mg tablet RxNorm: 146241 Take 1 Tablet(s) Oral once daily 06/16/19 25 026 Active atorvastatin (Lipitor) 40 MG tablet RxNorm: 371952 Take 1 tablet (40 mg total) by mouth 1 (one) time each day. 03/17/20 22 No Stop Date Active lactobacillus (Culturelle Immunity Support) capsule RxNorm: 8325216 Take 1 Capsule(s) Oral every day . 06/15/19 25 Active escitalopram (Lexapro) 5 MG tablet RxNorm: 559236 Take 5 Milligram(s) Oral every day . 06/15/19 25 Active alendronate (Fosamax) 70 MG tablet RxNorm: 799012 Take 70 mg by mouth every 7 (seven) days. Take in the morning with a full glass of water, on an empty stomach, and do not take anything else by mouth or lie down for the next 30 min. 06/15/19 25 Active aspirin 81 MG EC tablet RxNorm: 792036 Take 81 mg by mouth 1 (one) time each day. 06/15/19 25 Active omeprazole (PriLOSEC) [address] capsule RxNorm: 785971 Take 20 mg by mouth 1 (one) time each day. Do not crush or chew. 06/15/19 25 Active hydroCHLOROthiazide (HYDRODiuril) 25 MG tablet RxNorm: 903220 Take 25 Milligram(s) Oral every day . 06/15/19 25 025 Inactive lisinopril 5 MG tablet RxNorm: 424952 Take 2.5 mg by mouth 1 (one) time each day. 06/15/19 025 Inactive Medication Administered No Medication Administered data Procedures Procedure Codes Date MED LIST DOCD IN [facility] CPT-4: 1159F 06/16/2024 RVW MEDS BY RX/DR IN [facility] CPT-4: 1160F 2024 Functional Status Assessed CPT-4: 1170F 06/16 Screening for clinical depre ssion is negative, follow-up plan not required CPT-4: G8510 06/16/2024 Most recent systolic blood pressure <130 mm Hg C PT-4: 3074F 06/16/2024 Most recent diastolic blood pressure 80-89 mm hg CPT-4: 3079F 06/16/2024 Vital Signs Date Vital 06/16/2024 Blood Pressure 1: 120/80 Code: 8480-6 BMI: 26.5 Code: 46707-2 Heart Rate 1: 74 bpm Height: 5'4 Code: 8302-2 Respiratory Rate: 18 bpm SpO2: 94% Temperature: 36.6 (C) / 97.8 (F) Weight: 154 lbs 8 oz Code: 55685-2 Reason For Visit Reason For Visit Effective Dates Notes new patient welcome visit 06/16/2024 Encounters Encounter Performer Location Location Address Codes Date ([address]41) Home or Residence Visit Est Pt - [...] Z91.81] Diagnosis: (R53.1-780.79) Weakness[ICD10: R53.1] Adele Ny [place] [facility] [address] [facility] [address] [place] [address] CPT-4: 20597 06/16/2024 Plan of Care Planned Activity Notes Codes [...] and agreeable to plan of care. 06/16/2024 Patient Education: Patient Medication Summary Completed 06/16/2024 Appointment: Adele Ny WPtel: [phone] [address] [id number] 05/18/2024 Referral: Pending DME Order Information 07/27/2024. Order Processed. Scheduling delivery. per Agency. Submitted in [facility] Referral: Pending Pulmonology Referral Information Referral Patient Not Engaged Transportation Instructions Comment Date . This is a pleasant 78 year [...]
[2025-01-03 16:54] LABS: Bacteria,Urine Trace /lpf; Squamous Epithelial Cell,Urine Occasional #/hpf (0-5); WBC,Urine Occasional #/hpf (0-3)
--- NOTE | 2025-01-06 22:10 | PC.NURSE ---
urine culture result given to , aware and requested no changes to the prescriptions at this time, awaiting final results
--- NOTE | 2025-01-08 10:00 | PC.NURSE ---
pts final urine culture results discussed with . No change needed to treatment.
== END 2025-01-03 18:54 | disposition home or self-care (01) ==
PROVIDERS: Emergency Provider Student in an Organized Health Care Education/Training Program; PCP Internal Medicine Adolescent Medicine
DX: R10.84 Generalized abdominal pain (principal); K52.89 Other specified noninfective gastroenteritis and colitis; K59.00 Constipation, unspecified
CPT/HCPCS: 74177; 80053; 81001; 83605; 83690; 85025; 87086; 87088; 87186; 99284; Q9967